=== PATIENT | female | born 1935 | race Caucasian/White ===

== ENCOUNTER 2016-04-09 22:05 | Inpatient (IN) | payer BC, MEDICARE ==
[2016-04-09] MEDS ORDERED: SODIUM CHLORIDE 0.9% 1,000 ML IV STA ×2 (23:28)
--- NOTE | 2016-04-09 23:34 | ED ---
General Adult HPI - General Chief complaint: Recheck/Abnormal Lab/Rx Stated complaint: Dehydration Time Seen by Provider: 04/09/16 22:33 Source: patient, family, EMS, RN notes reviewed, old records reviewed Mode of arrival: EMS Limitations: no limitations - History of Present Illness Initial comments: Chief complaint and history of present illness this is a 72-year-old female with dementia. Here with the . He brought her in because she's been not eating very much for the last 3 days barely drinking barely eating. He also reports that she stood for 30 straight hours of the hallway only going to the toilet and then back. Yesterday she fell asleep at 4 PM awakened today at 4 PM. She was thirsty. Reportedly diagnosed with dementia some 6 months ago. The patient does know that she is in the hospital and she does know her ' s name. She has no answer as to why she stood for 30 hours. States she is thirsty and hungry at this time. Patient's lips are dry and cracked tongue is dry - Related Data Home Medications Medication Instructions Recorded Confirmed Calcium Carbonate/Vitamin D3 1 tab PO DAILY 06/17/15 06/17/15 [Calcium 600-Vit D3 400 Tablet] Desmopressin [Ddavp] 0.2 mg PO HS 06/17/15 06/17/15 Escitalopram [Lexapro] 15 mg PO DAILY 06/17/15 04/09/16 Famotidine [Pepcid] 40 mg PO BID 06/17/15 04/09/16 Fluticasone Nasal Barry [Flonase 2 spray EA NOSTRIL DAILY 06/17/15 04/09/16 Nasal Barry] LORazepam [Ativan] 0.5 mg PO Q8H PRN 06/17/15 04/09/16 Mirabegron [Myrbetriq] 50 mg PO DAILY 06/17/15 06/17/15 Multivitamins, Thera [Multivitamin] 1 tab PO DAILY 06/17/15 06/17/15 Polyethylene Glycol 3350 [Miralax] 17 gm PO DAILY PRN 06/17/15 06/17/15 Previous Rx's Medication Instructions Recorded Donepezil [Aricept] 5 mg PO HS #7 tab 01/12/15 Memantine [Namenda] 5 mg PO DAILY #7 tab 01/12/15 busPIRone HCl [Buspar] 10 mg PO TID #21 tab 01/12/15 Aspirin 81 mg PO DAILY #30 chew 06/21/15 Levofloxacin [Levaquin] 500 mg PO Q24H #5 tab 06/21/15 Spironolactone [Aldactone] 25 mg PO DAILY #30 tab 06/21/15 amLODIPine [Norvasc] 5 mg PO DAILY #30 tab 06/21/15 guaiFENesin SYRUP 100MG/5ML 200 mg PO Q6H PRN #12 cup 06/21/15 [Robitussin] Allergies Allergy/AdvReac Type Severity Reaction Status Date / Time Benzodiazepines AdvReac SEVERE LEG Verified 06/17/15 16:25 CRAMPS diazepam AdvReac Hallucinati Verified 06/17/15 16:25 ons lithium [[place]] AdvReac Nausea & Verified 06/17/15 16:25 Vomiting simvastatin AdvReac SEVERE LEG Verified 06/17/15 16:25 CRAMPS sulfamethoxazole AdvReac Vomiting Verified 06/17/15 16:25 [From Bactrim] trimethoprim [From Bactrim] AdvReac Vomiting Verified 06/17/15 16:25 Review of Systems ROS Statement: Those systems with pertinent positive or pertinent negative responses have been documented in the HPI. Review of systems. The patient's denying head ache or chest pain denies nausea vomiting says he did not notice any. He states she has frequent urinary tract infections. The patient is not entirely cooperative or is unable to cooperate. Past medical problems as noted per previous charts includes CHF, I disorder, GERD, hyperlipidemia and hypertension. Osteoarthritis previous pneumonia hypothyroidism. The patient's surgeries include tonsils and adenoids, breast surgery, hysterectomy, joint replacement. Family history unable to obtain at this time. Patient reportedly has ALLERGIES to benzodiazepines, diazepam, lithium, simvastatin, sulfamethoxazole. ROS Other: All systems not noted in ROS Statement are negative. Past Medical History Past Medical History: Heart Failure, Eye Disorder, GERD/Reflux, Hyperlipidemia, Hypertension, Osteoarthritis (OA), Pneumonia, Thyroid Disorder Additional Past Medical History / Comment(s): 06-17-15 ADMITTED WITH COMM ACQUIRED BACTERIAL PNE/HYPOXIA, FAILED O/P TX. varicose veins, macular degeneration, glaucoma, hx GENITAL STD-PER PAST MED HX. BRONCHITIS, DJD, MULTIPLE UTI'S STRESS INCOT OF URINE, CONSTIPATION,HIATAL HERNIA PT STATED " THINKS SHE WAS TOLD SHE MAY HAVE A SMALL AORTIC ANUERYSM" NOT SURE. History of Any Multi-Drug Resistant Organisms: None Reported Past Surgical History: Adenoidectomy, Breast Surgery, Hysterectomy, Joint Replacement, Orthopedic Surgery, Tonsillectomy Additional Past Surgical History / Comment(s): contigen injections into bladder , Lt TKA, Bilat cataracts removed, rt breast biopsy-NEG, rt shoulder arthroscopy , colonoscopy/EGD. Past Anesthesia/Blood Transfusion Reactions: No Reported Reaction Past Psychological History: Anxiety, Depression Smoking Status: Former smoker Past Alcohol Use History: None Reported Additional Past Alcohol Use History / Comment(s): QUIT SMOKING 1994, SMOKED >20 YEARS UP TO 1 PPD Past Drug Use History: None Reported - Past Family History Father Family Medical History: Cancer Brother(s) Family Medical History: Cancer General Exam - General Exam Comments Initial Comments: General: The patient is awake continuously smacks her lips. Looks around nervously. Does not seem to be paying attention with and without masses specific questioning she does answer. Vital signs temp 97.9 pulse 63 respiratory rate 18 pulse ox 95% room air blood pressure 225/88. Eye: Pupils are equal, round and reactive to light, extra-ocular movements are intact ; there is normal conjunctiva bilaterally. No signs of icterus. Ears, nose, mouth and throat: Dry cracked lower lip and dry tongue. Patient wears dentures. Neck: The neck is supple, there is no tenderness Cardiovascular: There is a regular rate and rhythm. No murmur, rub or gallop is appreciated. Respiratory: Lungs are clear to auscultation, respirations are non-labored, breath sounds are equal. No wheezes, stridor, rales, or rhonchi. Gastrointestinal: No guarding with palpation. No organomegaly. Hypoactive bowel sounds. Back: No complaint of back pain. Musculoskeletal: Normal ROM, no tenderness, minimal edema There is no calf tenderness or swelling. Sensation intact. Pulses equal bilaterally 2+. Neurological: Neurologically moving all extremities. Following commands. But seems distant. Appears anxious with a confused look. Skin: Skin is warm and dry and no rashes or lesions are noted. Psychiatric: States she's not depressed. Limitations: no limitations Course Vital Signs 04/09/16 22:11 Temperature 97.9 F Pulse Rate 63 Respiratory 18 Rate Blood Pressure 225/88 O2 Sat by Pulse 95 Oximetry EKG Findings - EKG Comments: EKG Findings:: EKG was done and reviewed at 00 14 a.m. showing sinus rhythm with a first-degree AV block rate 61 there is no ectopy no ischemic changes. Was 254 QRS 98 QT [address] Mcclendon Medical Decision Making - Medical Decision Making Medical decision making patient's white count 8 point 0.4 hemoglobin 14.7 medical 43 with an INR 1.3. Potassium 3.8 to BUN 20 creatinine 0.7 GFR greater than 60. MB fraction 2.8 troponin less than 0.012. Urine shows evidence of urinary tract infection with 1 rbc and 88 WBCs. Patient will be started on Levaquin. Admitted the hospital mental changes. - Lab Data Result diagrams: 04/10/16 00:00 04/10/16 00:00 Lab Results 04/10/16 04/10/16 04/10/16 Range/Units 00:00 00:00 00:00 WBC 8.4 (3.8-10.6) k/uL RBC 4.97 (3.80-5.40) m/uL Hgb 14.7 (11.4-16.0) gm/dL Hct 43.8 (34.0-46.0) % MCV 88.0 (80.0-100.0) fL MCH 29.5 (25.0-35.0) pg MCHC 33.5 (31.0-37.0) g/dL RDW 13.2 (11.5-15.5) % Plt Count 257 (150-450) k/uL Neutrophils % 63 % Lymphocytes % 21 % Monocytes % 12 % Eosinophils % 2 % Basophils % 1 % Neutrophils # 5.3 (1.3-7.7) k/uL Lymphocytes # 1.7 (1.0-4.8) k/uL Monocytes # 1.0 (0-1.0) k/uL Eosinophils # 0.1 (0-0.7) k/uL Basophils # 0.1 (0-0.2) k/uL PT (9.0-12.0) sec INR (<1.1) APTT (22.0-30.0) sec Sodium 143 (137-145) mmol/L Potassium 3.8 (3.5-5.1) mmol/L Chloride 109 H (98-107) mmol/L Carbon Dioxide 23 (22-30) mmol/L Anion Gap 11 mmol/L BUN 20 H (7-17) mg/dL Creatinine 0.70 (0.52-1.04) mg/dL Est GFR (MDRD) Af Amer >60 (>60 ml/min/1.73 sqM) Est GFR (MDRD) Non-Af >60 (>60 ml/min/1.73 sqM) Glucose 94 (74-99) mg/dL Plasma Lactic Acid Star (0.7-2.0) mmol/L Calcium 9.7 (8.4-10.2) mg/dL Phosphorus 2.1 L (2.5-4.5) mg/dL Magnesium 2.1 (1.6-2.3) mg/dL Total Bilirubin 1.6 H (0.2-1.3) mg/dL AST 42 H (14-36) U/L ALT 35 (9-52) U/L Alkaline Phosphatase 82 (38-126) U/L Total Creatine Kinase 253 H (30-135) U/L CK-MB (CK-2) 2.8 H* (0.0-2.4) ng/mL CK-MB (CK-2) Rel Index 1.1 Troponin I <0.012 (0.000-0.034) ng/mL Total Protein 6.5 (6.3-8.2) g/dL Albumin 4.0 (3.5-5.0) g/dL Urine Color Urine Appearance (Clear) Urine pH (5.0-8.0) Ur Specific Calvert (1.001-1.035) Urine Protein (Negative) Urine Glucose (UA) (Negative) Urine Ketones (Negative) Urine Blood (Negative) Urine Nitrate (Negative) Urine Bilirubin (Negative) Urine Urobilinogen (<2.0) mg/dL Ur Leukocyte Esterase (Negative) Urine RBC (0-5) /hpf Urine WBC (0-5) /hpf Ur Squamous Epith Cells (0-4) /hpf Urine Bacteria (None) /hpf Hyaline Casts (0-2) /lpf Urine Mucus (None) /hpf 04/10/16 04/10/16 04/10/16 Range/Units 00:00 00:00 00:10 WBC (3.8-10.6) k/uL RBC (3.80-5.40) m/uL Hgb (11.4-16.0) gm/dL Hct (34.0-46.0) % MCV (80.0-100.0) fL MCH (25.0-35.0) pg MCHC (31.0-37.0) g/dL RDW (11.5-15.5) % Plt Count (150-450) k/uL Neutrophils % % Lymphocytes % % Monocytes % % Eosinophils % % Basophils % % Neutrophils # (1.3-7.7) k/uL Lymphocytes # (1.0-4.8) k/uL Monocytes # (0-1.0) k/uL Eosinophils # (0-0.7) k/uL Basophils # (0-0.2) k/uL PT 12.9 H (9.0-12.0) sec INR 1.3 (<1.1) APTT 22.1 (22.0-30.0) sec Sodium (137-145) mmol/L Potassium (3.5-5.1) mmol/L Chloride (98-107) mmol/L Carbon Dioxide (22-30) mmol/L Anion Gap mmol/L BUN (7-17) mg/dL Creatinine (0.52-1.04) mg/dL Est GFR (MDRD) Af Amer (>60 ml/min/1.73 sqM) Est GFR (MDRD) Non-Af (>60 ml/min/1.73 sqM) Glucose (74-99) mg/dL Plasma Lactic Acid Star 1.2 (0.7-2.0) mmol/L Calcium (8.4-10.2) mg/dL Phosphorus (2.5-4.5) mg/dL Magnesium (1.6-2.3) mg/dL Total Bilirubin (0.2-1.3) mg/dL AST (14-36) U/L ALT (9-52) U/L Alkaline Phosphatase (38-126) U/L Total Creatine Kinase (30-135) U/L CK-MB (CK-2) (0.0-2.4) ng/mL CK-MB (CK-2) Rel Index Troponin I (0.000-0.034) ng/mL Total Protein (6.3-8.2) g/dL Albumin (3.5-5.0) g/dL Urine Color Yellow Urine Appearance Cloudy H (Clear) Urine pH 6.5 (5.0-8.0) Ur Specific Calvert 1.016 (1.001-1.035) Urine Protein Trace H (Negative) Urine Glucose (UA) Negative (Negative) Urine Ketones 2+ H (Negative) Urine Blood Negative (Negative) Urine Nitrate Negative (Negative) Urine Bilirubin Negative (Negative) Urine Urobilinogen <2.0 (<2.0) mg/dL Ur Leukocyte Esterase Large H (Negative) Urine RBC 2 (0-5) /hpf Urine WBC 88 H (0-5) /hpf Ur Squamous Epith Cells <1 (0-4) /hpf Urine Bacteria Many H (None) /hpf Hyaline Casts 10 H (0-2) /lpf Urine Mucus Moderate H (None) /hpf Disposition Clinical Impression: Urinary tract infection, General weakness Disposition: ADMITTED IP TO THIS HOSP
[2016-04-10 00:27] LABS: Basophils # (A) 0.1 k/uL (0-0.2); Basophils % (A) 1 %; CH 30.3; CHCM 34.5; Eosinophils # (A) 0.1 k/uL (0-0.7); Eosinophils % (A) 2 %; HCT 43.8 % (34.0-46.0); HGB 14.7 gm/dL (11.4-16.0); Luc # (Auto) 0.22; Luc % (Auto) 3; Lymphocytes # (A) 1.7 k/uL (1.0-4.8); Lymphocytes % (A) 21 %; MCH 29.5 pg (25.0-35.0); MCHC 33.5 g/dL (31.0-37.0); Mean Platelet Volume 6.2; Monocytes % (A) 12 %; Neutrophils # (A) 5.3 k/uL (1.3-7.7); Neutrophils % (A) 63 %; RBC 4.97 m/uL (3.80-5.40); RDW 13.2 % (11.5-15.5); WBC 8.4 k/uL (3.8-10.6); WBC (Perox) 8.38
[2016-04-10 00:28] LABS: ALT 35 U/L (9-52); AST 42 U/L (14-36); Alkaline Phosphatase 82 U/L (38-126); Anion Gap 11 mmol/L; Blood Urea Nitrogen 20 mg/dL (7-17); Calcium 9.7 mg/dL (8.4-10.2); Carbon Dioxide 23 mmol/L (22-30); Chloride 109 mmol/L (98-107); Glucose 94 mg/dL (74-99); Magnesium 2.1 mg/dL (1.6-2.3); Non-African American GFR(MDRD) >60 (>60 ml/min/1.73 sqM); Phosphorous 2.1 mg/dL (2.5-4.5); Potassium 3.8 mmol/L (3.5-5.1); Sodium 143 mmol/L (137-145); Total Bilirubin 1.6 mg/dL (0.2-1.3); Total Protein 6.5 g/dL (6.3-8.2)
[2016-04-10 00:31] LABS: Creatine Kinase 253 U/L (30-135)
[2016-04-10 00:35] LABS: Appearance,Urine Cloudy (Clear); Bacteria,Urine Many /hpf; Bilirubin,Urine Negative (Negative); Glucose,Urine (UA) Negative (Negative); Ketones,Urine 2+ (Negative); Leukocyte Esterase,Urine Large (Negative); Mucus,Urine Moderate /hpf; Nitrite,Urine Negative (Negative); PH, Urine 6.5 (5.0-8.0); Particle Count 110322; Protein,Urine Trace (Negative); RBC,Urine 2 /hpf (0-5); Specific Gravity,Urine 1.016 (1.001-1.035); Squamous Epithelial Cell,Urine <1 /hpf (0-4); UA Billing (MACRO vs. MICRO) MICRO; Urobilinogen,Urine <2.0 mg/dL (<2.0); WBC,Urine 88 /hpf (0-5)
[2016-04-10 00:38] LABS: INR 1.3 (<1.1); Partial Thromboplastin Time 22.1 sec (22.0-30.0); Prothrombin Time 12.9 sec (9.0-12.0)
[2016-04-10 00:43] LABS: Troponin I <0.012 ng/mL (0.000-0.034)
[2016-04-10 00:44] LABS: Creatine Kinase MB 2.8 ng/mL (0.0-2.4)
[2016-04-10] MEDS ORDERED: LEVOFLOXACIN 500MG-D5W PMX 500 MG in DEXTROSE/WATER 1 100ML.BAG IVPB STA (01:28)
[2016-04-10] MEDS ORDERED: ACETAMINOPHEN TAB 325 MG TAB PO PRN (01:30)
[2016-04-10] MEDS ORDERED: NALOXONE 0.4 MG/ML 1 ML VIAL IV PRN (01:30)
--- NOTE | 2016-04-10 01:38 | XR ---
EXAMINATION TYPE: XR chest 2V DATE OF EXAM: 04/10/2016 12:30 AM COMPARISON: 06/18/2015 HISTORY: Weakness TECHNIQUE: Frontal and lateral views of the chest are obtained. FINDINGS: Chronic lung changes are suggested bilaterally. There is no focal air space opacity, pleur al effusion, or pneumothorax seen. The cardiac silhouette size is within normal limits. Mild wedge c ompression deformities are noted in the mid to upper thoracic vertebrae and are most likely old. Mult ilevel degenerative changes are present in the thoracic spine. IMPRESSION: No acute cardiopulmonary process. No significant interval change.
[2016-04-10] MEDS ORDERED: LORazepam 0.5 MG TAB PO PRN (01:39)
[2016-04-10 03:16] VITALS: BMI 24.0
[2016-04-10] MEDS: SODIUM CHLORIDE 0.9% 1,000 ML IV SCH ×3 (04:56→20:34)
[2016-04-10] MEDS: ESCITALOPRAM 10 MG TAB PO SCH (08:27)
[2016-04-10] MEDS: OXYBUTYNIN CHLORIDE 5 MG TAB PO SCH ×2 (08:27→20:34)
[2016-04-10] MEDS: SPIRONOLACTONE 25 MG TAB PO SCH (08:28)
[2016-04-10] MEDS: amLODIPine 5 MG TAB PO SCH (08:28)
[2016-04-10] MEDS: busPIRone HCl 10 MG TAB PO SCH ×3 (08:28→20:34)
[2016-04-10] MEDS: FLUTICASONE 50MCG/SPRAY NASAL 16GM EA NOSTRIL SCH (08:29)
[2016-04-10] MEDS ORDERED: PANTOPRAZOLE 40 MG/10 ML VIAL IV SCH (09:00)
[2016-04-10] MEDS: POLYETHYLENE GLYCOL 3350 17 GM POWD.PACK PO SCH (09:27)
[2016-04-10] MEDS: LISINOPRIL 20 MG TAB PO SCH (11:33)
[2016-04-10] MEDS: CALCIUM CARB-VIT D 500MG-200UN 1 EACH TAB PO SCH (11:33)
[2016-04-10] MEDS: MULTIVITAMINS, THERA 1 EACH TAB PO SCH (11:33)
--- NOTE | 2016-04-10 11:33 | P.HPIM ---
History of Present Illness H&P Date: 04/10/16 Chief Complaint: Not feeling well This is a 80-year-old female, patient of Dr. Sellers. She has a known past medical history of dementia, hypertension, hyperlipidemia and hypothyroidism. Patient was brought into the emergency room by her . He was concerned because she has not been eating very much over the last 3 days it barely drinking any water. He then reported per ER that she stood 30 hours straight in the hallway only going to the toilet and then back. Yesterday she fell asleep at 4 PM and awaken today at 4 PM. Patient is currently alert and orientated to 3. But does not know why she is in the hospital. She is a poor historian. She denies any pain. Denies any nausea or vomiting. Denies any abdominal pain. Denies any chest pain or shortness of breath. Denies any burning with urination or and frequency or urgency or hesitancy. Patient was found to have a UTI and was started on IV Levaquin in the emergency room. Urine culture is pending. She also had evidence of a hypertensive emergency on admission with a blood pressure of 225/88. He was restarted on blood pressure medications from home and blood pressure is currently 135/72. She also had some evidence of dehydration was started on IV fluids. Patient is currently resting comfortably in bed. Bedside sitter is present. Also note the patient denies any fevers chills or sweats. Denies any diarrhea. Review of Systems Please refer to HPI otherwise all other review systems are negative Past Medical History Past Medical History: Heart Failure, Eye Disorder, GERD/Reflux, Hyperlipidemia, Hypertension, Osteoarthritis (OA), Pneumonia, Thyroid Disorder Additional Past Medical History / Comment(s): 06-17-15 ADMITTED WITH COMM ACQUIRED BACTERIAL PNE/HYPOXIA, FAILED O/P TX. varicose veins, macular degeneration, glaucoma, hx GENITAL STD-PER PAST MED HX. BRONCHITIS, DJD, MULTIPLE UTI'S STRESS INCOT OF URINE, CONSTIPATION,HIATAL HERNIA PT STATED " THINKS SHE WAS TOLD SHE MAY HAVE A SMALL AORTIC ANUERYSM" NOT SURE. History of Any Multi-Drug Resistant Organisms: None Reported Past Surgical History: Adenoidectomy, Breast Surgery, Hysterectomy, Joint Replacement, Orthopedic Surgery, Tonsillectomy Additional Past Surgical History / Comment(s): contigen injections into bladder , Lt TKA, Bilat cataracts removed, rt breast biopsy-NEG, rt shoulder arthroscopy , colonoscopy/EGD. Past Anesthesia/Blood Transfusion Reactions: No Reported Reaction Past Psychological History: Anxiety, Depression Smoking Status: Former smoker Past Alcohol Use History: None Reported Additional Past Alcohol Use History / Comment(s): QUIT SMOKING 1994, SMOKED >20 YEARS UP TO 1 PPD Past Drug Use History: None Reported - Past Family History Father Family Medical History: Cancer Brother(s) Family Medical History: Cancer Medications and Allergies Home Medications Medication Instructions Recorded Confirmed Type Escitalopram [Lexapro] 10 mg PO DAILY 06/17/15 04/10/16 History ARIPiprazole [Abilify] 1 mg PO HS 04/10/16 04/10/16 History Acyclovir [Zovirax] 800 mg PO DAILY 04/10/16 04/10/16 History Calcium Carbonate/Vitamin D3 1 tab PO DAILY 04/10/16 04/10/16 History [Calcium 600-Vit D3 200 Tablet] Levothyroxine Sodium [Synthroid] 125 mcg PO DAILY 04/10/16 04/10/16 History Memantine HCl [Namenda] 5 mg PO HS 04/10/16 04/10/16 History Multivit-Min/FA/Lycopene/Lut 1 tab PO DAILY 04/10/16 04/10/16 History [Centrum Silver Tablet] Niacin 500 mg PO DAILY 04/10/16 04/10/16 History Polyethylene Glycol 3350 [Miralax] 17 gm PO DAILY 04/10/16 04/10/16 History Quinapril HCl [Accupril] 20 mg PO DAILY 04/10/16 04/10/16 History Spironolactone [Aldactone] 50 mg PO DAILY 04/10/16 04/10/16 History Timolol 0.5% Ophth Soln [Timoptic 1 drop BOTH EYES DAILY 04/10/16 04/10/16 History 0.5% Ophth Soln] lamoTRIgine [LaMICtal] 25 mg PO BID 04/10/16 04/10/16 History Allergies Allergy/AdvReac Type Severity Reaction Status Date / Time Benzodiazepines AdvReac SEVERE LEG Verified 06/17/15 16:25 CRAMPS diazepam AdvReac Hallucinati Verified 06/17/15 16:25 ons lithium [[place]] AdvReac Nausea & Verified 06/17/15 16:25 Vomiting simvastatin AdvReac SEVERE LEG Verified 06/17/15 16:25 CRAMPS sulfamethoxazole AdvReac Vomiting Verified 06/17/15 16:25 [From Bactrim] trimethoprim [From Bactrim] AdvReac Vomiting Verified 06/17/15 16:25 Physical Exam Vitals: Vital Signs Temp Pulse Pulse Resp BP BP Pulse Ox 04/10/16 07:00 98.3 F 60 16 178/79 97 04/10/16 03:00 98.0 F 60 16 149/75 98 04/10/16 01:37 97.2 F L 64 18 135/72 Intake and Output 04/09/16 04/10/16 04/10/16 22:59 06:59 14:59 Intake Total 300 Balance 300 Intake: IV 300 Sodium Chloride 0.9% 1, 300 000 ml @ 100 mls/hr IV . Q10H PAYAM Rx#:[id number] Other: Voiding Method Toilet Incontinent # Voids 1 # Bowel Movements 1 Weight 63.5 kg Head normocephalic Neck supple Lungs clear to auscultation bilaterally no wheezing or crackles Heart regular rate and rhythm S1-S2, no rub or gallop Abdomen is soft nontender nondistended positive bowel sounds no hepatosplenomegaly Extremities no edema Neuro alert and orientated to 3 Results CBC & Chem 7: 04/10/16 00:00 04/10/16 00:00 Thrombosis Risk Factor Assmnt - Choose All That Apply Any of the Below Risk Factors Present?: No Other Risk Factors: Yes Each Risk Factor Represents 3 Points: Age 75 years or older Thrombosis Risk Factor Assessment Total Risk Factor Score: 3 Thrombosis Risk Factor Assessment Level: Moderate Risk Assessment and Plan Plan: 1. UTI: Patient started on Levaquin. Awaiting urine culture. Continue with IV fluids 2. Hypertensive emergency on admission. Blood pressures have normalized. Resume home BP meds 3. Essential hypertension 4. Mild dehydration present on admission. Continue with IV fluids. 5. Generalized anxiety disorder and depression. 6. Dementia continue Aricept 7. Altered mental status changes: Likely a metabolic encephalopathy due to UTI GI prophylaxis Protonix and DVT prophylaxis Lovenox Time with Patient: Greater than 30 (Greater than 50% of the total time spent in counseling and coordination of care.I performed an examination of the patient and discussed their management with the physician Rn Or Lpn. I have reviewed the Physician Rn Or Lpn's notes and agree with the documented findings and plan of care)
[2016-04-10] MEDS: NIACIN TR 500 MG CAPSULE.ER PO SCH (11:34)
[2016-04-10] MEDS: LEVOTHYROXINE 125 MCG TAB PO SCH (11:45)
[2016-04-10] MEDS: ARIPiprazole 2 MG TAB PO SCH (20:32)
[2016-04-10] MEDS: lamoTRIgine 25 MG TAB PO SCH (20:33)
[2016-04-10] MEDS: DONEPEZIL 5 MG TAB PO SCH (20:33)
[2016-04-10] MEDS: MEMANTINE 5 MG TAB PO SCH (20:34)
[2016-04-11] MEDS: LEVOFLOXACIN 500 MG TAB PO SCH ×2 (00:48→20:13)
[2016-04-11] MEDS: LEVOTHYROXINE 125 MCG TAB PO SCH (06:35)
[2016-04-11] MEDS ORDERED: LEVOFLOXACIN 500MG-D5W PMX 500 MG in DEXTROSE/WATER 1 100ML.BAG IVPB SCH (07:00)
[2016-04-11] MEDS: ACYCLOVIR 800 MG TAB PO SCH (08:13)
[2016-04-11] MEDS: lamoTRIgine 25 MG TAB PO SCH ×2 (08:13→20:13)
[2016-04-11] MEDS: POLYETHYLENE GLYCOL 3350 17 GM POWD.PACK PO SCH (08:13)
[2016-04-11] MEDS: PANTOPRAZOLE 40 MG TABLET PO SCH (08:13)
[2016-04-11] MEDS: SPIRONOLACTONE 25 MG TAB PO SCH (08:14)
[2016-04-11] MEDS: ASPIRIN 81 MG CHEW PO SCH (08:14)
[2016-04-11] MEDS: ENOXAPARIN 40 MG/0.4 ML SYRINGE SQ SCH (08:14)
[2016-04-11] MEDS: LISINOPRIL 20 MG TAB PO SCH (08:14)
[2016-04-11] MEDS: OXYBUTYNIN CHLORIDE 5 MG TAB PO SCH ×2 (08:14→20:12)
[2016-04-11] MEDS: busPIRone HCl 10 MG TAB PO SCH ×3 (08:14→20:13)
[2016-04-11] MEDS: ESCITALOPRAM 10 MG TAB PO SCH (08:14)
[2016-04-11] MEDS: amLODIPine 5 MG TAB PO SCH (08:14)
[2016-04-11] MEDS: FLUTICASONE 50MCG/SPRAY NASAL 16GM EA NOSTRIL SCH (08:15)
[2016-04-11] MEDS: TIMOLOL 0.5% OPHTH DROPS 5 ML BTL BOTH EYES SCH (08:49)
[2016-04-11] MEDS: SODIUM CHLORIDE 0.9% 1,000 ML IV SCH ×2 (10:06→19:30)
[2016-04-11] MEDS: MULTIVITAMINS, THERA 1 EACH TAB PO SCH (11:56)
[2016-04-11] MEDS: CALCIUM CARB-VIT D 500MG-200UN 1 EACH TAB PO SCH (11:56)
[2016-04-11] MEDS: NIACIN TR 500 MG CAPSULE.ER PO SCH (11:56)
[2016-04-11 14:30] LABS: Basophils # (A) 0.1 k/uL (0-0.2); Basophils % (A) 1 %; CH 29.7; CHCM 32.6; Eosinophils # (A) 0.3 k/uL (0-0.7); Eosinophils % (A) 6 %; HCT 48.2 % (34.0-46.0); HDW 2.37; HGB 15.5 gm/dL (11.4-16.0); Luc # (Auto) 0.08; Luc % (Auto) 1; Lymphocytes % (A) 19 %; MCH 29.3 pg (25.0-35.0); MCV 91.4 fL (80.0-100.0); Mean Platelet Volume 6.7; Monocytes # (A) 0.2 k/uL (0-1.0); Monocytes % (A) 3 %; Neutrophils # (A) 3.8 k/uL (1.3-7.7); Neutrophils % (A) 70 %; RBC 5.28 m/uL (3.80-5.40); RDW 13.1 % (11.5-15.5); WBC 5.5 k/uL (3.8-10.6); WBC (Perox) 5.48
[2016-04-11 14:44] LABS: ALT 31 U/L (9-52); AST 36 U/L (14-36); Alkaline Phosphatase 70 U/L (38-126); Anion Gap 11 mmol/L; Blood Urea Nitrogen 13 mg/dL (7-17); Calcium 9.9 mg/dL (8.4-10.2); Carbon Dioxide 23 mmol/L (22-30); Chloride 108 mmol/L (98-107); Glucose 76 mg/dL (74-99); Non-African American GFR(MDRD) >60 (>60 ml/min/1.73 sqM); Potassium 4.7 mmol/L (3.5-5.1); Sodium 142 mmol/L (137-145); Total Bilirubin 0.8 mg/dL (0.2-1.3); Total Protein 6.9 g/dL (6.3-8.2)
--- NOTE | 2016-04-11 17:37 | P.PN ---
Subjective Principal diagnosis: Urinary tract infection Patient is a 80-year-old female admitted to [facility] was evidence of urinary tract infection, mental status changes due to metabolic encephalopathy, she has been maintained on IV Levaquin urine culture is positive for gram-negative bacilli awaiting full culture results with sensitivity. Clinically patient is doing better she is alert less confused she has baseline dementia and patient is close to her baseline. Objective - Vital Signs Vital signs: Vital Signs Temp 98.2 F 04/11/16 15:00 Pulse 52 L 04/11/16 15:00 Resp 16 04/11/16 15:00 BP 135/65 04/11/16 15:00 Pulse Ox 96 04/11/16 15:00 Intake & Output 04/10/16 04/11/16 04/11/16 18:59 06:59 18:59 Intake Total 800 Balance 800 Intake: IV 800 Sodium Chloride 0.9% 1, 800 000 ml @ 100 mls/hr IV . Q10H PAYAM Rx#:[id number] Other: Voiding Method Toilet Toilet Toilet # Voids 2 2 3 # Bowel Movements 1 1 - Exam HEENT head normocephalic and atraumatic Neck is supple no JVD no goiter no lymphadenopathy Chest exam reveals a few scattered crackles no wheezing Cardiac exam reveals regular heart sounds no gallops no murmurs Abdomen is soft nontender no organomegaly with normal bowel sounds Extremity exam reveals no edema no cyanosis or clubbing - Labs CBC & Chem 7: 04/11/16 13:16 04/11/16 13:16 Labs: Abnormal Lab Results - Last 24 Hours (Table) 04/11/16 04/11/16 Range/Units 13:16 13:16 Hct 48.2 H (34.0-46.0) % Chloride 108 H (98-107) mmol/L Assessment and Plan Plan: 1. UTI: Patient started on Levaquin. Awaiting urine culture. Continue with IV fluids 2. Hypertensive emergency on admission. Blood pressures have normalized. Resume home BP meds 3. Metabolic encephalopathy with mental status changes, now almost back to her baseline 4. Mild dehydration present on admission. Continue with IV fluids. 5. Generalized anxiety disorder and depression. 6. Dementia continue Aricept and Namenda mental status is close to normal baseline for her 7. Altered mental status changes: Likely a metabolic encephalopathy due to UTI 8. GI prophylaxis Protonix and DVT prophylaxis Lovenox
[2016-04-11] MEDS: MEMANTINE 5 MG TAB PO SCH (20:12)
[2016-04-11] MEDS: ARIPiprazole 2 MG TAB PO SCH (20:13)
[2016-04-11] MEDS: DONEPEZIL 5 MG TAB PO SCH (20:13)
[2016-04-12] MEDS: LEVOTHYROXINE 125 MCG TAB PO SCH (05:30)
[2016-04-12 07:29] LABS: Basophils # (A) 0.1 k/uL (0-0.2); Basophils % (A) 2 %; CHCM 33.5; Eosinophils # (A) 0.3 k/uL (0-0.7); Eosinophils % (A) 5 %; HCT 42.4 % (34.0-46.0); HDW 2.41; Luc # (Auto) 0.25; Luc % (Auto) 4; Lymphocytes # (A) 1.7 k/uL (1.0-4.8); Lymphocytes % (A) 28 %; MCH 29.7 pg (25.0-35.0); Mean Platelet Volume 7.5; Monocytes # (A) 0.8 k/uL (0-1.0); Monocytes % (A) 13 %; Neutrophils % (A) 49 %; RBC 4.72 m/uL (3.80-5.40); RDW 13.3 % (11.5-15.5); WBC 6.1 k/uL (3.8-10.6); WBC (Perox) 6.53
[2016-04-12 07:37] VITALS: RESP 18; TEMP 98.4
[2016-04-12 07:45] LABS: ALT 34 U/L (9-52); AST 25 U/L (14-36); Alkaline Phosphatase 66 U/L (38-126); Anion Gap 11 mmol/L; Blood Urea Nitrogen 12 mg/dL (7-17); Calcium 9.5 mg/dL (8.4-10.2); Carbon Dioxide 20 mmol/L (22-30); Chloride 112 mmol/L (98-107); Glucose 86 mg/dL (74-99); Non-African American GFR(MDRD) >60 (>60 ml/min/1.73 sqM); Sodium 143 mmol/L (137-145); Total Bilirubin 0.6 mg/dL (0.2-1.3); Total Protein 5.8 g/dL (6.3-8.2)
[2016-04-12] MEDS: ACYCLOVIR 800 MG TAB PO SCH (08:59)
[2016-04-12] MEDS: PANTOPRAZOLE 40 MG TABLET PO SCH (08:59)
[2016-04-12] MEDS: ASPIRIN 81 MG CHEW PO SCH (08:59)
[2016-04-12] MEDS: amLODIPine 5 MG TAB PO SCH (08:59)
[2016-04-12] MEDS: busPIRone HCl 10 MG TAB PO SCH (08:59)
[2016-04-12] MEDS: ENOXAPARIN 40 MG/0.4 ML SYRINGE SQ SCH (09:00)
[2016-04-12] MEDS: ESCITALOPRAM 10 MG TAB PO SCH (09:00)
[2016-04-12] MEDS: POLYETHYLENE GLYCOL 3350 17 GM POWD.PACK PO SCH (09:01)
[2016-04-12] MEDS: OXYBUTYNIN CHLORIDE 5 MG TAB PO SCH (09:01)
[2016-04-12] MEDS: LISINOPRIL 20 MG TAB PO SCH (09:01)
[2016-04-12] MEDS: lamoTRIgine 25 MG TAB PO SCH (09:01)
[2016-04-12] MEDS: FLUTICASONE 50MCG/SPRAY NASAL 16GM EA NOSTRIL SCH (09:01)
[2016-04-12] MEDS: TIMOLOL 0.5% OPHTH DROPS 5 ML BTL BOTH EYES SCH ×2 (09:02→09:05)
[2016-04-12] MEDS: SPIRONOLACTONE 25 MG TAB PO SCH (09:02)
[2016-04-12] MEDS: CALCIUM CARB-VIT D 500MG-200UN 1 EACH TAB PO SCH (12:17)
[2016-04-12] MEDS: MULTIVITAMINS, THERA 1 EACH TAB PO SCH (12:17)
[2016-04-12] MEDS: NIACIN TR 500 MG CAPSULE.ER PO SCH (12:18)
[2016-04-12] MEDS: SODIUM CHLORIDE 0.9% 1,000 ML IV SCH (12:23)
--- NOTE | 2016-04-12 13:27 | P.DS ---
Providers Date of admission: 04/10/16 01:30 Expected date of discharge: 04/12/16 Attending physician: Keny Cruz Primary care physician: Sloane Sellers Hospital Course: Diagnosis on discharge #1 urinary tract infection with Klebsiella pneumonia #2 hypertensive emergency on admission #3 metabolic encephalopathy with mental status changes on admission #4 underlying history of Alzheimer's disease with dementia #5 mild dehydration on admission resolved Hospital course patient is a 80-year-old female patient of Dr. Sellers or presented to emergency room due to mental status changes and worsening confusion she was evaluated in the emergency room she had evidence of urinary tract infection she was started on IV Levaquin and was admitted to telemetry floor Patient had evidence of metabolic encephalopathy was worsening confusion which improved gradually with the use of IV fluid and use of IV antibiotic patient was back to her normal baseline mental status. Urine culture was done and was positive for Klebsiella pneumonia patient will be continued on Levaquin 500 mg for 5 more days Due to QT prolongation patient should hold taking Aricept for 5 days while she is taking Levaquin Follow-up with her primary care physician Dr. Sellers in one week Plan - Discharge Summary Discharge Medication List Donepezil [Aricept] 5 mg PO HS #7 tab 01/12/15 [Rx] busPIRone HCl [Buspar] 10 mg PO TID #21 tab 01/12/15 [Rx] Escitalopram [Lexapro] 10 mg PO DAILY 06/17/15 [History] Aspirin 81 mg PO DAILY #30 chew 06/21/15 [Rx] ARIPiprazole [Abilify] 1 mg PO HS 04/10/16 [History] Acyclovir [Zovirax] 800 mg PO DAILY 04/10/16 [History] Calcium Carbonate/Vitamin D3 [Calcium 600-Vit D3 200 Tablet] 1 tab PO DAILY 12/17 [History] Levothyroxine Sodium [Synthroid] 125 mcg PO DAILY 04/10/16 [History] Memantine HCl [Namenda] 5 mg PO HS 04/10/16 [History] Multivit-Min/FA/Lycopene/Lut [Centrum Silver Tablet] 1 tab PO DAILY 04/10/16 [ History] Niacin 500 mg PO DAILY 04/10/16 [History] Polyethylene Glycol 3350 [Miralax] 17 gm PO DAILY 04/10/16 [History] Quinapril HCl [Accupril] 20 mg PO DAILY 04/10/16 [History] Spironolactone [Aldactone] 50 mg PO DAILY 04/10/16 [History] Timolol 0.5% Ophth Soln [Timoptic 0.5% Ophth Soln] 1 drop BOTH EYES DAILY [History] lamoTRIgine [LaMICtal] 25 mg PO BID 04/10/16 [History] Levofloxacin [Levaquin] 500 mg PO HS tab 04/12/16 [Rx] Follow up Appointment(s)/Referral(s): Sloane Sellers MD [Primary Care Provider] - 1-2 days
[2016-04-12 14:35] VITALS: BP 103/51; PULSE 55
== END 2016-04-12 18:17 | disposition home or self-care (01) | DRG 689 ==
LOC: EC 22:05 → 5MS5E 04-10 01:30
PROVIDERS: ADMIT Internal Medicine; ATTEND Internal Medicine
DX: N39.0 Urinary tract infection, site not specified (principal); G93.41 Metabolic encephalopathy; G30.9 Alzheimer's disease, unspecified; E86.0 Dehydration; I11.0 Hypertensive heart disease with heart failure; I50.9 Heart failure, unspecified; F02.80 Dementia in other diseases classified elsewhere, unspecified severity, without behavioral disturbance, psychotic disturbance, mood disturbance, and anxiety; I16.1 Hypertensive emergency; B96.1 Klebsiella pneumoniae [K. pneumoniae] as the cause of diseases classified elsewhere; I45.81 Long QT syndrome; I44.0 Atrioventricular block, first degree; E78.5 Hyperlipidemia, unspecified; F41.1 Generalized anxiety disorder; K21.9 Gastro-esophageal reflux disease without esophagitis; K44.9 Diaphragmatic hernia without obstruction or gangrene; K59.00 Constipation, unspecified; I83.90 Asymptomatic varicose veins of unspecified lower extremity; N39.3 Stress incontinence (female) (male); R53.1 Weakness; H35.30 Unspecified macular degeneration; M19.90 Unspecified osteoarthritis, unspecified site; F32.9 Major depressive disorder, single episode, unspecified; E03.9 Hypothyroidism, unspecified; H40.9 Unspecified glaucoma; Z96.652 Presence of left artificial knee joint; Z86.79 Personal history of other diseases of the circulatory system; Z88.2 Allergy status to sulfonamides; Z88.8 Allergy status to other drugs, medicaments and biological substances; Z87.440 Personal history of urinary (tract) infections; Z87.891 Personal history of nicotine dependence; Z87.01 Personal history of pneumonia (recurrent); Z86.19 Personal history of other infectious and parasitic diseases; Z87.09 Personal history of other diseases of the respiratory system; Z87.898 Personal history of other specified conditions; Z80.9 Family history of malignant neoplasm, unspecified; Z90.710 Acquired absence of both cervix and uterus; Z98.42 Cataract extraction status, left eye; Z98.41 Cataract extraction status, right eye; Z79.899 Other long term (current) drug therapy; Z79.51 Long term (current) use of inhaled steroids
CPT/HCPCS: 36415; 71020; 80053; 81001; 82550; 82553; 83605; 83735; 84100; 84484; 85025; 85610; 85730; 87077; 87086; 87186; 93005; 96361; 96365; 99285

== ENCOUNTER → 2016-09-25 | Outpatient (CLI) | payer MEDICARE ==
[2016-09-25 12:40] LABS: Blood Urea Nitrogen 18 mg/dL (7-17); Non-African American GFR(MDRD) >60 (>60 ml/min/1.73 sqM)
== END | disposition home or self-care (01) ==
LOC: LABWHC1 11:49
PROVIDERS: ATTEND Otolaryngology
DX: H93.3X1 Disorders of right acoustic nerve (principal); H93.11 Tinnitus, right ear; H91.91 Unspecified hearing loss, right ear
CPT/HCPCS: 36415; 82565; 84520

== ENCOUNTER → 2016-10-11 | Outpatient (CLI) | payer MEDICARE ==
--- NOTE | 2016-10-11 15:29 | MR ---
EXAMINATION TYPE: MR brain and iac wo/w con DATE OF EXAM: 10/11/2016 COMPARISON: CT brain 12/28/2014 HISTORY: Rt ear hearing loss, tinnitus, acoustic nerve disorder TECHNIQUE: Multiplanar, multisequence images of the brain and brainstem is performed without and with IV contras t, utilizing 15 mL intravenous MultiHance . FINDINGS: Diffusion weighted images demonstrate no evidence of a recent infarct or other diffusion ab normality. There is no extra-axial fluid collection. Periventricular white matter shows confluent an d scattered foci of hyperintensity on inversion recovery and T2-weighted sequences. Approximately 30- 40 lesions are present. The ventricular system and cisternal spaces are normal in size and appearance . The brain volume is age appropriate, there is cortical atrophy. Midline structures demonstrate normal morphology, partially empty sella is noted. The craniocervical junction appears within normal limits. Post contrast images demonstrate no abnormal enhancement. Th e dural venous sinuses appear patent. The visualized sinuses are clear and the globes are intact. Internal auditory canals are unremarkable. Semicircular canals, cochlea show symmetric appearance. IMPRESSION: Age-related atrophy and chronic small vessel ischemic changes. No abnormality evident jarred ng the internal auditory canals or the cerebellopontine angles level.
== END | disposition home or self-care (01) ==
LOC: RADMRIMAIN 13:25
PROVIDERS: ATTEND Otolaryngology
DX: G31.9 Degenerative disease of nervous system, unspecified (principal); I67.82 Cerebral ischemia; H91.91 Unspecified hearing loss, right ear
CPT/HCPCS: 70553; A9577

== ENCOUNTER → 2017-06-04 | Outpatient (CLI) | payer MEDICARE, BC ==
--- NOTE | 2017-06-04 13:38 | US ---
EXAMINATION TYPE: US carotid duplex BILAT DATE OF EXAM: 06/04/2017 COMPARISON: NONE CLINICAL HISTORY: I67.9 Cerebrovascular disease. EXAM MEASUREMENTS: RIGHT: Peak Systolic Velocity (PSV) cm/sec ----- Right CCA: 70.2 ----- Right ICA: 61.7 ----- Right ECA: 61.5 ICA/CCA ratio: 0.9 RIGHT: End Diastole cm/sec ----- Right CCA: 15.9 ----- Right ICA: 15.4 ----- Right ECA: 6.9 LEFT: Peak Systolic Velocity (PSV) cm/sec ----- Left CCA: 65.9 ----- Left ICA: 79.6 ----- Left ECA: 90.1 ICA/CCA ratio: 1.2 LEFT: End Diastole cm/sec ----- Left CCA: 14.3 ----- Left ICA: 25.9 ----- Left ECA: 7.6 VERTEBRALS (direction of flow): Right Vertebral: Antegrade Left Vertebral: Antegrade Rhythm: Arrhythmia Grayscale images show mild eccentric plaque bilateral carotid bulbs. IMPRESSION: No hemodynamically significant stenosis identified in either internal carotid artery. Ca rdiac arrhythmia noted during real-time scanning per technologist. If this is not known finding furth er investigation with 24-hour Holter monitoring would be advised.
--- NOTE | 2017-06-04 19:05 | ECHOF ---
Referral Reason:I67.9 Cerebrovascular Disease MEASUREMENTS -------- HEIGHT: 157.5 cm WEIGHT: 68.5 kg BP: 134/78 RVIDd: 2.6 cm (< 3.3) IVSd: 1.2 cm (0.6 - 1.1) LVIDd: 4.7 cm (3.9 - 5.3) LVPWd: 1.1 cm (0.6 - 1.1) IVSs: 1.5 cm LVIDs: 3.4 cm LVPWs: 1.5 cm LA Diam: 3.1 cm (2.7 - 3.8) LAESV Index (A-L): 23.64 ml/m Ao Diam: 3.4 cm (2.0 - 3.7) AV Cusp: 2.0 cm (1.5 - 2.6) MV EXCURSION: 13.818 mm (> 18.000) MV EF SLOPE: 33 mm/s (70 - 150) EPSS: 1.5 cm MV E Higinio: 0.92 m/s MV DecT: 292 ms MV A Higinio: 0.85 m/s MV E/A Ratio: 1.09 RAP: 5.00 mmHg RVSP: 39.99 mmHg FINDINGS -------- Sinus rhythm. This was a technically adequate study. The left ventricular size is normal. There is borderline concentric left ventricular hypertrophy. Overall left ventricular systolic function is low-normal with, an EF between 50 - 55 %. The right ventricle is normal in size. Normal LA size by volume 22+/-6 ml/m2. The right atrium is normal in size. There is mild aortic valve sclerosis. Mild mitral annular calcification present. Mild mitral regurgitation is present. Mild tricuspid regurgitation present. There is mild pulmonary hypertension. The right ventricular systolic pressure, as measured by Doppler, is 39.99mmHg. Trace/mild (physiologic) pulmonic regurgitation. The aortic root size is normal. Normal inferior vena cava with normal inspiratory collapse consistent with estimated right atrial pre ssure of 5 mmHg. There is no pericardial effusion. CONCLUSIONS -------- 1. Sinus rhythm. 2. This was a technically adequate study. 3. The left ventricular size is normal. 4. There is borderline concentric left ventricular hypertrophy. 5. Overall left ventricular systolic function is low-normal with, an EF between 50 - 55 %. 6. The right ventricle is normal in size. 7. Normal LA size by volume 22+/-6 ml/m2. 8. The right atrium is normal in size. 9. There is mild aortic valve sclerosis. 10. Mild mitral annular calcification present. 11. Mild mitral regurgitation is present. 12. Mild tricuspid regurgitation present. 13. There is mild pulmonary hypertension. 14. The right ventricular systolic pressure, as measured by Doppler, is 39.99mmHg. 15. Trace/mild (physiologic) pulmonic regurgitation. 16. The aortic root size is normal. 17. Normal inferior vena cava with normal inspiratory collapse consistent with estimated right atrial pressure of 5 mmHg. 18. There is no pericardial effusion. INSPECTOR SCREEN PRINTING: Delores Kim RDCS
== END | disposition home or self-care (01) ==
LOC: RADUSWWP 11:38
PROVIDERS: ATTEND Family Medicine
DX: I49.9 Cardiac arrhythmia, unspecified (principal); I08.3 Combined rheumatic disorders of mitral, aortic and tricuspid valves; I27.20 Pulmonary hypertension, unspecified
CPT/HCPCS: 93306; 93880

== ENCOUNTER 2017-09-27 18:25 | Inpatient (IN) | payer MEDICARE, BC ==
--- NOTE | 2017-09-27 18:56 | ED ---
Fall HPI - General Chief Complaint: Fall Stated Complaint: Fall Time Seen by Provider: 09/27/17 18:25 Source: patient, EMS Mode of arrival: EMS - History of Present Illness Initial Comments: This is a 80-year-old female who states she fell while trying to go to dinner just prior to admission she complains or right hip pain she denies any head neck or back pain or other injuries. Brought in for evaluation. She denies any palpitations a loss of consciousness she is unsure whether she tripped or how she ended up on the floor. No recent fevers chills nausea vomiting sweats or other symptoms no other modifying factors MD Complaint: fall - Related Data Home Medications Medication Instructions Recorded Confirmed Escitalopram [Lexapro] 10 mg PO DAILY 06/17/15 04/10/16 ARIPiprazole [Abilify] 1 mg PO HS 04/10/16 04/10/16 Acyclovir [Zovirax] 800 mg PO DAILY 04/10/16 04/10/16 Calcium Carbonate/Vitamin D3 1 tab PO DAILY 04/10/16 04/10/16 [Calcium 600-Vit D3 200 Tablet] Levothyroxine Sodium [Synthroid] 125 mcg PO DAILY 04/10/16 04/10/16 Memantine HCl [Namenda] 5 mg PO HS 04/10/16 04/10/16 Multivit-Min/FA/Lycopen/Lutein 1 tab PO DAILY 04/10/16 04/10/16 [Centrum Silver Tablet] Niacin 500 mg PO DAILY 04/10/16 04/10/16 Polyethylene Glycol 3350 [Miralax] 17 gm PO DAILY 04/10/16 04/10/16 Quinapril HCl [Accupril] 20 mg PO DAILY 04/10/16 04/10/16 Spironolactone [Aldactone] 50 mg PO DAILY 04/10/16 04/10/16 Timolol 0.5% Ophth Soln [Timoptic 1 drop BOTH EYES DAILY 04/10/16 04/10/16 0.5% Ophth Soln] lamoTRIgine [LaMICtal] 25 mg PO BID 04/10/16 04/10/16 Previous Rx's Medication Instructions Recorded Donepezil [Aricept] 5 mg PO HS #7 tab 01/12/15 busPIRone HCl [Buspar] 10 mg PO TID #21 tab 01/12/15 Aspirin 81 mg PO DAILY #30 chew 06/21/15 Levofloxacin [Levaquin] 500 mg PO HS tab 04/12/16 Allergies Allergy/AdvReac Type Severity Reaction Status Date / Time Benzodiazepines AdvReac SEVERE LEG Verified 09/27/17 18:36 CRAMPS diazepam AdvReac Hallucinati Verified 09/27/17 18:36 ons lithium [[place]] AdvReac Nausea & Verified 09/27/17 18:36 Vomiting simvastatin AdvReac SEVERE LEG Verified 09/27/17 18:36 CRAMPS sulfamethoxazole AdvReac Vomiting Verified 09/27/17 18:36 [From Bactrim] trimethoprim [From Bactrim] AdvReac Vomiting Verified 09/27/17 18:36 Review of Systems ROS Statement: Those systems with pertinent positive or pertinent negative responses have been documented in the HPI. ROS Other: All systems not noted in ROS Statement are negative. Past Medical History Past Medical History: Heart Failure, Eye Disorder, GERD/Reflux, Hyperlipidemia, Hypertension, Osteoarthritis (OA), Pneumonia, Thyroid Disorder Additional Past Medical History / Comment(s): 06-17-15 ADMITTED WITH COMM ACQUIRED BACTERIAL PNE/HYPOXIA, FAILED O/P TX. varicose veins, macular degeneration, glaucoma, hx GENITAL STD-PER PAST MED HX. BRONCHITIS, DJD, MULTIPLE UTI'S STRESS INCOT OF URINE, CONSTIPATION,HIATAL HERNIA PT STATED " THINKS SHE WAS TOLD SHE MAY HAVE A SMALL AORTIC ANUERYSM" NOT SURE. History of Any Multi-Drug Resistant Organisms: None Reported Past Surgical History: Adenoidectomy, Breast Surgery, Hysterectomy, Joint Replacement, Orthopedic Surgery, Tonsillectomy Additional Past Surgical History / Comment(s): contigen injections into bladder , Lt TKA, Bilat cataracts removed, rt breast biopsy-NEG, rt shoulder arthroscopy , colonoscopy/EGD. Past Anesthesia/Blood Transfusion Reactions: No Reported Reaction Past Psychological History: Anxiety, Depression Smoking Status: Former smoker Past Alcohol Use History: None Reported Past Drug Use History: None Reported - Past Family History Father Family Medical History: Cancer Brother(s) Family Medical History: Cancer General Exam - General Exam Comments Initial Comments: This is a well-developed well-nourished awake alert oriented 3 female she has [place] Coma Scale of 15 Limitations: no limitations General appearance: alert, in no apparent distress Head exam: Present: atraumatic, normocephalic, normal inspection Eye exam: Present: normal appearance, PERRL, EOMI. Absent: scleral icterus, conjunctival injection, periorbital swelling ENT exam: Present: normal exam, mucous membranes moist Neck exam: Present: normal inspection. Absent: tenderness, meningismus, lymphadenopathy Respiratory exam: Present: normal lung sounds bilaterally. Absent: respiratory distress, wheezes, rales, rhonchi, stridor Cardiovascular Exam: Present: regular rate, normal rhythm, normal heart sounds. Absent: systolic murmur, diastolic murmur, rubs, gallop, clicks GI/Abdominal exam: Present: soft, normal bowel sounds. Absent: distended, tenderness, guarding, rebound, rigid Extremities exam: Present: normal capillary refill, other (Tenderness palpation of the right hip with shortening and rotation of the right lower extremity compared to the left. No definite tenderness all was palpation.). Absent: full ROM, tenderness, pedal edema, joint swelling, calf tenderness Back exam: Present: normal inspection Neurological exam: Present: alert, oriented X3, CN II-XII intact Psychiatric exam: Present: normal affect, normal mood Skin exam: Present: warm, dry, intact, normal color. Absent: rash Course Vital Signs 09/27/17 09/27/17 18:33 20:50 Temperature 98.8 F Pulse Rate 67 72 Respiratory 20 18 Rate Blood Pressure 149/78 160/72 O2 Sat by Pulse 96 93 L Oximetry Medical Decision Making - Medical Decision Making I did discuss the findings with the patient she does not recall falling CT the brain was performed which showed no acute findings. I did discuss the case with Dr. Bradley as well as with Dr. Silva. Patient be admitted to orthopedics with medical consultation. - Lab Data Result diagrams: 09/27/17 19:00 09/27/17 19:00 Lab Results 09/27/17 09/27/17 09/27/17 Range/Units 19:00 19:00 19:00 WBC 6.3 (3.8-10.6) k/uL RBC 5.12 (3.80-5.40) m/uL Hgb 14.8 (11.4-16.0) gm/dL Hct 44.3 (34.0-46.0) % MCV 86.5 (80.0-100.0) fL MCH 28.8 (25.0-35.0) pg MCHC 33.3 (31.0-37.0) g/dL RDW 13.5 (11.5-15.5) % Plt Count 362 (150-450) k/uL Neutrophils % 63 % Lymphocytes % 25 % Monocytes % 8 % Eosinophils % 2 % Basophils % 0 % Neutrophils # 4.0 (1.3-7.7) k/uL Lymphocytes # 1.6 (1.0-4.8) k/uL Monocytes # 0.5 (0-1.0) k/uL Eosinophils # 0.1 (0-0.7) k/uL Basophils # 0.0 (0-0.2) k/uL PT 11.8 (9.0-12.0) sec INR 1.2 H (<1.2) APTT 23.1 (22.0-30.0) sec Sodium (137-145) mmol/L Potassium (3.5-5.1) mmol/L Chloride (98-107) mmol/L Carbon Dioxide (22-30) mmol/L Anion Gap mmol/L BUN (7-17) mg/dL Creatinine (0.52-1.04) mg/dL Est GFR (CKD-EPI)AfAm (>60 ml/min/1.73 sqM) Est GFR (CKD-EPI)NonAf (>60 ml/min/1.73 sqM) Glucose (74-99) mg/dL Calcium (8.4-10.2) mg/dL Magnesium (1.6-2.3) mg/dL Total Bilirubin (0.2-1.3) mg/dL AST (14-36) U/L ALT (9-52) U/L Alkaline Phosphatase (38-126) U/L Total Creatine Kinase 126 (30-135) U/L CK-MB (CK-2) 1.3 (0.0-2.4) ng/mL CK-MB (CK-2) Rel Index 1.0 Total Protein (6.3-8.2) g/dL Albumin (3.5-5.0) g/dL Urine Color Urine Appearance (Clear) Urine pH (5.0-8.0) Ur Specific [place] (1.001-1.035) Urine Protein (Negative) Urine Glucose (UA) (Negative) Urine Ketones (Negative) Urine Blood (Negative) Urine Nitrite (Negative) Urine Bilirubin (Negative) Urine Urobilinogen (<2.0) mg/dL Ur Leukocyte Esterase (Negative) Urine RBC (0-5) /hpf Urine WBC (0-5) /hpf Ur Squamous Epith Cells (0-4) /hpf Amorphous Sediment (None) /hpf Urine Bacteria (None) /hpf Urine Mucus (None) /hpf 09/27/17 09/27/17 Range/Units 19:00 20:45 WBC (3.8-10.6) k/uL RBC (3.80-5.40) m/uL Hgb (11.4-16.0) gm/dL Hct (34.0-46.0) % MCV (80.0-100.0) fL MCH (25.0-35.0) pg MCHC (31.0-37.0) g/dL RDW (11.5-15.5) % Plt Count (150-450) k/uL Neutrophils % % Lymphocytes % % Monocytes % % Eosinophils % % Basophils % % Neutrophils # (1.3-7.7) k/uL Lymphocytes # (1.0-4.8) k/uL Monocytes # (0-1.0) k/uL Eosinophils # (0-0.7) k/uL Basophils # (0-0.2) k/uL PT (9.0-12.0) sec INR (<1.2) APTT (22.0-30.0) sec Sodium 139 (137-145) mmol/L Potassium 4.3 (3.5-5.1) mmol/L Chloride 102 (98-107) mmol/L Carbon Dioxide 24 (22-30) mmol/L Anion Gap 13 mmol/L BUN 17 (7-17) mg/dL Creatinine 0.80 (0.52-1.04) mg/dL Est GFR (CKD-EPI)AfAm 81 (>60 ml/min/1.73 sqM) Est GFR (CKD-EPI)NonAf 71 (>60 ml/min/1.73 sqM) Glucose 92 (74-99) mg/dL Calcium 10.1 (8.4-10.2) mg/dL Magnesium 2.3 (1.6-2.3) mg/dL Total Bilirubin 0.6 (0.2-1.3) mg/dL AST 31 (14-36) U/L ALT 32 (9-52) U/L Alkaline Phosphatase 101 (38-126) U/L Total Creatine Kinase (30-135) U/L CK-MB (CK-2) (0.0-2.4) ng/mL CK-MB (CK-2) Rel Index Total Protein 7.2 (6.3-8.2) g/dL Albumin 4.6 (3.5-5.0) g/dL Urine Color Yellow Urine Appearance Cloudy H (Clear) Urine pH 7.0 (5.0-8.0) Ur Specific [place] 1.017 (1.001-1.035) Urine Protein Trace H (Negative) Urine Glucose (UA) Negative (Negative) Urine Ketones Negative (Negative) Urine Blood Negative (Negative) Urine Nitrite Negative (Negative) Urine Bilirubin Negative (Negative) Urine Urobilinogen 2.0 (<2.0) mg/dL Ur Leukocyte Esterase Trace H (Negative) Urine RBC 2 (0-5) /hpf Urine WBC 8 H (0-5) /hpf Ur Squamous Epith Cells <1 (0-4) /hpf Amorphous Sediment Rare H (None) /hpf Urine Bacteria Rare H (None) /hpf Urine Mucus Rare H (None) /hpf - EKG Data -: EKG Interpreted by Id EKG shows normal: sinus rhythm (Sinus rhythm first-degree AV block rate was 67. 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 Chest x-rays are unremarkable.), image reviewed Disposition Clinical Impression: Fall, Closed right hip fracture Disposition: ADMITTED IP TO THIS [facility] Condition: Stable Referrals: Sloane Sellers MD [Primary Care Provider] - 1-2 days
--- NOTE | 2017-09-27 19:57 | XR ---
EXAMINATION TYPE: XR Hip RT and AP Pelvis DATE OF EXAM: 09/27/2017 COMPARISON: NONE HISTORY: Right hip pain TECHNIQUE: A single AP view of the pelvis is obtained. Two views of the right hip are obtained. FINDINGS: The pelvic ring is intact. There is an acute intertrochanteric fracture right femur with s ome coxa vera deformity. There is no dislocation. IMPRESSION: Acute intertrochanteric fracture right femur.
--- NOTE | 2017-09-27 19:58 | XR ---
EXAMINATION TYPE: XR chest 1V portable DATE OF EXAM: 09/27/2017 COMPARISON: 04/10/2016 HISTORY: Fall. Chest pain TECHNIQUE: Single frontal view of the chest is obtained. FINDINGS: There is no heart failure nor confluent pneumonic infiltrate. Costophrenic angles are kelsie r. Thoracic aorta is atheromatous. There are chest leads. There is no sign of pleural effusion. IMPRESSION: No active cardiopulmonary disease. No change.
[2017-09-27 20:18] LABS: Basophils % (A) 0 %; Eosinophils # (A) 0.1 k/uL (0-0.7); Eosinophils % (A) 2 %; HCT 44.3 % (34.0-46.0); HGB 14.8 gm/dL (11.4-16.0); Lymphocytes # (A) 1.6 k/uL (1.0-4.8); Lymphocytes % (A) 25 %; MCH 28.8 pg (25.0-35.0); MCHC 33.3 g/dL (31.0-37.0); MCV 86.5 fL (80.0-100.0); Mean Platelet Volume 6.4; Monocytes # (A) 0.5 k/uL (0-1.0); Monocytes % (A) 8 %; Neutrophils % (A) 63 %; Platelet Count 362 k/uL (150-450); RBC 5.12 m/uL (3.80-5.40); RDW 13.5 % (11.5-15.5); WBC 6.3 k/uL (3.8-10.6)
--- NOTE | 2017-09-27 20:24 | CT ---
EXAMINATION TYPE: CT brain wo con DATE OF EXAM: 09/27/2017 COMPARISON: 12/28/2014 HISTORY: Fall today. CT DLP: 941.3 mGycm Automated exposure control for dose reduction was used. FINDINGS: There is some cerebral cortical atrophy. There is no mass effect nor midline shift. There is no sign of intracranial hemorrhage. The calvarium is intact. IMPRESSION: CEREBRAL ATROPHY. NO ACUTE INTRACRANIAL ABNORMALITY. NO CHANGE.
[2017-09-27 20:26] LABS: INR 1.2 (<1.2); Partial Thromboplastin Time 23.1 sec (22.0-30.0); Prothrombin Time 11.8 sec (9.0-12.0)
[2017-09-27 20:34] LABS: Albumin 4.6 g/dL (3.5-5.0); Calcium 10.1 mg/dL (8.4-10.2); Magnesium 2.3 mg/dL (1.6-2.3); Potassium 4.3 mmol/L (3.5-5.1); Total Bilirubin 0.6 mg/dL (0.2-1.3); Total Protein 7.2 g/dL (6.3-8.2)
[2017-09-27 20:42] LABS: Creatine Kinase MB 1.3 ng/mL (0.0-2.4)
[2017-09-27 21:04] LABS: Amorphous Sediment,Urine Rare /hpf; Appearance,Urine Cloudy (Clear); Bacteria,Urine Rare /hpf; Bilirubin,Urine Negative (Negative); Blood,Urine Negative (Negative); Color,Urine Yellow; Glucose,Urine (UA) Negative (Negative); Ketones,Urine Negative (Negative); Leukocyte Esterase,Urine Trace (Negative); Mucus,Urine Rare /hpf; Nitrite,Urine Negative (Negative); Protein,Urine Trace (Negative); RBC,Urine 2 /hpf (0-5); Specific Gravity,Urine 1.017 (1.001-1.035); Squamous Epithelial Cell,Urine <1 /hpf (0-4); WBC,Urine 8 /hpf (0-5)
[2017-09-27] MEDS ORDERED: NALOXONE 0.4 MG/ML 1 ML VIAL IV PRN (21:09)
[2017-09-27] MEDS ORDERED: HYDROmorphone 1 MG/ML 1 ML SYRINGE IVP PRN (21:09)
[2017-09-27] MEDS: HYDROmorphone 0.5 MG/0.5 ML SYRINGE IVP PRN (22:36)
[2017-09-27] MEDS: SODIUM CHLORIDE 0.9% 1,000 ML IV SCH (22:39)
[2017-09-28] MEDS: HYDROmorphone 0.5 MG/0.5 ML SYRINGE IVP PRN ×3 (01:49→08:40)
[2017-09-28] MEDS: SODIUM CHLORIDE 0.9% 1,000 ML IV SCH ×4 (08:38→20:41)
--- NOTE | 2017-09-28 08:53 | P.HPOR ---
History of Present Illness H&P Date: 09/28/17 Chief Complaint: Right hip intertrochanteric fracture The patient is a 81-year-old female with a history of dementia, heart failure, GERD, hyperlipidemia, hypertension and thyroid disorder who presented to the emergency department last night via EMS after sustaining a fall at home. She states she lives alone in [facility]. She was unsure on how she fell. She does not remember feeling dizzy or tripping on anything. She denies hitting her head. The patient denies injuries other than right hip pain. She is found to have a right hip fracture on x-rays in the ER. She also had a CT of the head which was negative for intracranial bleed. She is admitted to orthopedics for further evaluation and surgical intervention. She does take Eliquis for anticoagulation which she states she took last yesterday morning. Nursing staff is confirming her med list and last dose of Eliquis with the [facility] staff. She states that she did have a left total knee arthroplasty by Dr. Grant in the past. Today, she complaints of right hip as expected. The patient denies fever, chills, abdominal pain, chest pain, and shortness of breath. Review of Systems Constitutional: Denies chills, Denies fatigue, Denies fever Cardiovascular: Denies chest pain, Denies shortness of breath Respiratory: Denies cough Gastrointestinal: Denies diarrhea, Denies nausea, Denies vomiting Musculoskeletal: right: hip pain, hip stiffness Past Medical History Past Medical History: Heart Failure, Eye Disorder, GERD/Reflux, Hyperlipidemia, Hypertension, Osteoarthritis (OA), Pneumonia, Thyroid Disorder Additional Past Medical History / Comment(s): fall.06-17-15 COMM ACQUIRED BACTERIAL PNE/HYPOXIA, FAILED O/P TX. varicose veins, macular degeneration, glaucoma, hx GENITAL STD-PER PAST MED HX. BRONCHITIS, DJD, MULTIPLE UTI'S STRESS INCOT OF URINE, CONSTIPATION,HIATAL HERNIA PT STATED " THINKS SHE WAS TOLD SHE MAY HAVE A SMALL AORTIC ANUERYSM" NOT SURE. History of Any Multi-Drug Resistant Organisms: None Reported Past Surgical History: Adenoidectomy, Breast Surgery, Hysterectomy, Joint Replacement, Orthopedic Surgery, Tonsillectomy Additional Past Surgical History / Comment(s): contigen injections into bladder , Lt TKA, Bilat cataracts removed, rt breast biopsy-NEG, rt shoulder arthroscopy , colonoscopy/EGD. Past Anesthesia/Blood Transfusion Reactions: No Reported Reaction Smoking Status: Former smoker - Past Family History Father Family Medical History: Cancer Brother(s) Family Medical History: Cancer Medications and Allergies Home Medications Medication Instructions Recorded Confirmed Type Donepezil [Aricept] 5 mg PO HS #7 tab 01/12/15 09/27/17 Rx busPIRone HCl [Buspar] 10 mg PO TID #21 tab 01/12/15 09/27/17 Rx Escitalopram [Lexapro] 10 mg PO DAILY 06/17/15 04/10/16 History Aspirin 81 mg PO DAILY #30 chew 06/21/15 04/10/16 Rx ARIPiprazole [Abilify] 1 mg PO HS 04/10/16 04/10/16 History Acyclovir [Zovirax] 800 mg PO DAILY 04/10/16 04/10/16 History Calcium Carbonate/Vitamin D3 1 tab PO DAILY 04/10/16 04/10/16 History [Calcium 600-Vit D3 200 Tablet] Memantine HCl [Namenda] 5 mg PO HS 04/10/16 09/27/17 History Multivit-Min/FA/Lycopen/Lutein 1 tab PO DAILY 04/10/16 04/10/16 History [Centrum Silver Tablet] Niacin 500 mg PO DAILY 04/10/16 04/10/16 History Polyethylene Glycol 3350 [Miralax] 17 gm PO DAILY 04/10/16 04/10/16 History Quinapril HCl [Accupril] 20 mg PO DAILY 04/10/16 04/10/16 History Spironolactone [Aldactone] 50 mg PO DAILY 04/10/16 09/27/17 History Timolol 0.5% Ophth Soln [Timoptic 1 drop BOTH EYES DAILY 04/10/16 04/10/16 History 0.5% Ophth Soln] lamoTRIgine [LaMICtal] 25 mg PO BID 04/10/16 04/10/16 History Apixaban [Eliquis] 5 mg PO DAILY 09/27/17 09/27/17 History Famotidine [Pepcid] 40 mg PO DAILY 09/27/17 09/27/17 History Fluticasone Nasal [place] [Flonase 2 spr EA NOSTRIL BID 09/27/17 09/27/17 History Nasal [place]] LORazepam [Ativan] 0.5 mg PO TID 09/27/17 09/27/17 History Latanoprost [Xalatan 0.005%] 1 drop OPHTHALMIC DIRECTED 09/27/17 09/27/17 History Levothyroxine Sodium [Synthroid] 100 mcg PO DAILY 09/27/17 09/27/17 History QUEtiapine [SEROquel] 50 mg PO HS 09/27/17 09/27/17 History amLODIPine [Norvasc] 5 mg PO DAILY 09/27/17 09/27/17 History Allergies Allergy/AdvReac Type Severity Reaction Status Date / Time Benzodiazepines AdvReac SEVERE LEG Verified 09/27/17 18:36 CRAMPS diazepam AdvReac Hallucinati Verified 09/27/17 18:36 ons lithium [[place]] AdvReac Nausea & Verified 09/27/17 18:36 Vomiting simvastatin AdvReac SEVERE LEG Verified 09/27/17 18:36 CRAMPS sulfamethoxazole AdvReac Vomiting Verified 09/27/17 18:36 [From Bactrim] trimethoprim [From Bactrim] AdvReac Vomiting Verified 09/27/17 18:36 Physical Examination The patient is a 81 year old female that is no acute distress. She is alert and oriented x1. The patient's head is normocephalic and atraumatic. Exam of the cervical spine reveals no pain upon palpation or range of motion. Exam of the bilateral upper extremities reveal no obvious deformities or pain upon range of motion. Exam of the left lower extremity reveals no pain upon palpation. Exam of the right lower extremity reveals a externally rotated and shortened leg. No pain upon palpation to the lateral hip. There is pain upon logrolling and any range of motion of the leg. Bilateral calves are soft and nontender. Patient has good foot and ankle motion bilaterally. Neurological and circulatory status is intact. Results - Labs Labs: Abnormal Lab Results - Last 24 Hours (Table) 09/27/17 09/27/17 Range/Units 19:00 20:45 INR 1.2 H (<1.2) Urine Appearance Cloudy H (Clear) Urine Protein Trace H (Negative) Ur Leukocyte Esterase Trace H (Negative) Urine WBC 8 H (0-5) /hpf Amorphous Sediment Rare H (None) /hpf Urine Bacteria Rare H (None) /hpf Urine Mucus Rare H (None) /hpf H & H 09/27/17 Range/Units 19:00 Hgb 14.8 (11.4-16.0) gm/dL Hct 44.3 (34.0-46.0) % Coagulation 09/27/17 Range/Units 19:00 INR 1.2 H (<1.2) Result Diagrams: 09/27/17 19:00 09/27/17 19:00 - Diagnostic results Hip x-ray: image reviewed (Acute trochanteric fracture of the right femur with some coxa vera deformity) Assessment and Plan (1) Closed right hip fracture Current Visit: Yes Status: Acute Code(s): S72.001A - FRACTURE OF UNSP PART OF NECK OF RIGHT FEMUR, INIT SNOMED Code(s): 151220396 (2) Fall Current Visit: Yes Status: Acute Code(s): W19.XXXA - UNSPECIFIED FALL, INITIAL ENCOUNTER SNOMED Code(s): 7471207 Plan: The clinical and x-ray findings were discussed with the patient. No family is at the bedside at this time. The case was discussed at length with Dr. Bradley. We will await surgical clearance by internal medicine. She will remain nothing by mouth at this time. Maintain bedrest and pain control. We are planning for a right hip TFN later this afternoon if cleared medically. If the patient is not cleared for surgery, the patient will be re-scheduled for surgery tomorrow morning. Surgical risks were discussed at length with the patient. Possible risks and complications including but not limited to risk of bleeding, infection, dislocation, DVT, stroke, heart attack, and were discussed. These will be discussed again with family later in the pre-op area. She will likely need skilled rehab upon discharge from the hospital.
[2017-09-28] MEDS ORDERED: cefTRIAXone IN SWFI 1,000 MG/10 ML SYRINGE IVP SCH (10:15)
[2017-09-28] MEDS: TIMOLOL 0.5% OPHTH DROPS 5 ML BTL BOTH EYES SCH (10:58)
--- NOTE | 2017-09-28 11:25 | XR ---
EXAMINATION TYPE: XR Femur RT 1 View DATE OF EXAM: 09/28/2017 CLINICAL HISTORY: Known right hip fracture. TECHNIQUE: Single AP view of the femur is obtained on 2 images as requested by ordering Dr. COMPARISON: Pelvic and right hip x-ray from yesterday FINDINGS: Osseous structures are demineralized. Acute intertrochanteric fracture right proximal femur is redemonstrated. No additional distal fracture is seen on images saved. Evaluation at knee level s uboptimal due to obliquity. Overlying soft tissue is unremarkable. IMPRESSION: There is no additional acute distal fracture of the right femur.
--- NOTE | 2017-09-28 11:42 | P.CONS ---
History of Present Illness - Reason for Consult Consult date: 09/28/17 Medical management Requesting physician: Jordan Bradley - Chief Complaint Fall with right hip pain - History of Present Illness This is a 81-year-old female, patient of Dr. Sellers. She has a known past medical history of hypertension, hypothyroidism, hyperlipidemia, congestive heart failure, GERD and dementia. Also has a history of glaucoma and macular degeneration. Patient reports being in her home kitchen and had a trip and fall landing on her right hip. She had significant right hip pain. She lives alone and [facility]. And EMS was notified of breath her into the emergency room. Patient denies any loss of consciousness or hitting her head. She does not remember the full details of her fall. A computed tomography scan of the brain was ordered and negative area and patient was admitted to the orthopedic service and due to the fact that she was found to have a right hip fracture. She was initially scheduled for surgery later today. However, patient is currently requiring 4 L of oxygen sat around 89-90%. She does not usually require home oxygen. She denies any cough chest pain or shortness of breath. Cardiology will be consulted. EKG had shown normal sinus rhythm with a first-degree AV block. At this point patient is not medically stable for discharge. We'll await further cardiology evaluation. Patient denies any cough fever chills or sweats. Denies any bowel movement changes or urinary symptoms. She does report that she can walk a flight of stairs usually without shortness of breath. Denies any smoking history denies any COPD or myocardial infarction. Apparently patient takes Eliquis at home. Per patient and daughter there's been no reported atrial fibrillation or blood clots to require patient to be placed on Eliquis. Patient reports she takes the anticoagulation to prevent blood clots. Review of Systems Please refer to HPI otherwise unremarkable All systems: negative Past Medical History Past Medical History: Heart Failure, Eye Disorder, GERD/Reflux, Hyperlipidemia, Hypertension, Osteoarthritis (OA), Pneumonia, Thyroid Disorder Additional Past Medical History / Comment(s): fall.06-17-15 COMM ACQUIRED BACTERIAL PNE/HYPOXIA, FAILED O/P TX. varicose veins, macular degeneration, glaucoma, hx GENITAL STD-PER PAST MED HX. BRONCHITIS, DJD, MULTIPLE UTI'S STRESS INCOT OF URINE, CONSTIPATION,HIATAL HERNIA PT STATED " THINKS SHE WAS TOLD SHE MAY HAVE A SMALL AORTIC ANUERYSM" NOT SURE. History of Any Multi-Drug Resistant Organisms: None Reported Past Surgical History: Adenoidectomy, Breast Surgery, Hysterectomy, Joint Replacement, Orthopedic Surgery, Tonsillectomy Additional Past Surgical History / Comment(s): contigen injections into bladder , Lt TKA, Bilat cataracts removed, rt breast biopsy-NEG, rt shoulder arthroscopy , colonoscopy/EGD. Past Anesthesia/Blood Transfusion Reactions: No Reported Reaction Smoking Status: Former smoker - Past Family History Father Family Medical History: Cancer Brother(s) Family Medical History: Cancer Medications and Allergies Home Medications Medication Instructions Recorded Confirmed Type Donepezil [Aricept] 5 mg PO HS #7 tab 01/12/15 09/27/17 Rx busPIRone HCl [Buspar] 10 mg PO TID #21 tab 01/12/15 09/27/17 Rx Escitalopram [Lexapro] 10 mg PO DAILY 06/17/15 04/10/16 History Aspirin 81 mg PO DAILY #30 chew 06/21/15 04/10/16 Rx ARIPiprazole [Abilify] 1 mg PO HS 04/10/16 04/10/16 History Acyclovir [Zovirax] 800 mg PO DAILY 04/10/16 04/10/16 History Calcium Carbonate/Vitamin D3 1 tab PO DAILY 04/10/16 04/10/16 History [Calcium 600-Vit D3 200 Tablet] Memantine HCl [Namenda] 5 mg PO HS 04/10/16 09/27/17 History Multivit-Min/FA/Lycopen/Lutein 1 tab PO DAILY 04/10/16 04/10/16 History [Centrum Silver Tablet] Niacin 500 mg PO DAILY 04/10/16 04/10/16 History Polyethylene Glycol 3350 [Miralax] 17 gm PO DAILY 04/10/16 04/10/16 History Quinapril HCl [Accupril] 20 mg PO DAILY 04/10/16 04/10/16 History Spironolactone [Aldactone] 50 mg PO DAILY 04/10/16 09/27/17 History Timolol 0.5% Ophth Soln [Timoptic 1 drop BOTH EYES DAILY 04/10/16 04/10/16 History 0.5% Ophth Soln] lamoTRIgine [LaMICtal] 25 mg PO BID 04/10/16 04/10/16 History Apixaban [Eliquis] 5 mg PO DAILY 09/27/17 09/27/17 History Famotidine [Pepcid] 40 mg PO DAILY 09/27/17 09/27/17 History Fluticasone Nasal [place] [Flonase 2 spr EA NOSTRIL BID 09/27/17 09/27/17 History Nasal [place]] LORazepam [Ativan] 0.5 mg PO TID 09/27/17 09/27/17 History Latanoprost [Xalatan 0.005%] 1 drop OPHTHALMIC DIRECTED 09/27/17 09/27/17 History Levothyroxine Sodium [Synthroid] 100 mcg PO DAILY 09/27/17 09/27/17 History QUEtiapine [SEROquel] 50 mg PO HS 09/27/17 09/27/17 History amLODIPine [Norvasc] 5 mg PO DAILY 09/27/17 09/27/17 History Allergies Allergy/AdvReac Type Severity Reaction Status Date / Time Benzodiazepines AdvReac SEVERE LEG Verified 09/27/17 18:36 CRAMPS diazepam AdvReac Hallucinati Verified 09/27/17 18:36 ons lithium [[place]] AdvReac Nausea & Verified 09/27/17 18:36 Vomiting simvastatin AdvReac SEVERE LEG Verified 09/27/17 18:36 CRAMPS sulfamethoxazole AdvReac Vomiting Verified 09/27/17 18:36 [From Bactrim] trimethoprim [From Bactrim] AdvReac Vomiting Verified 09/27/17 18:36 Physical Exam Vitals: Vital Signs Temp Pulse Pulse Resp BP BP Pulse Ox 09/28/17 05:41 98.4 F 69 18 129/65 90 L 09/27/17 22:01 97.6 F 94 20 169/72 91 L 09/27/17 21:35 97.6 F 70 15 142/72 96 09/27/17 20:50 72 18 160/72 93 L 09/27/17 18:33 98.8 F 67 20 149/78 96 Intake and Output 09/27/17 09/28/17 09/28/17 22:59 06:59 14:59 Intake Total 100 Output Total 125 Balance 100 -125 Intake: Intake, IV Titration 100 Amount Sodium Chloride 0.9% 1, 100 000 ml @ 100 mls/hr IV . Q10H [facility] Rx#:[id number] Output: Urine 125 Other: Voiding Method Indwelling Catheter Weight 69.853 kg Head normocephalic Neck supple Lungs clear to auscultation bilaterally no wheezing or crackles Heart regular rate and rhythm S1-S2, no rub or gallop Abdomen is soft nontender nondistended positive bowel sounds no hepatosplenomegaly Extremities no edema Neuro alert and orientated to 3 Results CBC & Chem 7: 09/27/17 19:00 09/27/17 19:00 Labs: Abnormal Lab Results - Last 24 Hours (Table) 09/27/17 09/27/17 Range/Units 19:00 20:45 INR 1.2 H (<1.2) Urine Appearance Cloudy H (Clear) Urine Protein Trace H (Negative) Ur Leukocyte Esterase Trace H (Negative) Urine WBC 8 H (0-5) /hpf Amorphous Sediment Rare H (None) /hpf Urine Bacteria Rare H (None) /hpf Urine Mucus Rare H (None) /hpf Assessment and Plan Assessment: 1. Fall with right hip fracture: Patient admitted to orthopedic service. Patient will require surgical intervention. At this time patient is not medically stable to proceed with surgery. She is hypoxic and requiring 4 L of oxygen exact etiology unclear. Chest x-rays negative. Patient denies any shortness of breath or chest pain. Does not usually require home oxygen. Cardiology will be consulted for further evaluation and cardiac clearance. EKG sinus rhythm with a first-degree AV block and a lateral infarct age undetermined. 2. UTI: Start Rocephin. Send urine for culture 3. Hypothyroidism continue Synthroid 4. Essential hypertension 5. Dementia continue Aricept and Namenda GI prophylaxis Pepcid and DVT prophylaxis SCDs this patient will proceeding with surgery Thank you for this consultation. We'll continue to follow along closely during patient's hospitalization. We'll need to work up patient further in regards to her hypoxia. Cardiology has been consulted. Also patient is on Eliquis we will need to investigate further why she is taking this anticoagulation. Time with Patient: Greater than 30 (Greater than 60% of the total time spent in counseling and coordination of care.I performed an examination of the patient and discussed their management with the physician Histotechnologist. I have reviewed the Physician Histotechnologist's notes and agree with the documented findings and plan of care)
--- NOTE | 2017-09-28 12:57 | P.CRDCN ---
History of Present Illness History of present illness: This is a pleasant 81 year old female past medical history significant for hypertension, paroxysmal atrial fibrillation on long-term anticoagulation with Eliquis, diastolic dysfunction, dyslipidemia and hypothyroidism. She follows with Dr. MANUEL Ackerman in the office. If necessary in consultation prior to surgical intervention of a right hip fracture. She apparently was at home last evening and suffered a fall. Details are unavailable from what she can recall she tripped and fell she denies symptoms of chest pain, shortness of breath, dizziness, palpitations, nausea, vomiting or diaphoresis. She was brought to the emergency department last night x-ray imaging reveals a fracture of the right intertrochanteric femoral neck. She has been seen in consultation by orthopedics and is planned for surgery with nailing this afternoon. Throughout the day today she has been resting in bed and no acute distress. Per nursing staff she has not been complaining of shortness of breath but pulse oxygenation level reveals saturation in the mid 80s. She has been placed on oxygen via nasal cannula 4 L and her oxygen saturation remains in the upper 80s. She has been receiving IV Dilaudid for pain. EKG reveals sinus mechanism with first-degree AV block with evidence of nonspecific less than [address] depression in the lateral leads and T- wave inversion. Chest x-ray is negative for an acute cardiopulmonary process. Laboratory data reviewed, hemoglobin 14.8, platelets 362, sodium 139, potassium 4.3, magnesium 2.3, creatinine 0.8. Current cardiac medications include Eliquis 5 mg daily, aspirin 81 mg daily, Aldactone 50 mg daily and amlodipine 5 mg daily. Most recent echocardiogram performed May 2017 reveals preserved left ventricular systolic function with ejection fraction 50-55%, mild MR, mild TR and mild pulmonary hypertension with RVSP of 39.89 mmHg. Review of Systems At the time of my exam: CONSTITUTIONAL: Denies fever. Denies chills. EYES: Denies blurred vision. Denies vision changes. Denies eye pain. EARS, NOSE, MOUTH & THROAT: Denies headache. Denies sore throat. Denies ear pain. CARDIOVASCULAR: Denies chest pain. Denies shortness of breath. Denies orthopnea. Denies PND. Denies palpitations. RESPIRATORY: Denies cough. GASTROINTESTINAL: Denies abdominal pain. Denies diarrhea. Denies constipation. Denies nausea. Denies vomiting. MUSCULOSKELETAL: Complains of pain to the right hip. INTEGUMENTARY: Denies pruitis. Denies rash. NEUROLOGIC: Denies numbness. Denies tingling. Denies weakness. PSYCHIATRIC: Denies anxiety. Denies depression. ENDOCRINE: Denies fatigue. Denies weight change. Denies polydipsia. Denies polyurina. GENITOURINARY: Denies burning, hematuria or urgency with micturation. HEMATOLOGIC: Denies history of anemia. Denies bleeding. Past Medical History Past Medical History: Heart Failure, Eye Disorder, GERD/Reflux, Hyperlipidemia, Hypertension, Osteoarthritis (OA), Pneumonia, Thyroid Disorder Additional Past Medical History / Comment(s): fall.06-17-15 COMM ACQUIRED BACTERIAL PNE/HYPOXIA, FAILED O/P TX. varicose veins, macular degeneration, glaucoma, hx GENITAL STD-PER PAST MED HX. BRONCHITIS, DJD, MULTIPLE UTI'S STRESS INCOT OF URINE, CONSTIPATION,HIATAL HERNIA PT STATED " THINKS SHE WAS TOLD SHE MAY HAVE A SMALL AORTIC ANUERYSM" NOT SURE. History of Any Multi-Drug Resistant Organisms: None Reported Past Surgical History: Adenoidectomy, Breast Surgery, Hysterectomy, Joint Replacement, Orthopedic Surgery, Tonsillectomy Additional Past Surgical History / Comment(s): contigen injections into bladder , Lt TKA, Bilat cataracts removed, rt breast biopsy-NEG, rt shoulder arthroscopy , colonoscopy/EGD. Past Anesthesia/Blood Transfusion Reactions: No Reported Reaction Smoking Status: Former smoker - Past Family History Father Family Medical History: Cancer Brother(s) Family Medical History: Cancer Medications and Allergies Home Medications Medication Instructions Recorded Confirmed Type Donepezil [Aricept] 5 mg PO HS #7 tab 01/12/15 09/27/17 Rx busPIRone HCl [Buspar] 10 mg PO TID #21 tab 01/12/15 09/27/17 Rx Aspirin 81 mg PO DAILY #30 chew 06/21/15 09/28/17 Rx Memantine HCl [Namenda] 5 mg PO HS 04/10/16 09/27/17 History Polyethylene Glycol 3350 [Miralax] 17 gm PO DAILY 04/10/16 09/28/17 History Spironolactone [Aldactone] 50 mg PO DAILY 04/10/16 09/27/17 History Apixaban [Eliquis] 5 mg PO DAILY 09/27/17 09/27/17 History Famotidine [Pepcid] 40 mg PO DAILY 09/27/17 09/27/17 History Fluticasone Nasal [place] [Flonase 2 spr EA NOSTRIL BID 09/27/17 09/27/17 History Nasal [place]] LORazepam [Ativan] 0.5 mg PO TID 09/27/17 09/27/17 History Latanoprost [Xalatan 0.005%] 1 drop OPHTHALMIC DIRECTED 09/27/17 09/27/17 History Levothyroxine Sodium [Synthroid] 100 mcg PO DAILY 09/27/17 09/27/17 History QUEtiapine [SEROquel] 50 mg PO HS 09/27/17 09/27/17 History amLODIPine [Norvasc] 5 mg PO DAILY 09/27/17 09/27/17 History Cetirizine HCl [Zyrtec] 10 mg PO DAILY PRN 09/28/17 09/28/17 History Cholecalciferol [Vitamin D3] 1,000 unit PO DAILY 09/28/17 09/28/17 History Cranberry Fruit Concentrate [Azo 250 mg PO DAILY 09/28/17 09/28/17 History Cranberry] DULoxetine HCL [Cymbalta] 20 mg PO DAILY 09/28/17 09/28/17 History Folic Acid 0.8 mg PO DAILY 09/28/17 09/28/17 History Mirabegron [Myrbetriq] 25 mg PO BID 09/28/17 09/28/17 History Allergies Allergy/AdvReac Type Severity Reaction Status Date / Time Benzodiazepines AdvReac SEVERE LEG Verified 09/27/17 18:36 CRAMPS diazepam AdvReac Hallucinati Verified 09/27/17 18:36 ons lithium [[place]] AdvReac Nausea & Verified 09/27/17 18:36 Vomiting simvastatin AdvReac SEVERE LEG Verified 09/27/17 18:36 CRAMPS sulfamethoxazole AdvReac Vomiting Verified 09/27/17 18:36 [From Bactrim] trimethoprim [From Bactrim] AdvReac Vomiting Verified 09/27/17 18:36 Physical Exam Vitals: Vital Signs Temp Pulse Pulse Resp BP BP Pulse Ox 09/28/17 05:41 98.4 F 69 18 129/65 90 L 09/27/17 22:01 97.6 F 94 20 169/72 91 L 09/27/17 21:35 97.6 F 70 15 142/72 96 09/27/17 20:50 72 18 160/72 93 L 09/27/17 18:33 98.8 F 67 20 149/78 96 Intake and Output 09/27/17 09/28/17 09/28/17 22:59 06:59 14:59 Intake Total 100 Output Total 125 Balance 100 -125 Intake: Intake, IV Titration 100 Amount Sodium Chloride 0.9% 1, 100 000 ml @ 100 mls/hr IV . Q10H [facility] Rx#:[id number] Output: Urine 125 Other: Voiding Method Indwelling Catheter Weight 69.853 kg Blood pressure 129/65 heart rate 69 GENERAL: This is a 81-year-old female in no apparent distress at the time of my examination. HEENT: Head is atraumatic, normocephalic. Pupils are equal, round. Sclerae anicteric. Conjunctivae are clear. Mucous membranes of the mouth are moist. Neck is supple. There is no jugular venous distention. No carotid bruit is heard. LUNGS: Clear to auscultation no wheezes, rales or rhonchi. No chest wall tenderness is noted on palpation or with deep breathing. HEART: Regular rate and rhythm with systolic ejection murmur, no rubs or gallops. S1 and S2 heard. ABDOMEN: Soft, nontender. Bowel sounds are heard. No organomegaly noted. EXTREMITIES: No evidence of peripheral edema and no calf tenderness noted. VASCULAR: Radial and dorsalis pedis pulses palpated, no evidence of clubbing. NEUROLOGIC: Patient is awake, alert and oriented x3. Results 09/27/17 19:00 09/27/17 19:00 Cardiac Enzymes 09/27/17 09/27/17 Range/Units 19:00 19:00 AST 31 (14-36) U/L CK-MB (CK-2) 1.3 (0.0-2.4) ng/mL Coagulation 09/27/17 Range/Units 19:00 PT 11.8 (9.0-12.0) sec APTT 23.1 (22.0-30.0) sec CBC 09/27/17 Range/Units 19:00 WBC 6.3 (3.8-10.6) k/uL RBC 5.12 (3.80-5.40) m/uL Hgb 14.8 (11.4-16.0) gm/dL Hct 44.3 (34.0-46.0) % Plt Count 362 (150-450) k/uL Comprehensive Metabolic Panel 09/27/17 Range/Units 19:00 Sodium 139 (137-145) mmol/L Potassium 4.3 (3.5-5.1) mmol/L Chloride 102 (98-107) mmol/L Carbon Dioxide 24 (22-30) mmol/L BUN 17 (7-17) mg/dL Creatinine 0.80 (0.52-1.04) mg/dL Glucose 92 (74-99) mg/dL Calcium 10.1 (8.4-10.2) mg/dL AST 31 (14-36) U/L ALT 32 (9-52) U/L Alkaline Phosphatase 101 (38-126) U/L Total Protein 7.2 (6.3-8.2) g/dL Albumin 4.6 (3.5-5.0) g/dL Current Medications Generic Name Dose Route Start Last Admin Trade Name Freq PRN Reason Stop Dose Admin Ceftriaxone Sodium 1,000 mg 09/28/17 10:15 09/28/17 11:00 Rocephin IVP 1,000 mg Q24HR PAYAM Administration Hydromorphone HCl 0.5 mg 09/27/17 22:28 09/28/17 08:40 Dilaudid IVP 0.5 mg Q3HR PRN Administration Severe Pain Sodium Chloride 1,000 mls @ 100 mls/hr 09/27/17 21:15 09/28/17 08:38 Saline 0.9% IV Not Given .Q10H PAYAM Naloxone HCl 0.2 mg 09/27/17 21:09 Narcan IV Q2M PRN Opioid Reversal Timolol Maleate 1 drops 09/28/17 09:00 09/28/17 10:58 Timoptic BOTH EYES 1 drops DAILY PAYAM Administration Intake and Output 09/27/17 09/28/17 09/28/17 22:59 06:59 14:59 Intake Total 100 Output Total 125 Balance 100 -125 Intake: Intake, IV Titration 100 Amount Sodium Chloride 0.9% 1, 100 000 ml @ 100 mls/hr IV . Q10H [facility] Rx#:[id number] Output: Urine 125 Other: Voiding Method Indwelling Catheter Weight 69.853 kg 09/27/17 19:00 09/27/17 19:00 Assessment and Plan Assessment: ASSESSMENT Right hip fracture s/p fall Paroxysmal atrial fibrillation on long-term anticoagulation with Eliquis History of diastolic dysfunction, currently euvolemic Hypoxia Hypertension Dyslipidemia Urinary tract infection currently on Rocephin Mild troponin elevation History of dementia PLAN Obtain 2-D echocardiogram and Doppler study to assess cardiac structure and function. Dr. Ackerman reviewed the images at the bedside while the past was taking place and states her heart function to be normal with no evidence of systolic dysfunction noted. Full report to follow. Check proBNP level. Per nursing staff her last dose of Eliquis was yesterday morning. It has been greater than 24 hours which is suitable with normal renal function. We recommend cautious fluid administration throughout the procedure as well as optimal blood pressure control. This has been communicated to anesthesia. With mild troponin elevation and mild EKG changes she is a high risk for surgery, this has been communicated to the primary care team and daughter at the bedside. Questions have been answered appropriately. Eliquis should be resumed 5 mg twice a day postoperatively as soon as is appropriate per orthopedic surgery. Avoid IV narcotic administration which seems to be causing increased lethargy with subsequent poor oxygenation and hypoxemia. Further recommendations to follow based upon clinical course. Thank you kindly for this consultation. Nurse Practitioner note has been reviewed, I agree with a documented findings and plan of care. Patient was seen and examined.
--- NOTE | 2017-09-28 16:49 | ECHOF ---
Referral Reason:SOB MEASUREMENTS -------- HEIGHT: 157.5 cm WEIGHT: 69.9 kg BP: 129/65 RVIDd: 2.8 cm (< 3.3) IVSd: 0.9 cm (0.6 - 1.1) LVIDd: 4.5 cm (3.9 - 5.3) LVPWd: 1.0 cm (0.6 - 1.1) IVSs: 1.5 cm LVIDs: 3.1 cm LVPWs: 1.7 cm LA Diam: 3.1 cm (2.7 - 3.8) LAESV Index (A-L): 22.96 ml/m Ao Diam: 3.5 cm (2.0 - 3.7) AV Cusp: 2.3 cm (1.5 - 2.6) MV EXCURSION: 13.059 mm (> 18.000) MV EF SLOPE: 48 mm/s (70 - 150) EPSS: 1.2 cm MV E Higinio: 1.08 m/s MV DecT: 209 ms MV A Higinio: 0.87 m/s MV E/A Ratio: 1.23 RAP: 5.00 mmHg RVSP: 49.50 mmHg FINDINGS -------- Sinus rhythm. This was a technically adequate study. The left ventricular size is normal. Left ventricular wall thickness is normal. Overall left vent ricular systolic function is normal with, an EF between 55 - 60 %. The right ventricle is normal in size. Normal LA size by volume 22+/-6 ml/m2. The right atrium is normal in size. There is mild aortic valve sclerosis. The mitral valve leaflets are mildly thickened. Mild mitral annular calcification present. Mild m itral regurgitation is present. Mild tricuspid regurgitation present. There is moderate pulmonary hypertension. The right ventric ular systolic pressure, as measured by Doppler, is 49.50mmHg. There is no pulmonic regurgitation present. The aortic root size is normal. Normal inferior vena cava with normal inspiratory collapse consistent with estimated right atrial pre ssure of 5 mmHg. There is no pericardial effusion. CONCLUSIONS -------- 1. Sinus rhythm. 2. This was a technically adequate study. 3. The left ventricular size is normal. 4. Left ventricular wall thickness is normal. 5. Overall left ventricular systolic function is normal with, an EF between 55 - 60 %. 6. The right ventricle is normal in size. 7. Normal LA size by volume 22+/-6 ml/m2. 8. The right atrium is normal in size. 9. There is mild aortic valve sclerosis. 10. The mitral valve leaflets are mildly thickened. 11. Mild mitral annular calcification present. 12. Mild mitral regurgitation is present. 13. Mild tricuspid regurgitation present. 14. There is moderate pulmonary hypertension. 15. The right ventricular systolic pressure, as measured by Doppler, is 49.50mmHg. 16. There is no pulmonic regurgitation present. 17. The aortic root size is normal. 18. Normal inferior vena cava with normal inspiratory collapse consistent with estimated right atrial pressure of 5 mmHg. 19. There is no pericardial effusion. PULVI MIXER OPERATOR: Delores Kim RDCS
[2017-09-28] MEDS: METOPROLOL TARTRATE 12.5 MG TAB PO SCH ×2 (18:22→21:01)
[2017-09-28 19:35] LABS: Glucose,Whole Blood 125 mg/dL (75-99)
--- NOTE | 2017-09-28 19:36 | CT ---
EXAMINATION TYPE: CT angio chest DATE OF EXAM: 09/28/2017 7:27 PM COMPARISON: 06/07/2015 HISTORY: SOB, r/o PE CT DLP: 295.5 mGycm Automated exposure control for dose reduction was used. CONTRAST: CTA scan of the thorax is performed with IV Contrast, patient injected with 80 mL of Isovue 370, pulm onary embolism protocol. There are 3-D post processed images.. FINDINGS: There are bilateral pleural effusions. There are bilateral consolidation and atelectasis at the lung bases. I see no filling defects in the pulmonary arteries. Thoracic aorta shows mild atheromatous pam nge. There is no evidence of aneurysm or dissection. There is no mediastinal adenopathy. There is no pericardial effusion. IMPRESSION: NO EVIDENCE OF PULMONARY EMBOLISM. THERE ARE NEW BILATERAL LOWER LOBE PNEUMONIA AND ATELECTASIS AND P LEURAL EFFUSIONS COMPARED TO OLD EXAM.
[2017-09-28] MEDS ORDERED: FUROSEMIDE 10 MG/ML 4 ML VIAL IV STA (20:28)
[2017-09-28 20:38] LABS: HCT 45.7 % (34.0-46.0); MCH 28.5 pg (25.0-35.0); MCHC 32.8 g/dL (31.0-37.0); MCV 86.9 fL (80.0-100.0); Mean Platelet Volume 6.2; Platelet Count 265 k/uL (150-450); RBC 5.26 m/uL (3.80-5.40); RDW 13.6 % (11.5-15.5); WBC 13.8 k/uL (3.8-10.6)
[2017-09-28] MEDS: HEPARIN SODIUM,PORCINE 5,000 UNIT/ML 1 ML VIAL SQ SCH (20:46)
[2017-09-28 20:48] LABS: ALT 29 U/L (9-52); AST 21 U/L (14-36); Albumin 3.2 g/dL (3.5-5.0); Alkaline Phosphatase 76 U/L (38-126); Anion Gap 9 mmol/L; Blood Urea Nitrogen 17 mg/dL (7-17); Calcium 8.9 mg/dL (8.4-10.2); Carbon Dioxide 23 mmol/L (22-30); Chloride 107 mmol/L (98-107); Glucose 129 mg/dL (74-99); Magnesium 2.1 mg/dL (1.6-2.3); Phosphorus 2.9 mg/dL (2.5-4.5); Potassium 4.1 mmol/L (3.5-5.1); Sodium 139 mmol/L (137-145); Total Bilirubin 0.6 mg/dL (0.2-1.3); Total Protein 5.6 g/dL (6.3-8.2)
[2017-09-28] MEDS: PANTOPRAZOLE 40 MG/10 ML VIAL IV SCH (21:01)
[2017-09-28] MEDS: ACETAMINOPHEN IV (For NPO) 1,000 MG in EMPTY BAG 1 BAG IVPB PRN (21:05)
[2017-09-29] MEDS: PIPERACILLIN-TAZOBACTAM 3.375 GM in DEXTROSE/WATER 1 50ML.BAG IVPB SCH ×3 (00:31→16:09)
[2017-09-29 04:02] LABS: Basophils % (A) 0 %; Eosinophils # (A) 0.5 k/uL (0-0.7); Eosinophils % (A) 4 %; HCT 44.7 % (34.0-46.0); HGB 14.8 gm/dL (11.4-16.0); Lymphocytes # (A) 1.1 k/uL (1.0-4.8); Lymphocytes % (A) 10 %; MCH 28.8 pg (25.0-35.0); MCHC 33.1 g/dL (31.0-37.0); MCV 86.9 fL (80.0-100.0); Mean Platelet Volume 6.3; Monocytes # (A) 0.9 k/uL (0-1.0); Monocytes % (A) 7 %; Neutrophils # (A) 9.1 k/uL (1.3-7.7); Neutrophils % (A) 78 %; Platelet Count 241 k/uL (150-450); RBC 5.15 m/uL (3.80-5.40); RDW 13.6 % (11.5-15.5); WBC 11.8 k/uL (3.8-10.6)
[2017-09-29 04:19] LABS: INR 1.4 (<1.2); Partial Thromboplastin Time 23.8 sec (22.0-30.0)
[2017-09-29 04:30] LABS: ALT 25 U/L (9-52); AST 20 U/L (14-36); Albumin 3.2 g/dL (3.5-5.0); Alkaline Phosphatase 73 U/L (38-126); Anion Gap 8 mmol/L; Blood Urea Nitrogen 18 mg/dL (7-17); Calcium 9.1 mg/dL (8.4-10.2); Carbon Dioxide 25 mmol/L (22-30); Chloride 106 mmol/L (98-107); Glucose 124 mg/dL (74-99); Magnesium 2.2 mg/dL (1.6-2.3); Phosphorus 3.1 mg/dL (2.5-4.5); Potassium 3.9 mmol/L (3.5-5.1); Sodium 139 mmol/L (137-145); Total Bilirubin 0.8 mg/dL (0.2-1.3); Total Protein 5.8 g/dL (6.3-8.2)
[2017-09-29] MEDS: POTASSIUM CHLORIDE 10 MEQ in WATER FOR INJECTION 1 100ML.BAG IVPB SCH ×2 (07:42→13:13)
--- NOTE | 2017-09-29 07:53 | XR ---
EXAMINATION TYPE: XR chest 1V DATE OF EXAM: 09/29/2017 COMPARISON: Prior chest x-ray 09/27/2017 HISTORY: Shortness of breath TECHNIQUE: Single frontal view of the chest is obtained. FINDINGS: Interval development of increased density at the lung bases, interstitium is increased. He art is enlarged. No evident pneumothorax. There are overlying cardiac leads. Patient is rotated. IMPRESSION: Correlate for possible congestive heart failure, there may be basilar atelectasis versus edema or pneumonia. Follow-up recommended.
[2017-09-29] MEDS ORDERED: FUROSEMIDE 10 MG/ML 4 ML VIAL IV STA (08:08)
--- NOTE | 2017-09-29 08:38 | P.PN ---
Subjective Progress Note Date: 09/29/17 This is a 81-year-old female admitted for right hip fracture. Right hip TFN was cancelled for today as patient is not medically cleared. Patient denies any new symptoms or complaints today. Objective - Vital Signs Vital signs: Vital Signs Temp 98.5 F 09/29/17 04:00 Pulse 52 L 09/29/17 07:30 Resp 26 H 09/29/17 07:30 BP 150/83 09/29/17 07:00 Pulse Ox 93 L 09/29/17 07:30 Intake & Output 09/28/17 09/29/17 09/29/17 18:59 06:59 18:59 Intake Total 0 400.0 Output Total 380 1272 30 Balance -380 -872.0 -30 Weight 71.3 kg Intake: IV 400.0 0.9 NaCl- Flush for PIVL 30 ACETAMINOPHEN IV (For NPO 100 ) 1,000 mg In Empty Bag 1 bag @ 400 mls/hr IVPB Q6HR PRN Rx#:[id number] Piperacillin-Tazobactam 3 50.0 .375 gm In Dextrose/Water 1 50ml.bag @ 12.5 mls/hr IVPB Q8HR [facility] Rx#: [id number] Sodium Chloride 0.9% 1, 220 000 ml @ 20 mls/hr IV . Q24H [facility] Rx#:[id number] Oral 0 Output: Urine 380 1272 30 Other: Voiding Method Indwelling Catheter Indwelling Catheter # Bowel Movements 1 - Exam On exam patient is lying in bed in no acute distress. Right lower extremity is externally rotated and shortened. Dorsalis pedis pulses 2+ bilaterally. Calves are soft and nontender to palpation bilaterally. Neurovascular status and circulatory status are intact. - Labs CBC & Chem 7: 09/29/17 03:48 09/29/17 03:48 Labs: Abnormal Lab Results - Last 24 Hours (Table) 09/28/17 09/28/17 09/28/17 Range/Units 12:04 19:32 19:46 WBC (3.8-10.6) k/uL Neutrophils # (1.3-7.7) k/uL PT (9.0-12.0) sec INR (<1.2) BUN (7-17) mg/dL Glucose (74-99) mg/dL POC Glucose (mg/dL) 125 H (75-99) mg/dL Troponin I 0.109 H* 0.175 H* (0.000-0.034) ng/mL Total Protein (6.3-8.2) g/dL Albumin (3.5-5.0) g/dL 09/28/17 09/28/17 09/29/17 Range/Units 19:46 19:46 03:48 WBC 13.8 H (3.8-10.6) k/uL Neutrophils # (1.3-7.7) k/uL PT (9.0-12.0) sec INR (<1.2) BUN 18 H (7-17) mg/dL Glucose 129 H 124 H (74-99) mg/dL POC Glucose (mg/dL) (75-99) mg/dL Troponin I (0.000-0.034) ng/mL Total Protein 5.6 L 5.8 L (6.3-8.2) g/dL Albumin 3.2 L 3.2 L (3.5-5.0) g/dL 09/29/17 09/29/17 09/29/17 Range/Units 03:48 03:48 03:48 WBC 11.8 H (3.8-10.6) k/uL Neutrophils # 9.1 H (1.3-7.7) k/uL PT 13.0 H (9.0-12.0) sec INR 1.4 H (<1.2) BUN (7-17) mg/dL Glucose (74-99) mg/dL POC Glucose (mg/dL) (75-99) mg/dL Troponin I 0.135 H* (0.000-0.034) ng/mL Total Protein (6.3-8.2) g/dL Albumin (3.5-5.0) g/dL Microbiology - Last 24 Hours (Table) 09/28/17 11:47 Urine Culture - Preliminary Urine,Catheterized Assessment and Plan (1) Closed right hip fracture Current Visit: Yes Status: Acute Code(s): S72.001A - FRACTURE OF UNSP PART OF NECK OF RIGHT FEMUR, INIT SNOMED Code(s): 032977101 (2) Fall Current Visit: Yes Status: Acute Code(s): W19.XXXA - UNSPECIFIED FALL, INITIAL ENCOUNTER SNOMED Code(s): 0993327 Plan: 1. Continue pain control and DVT prophylaxis. 2. Appreciate input from internal medicine and cardiology. 3. Right hip TFN is on hold until the patient is medically cleared.
[2017-09-29] MEDS: METOPROLOL TARTRATE 12.5 MG TAB PO SCH (09:13)
[2017-09-29] MEDS: PANTOPRAZOLE 40 MG/10 ML VIAL IV SCH (09:13)
[2017-09-29] MEDS: HEPARIN SODIUM,PORCINE 5,000 UNIT/ML 1 ML VIAL SQ SCH ×2 (09:13→21:46)
[2017-09-29] MEDS: TIMOLOL 0.5% OPHTH DROPS 5 ML BTL BOTH EYES SCH (09:14)
--- NOTE | 2017-09-29 11:11 | P.CNPUL ---
History of Present Illness Consult date: 09/29/17 Reason for consult: hypoxemia Chief complaint: Fall and hip fracture History of present illness: This is a 81-year-old female with history of multiple medical problems including chronic atrial fibrillation, diastolic congestive heart failure, hypertension, hiatal hernia, patient was admitted on 09/27/2017, mostly with fall and right hip fracture. Patient was brought into the ER with mostly right hip pain, and she normally lives at the [facility]. No loss of consciousness, no chest pain, no palpitations, patient was seen by orthopedics on consultation, and she was scheduled to undergo surgery yesterday. However her O2 saturation was marginal, and the patient was not improving with high flow oxygen. She was even placed on a non-rebreather mask, 100% FiO2, and her O2 saturation was in the high 80s and low 90s, 90% at best. Then I was notified about this patient, and I was asked to see her on consultation yesterday. Chest x-ray was reported as normal, hence I felt the patient should have workup to rule out thromboembolic disease/pulmonary embolism. CT angiogram of the chest was ordered by me over the phone, it did rule out pulmonary embolism, however there was evidence of bilateral pleural effusions, bilateral consolidation and atelectasis in both lungs, nonspecific interstitial pneumonitis in both lungs, this was not clearly seen on the chest x-ray itself upon admission. Hence I recommended transferring the patient immediately to the ICU, starting the patient on BiPAP with IPAP of 12 and EPAP of 4, and I recommended FiO2 to be titrated accordingly. Keep the saturation above 90%. Patient is now on BiPAP, she is on 50% FiO2, and her O2 saturation is in the 95 % range. Patient was also given Lasix, and she will be given Lasix again this morning, I have also recommended antibiotics empirically just in case if the patient did have potential aspiration. Patient has been receiving narcotics while on the medical floor, and her mental status has been marginal at best. But considering the patient improved with diuretics, I felt that this is mostly a picture of diastolic congestive heart failure unless proven otherwise. Hence we'll continue diuretics, I cut down the IV fluid to KVO, and I will continue antibiotics empirically for now although my index of suspicion for pneumonia is rather low. Patient is feeling better, she is not the greatest historian, she is complaining of pain in the right hip, denies any chest pain, no fever, no chills, no hemoptysis, no nausea, no vomiting, no abdominal pain. Review of Systems 14 point review of systems were obtained, please refer to pertinent positives in HPI, otherwise remaining systems are negative. Past Medical History Past Medical History: Heart Failure, Eye Disorder, GERD/Reflux, Hyperlipidemia, Hypertension, Osteoarthritis (OA), Pneumonia, Thyroid Disorder Additional Past Medical History / Comment(s): fall.06-17-15 COMM ACQUIRED BACTERIAL PNE/HYPOXIA, FAILED O/P TX. varicose veins, macular degeneration, glaucoma, hx GENITAL STD-PER PAST MED HX. BRONCHITIS, DJD, MULTIPLE UTI'S STRESS INCOT OF URINE, CONSTIPATION,HIATAL HERNIA PT STATED " THINKS SHE WAS TOLD SHE MAY HAVE A SMALL AORTIC ANUERYSM" NOT SURE. History of Any Multi-Drug Resistant Organisms: None Reported Past Surgical History: Adenoidectomy, Breast Surgery, Hysterectomy, Joint Replacement, Orthopedic Surgery, Tonsillectomy Additional Past Surgical History / Comment(s): contigen injections into bladder , Lt TKA, Bilat cataracts removed, rt breast biopsy-NEG, rt shoulder arthroscopy , colonoscopy/EGD. Past Anesthesia/Blood Transfusion Reactions: No Reported Reaction Smoking Status: Former smoker - Past Family History Father Family Medical History: Cancer Brother(s) Family Medical History: Cancer Medications and Allergies Home Medications Medication Instructions Recorded Confirmed Type Donepezil [Aricept] 5 mg PO HS #7 tab 01/12/15 09/27/17 Rx busPIRone HCl [Buspar] 10 mg PO TID #21 tab 01/12/15 09/27/17 Rx Aspirin 81 mg PO DAILY #30 chew 06/21/15 09/28/17 Rx Memantine HCl [Namenda] 5 mg PO HS 04/10/16 09/27/17 History Polyethylene Glycol 3350 [Miralax] 17 gm PO DAILY 04/10/16 09/28/17 History Spironolactone [Aldactone] 50 mg PO DAILY 04/10/16 09/27/17 History Apixaban [Eliquis] 5 mg PO DAILY 09/27/17 09/27/17 History Famotidine [Pepcid] 40 mg PO DAILY 09/27/17 09/27/17 History Fluticasone Nasal [place] [Flonase 2 spr EA NOSTRIL BID 09/27/17 09/27/17 History Nasal [place]] LORazepam [Ativan] 0.5 mg PO TID 09/27/17 09/27/17 History Latanoprost [Xalatan 0.005%] 1 drop OPHTHALMIC DIRECTED 09/27/17 09/27/17 History Levothyroxine Sodium [Synthroid] 100 mcg PO DAILY 09/27/17 09/27/17 History QUEtiapine [SEROquel] 50 mg PO HS 09/27/17 09/27/17 History amLODIPine [Norvasc] 5 mg PO DAILY 09/27/17 09/27/17 History Cetirizine HCl [Zyrtec] 10 mg PO DAILY PRN 09/28/17 09/28/17 History Cholecalciferol [Vitamin D3] 1,000 unit PO DAILY 09/28/17 09/28/17 History Cranberry Fruit Concentrate [Azo 250 mg PO DAILY 09/28/17 09/28/17 History Cranberry] DULoxetine HCL [Cymbalta] 20 mg PO DAILY 09/28/17 09/28/17 History Folic Acid 0.8 mg PO DAILY 09/28/17 09/28/17 History Mirabegron [Myrbetriq] 25 mg PO BID 09/28/17 09/28/17 History Allergies Allergy/AdvReac Type Severity Reaction Status Date / Time Benzodiazepines AdvReac SEVERE LEG Verified 09/27/17 18:36 CRAMPS diazepam AdvReac Hallucinati Verified 09/27/17 18:36 ons lithium [[place]] AdvReac Nausea & Verified 09/27/17 18:36 Vomiting simvastatin AdvReac SEVERE LEG Verified 09/27/17 18:36 CRAMPS sulfamethoxazole AdvReac Vomiting Verified 09/27/17 18:36 [From Bactrim] trimethoprim [From Bactrim] AdvReac Vomiting Verified 09/27/17 18:36 Physical Exam Vitals: Vital Signs Temp Pulse Pulse Resp BP BP Pulse Ox 09/29/17 10:30 58 L 28 H 151/77 88 L 09/29/17 10:00 57 L 26 H 151/77 97 09/29/17 09:30 61 24 155/87 09/29/17 09:00 58 L 18 155/87 09/29/17 08:30 55 L 21 145/104 09/29/17 08:00 99.1 F 53 L 24 145/104 98 09/29/17 07:30 52 L 26 H 93 L 09/29/17 07:00 54 L 22 150/83 93 L 09/29/17 06:30 56 L 28 H 147/71 96 09/29/17 06:00 52 L 20 147/71 96 09/29/17 05:30 54 L 23 155/63 96 09/29/17 05:00 51 L 22 155/63 95 09/29/17 04:30 54 L 17 144/74 96 09/29/17 04:00 98.5 F 53 L 18 144/74 96 09/29/17 03:30 56 L 17 156/78 97 09/29/17 03:00 52 L 17 156/78 96 09/29/17 02:30 52 L 17 139/69 95 09/29/17 02:00 54 L 20 139/69 96 09/29/17 01:30 54 L 21 126/67 95 09/29/17 01:00 53 L 18 126/67 96 09/29/17 00:30 54 L 20 119/66 94 L 09/29/17 00:00 54 L 29 H 119/66 95 09/28/17 23:30 58 L 34 H 94 L 09/28/17 23:00 55 L 30 H 128/72 94 L 09/28/17 22:30 55 L 20 94 L 09/28/17 22:00 57 L 21 137/66 94 L 09/28/17 21:30 55 L 23 93 L 09/28/17 21:15 58 L 25 H 150/93 94 L 09/28/17 21:00 61 23 150/93 94 L 09/28/17 20:45 62 30 H 94 L 09/28/17 20:30 63 30 H 156/77 94 L 09/28/17 20:15 69 29 H 156/77 97 09/28/17 20:00 70 68 29 H 156/77 94 L 09/28/17 19:45 98.5 F 72 27 H 157/80 94 L 09/28/17 17:38 93 L 09/28/17 15:00 98.6 F 68 16 145/76 87 L Intake and Output 09/28/17 09/29/17 09/29/17 22:59 06:59 14:59 Intake Total 180 220.0 45.0 Output Total 1190 462 338 Balance -1010 -242.0 -293.0 Intake: IV 180 220.0 45.0 0.9 NaCl- Flush for PIVL 20 10 ACETAMINOPHEN IV (For NPO 100 ) 1,000 mg In Empty Bag 1 bag @ 400 mls/hr IVPB Q6HR PRN Rx#:[id number] Piperacillin-Tazobactam 3 50.0 25.0 .375 gm In Dextrose/Water 1 50ml.bag @ 12.5 mls/hr IVPB Q8HR [facility] Rx#: [id number] Sodium Chloride 0.9% 1, 60 160 20 000 ml @ 20 mls/hr IV . Q24H [facility] Rx#:[id number] Output: Urine 1190 462 338 Other: Voiding Method Indwelling Catheter Indwelling Catheter # Bowel Movements 1 Weight 71.3 kg Physical Exam: Revealed a 81-year-old female on BiPAP, in mild distress, noted to be slightly tachypneic. Head: Atraumatic, normocephalic. HEENT:[Neck is supple.] [No neck masses.] [No thyromegaly.] [No JVD.] PERRLA, EOMI, no icterus. Chest: [Diminished breath sounds and crackles at the bases, no rhonchi, no wheezes.] Cardiac Exam: [Irregular irregular rhythm. Normal S1 and S2, no S3 gallop, 2/ 6 systolic murmur thought the precordium.] Abdomen: [Soft, nontender, no megaly, no rebound, no guarding, normal bowel sounds.] Extremities: [No clubbing, no edema, no cyanosis.] External rotation of the right lower extremity related to hip fracture, Neurological Exam: [No focal neurologic deficit. Lymphatic: No lymphadenopathy. Psychiatric: Normal mood affect and marginal mental status,] Results - Laboratory Findings CBC and BMP: 09/29/17 03:48 09/29/17 03:48 PT/INR, D-dimer PT 13.0 sec (9.0-12.0) H 09/29/17 03:48 INR 1.4 (<1.2) H 09/29/17 03:48 Abnormal lab findings: Abnormal Labs 09/27/17 09/27/17 09/28/17 19:00 20:45 12:04 WBC Neutrophils # PT INR 1.2 H BUN Glucose POC Glucose (mg/dL) Troponin I 0.109 H* Total Protein Albumin Urine Appearance Cloudy H Urine Protein Trace H Ur Leukocyte Esterase Trace H Urine WBC 8 H Amorphous Sediment Rare H Urine Bacteria Rare H Urine Mucus Rare H 09/28/17 09/28/17 09/28/17 19:32 19:46 19:46 WBC 13.8 H Neutrophils # PT INR BUN Glucose POC Glucose (mg/dL) 125 H Troponin I 0.175 H* Total Protein Albumin Urine Appearance Urine Protein Ur Leukocyte Esterase Urine WBC Amorphous Sediment Urine Bacteria Urine Mucus 09/28/17 09/29/17 09/29/17 19:46 03:48 03:48 WBC 11.8 H Neutrophils # 9.1 H PT INR BUN 18 H Glucose 129 H 124 H POC Glucose (mg/dL) Troponin I Total Protein 5.6 L 5.8 L Albumin 3.2 L 3.2 L Urine Appearance Urine Protein Ur Leukocyte Esterase Urine WBC Amorphous Sediment Urine Bacteria Urine Mucus 09/29/17 09/29/17 03:48 03:48 WBC Neutrophils # PT 13.0 H INR 1.4 H BUN Glucose POC Glucose (mg/dL) Troponin I 0.135 H* Total Protein Albumin Urine Appearance Urine Protein Ur Leukocyte Esterase Urine WBC Amorphous Sediment Urine Bacteria Urine Mucus - Diagnostic Findings CT scan - chest: image reviewed (CT of the chest ruled out pulmonary embolism, however it is suggestive of bilateral pleural effusions, atelectasis, congestive heart failure, and possible pneumonia.) Assessment and Plan Assessment: Impression: 1 acute right hip fracture secondary to fall. 2 acute diastolic congestive heart failure, 3 chronic atrial fibrillation 4 abnormal troponin levels being addressed by cardiology on the case. 5 possible aspiration pneumonia however my index of suspicion for pneumonia is rather low. 6 acute hypoxic respiratory failure secondary to diastolic congestive heart failure. Low index of suspicion for pneumonia/aspiration pneumonia. Recommendation: Continue present treatment plan including BiPAP, bronchodilators , diuretics, empiric antibiotics, patient is not cleared for surgery at this point, we'll continue to follow closely in the intensive care unit. Time with Patient: Greater than 30
[2017-09-29] MEDS ORDERED: POTASSIUM CHLORIDE 10 MEQ in WATER FOR INJECTION 1 100ML.BAG IVPB ONE (12:30)
--- NOTE | 2017-09-29 13:20 | P.PN ---
Subjective Progress Note Date: 09/29/17 This is a pleasant 81-year-old female patient with a past medical history significant for paroxysmal atrial fibrillation oral anticoagulation fell at home and fractured her right hip. The patient was seen and evaluated by orthopedic service and the plan to proceed with hip surgery. The patient was ruled in for acute non-ST elevation myocardial infarction. The cardiac enzymes came in to be slightly abnormal. She was advised to pursue the hip surgery yesterday with high risk but unfortunately she developed shortness of breath and it seems that she developed an episode of congestive heart failure and because of that the patient was transferred to the intensive care unit because she was de-satting. After the Lasix IV she felt better indeterminable shortness of breath and her saturation has improved. I'll follow-up with her today, she denies having any chest pain or discomfort. She stated that the shortness of breath is better. She has been bradycardic. I am going to decrease the dose of metoprolol to 12.5 mg by mouth daily and also increase the dose of Lasix to 40 mg IV twice a day. I recommended the patient not to pursue with the surgery at this point and watch her for additional 24 hours. Objective - Vital Signs Vital signs: Vital Signs Temp 98.4 F 09/29/17 12:00 Pulse 58 L 09/29/17 13:00 Resp 23 09/29/17 13:00 BP 149/70 09/29/17 13:00 Pulse Ox 98 09/29/17 13:00 Intake & Output 09/28/17 09/29/17 09/29/17 18:59 06:59 18:59 Intake Total 0 400.0 70.0 Output Total 380 1272 853 Balance -380 -872.0 -783.0 Weight 71.3 kg Intake: IV 400.0 70.0 0.9 NaCl- Flush for PIVL 30 ACETAMINOPHEN IV (For NPO 100 ) 1,000 mg In Empty Bag 1 bag @ 400 mls/hr IVPB Q6HR PRN Rx#:[id number] Piperacillin-Tazobactam 3 50.0 50.0 .375 gm In Dextrose/Water 1 50ml.bag @ 12.5 mls/hr IVPB Q8HR [facility] Rx#: [id number] Sodium Chloride 0.9% 1, 220 20 000 ml @ 20 mls/hr IV . Q24H [facility] Rx#:[id number] Oral 0 Output: Urine 380 0862 853 Other: Voiding Method Indwelling Catheter Indwelling Catheter # Bowel Movements 1 - Constitutional General appearance: Present: no acute distress - Respiratory Respiratory: bilateral: CTA - Cardiovascular Rhythm: regular Heart sounds: normal: S1, S2 - Labs CBC & Chem 7: 09/29/17 03:48 09/29/17 03:48 Labs: Abnormal Lab Results - Last 24 Hours (Table) 09/28/17 09/28/17 09/28/17 Range/Units 19:32 19:46 19:46 WBC 13.8 H (3.8-10.6) k/uL Neutrophils # (1.3-7.7) k/uL PT (9.0-12.0) sec INR (<1.2) BUN (7-17) mg/dL Glucose (74-99) mg/dL POC Glucose (mg/dL) 125 H (75-99) mg/dL Troponin I 0.175 H* (0.000-0.034) ng/mL Total Protein (6.3-8.2) g/dL Albumin (3.5-5.0) g/dL 09/28/17 09/29/17 09/29/17 Range/Units 19:46 03:48 03:48 WBC 11.8 H (3.8-10.6) k/uL Neutrophils # 9.1 H (1.3-7.7) k/uL PT (9.0-12.0) sec INR (<1.2) BUN 18 H (7-17) mg/dL Glucose 129 H 124 H (74-99) mg/dL POC Glucose (mg/dL) (75-99) mg/dL Troponin I (0.000-0.034) ng/mL Total Protein 5.6 L 5.8 L (6.3-8.2) g/dL Albumin 3.2 L 3.2 L (3.5-5.0) g/dL 09/29/17 09/29/17 Range/Units 03:48 03:48 WBC (3.8-10.6) k/uL Neutrophils # (1.3-7.7) k/uL PT 13.0 H (9.0-12.0) sec INR 1.4 H (<1.2) BUN (7-17) mg/dL Glucose (74-99) mg/dL POC Glucose (mg/dL) (75-99) mg/dL Troponin I 0.135 H* (0.000-0.034) ng/mL Total Protein (6.3-8.2) g/dL Albumin (3.5-5.0) g/dL Microbiology - Last 24 Hours (Table) 09/28/17 11:47 Urine Culture - Preliminary Urine,Catheterized Assessment and Plan Assessment: assessment #1 status post fall and right hip fracture #2 paroxysmal atrial fibrillation and the patient has been maintaining normal sinus mechanism #3 mildly abnormal cardiac enzymes #4 congestive heart failure related to diastolic dysfunction Plan #1 increase the dose of Lasix to 40 mg IV twice a day #2 decrease the dose of metoprolol #3 follow-up with the patient. Thank you for allowing us participate in her care and we will continue following up with the patient.
[2017-09-29] MEDS: ACETAMINOPHEN IV (For NPO) 1,000 MG in EMPTY BAG 1 BAG IVPB PRN (14:04)
--- NOTE | 2017-09-29 17:40 | P.PN ---
Subjective Progress Note Date: 09/29/17 This is a 81-year-old female, patient of Dr. Sellers. She has a known past medical history of hypertension, hypothyroidism, hyperlipidemia, congestive heart failure, GERD and dementia. Also has a history of glaucoma and macular degeneration. Patient reports being in her home kitchen and had a trip and fall landing on her right hip. She had significant right hip pain. [facility] And EMS was notified of breath her into the emergency room. Patient denies any loss of consciousness or hitting her head. She does not remember the full details of her fall. A computed tomography scan of the brain was ordered and negative area and patient was admitted to the orthopedic service and due to the fact that she was found to have a right hip fracture. She was initially scheduled for surgery later today. However, patient is currently requiring 4 L of oxygen sat around 89-90%. She does not usually require home oxygen. She denies any cough chest pain or shortness of breath. Cardiology will be consulted. EKG had shown normal sinus rhythm with a first-degree AV block. At this point patient is not medically stable for discharge. We'll await further cardiology evaluation. Patient denies any cough fever chills or sweats. Denies any bowel movement changes or urinary symptoms. She does report that she can walk a flight of stairs usually without shortness of breath. Denies any smoking history denies any COPD or myocardial infarction. Apparently patient takes Eliquis at home. Per patient and daughter there's been no reported atrial fibrillation or blood clots to require patient to be placed on Eliquis. Patient reports she takes the anticoagulation to prevent blood clots. Objective - Vital Signs Vital signs: Vital Signs Temp 98.6 F 09/29/17 16:00 Pulse 62 09/29/17 16:00 Resp 22 09/29/17 16:00 BP 144/70 09/29/17 16:00 Pulse Ox 94 L 09/29/17 16:00 Intake & Output 09/28/17 09/29/17 09/29/17 18:59 06:59 18:59 Intake Total 0 400.0 390.0 Output Total 380 1272 964 Balance -380 -872.0 -574.0 Weight 71.3 kg Intake: IV 400.0 390.0 0.9 NaCl- Flush for PIVL 30 ACETAMINOPHEN IV (For NPO 100 100 ) 1,000 mg In Empty Bag 1 bag @ 400 mls/hr IVPB Q6HR PRN Rx#:[id number] Piperacillin-Tazobactam 3 50.0 50.0 .375 gm In Dextrose/Water 1 50ml.bag @ 12.5 mls/hr IVPB Q8HR [facility] Rx#: [id number] Potassium Chloride 10 meq 200 In Water For Injection 1 100ml.bag @ 100 mls/hr IVPB ONCE ONE Rx#: [id number] Sodium Chloride 0.9% 1, 220 40 000 ml @ 20 mls/hr IV . Q24H [facility] Rx#:[id number] Oral 0 Output: Urine 380 1272 964 Other: Voiding Method Indwelling Catheter Indwelling Catheter Indwelling Catheter # Bowel Movements 1 - Exam Head normocephalic Neck supple Lungs clear to auscultation bilaterally no wheezing or crackles Heart regular rate and rhythm S1-S2, no rub or gallop Abdomen is soft nontender nondistended positive bowel sounds no hepatosplenomegaly Extremities no edema Neuro alert and orientated to 3 - Labs CBC & Chem 7: 09/29/17 03:48 09/29/17 16:12 Labs: Abnormal Lab Results - Last 24 Hours (Table) 09/28/17 09/28/17 09/28/17 Range/Units 19:32 19:46 19:46 WBC 13.8 H (3.8-10.6) k/uL Neutrophils # (1.3-7.7) k/uL PT (9.0-12.0) sec INR (<1.2) BUN (7-17) mg/dL Glucose (74-99) mg/dL POC Glucose (mg/dL) 125 H (75-99) mg/dL Troponin I 0.175 H* (0.000-0.034) ng/mL Total Protein (6.3-8.2) g/dL Albumin (3.5-5.0) g/dL 09/28/17 09/29/17 09/29/17 Range/Units 19:46 03:48 03:48 WBC 11.8 H (3.8-10.6) k/uL Neutrophils # 9.1 H (1.3-7.7) k/uL PT (9.0-12.0) sec INR (<1.2) BUN 18 H (7-17) mg/dL Glucose 129 H 124 H (74-99) mg/dL POC Glucose (mg/dL) (75-99) mg/dL Troponin I (0.000-0.034) ng/mL Total Protein 5.6 L 5.8 L (6.3-8.2) g/dL Albumin 3.2 L 3.2 L (3.5-5.0) g/dL 09/29/17 09/29/17 Range/Units 03:48 03:48 WBC (3.8-10.6) k/uL Neutrophils # (1.3-7.7) k/uL PT 13.0 H (9.0-12.0) sec INR 1.4 H (<1.2) BUN (7-17) mg/dL Glucose (74-99) mg/dL POC Glucose (mg/dL) (75-99) mg/dL Troponin I 0.135 H* (0.000-0.034) ng/mL Total Protein (6.3-8.2) g/dL Albumin (3.5-5.0) g/dL Microbiology - Last 24 Hours (Table) 09/28/17 11:47 Urine Culture - Final Urine,Catheterized Assessment and Plan Plan: 1. Fall with right hip fracture: Patient admitted to orthopedic service. Patient will require surgical intervention. At this time patient is not medically stable to proceed with surgery. 2. Acute hypoxic respiratory failure, she is requiring 4 L of oxygen exact etiology unclear likely related to congestive heart failure. Chest x-rays negative. Patient denies any shortness of breath or chest pain. Does not usually require home oxygen. Cardiology will be consulted for further evaluation and cardiac clearance. EKG sinus rhythm with a first-degree AV block and a lateral infarct age undetermined. 2. UTI: Patient is off Rocephin currently she is on Zosyn 3. Hypothyroidism continue Synthroid 4. Essential hypertension 5. Dementia continue Aricept and Namenda GI prophylaxis Pepcid and DVT prophylaxis SCDs this patient will proceeding with surgery At this time patient is admitted to intensive care unit pulmonary consultation and cardiology consultation following Continue current care.
[2017-09-29] MEDS: SODIUM CHLORIDE 0.9% 1,000 ML IV SCH (20:22)
[2017-09-29] MEDS: FUROSEMIDE 10 MG/ML 4 ML VIAL IV SCH (21:46)
[2017-09-30] MEDS ORDERED: Potassium Replacement Protocol 1 EACH MISC MISCELLANE PRN (00:28)
[2017-09-30] MEDS: ACETAMINOPHEN IV (For NPO) 1,000 MG in EMPTY BAG 1 BAG IVPB PRN ×3 (00:45→22:00)
[2017-09-30] MEDS: PIPERACILLIN-TAZOBACTAM 3.375 GM in DEXTROSE/WATER 1 50ML.BAG IVPB SCH ×4 (00:54→23:51)
[2017-09-30] MEDS: POTASSIUM CHLORIDE 10 MEQ in WATER FOR INJECTION 1 100ML.BAG IVPB SCH ×4 (01:29→05:24)
[2017-09-30 05:00] LABS: Basophils % (A) 0 %; Eosinophils # (A) 0.6 k/uL (0-0.7); Eosinophils % (A) 6 %; HCT 45.1 % (34.0-46.0); HGB 14.9 gm/dL (11.4-16.0); Lymphocytes # (A) 1.3 k/uL (1.0-4.8); Lymphocytes % (A) 14 %; MCH 28.9 pg (25.0-35.0); MCV 87.8 fL (80.0-100.0); Mean Platelet Volume 6.6; Monocytes # (A) 1.1 k/uL (0-1.0); Monocytes % (A) 12 %; Neutrophils # (A) 6.3 k/uL (1.3-7.7); Neutrophils % (A) 66 %; Platelet Count 240 k/uL (150-450); RBC 5.14 m/uL (3.80-5.40); RDW 13.6 % (11.5-15.5); WBC 9.6 k/uL (3.8-10.6)
[2017-09-30 05:06] LABS: INR 1.2 (<1.2); Partial Thromboplastin Time 24.4 sec (22.0-30.0); Prothrombin Time 11.7 sec (9.0-12.0)
[2017-09-30 05:14] LABS: Albumin 3.6 g/dL (3.5-5.0); Calcium 9.2 mg/dL (8.4-10.2); Phosphorus 3.1 mg/dL (2.5-4.5); Total Bilirubin 1.1 mg/dL (0.2-1.3); Total Protein 6.1 g/dL (6.3-8.2)
[2017-09-30] MEDS ORDERED: hydrALAZINE HCL 20 MG/ML 1 ML VIAL IVP PRN (06:34)
--- NOTE | 2017-09-30 08:21 | XR ---
EXAMINATION TYPE: XR chest 1V DATE OF EXAM: 09/30/2017 COMPARISON: Prior chest x-ray 09/29/2017 HISTORY: Shortness of breath TECHNIQUE: Single frontal view of the chest is obtained. FINDINGS: Findings are similar to prior exam. There may be some improvement in the interstitium. Hea rt remains enlarged. Airspace disease again noted towards the lung bases. No pneumothorax or pleural effusion. IMPRESSION: The may be some interval improvement in aeration
--- NOTE | 2017-09-30 08:27 | P.PN ---
Subjective Progress Note Date: 09/30/17 This is a 81-year-old female admitted for right hip fracture. Patient states that her pain is controlled to the right hip. Patient denies any new symptoms or complaints today. Objective - Vital Signs Vital signs: Vital Signs Temp 98 F 09/30/17 00:00 Pulse 62 09/30/17 07:30 Resp 22 09/30/17 07:30 BP 159/70 09/30/17 07:30 Pulse Ox 94 L 09/30/17 07:30 Intake & Output 09/29/17 09/30/17 09/30/17 18:59 06:59 18:59 Intake Total 415.0 12.5 Output Total 1021 1280 Balance -606.0 -1267.5 Intake: IV 415.0 12.5 ACETAMINOPHEN IV (For NPO 100 ) 1,000 mg In Empty Bag 1 bag @ 400 mls/hr IVPB Q6HR PRN Rx#:[id number] Piperacillin-Tazobactam 3 75.0 12.5 .375 gm In Dextrose/Water 1 50ml.bag @ 12.5 mls/hr IVPB Q8HR [facility] Rx#: [id number] Potassium Chloride 10 meq 200 In Water For Injection 1 100ml.bag @ 100 mls/hr IVPB ONCE ONE Rx#: [id number] Sodium Chloride 0.9% 1, 40 000 ml @ 20 mls/hr IV . Q24H [facility] Rx#:[id number] Output: Urine 1021 1280 Other: Voiding Method Indwelling Catheter Indwelling Catheter - Exam On exam patient is lying in bed in no acute distress. Right lower extremity is externally rotated and shortened. Dorsalis pedis pulses 2+ bilaterally. Calves are soft and nontender to palpation bilaterally. Neurovascular status and circulatory status are intact. - Labs CBC & Chem 7: 09/30/17 03:46 09/30/17 03:46 Labs: Abnormal Lab Results - Last 24 Hours (Table) 09/29/17 09/30/17 09/30/17 Range/Units 22:55 03:46 03:46 Monocytes # 1.1 H (0-1.0) k/uL INR (<1.2) Potassium 3.4 L (3.5-5.1) mmol/L BUN 20 H (7-17) mg/dL Total Protein 6.1 L (6.3-8.2) g/dL 09/30/17 Range/Units 03:46 Monocytes # (0-1.0) k/uL INR 1.2 H (<1.2) Potassium (3.5-5.1) mmol/L BUN (7-17) mg/dL Total Protein (6.3-8.2) g/dL Microbiology - Last 24 Hours (Table) 09/28/17 11:47 Urine Culture - Final Urine,Catheterized Assessment and Plan (1) Closed right hip fracture Current Visit: Yes Status: Acute Code(s): S72.001A - FRACTURE OF UNSP PART OF NECK OF RIGHT FEMUR, INIT SNOMED Code(s): 258743713 (2) Fall Current Visit: Yes Status: Acute Code(s): W19.XXXA - UNSPECIFIED FALL, INITIAL ENCOUNTER SNOMED Code(s): 5509658 Plan: 1. Continue pain control and DVT prophylaxis. 2. Appreciate input from internal medicine and cardiology. 3. Right hip TFN on 10/01/2017 if the patient is medically cleared.
[2017-09-30] MEDS: PANTOPRAZOLE 40 MG/10 ML VIAL IV SCH (09:12)
[2017-09-30] MEDS: HEPARIN SODIUM,PORCINE 5,000 UNIT/ML 1 ML VIAL SQ SCH ×2 (09:13→21:05)
[2017-09-30] MEDS: FUROSEMIDE 10 MG/ML 4 ML VIAL IV SCH ×2 (09:13→21:05)
[2017-09-30] MEDS: TIMOLOL 0.5% OPHTH DROPS 5 ML BTL BOTH EYES SCH (09:13)
--- NOTE | 2017-09-30 14:40 | P.PN ---
Subjective Progress Note Date: 09/30/17 Principal diagnosis: Acute right hip fracture and hypoxic respiratory failure secondary to heart failure/diastolic This is a 81-year-old female with history of multiple medical problems including chronic atrial fibrillation, diastolic congestive heart failure, hypertension, hiatal hernia, patient was admitted on 09/27/2017, mostly with fall and right hip fracture. Patient was brought into the ER with mostly right hip pain, and she normally lives at the [facility]. No loss of consciousness, no chest pain, no palpitations, patient was seen by orthopedics on consultation, and she was scheduled to undergo surgery yesterday. However her O2 saturation was marginal, and the patient was not improving with high flow oxygen. She was even placed on a non-rebreather mask, 100% FiO2, and her O2 saturation was in the high 80s and low 90s, 90% at best. Then I was notified about this patient, and I was asked to see her on consultation yesterday. Chest x-ray was reported as normal, hence I felt the patient should have workup to rule out thromboembolic disease/pulmonary embolism. CT angiogram of the chest was ordered by me over the phone, it did rule out pulmonary embolism, however there was evidence of bilateral pleural effusions, bilateral consolidation and atelectasis in both lungs, nonspecific interstitial pneumonitis in both lungs, this was not clearly seen on the chest x-ray itself upon admission. Hence I recommended transferring the patient immediately to the ICU, starting the patient on BiPAP with IPAP of 12 and EPAP of 4, and I recommended FiO2 to be titrated accordingly. Keep the saturation above 90%. Patient is now on BiPAP, she is on 50% FiO2, and her O2 saturation is in the 95 % range. Patient was also given Lasix, and she will be given Lasix again this morning, I have also recommended antibiotics empirically just in case if the patient did have potential aspiration. Patient has been receiving narcotics while on the medical floor, and her mental status has been marginal at best. But considering the patient improved with diuretics, I felt that this is mostly a picture of diastolic congestive heart failure unless proven otherwise. Hence we'll continue diuretics, I cut down the IV fluid to KVO, and I will continue antibiotics empirically for now although my index of suspicion for pneumonia is rather low. Patient is feeling better, she is not the greatest historian, she is complaining of pain in the right hip, denies any chest pain, no fever, no chills, no hemoptysis, no nausea, no vomiting, no abdominal pain. Patient was reevaluated today on 09/30/2017, remains on nasal cannula, feeling much better, breathing a lot easier, chest x-ray showed improvement, patient responded well to diuretics and she is empirically on antibiotics. CBC is normal left lites are normal renal profile is normal. Objective - Vital Signs Vital signs: Vital Signs Temp 97.6 F 09/30/17 12:00 Pulse 54 L 09/30/17 13:00 Resp 24 09/30/17 13:00 BP 117/61 09/30/17 13:00 Pulse Ox 95 09/30/17 13:00 Intake & Output 09/29/17 09/30/17 09/30/17 18:59 06:59 18:59 Intake Total 415.0 12.5 1116.0 Output Total 1021 1280 645 Balance -606.0 -1267.5 471.0 Weight 67.8 kg Intake: IV 415.0 12.5 290.0 ACETAMINOPHEN IV (For NPO 100 100 ) 1,000 mg In Empty Bag 1 bag @ 400 mls/hr IVPB Q6HR PRN Rx#:[id number] Piperacillin-Tazobactam 3 75.0 12.5 70.0 .375 gm In Dextrose/Water 1 50ml.bag @ 12.5 mls/hr IVPB Q8HR [facility] Rx#: [id number] Potassium Chloride 10 meq 200 20 In Water For Injection 1 100ml.bag @ 100 mls/hr IVPB ONCE ONE Rx#: [id number] Potassium Chloride 10 meq 100 In Water For Injection 1 100ml.bag @ 100 mls/hr IVPB Q1HR [facility] Rx#: [id number] Sodium Chloride 0.9% 1, 40 000 ml @ 20 mls/hr IV . Q24H [facility] Rx#:[id number] Tube Feeding 826 Output: Urine 1021 1280 645 Other: Voiding Method Indwelling Catheter Indwelling Catheter - Exam Physical Exam: Revealed a 81-year-old female on nasal cannula, off BiPAP, in no distress. Head: Atraumatic, normocephalic. HEENT:[Neck is supple.] [No neck masses.] [No thyromegaly.] [No JVD.] PERRLA, EOMI, no icterus. Chest: [Diminished breath sounds and crackles at the bases, no rhonchi, no wheezes.] Cardiac Exam: [Irregular irregular rhythm. Normal S1 and S2, no S3 gallop, 2/ 6 systolic murmur thought the precordium.] Abdomen: [Soft, nontender, no megaly, no rebound, no guarding, normal bowel sounds.] Extremities: [No clubbing, no edema, no cyanosis.] External rotation of the right lower extremity related to hip fracture, Neurological Exam: [No focal neurologic deficit. Lymphatic: No lymphadenopathy. Psychiatric: Normal mood affect and marginal mental status,] - Labs CBC & Chem 7: 09/30/17 03:46 09/30/17 12:41 Labs: Abnormal Lab Results - Last 24 Hours (Table) 09/29/17 09/30/17 09/30/17 Range/Units 22:55 03:46 03:46 Monocytes # 1.1 H (0-1.0) k/uL INR (<1.2) Potassium 3.4 L (3.5-5.1) mmol/L BUN 20 H (7-17) mg/dL Total Protein 6.1 L (6.3-8.2) g/dL 09/30/17 Range/Units 03:46 Monocytes # (0-1.0) k/uL INR 1.2 H (<1.2) Potassium (3.5-5.1) mmol/L BUN (7-17) mg/dL Total Protein (6.3-8.2) g/dL Microbiology - Last 24 Hours (Table) 09/28/17 11:47 Urine Culture - Final Urine,Catheterized Assessment and Plan Assessment: Impression: 1 acute right hip fracture secondary to fall. 2 acute diastolic congestive heart failure, 3 chronic atrial fibrillation 4 abnormal troponin levels being addressed by cardiology on the case. 5 possible aspiration pneumonia however my index of suspicion for pneumonia is rather low. 6 acute hypoxic respiratory failure secondary to diastolic congestive heart failure. Low index of suspicion for pneumonia/aspiration pneumonia. Recommendation: Continue present treatment plan including O2 via nasal cannula, bronchodilators, diuretics, empiric antibiotics, from my perspective the patient will be cleared for surgery from the pulmonary perspective but she needs clearance from cardiology. Time with Patient: Less than 30
--- NOTE | 2017-09-30 15:48 | P.PN ---
Subjective Progress Note Date: 09/30/17 This is a 81-year-old female, patient of Dr. Sellers. She has a known past medical history of hypertension, hypothyroidism, hyperlipidemia, congestive heart failure, GERD and dementia. Also has a history of glaucoma and macular degeneration. Patient reports being in her home kitchen and had a trip and fall landing on her right hip. She had significant right hip pain. She lives alone and [facility] [address]. And EMS was notified of breath her into the emergency room. Patient denies any loss of consciousness or hitting her head. She does not remember the full details of her fall. A computed tomography scan of the brain was ordered and negative area and patient was admitted to the orthopedic service and due to the fact that she was found to have a right hip fracture. She was initially scheduled for surgery later today. However, patient is currently requiring 4 L of oxygen sat around 89-90%. She does not usually require home oxygen. She denies any cough chest pain or shortness of breath. Cardiology will be consulted. EKG had shown normal sinus rhythm with a first-degree AV block. At this point patient is not medically stable for discharge. We'll await further cardiology evaluation. Patient denies any cough fever chills or sweats. Denies any bowel movement changes or urinary symptoms. She does report that she can walk a flight of stairs usually without shortness of breath. Denies any smoking history denies any COPD or myocardial infarction. Apparently patient takes Eliquis at home. Per patient and daughter there's been no reported atrial fibrillation or blood clots to require patient to be placed on Eliquis. Patient reports she takes the anticoagulation to prevent blood clots. On 09/30/2017 patient is admitted to intensive care unit she is alert and oriented 3 in no apparent distress, currently she is on oxygen 8 L via nasal cannula, she is complaining of anxiety otherwise she denies any complaints there is no chest pain or shortness of breath at rest no palpitation no fever or chills no dizziness no headache no nausea or vomiting no abdominal pain and no urinary symptoms Objective - Vital Signs Vital signs: Vital Signs Temp 97.6 F 09/30/17 12:00 Pulse 54 L 09/30/17 13:00 Resp 24 09/30/17 13:00 BP 117/61 09/30/17 13:00 Pulse Ox 95 09/30/17 13:00 Intake & Output 09/29/17 09/30/17 09/30/17 18:59 06:59 18:59 Intake Total 415.0 12.5 1116.0 Output Total 1021 1280 645 Balance -606.0 -1267.5 471.0 Weight 67.8 kg Intake: IV 415.0 12.5 290.0 ACETAMINOPHEN IV (For NPO 100 100 ) 1,000 mg In Empty Bag 1 bag @ 400 mls/hr IVPB Q6HR PRN Rx#:[id number] Piperacillin-Tazobactam 3 75.0 12.5 70.0 .375 gm In Dextrose/Water 1 50ml.bag @ 12.5 mls/hr IVPB Q8HR [facility] Rx#: [id number] Potassium Chloride 10 meq 200 20 In Water For Injection 1 100ml.bag @ 100 mls/hr IVPB ONCE ONE Rx#: [id number] Potassium Chloride 10 meq 100 In Water For Injection 1 100ml.bag @ 100 mls/hr IVPB Q1HR [facility] Rx#: [id number] Sodium Chloride 0.9% 1, 40 000 ml @ 20 mls/hr IV . Q24H [facility] Rx#:[id number] Tube Feeding 826 Output: Urine 1021 1280 645 Other: Voiding Method Indwelling Catheter Indwelling Catheter - Exam Head normocephalic Neck supple Lungs clear to auscultation bilaterally no wheezing or crackles Heart regular rate and rhythm S1-S2, no rub or gallop Abdomen is soft nontender nondistended positive bowel sounds no hepatosplenomegaly Extremities no edema Neuro alert and orientated to 3 - Labs CBC & Chem 7: 09/30/17 03:46 09/30/17 12:41 Labs: Abnormal Lab Results - Last 24 Hours (Table) 09/29/17 09/30/17 09/30/17 Range/Units 22:55 03:46 03:46 Monocytes # 1.1 H (0-1.0) k/uL INR (<1.2) Potassium 3.4 L (3.5-5.1) mmol/L BUN 20 H (7-17) mg/dL Total Protein 6.1 L (6.3-8.2) g/dL 09/30/17 Range/Units 03:46 Monocytes # (0-1.0) k/uL INR 1.2 H (<1.2) Potassium (3.5-5.1) mmol/L BUN (7-17) mg/dL Total Protein (6.3-8.2) g/dL Microbiology - Last 24 Hours (Table) 09/28/17 11:47 Urine Culture - Final Urine,Catheterized Assessment and Plan Plan: 1. Fall with right hip fracture: Patient admitted to orthopedic service. Patient will require surgical intervention. At this time patient is not medically stable to proceed with surgery. 2. Acute hypoxic respiratory failure, she is requiring 4 L of oxygen exact etiology unclear likely related to congestive heart failure. Chest x-rays negative. Patient denies any shortness of breath or chest pain. Does not usually require home oxygen. Cardiology will be consulted for further evaluation and cardiac clearance. EKG sinus rhythm with a first-degree AV block and a lateral infarct age undetermined. 2. UTI: Patient is off Rocephin currently she is on Zosyn 3. Hypothyroidism continue Synthroid 4. Essential hypertension 5. Dementia continue Aricept and Namenda GI prophylaxis Pepcid and DVT prophylaxis SCDs this patient will proceeding with surgery At this time patient is admitted to intensive care unit pulmonary consultation and cardiology consultation following She is still requiring oxygen via nasal cannula at this time will try to wean down oxygen assess pulse oximetry We are awaiting cardiology clearance for surgery Continue current care.
[2017-09-30] MEDS ORDERED: POTASSIUM CHLORIDE ER 20 MEQ TAB.ER PO SCH (16:00)
[2017-09-30] MEDS: METOPROLOL TARTRATE 12.5 MG TAB PO SCH (16:25)
--- NOTE | 2017-09-30 17:01 | P.PN ---
Subjective Progress Note Date: 09/30/17 This is a pleasant 81-year-old female patient with a past medical history significant for paroxysmal atrial fibrillation oral anticoagulation fell at home and fractured her right hip. The patient was seen and evaluated by orthopedic service and the plan to proceed with hip surgery. The patient was ruled in for acute non-ST elevation myocardial infarction. The cardiac enzymes came in to be slightly abnormal. She was advised to pursue the hip surgery yesterday with high risk but unfortunately she developed shortness of breath and it seems that she developed an episode of congestive heart failure and because of that the patient was transferred to the intensive care unit because she was de-satting. After the Lasix IV she felt better indeterminable shortness of breath and her saturation has improved. I'll follow-up with her today, she denies having any chest pain or discomfort. She stated that the shortness of breath is better. She has been bradycardic. I am going to d/c metoprolol and continue the Lasix IV. I do feel that the patient can have the surgery tomorrow morning. Objective - Vital Signs Vital signs: Vital Signs Temp 97.8 F 09/30/17 16:00 Pulse 49 L 09/30/17 16:00 Resp 25 H 09/30/17 16:00 BP 140/71 09/30/17 16:00 Pulse Ox 97 09/30/17 16:00 Intake & Output 09/29/17 09/30/17 09/30/17 18:59 06:59 18:59 Intake Total 415.0 12.5 1176.0 Output Total 1021 1280 755 Balance -606.0 -1267.5 421.0 Weight 67.8 kg Intake: IV 415.0 12.5 350.0 ACETAMINOPHEN IV (For NPO 100 100 ) 1,000 mg In Empty Bag 1 bag @ 400 mls/hr IVPB Q6HR PRN Rx#:[id number] Piperacillin-Tazobactam 3 75.0 12.5 50.0 .375 gm In Dextrose/Water 1 50ml.bag @ 12.5 mls/hr IVPB Q8HR [facility] Rx#: [id number] Potassium Chloride 10 meq 200 20 In Water For Injection 1 100ml.bag @ 100 mls/hr IVPB ONCE ONE Rx#: [id number] Potassium Chloride 10 meq 180 In Water For Injection 1 100ml.bag @ 100 mls/hr IVPB Q1HR [facility] Rx#: [id number] Sodium Chloride 0.9% 1, 40 000 ml @ 20 mls/hr IV . Q24H [facility] Rx#:[id number] Tube Feeding 826 Output: Urine 1021 1280 755 Other: Voiding Method Indwelling Catheter Indwelling Catheter - Constitutional General appearance: Present: no acute distress - Respiratory Respiratory: bilateral: CTA - Cardiovascular Rhythm: regular Heart sounds: normal: S1, S2 - Labs CBC & Chem 7: 09/30/17 03:46 09/30/17 12:41 Labs: Abnormal Lab Results - Last 24 Hours (Table) 09/29/17 09/30/17 09/30/17 Range/Units 22:55 03:46 03:46 Monocytes # 1.1 H (0-1.0) k/uL INR (<1.2) Potassium 3.4 L (3.5-5.1) mmol/L BUN 20 H (7-17) mg/dL Total Protein 6.1 L (6.3-8.2) g/dL 09/30/17 Range/Units 03:46 Monocytes # (0-1.0) k/uL INR 1.2 H (<1.2) Potassium (3.5-5.1) mmol/L BUN (7-17) mg/dL Total Protein (6.3-8.2) g/dL Microbiology - Last 24 Hours (Table) 09/28/17 11:47 Urine Culture - Final Urine,Catheterized Assessment and Plan Assessment: assessment #1 status post fall and right hip fracture #2 paroxysmal atrial fibrillation and the patient has been maintaining normal sinus mechanism #3 mildly abnormal cardiac enzymes #4 congestive heart failure related to diastolic dysfunction Plan #1 continue Lasix IV for additional 24 hours #2 DC metoprolol into view of the bradycardia #3 the patient can proceed with the surgery. Thank you for allowing us participate in her care and we will continue following up with the patient.
[2017-09-30] MEDS ORDERED: LORazepam 2 MG/ML INJ IV PRN (20:34)
[2017-09-30] MEDS: QUEtiapine 50 MG TAB PO SCH (21:03)
[2017-09-30] MEDS: MEMANTINE 5 MG TAB PO SCH (21:03)
[2017-09-30] MEDS: DONEPEZIL 5 MG TAB PO SCH (21:03)
[2017-09-30] MEDS: busPIRone HCl 10 MG TAB PO SCH (21:03)
[2017-09-30] MEDS: LATANOPROST 0.005% OPHTH DROPS 2.5 ML BTL BOTH EYES SCH (23:53)
[2017-09-30] MEDS: SODIUM CHLORIDE 0.9% 1,000 ML IV SCH (23:53)
[2017-10-01 05:10] LABS: INR 1.2 (<1.2); Partial Thromboplastin Time 23.3 sec (22.0-30.0); Prothrombin Time 11.7 sec (9.0-12.0)
[2017-10-01 05:22] LABS: Albumin 3.4 g/dL (3.5-5.0); Calcium 9.4 mg/dL (8.4-10.2); Phosphorus 3.2 mg/dL (2.5-4.5); Potassium 3.6 mmol/L (3.5-5.1); Total Bilirubin 0.7 mg/dL (0.2-1.3); Total Protein 5.8 g/dL (6.3-8.2)
[2017-10-01 05:27] LABS: HCT 42.2 % (34.0-46.0); HGB 14.2 gm/dL (11.4-16.0); MCH 29.2 pg (25.0-35.0); MCHC 33.7 g/dL (31.0-37.0); MCV 86.7 fL (80.0-100.0); Mean Platelet Volume 6.6; Platelet Count 258 k/uL (150-450); RBC 4.87 m/uL (3.80-5.40); RDW 13.8 % (11.5-15.5); WBC 8.9 k/uL (3.8-10.6)
[2017-10-01 05:38] LABS: Magnesium 2.1 mg/dL (1.6-2.3)
[2017-10-01] MEDS ORDERED: Potassium Replacement Protocol 1 EACH MISC MISCELLANE PRN (05:50)
[2017-10-01 07:44] LABS: Basophils # (M) 0.18 k/uL (0-0.2); Eosinophils # (M) 0.89 k/uL (0-0.7); Lymphocytes # (M) 2.67 k/uL (1.0-4.8); Monocytes # (M) 1.51 k/uL (0-1.0); Neutrophils # (M) 3.65 k/uL (1.3-7.7); Neutrophils % (M) 41 %; Nucleated Red Blood Cells 0 /100 WBC (0-0); Total Cells Counted 100
[2017-10-01 07:45] LABS: Poikilocytosis (M) Present
[2017-10-01] MEDS: POTASSIUM CHLORIDE 10 MEQ in WATER FOR INJECTION 1 100ML.BAG IVPB SCH ×2 (08:12→09:34)
[2017-10-01] MEDS: PIPERACILLIN-TAZOBACTAM 3.375 GM in DEXTROSE/WATER 1 50ML.BAG IVPB SCH ×2 (08:12→18:07)
[2017-10-01] MEDS: busPIRone HCl 10 MG TAB PO SCH ×3 (08:12→22:45)
[2017-10-01] MEDS: FUROSEMIDE 10 MG/ML 4 ML VIAL IV SCH ×2 (08:13→21:04)
[2017-10-01] MEDS: TIMOLOL 0.5% OPHTH DROPS 5 ML BTL BOTH EYES SCH (08:13)
[2017-10-01] MEDS: HEPARIN SODIUM,PORCINE 5,000 UNIT/ML 1 ML VIAL SQ SCH ×2 (08:13→21:04)
[2017-10-01] MEDS: METOPROLOL TARTRATE 12.5 MG TAB PO SCH ×2 (08:13→09:34)
[2017-10-01] MEDS: PANTOPRAZOLE 40 MG/10 ML VIAL IV SCH (08:13)
--- NOTE | 2017-10-01 08:18 | XR ---
EXAMINATION TYPE: XR chest 1V DATE OF EXAM: 10/01/2017 COMPARISON: Prior chest 09/30/2017 HISTORY: Shortness of breath TECHNIQUE: Single frontal view of the chest is obtained. FINDINGS: Patient is rotated. Heart size is stable. There is airspace disease at the right lung base obscuring the right hemidiaphragm, there is blunting of the right costophrenic angle. Interstitium i s increased. No pneumothorax. IMPRESSION: Correlate for pneumonia, there may be parapneumonic effusion, findings could represent p ulmonary venous hypertension, interstitial edema. Follow-up recommended.
--- NOTE | 2017-10-01 10:26 | P.PN ---
Subjective Progress Note Date: 10/01/17 Principal diagnosis: Acute right hip fracture and hypoxic respiratory failure secondary to heart failure/diastolic This is a 81-year-old female with history of multiple medical problems including chronic atrial fibrillation, diastolic congestive heart failure, hypertension, hiatal hernia, patient was admitted on 09/27/2017, mostly with fall and right hip fracture. Patient was brought into the ER with mostly right hip pain, and she normally lives at the [facility]. No loss of consciousness, no chest pain, no palpitations, patient was seen by orthopedics on consultation, and she was scheduled to undergo surgery yesterday. However her O2 saturation was marginal, and the patient was not improving with high flow oxygen. She was even placed on a non-rebreather mask, 100% FiO2, and her O2 saturation was in the high 80s and low 90s, 90% at best. Then I was notified about this patient, and I was asked to see her on consultation yesterday. Chest x-ray was reported as normal, hence I felt the patient should have workup to rule out thromboembolic disease/pulmonary embolism. CT angiogram of the chest was ordered by me over the phone, it did rule out pulmonary embolism, however there was evidence of bilateral pleural effusions, bilateral consolidation and atelectasis in both lungs, nonspecific interstitial pneumonitis in both lungs, this was not clearly seen on the chest x-ray itself upon admission. Hence I recommended transferring the patient immediately to the ICU, starting the patient on BiPAP with IPAP of 12 and EPAP of 4, and I recommended FiO2 to be titrated accordingly. Keep the saturation above 90%. Patient is now on BiPAP, she is on 50% FiO2, and her O2 saturation is in the 95 % range. Patient was also given Lasix, and she will be given Lasix again this morning, I have also recommended antibiotics empirically just in case if the patient did have potential aspiration. Patient has been receiving narcotics while on the medical floor, and her mental status has been marginal at best. But considering the patient improved with diuretics, I felt that this is mostly a picture of diastolic congestive heart failure unless proven otherwise. Hence we'll continue diuretics, I cut down the IV fluid to KVO, and I will continue antibiotics empirically for now although my index of suspicion for pneumonia is rather low. Patient is feeling better, she is not the greatest historian, she is complaining of pain in the right hip, denies any chest pain, no fever, no chills, no hemoptysis, no nausea, no vomiting, no abdominal pain. Patient was reevaluated today on 09/30/2017, remains on nasal cannula, feeling much better, breathing a lot easier, chest x-ray showed improvement, patient responded well to diuretics and she is empirically on antibiotics. CBC is normal left lites are normal renal profile is normal. On 10/01/2017 patient seen in follow-up in intensive care unit. She is awake, alert, oriented 3, denies any distress. Pulse ox on 6 L per nasal cannula is 98%, patient is bradycardic with a rate of 44 BPM, metoprolol has been discontinued. But she remains asymptomatic, blood pressures 146/70, she is afebrile. Today's chest x-ray has been reviewed by Dr. Granados, and shows airspace disease at the right lung base and right perihilar area and blunting of the right costophrenic angle, most likely pneumonic pleural effusion. Patient is on empiric antibiotics in the form of Zosyn. She denies any dyspnea , denies any chest pain. No fever or chills. Today's blood work has been reviewed, the FVC is within normal limits at 8.9, hemoglobin is 14.2, electrolytes and renal profile are unremarkable. Patient also receiving IV diuretics in the form of Lasix 40 mg every 12 hours. Surgery on her right hip scheduled for today, at 2 PM in the afternoon. Otherwise no acute events overnight, patient is stable, and could be transferred to selective care. Objective - Vital Signs Vital signs: Vital Signs Temp 97.8 F 10/01/17 08:00 Pulse 44 L 10/01/17 10:00 Resp 18 10/01/17 10:00 BP 146/70 10/01/17 10:00 Pulse Ox 98 10/01/17 10:00 Intake & Output 09/30/17 10/01/17 10/01/17 18:59 06:59 18:59 Intake Total 1673.5 1158.5 80 Output Total 830 1350 610 Balance 843.5 -191.5 -530 Weight 67.8 kg 67.8 kg Intake: IV 387.5 232.5 80 ACETAMINOPHEN IV (For NPO 100 200 ) 1,000 mg In Empty Bag 1 bag @ 400 mls/hr IVPB Q6HR PRN Rx#:[id number] Piperacillin-Tazobactam 3 107.5 12.5 .375 gm In Dextrose/Water 1 50ml.bag @ 12.5 mls/hr IVPB Q8HR [facility] Rx#: [id number] Potassium Chloride 10 meq 20 In Water For Injection 1 100ml.bag @ 100 mls/hr IVPB ONCE ONE Rx#: [id number] Potassium Chloride 10 meq 100 In Water For Injection 1 100ml.bag @ 100 mls/hr IVPB Q1HR [facility] Rx#: [id number] Sodium Chloride 0.9% 1, 60 20 80 000 ml @ 20 mls/hr IV . Q24H [facility] Rx#:[id number] Oral 1286 460 Tube Feeding 466 Output: Urine 830 1350 610 Other: Voiding Method Indwelling Catheter Indwelling Catheter Indwelling Catheter # Bowel Movements 1 - Exam Physical Exam: Revealed a 81-year-old female on nasal cannula, off BiPAP, in no distress. Head: Atraumatic, normocephalic. HEENT:[Neck is supple.] [No neck masses.] [No thyromegaly.] [No JVD.] PERRLA, EOMI, no icterus. Chest: [Diminished breath sounds and crackles at the bases, no rhonchi, no wheezes.] Cardiac Exam: [Irregular irregular rhythm. Normal S1 and S2, no S3 gallop, 2/ 6 systolic murmur thought the precordium.] Abdomen: [Soft, nontender, no megaly, no rebound, no guarding, normal bowel sounds.] Extremities: [No clubbing, no edema, no cyanosis.] External rotation of the right lower extremity related to hip fracture, Neurological Exam: [No focal neurologic deficit. Lymphatic: No lymphadenopathy. Psychiatric: Normal mood affect and marginal mental status,] - Labs CBC & Chem 7: 10/01/17 04:33 10/01/17 04:33 Labs: Abnormal Lab Results - Last 24 Hours (Table) 10/01/17 10/01/17 10/01/17 Range/Units 04:33 04:33 04:33 Monocytes # (Manual) 1.51 H (0-1.0) k/uL Eosinophils # (Manual) 0.89 H (0-0.7) k/uL INR 1.2 H (<1.2) BUN 22 H (7-17) mg/dL Total Protein 5.8 L (6.3-8.2) g/dL Albumin 3.4 L (3.5-5.0) g/dL Assessment and Plan Plan: Assessment: 1 acute right hip fracture secondary to fall. 2 acute diastolic congestive heart failure, 3 chronic atrial fibrillation 4 abnormal troponin levels being addressed by cardiology on the case. 5 possible aspiration pneumonia 6 acute hypoxic respiratory failure secondary to diastolic congestive heart failure. Low index of suspicion for pneumonia/aspiration pneumonia. Recommendation: Continue current medical treatment, continue empiric antibiotics in the form of Zosyn, continue bronchodilators, diuretics. Patient remains bradycardic, however has been asymptomatic. Metoprolol has been on hold, cardiology is following. Patient is awaiting her surgery at 2 PM in the afternoon to repair the right hip fracture. Patient [facility] for pulmonary/critical care standpoint. I performed a history & physical examination of the patient and discussed their management with my nurse practitioner, Roberta Montalvo. I reviewed the nurse practitioner's note and agree with the documented findings and plan of care. Lung sounds are clear. The findings and the impression was discussed with the patient. I attest to the documentation by the nurse practitioner. Critical care time is over 30 minutes Time with Patient: Greater than 30
[2017-10-01] MEDS: amLODIPine 5 MG TAB PO SCH (11:13)
[2017-10-01] MEDS: ISOSORBIDE MONONITRATE ER 30 MG TAB.ER.24H PO SCH (11:13)
--- NOTE | 2017-10-01 11:16 | P.PN ---
Subjective Progress Note Date: 10/01/17 This is a 81-year-old female, patient of Dr. Sellers. She has a known past medical history of hypertension, hypothyroidism, hyperlipidemia, congestive heart failure, GERD and dementia. Also has a history of glaucoma and macular degeneration. Patient reports being in her home kitchen and had a trip and fall landing on her right hip. She had significant right hip pain. She lives alone and [facility]. And EMS was notified of breath her into the emergency room. Patient denies any loss of consciousness or hitting her head. She does not remember the full details of her fall. A computed tomography scan of the brain was ordered and negative area and patient was admitted to the orthopedic service and due to the fact that she was found to have a right hip fracture. She was initially scheduled for surgery later today. However, patient is currently requiring 4 L of oxygen sat around 89-90%. She does not usually require home oxygen. She denies any cough chest pain or shortness of breath. Cardiology will be consulted. EKG had shown normal sinus rhythm with a first-degree AV block. At this point patient is not medically stable for discharge. We'll await further cardiology evaluation. Patient denies any cough fever chills or sweats. Denies any bowel movement changes or urinary symptoms. She does report that she can walk a flight of stairs usually without shortness of breath. Denies any smoking history denies any COPD or myocardial infarction. Apparently patient takes Eliquis at home. Per patient and daughter there's been no reported atrial fibrillation or blood clots to require patient to be placed on Eliquis. Patient reports she takes the anticoagulation to prevent blood clots. On 09/30/2017 patient is admitted to intensive care unit she is alert and oriented 3 in no apparent distress, currently she is on oxygen 8 L via nasal cannula, she is complaining of anxiety otherwise she denies any complaints there is no chest pain or shortness of breath at rest no palpitation no fever or chills no dizziness no headache no nausea or vomiting no abdominal pain and no urinary symptoms On 10/01/2017 patient is currently resting comfortably in bed. Denies any shortness of breath or chest pain at this time. Patient on 6 L of oxygen via nasal cannula. Patient currently on Lasix 40 mg every 12 hours. Surgery on right hip scheduled for today at 2 PM the afternoon. Patient's heart rate in the 40s per nursing. Imdur and Norvasc have been added per cardiology. Per nursing Lopressor has been held. Objective - Vital Signs Vital signs: Vital Signs Temp 97.8 F 10/01/17 08:00 Pulse 44 L 10/01/17 10:00 Resp 18 10/01/17 10:00 BP 146/70 10/01/17 10:00 Pulse Ox 98 10/01/17 10:00 Intake & Output 09/30/17 10/01/17 10/01/17 18:59 06:59 18:59 Intake Total 1673.5 1158.5 80 Output Total 830 1350 610 Balance 843.5 -191.5 -530 Weight 67.8 kg 67.8 kg Intake: IV 387.5 232.5 80 ACETAMINOPHEN IV (For NPO 100 200 ) 1,000 mg In Empty Bag 1 bag @ 400 mls/hr IVPB Q6HR PRN Rx#:[id number] Piperacillin-Tazobactam 3 107.5 12.5 .375 gm In Dextrose/Water 1 50ml.bag @ 12.5 mls/hr IVPB Q8HR [facility] Rx#: [id number] Potassium Chloride 10 meq 20 In Water For Injection 1 100ml.bag @ 100 mls/hr IVPB ONCE ONE Rx#: [id number] Potassium Chloride 10 meq 100 In Water For Injection 1 100ml.bag @ 100 mls/hr IVPB Q1HR [facility] Rx#: [id number] Sodium Chloride 0.9% 1, 60 20 80 000 ml @ 20 mls/hr IV . Q24H [facility] Rx#:[id number] Oral 1286 460 Tube Feeding 466 Output: Urine 830 1350 610 Other: Voiding Method Indwelling Catheter Indwelling Catheter Indwelling Catheter # Bowel Movements 1 - Exam Head normocephalic Neck supple Lungs clear to auscultation bilaterally no wheezing or crackles Heart regular rate and rhythm S1-S2, no rub or gallop Abdomen is soft nontender nondistended positive bowel sounds no hepatosplenomegaly Extremities no edema Neuro alert and orientated to 3 - Labs CBC & Chem 7: 10/01/17 04:33 10/01/17 04:33 Labs: Abnormal Lab Results - Last 24 Hours (Table) 07/02/18 07/02/18 07/02/18 Range/Units 04:33 04:33 04:33 Monocytes # (Manual) 1.51 H (0-1.0) k/uL Eosinophils # (Manual) 0.89 H (0-0.7) k/uL INR 1.2 H (<1.2) BUN 22 H (7-17) mg/dL Total Protein 5.8 L (6.3-8.2) g/dL Albumin 3.4 L (3.5-5.0) g/dL Assessment and Plan Assessment: 1. Fall with right hip fracture: Patient admitted to orthopedic service. Per cardiology patient can proceed with surgery. Patient planned for right hip surgery this afternoon. 2. Acute hypoxic respiratory failure secondary to diastolic congestive heart failure. She is requiring 6 L of oxygen. Patient denies any shortness of breath or chest pain. Does not usually require home oxygen. Cardiology will be consulted for further evaluation and cardiac clearance. EKG sinus rhythm with a first-degree AV block and a lateral infarct age undetermined. Chest x- ray completed this a.m., Correlate for pneumonia, there may be parapneumonic effusion, findings could represent pulmonary venous hypertension, interstitial edema. Pulmonary service is following. Currently on Lasix 40 mg IV every 12 hours. IV antibiotics Zosyn. 3. UTI: Patient is off Rocephin currently she is on Zosyn 4. Hypothyroidism continue Synthroid 5. Essential hypertension. 6. Dementia continue Aricept and Namenda 7. Abnormal troponin level. Cardiology service following 8. Paroxysmal atrial fibrillation. Patient has been maintaining normal sinus mechanism. 2-D echo completed showing EF between 55-60%. Eliquis currently on hold as per cardiology should be resumed postoperatively when appropriate per orthopedic surgery 9. Bradycardia. Cardiology following. Imdur and Norvasc have been added per cardiology. Potassium 3.6 and has been replaced. Redraw ordered for 1300. GI prophylaxis Pepcid and DVT prophylaxis SCDs this patient will proceeding with surgery At this time patient is admitted to intensive care unit pulmonary consultation and cardiology consultation following She is still requiring oxygen via nasal cannula at this time will try to wean down oxygen assess pulse oximetry.
--- NOTE | 2017-10-01 15:20 | P.PN ---
Progress Note - Text Anesthesia. I had a telephone conversation with a Maggie Gates concerning her mother Maggie Peterson and the mother's CODE STATUS. The daughter who has signed a consent for her mother's surgery has agreed to allow the mother's no code status to be changed to full code during the immediate perioperative period.She understands that many of the interventions that would normally be made during anesthesia care are similar or the same as would be utilized during CPR and in all likelihood be evanescent nature.
--- NOTE | 2017-10-01 16:05 | PN ---
PROGRESS NOTE FOLLOW-UP NOTE: Maggie is a 81-year-old lady who was admitted to hospital with right hip fracture. Cardiology was initially asked to see her for preoperative cardiac evaluation. She was cleared for surgery and subsequently developed udw-VJ-tdeukmt-elevation TX and had mild congestive heart failure. She has already been cleared for surgery. This morning, patient is doing well clinically, does not have any symptoms, is bradycardic. I am going to hold the metoprolol. On exam, heart rate is in the 40s. Blood pressure is 146/72. Respiratory rate is 18. Chest exam reveals diminished air entry at the bases. Heart exam reveals first and second heart sounds. No gallop. Examination of the extremities did not reveal any edema. The patient was on Norvasc at home, which I am renewing at 5 mg daily. She is on IV Lasix, which will be continued. Continue the hydralazine. I will also add nitrates in the form of Imdur 30 mg daily. ASSESSMENT: 1. Right hip fracture. 2. Xhh-XJ-uzkzmtk-elevation myocardial infarction. 3. Acute onset congestive heart failure. PLAN: The patient is on optimal medical therapy. She will proceed with her hip surgery today. She is at increased risk for perioperative cardiac event. However, the surgery is beneficial and the benefits outweigh the risks at this time. MMODL / IJN: [id number] /
[2017-10-01] MEDS ORDERED: NALOXONE 0.4 MG/ML 1 ML VIAL IV PRN (16:38)
[2017-10-01] MEDS ORDERED: MAGNESIUM HYDROXIDE 2,400 MG/10 ML CUP PO PRN (16:44)
[2017-10-01] MEDS ORDERED: KETAMINE 10 MG/ML 20 ML VIAL ONE (16:46)
[2017-10-01] MEDS ORDERED: PROPOFOL 10 MG/ML 20 ML VIAL IV ONE (16:46)
[2017-10-01] MEDS ORDERED: ePHEDrine SULFATE/0.9% NACL/PF 50 MG/5 ML SYRINGE IV ONE (16:46)
[2017-10-01] MEDS ORDERED: LACTATED RINGERS 1,000 ML IV ONE (16:47)
[2017-10-01] MEDS ORDERED: SODIUM CHLORIDE 0.9% 50 ML with ceFAZolin 2,000 MG IV ONE ×2 (17:10)
--- NOTE | 2017-10-01 18:01 | P.OP ---
Date of Procedure: 10/01/17 Preoperative Diagnosis: Intratrochanteric fracture right hip Postoperative Diagnosis: Intratrochanteric fracture right hip Procedure(s) Performed: Close reduction and intramedullary hip screw fixation right hip Implants: [employer] intertan nail 125, 11.5 mm x 18 cm. [employer] Intertan integrated interlocking lag screw, 90 mm lag screw, 85 mm compression screw. [employer] L-P screw, 5.0 mm x 30 mm. Anesthesia: spinal Surgeon: Ede [employer] Qa Analyst #1: Umm Arita Estimated Blood Loss (ml): 30 Pathology: none sent Condition: stable Disposition: PACU Indications for Procedure: This is a 81-year-old female sustained a fall onto her right hip. She sustained an intratrochanteric fracture right hip and has been awaiting medical clearance. Patient originally saw my associate Dr. Bradley, but due to the lack medical clearance she was unable to perform the surgery. Due to the timing , I was available to perform the procedure and discussed the surgical risks and benefits with the family at length they are agreeable to the procedure and informed consent was obtained. Operative Findings: The operative findings are consistent with intertrochanteric fracture of the right hip. Description of Procedure: The patient was seen in the preoperative area, consent was reviewed, and the operative site was marked with a skin marker. The patient was brought to the operating room and placed on the operating room table. Anesthesia was administered by the anesthesia department. 2 g of Ancef were administered intravenously. The patient was placed supine on the fracture table with the fractured extremity in traction boot. His other extremity was placed in a well leg good and his bony prominences were padded. A universal timeout was then performed which confirmed the patient's name, surgical site, ALLERGIES, and consent. Fracture reduction was performed with traction and adduction maneuver which was confirmed with fluoroscopy. After reduction was performed, his extremity was then prepped and draped in the usual sterile fashion. Utilizing fluoroscopy to identify the tip of the greater trochanter, a 3 cm incision was made just proximal to the greater trochanter. Utilizing a curved awl, the starting hole was created at the tip of the greater trochanter and centralized in the AP plane. These locations were confirmed by fluoroscopy. Guidewire was then inserted down the medullary canal. Sequentially reaming of the femur was performed to 13 mm distally and 17 mm proximally. After reaming, appropriate size nail was inserted over the guidewire. The nail was inserted to the appropriate depth and the guidewire was removed. The lag screw targeting device was placed in the jig and a small skin incision was made and the targeting guide was placed down to bone. Utilizing the distally threaded guidewire, the guidewire was placed in the appropriate position in the femoral head, both anterior, posterior and mediolateral. Next, the drill for the second screw was then placed through the guide and drilled to the appropriate depth. The guidewire was measured and the appropriate depth was then reamed. The final size screw was placed to the appropriate depth. Traction was released and the fracture site was compressed with the aid of the second screw. The proximal drill guide was then removed and the distal drill guide was then inserted in the jig. Skin incision was made down to bone and the distal drill guide was then placed. Distal hole was then drilled and measured to the appropriate depth. Distal screw was then placed. The entire jig was then removed and final fluoroscopic x-rays were obtained. The wounds were then irrigated copiously with saline solution. Fascia was closed with 0-Vicryl. Subcutaneous tissues were closed with 2-0 Vicryl and the skin was closed with álvaro. Sterile dressings were applied. The patient was transported to the recovery room in stable condition. The faculty i on call medical assistant OSITO Morfin was required due the complexity of surgery the need for skilled surgical territory manager.
[2017-10-01] MEDS: SODIUM CHLORIDE 0.9% 1,000 ML IV SCH (18:07)
--- NOTE | 2017-10-01 19:04 | XR ---
EXAMINATION TYPE: XR Hip Limited RT DATE OF EXAM: 10/01/2017 COMPARISON: NONE HISTORY: Postop hip surgery TECHNIQUE: Single view. FINDINGS: There is right hip nailing fixing intertrochanteric fracture of the right femur. Components appear in good position. IMPRESSION: No complicating process seen.
[2017-10-01 19:58] LABS: Basophils # (A) 0.1 k/uL (0-0.2); Basophils % (A) 0 %; Eosinophils # (A) 0.4 k/uL (0-0.7); Eosinophils % (A) 4 %; HCT 42.7 % (34.0-46.0); HGB 14.2 gm/dL (11.4-16.0); Lymphocytes # (A) 2.1 k/uL (1.0-4.8); Lymphocytes % (A) 18 %; MCHC 33.2 g/dL (31.0-37.0); MCV 87.2 fL (80.0-100.0); Mean Platelet Volume 6.5; Monocytes # (A) 1.2 k/uL (0-1.0); Monocytes % (A) 11 %; Neutrophils # (A) 7.3 k/uL (1.3-7.7); Neutrophils % (A) 63 %; Platelet Count 246 k/uL (150-450); RDW 13.7 % (11.5-15.5); WBC 11.6 k/uL (3.8-10.6)
[2017-10-01] MEDS: LATANOPROST 0.005% OPHTH DROPS 2.5 ML BTL BOTH EYES SCH (21:04)
[2017-10-01] MEDS: MEMANTINE 5 MG TAB PO SCH (21:04)
[2017-10-01] MEDS: DONEPEZIL 5 MG TAB PO SCH (21:04)
[2017-10-01] MEDS: QUEtiapine 50 MG TAB PO SCH (21:04)
[2017-10-01] MEDS: SENNOSIDES-DOCUSATE SODIUM 1 EACH TAB PO SCH (22:45)
[2017-10-02] MEDS ORDERED: ceFAZolin IN SWFI 2 GM/20 ML SYRINGE IVP SCH
[2017-10-02] MEDS: PIPERACILLIN-TAZOBACTAM 3.375 GM in DEXTROSE/WATER 1 50ML.BAG IVPB SCH ×3 (00:54→17:45)
[2017-10-02] MEDS: ACETAMINOPHEN IV (For NPO) 1,000 MG in EMPTY BAG 1 BAG IVPB PRN (04:01)
[2017-10-02 04:11] LABS: Basophils % (A) 0 %; Eosinophils # (A) 0.3 k/uL (0-0.7); Eosinophils % (A) 3 %; HCT 40.6 % (34.0-46.0); HGB 13.3 gm/dL (11.4-16.0); Lymphocytes # (A) 1.3 k/uL (1.0-4.8); Lymphocytes % (A) 13 %; MCH 28.1 pg (25.0-35.0); MCHC 32.8 g/dL (31.0-37.0); MCV 85.6 fL (80.0-100.0); Mean Platelet Volume 6.5; Monocytes # (A) 1.2 k/uL (0-1.0); Monocytes % (A) 11 %; Neutrophils % (A) 69 %; Platelet Count 275 k/uL (150-450); RBC 4.75 m/uL (3.80-5.40); RDW 13.8 % (11.5-15.5); WBC 10.2 k/uL (3.8-10.6)
[2017-10-02 04:29] LABS: Albumin 3.4 g/dL (3.5-5.0); Calcium 9.1 mg/dL (8.4-10.2); Magnesium 1.8 mg/dL (1.6-2.3); Phosphorus 4.8 mg/dL (2.5-4.5); Potassium 3.2 mmol/L (3.5-5.1); Total Protein 5.8 g/dL (6.3-8.2)
--- NOTE | 2017-10-02 07:24 | P.PN ---
Subjective Progress Note Date: 10/02/17 Principal diagnosis: Status post right hip fracture Progress note dated 10/02/2017 81-year-old female again seen in the intensive care unit. She remains on high flow O2 is somewhat between 5-8 L. Saturations are mid to high 90s. Her IVs a saline IV at KVO. She is an overflow patient. The patient otherwise remains relatively stable. Blood pressures are good. She does have a chest x-ray showing some minimal airspace disease at the right lung base. She remains on antibiotics in the form of Zosyn. Hemodynamically she has been stable. The patient could likely be transferred out of the ICU to the general medical floor later today. The patient's x-rays labs and medications are all reviewed. Chest x-ray today is improved. White count is 10.2 hemoglobin and hematocrit and platelet count are all normal. Sodium is 137 potassium 3.2 chloride 100 CO2 25 BUN and creatinine were 26 and 0.8. Microbiology is all negative. The patient is postop day #1, status post closed reduction and intramedullary hip screw fixation right hip. Objective - Vital Signs Vital signs: Vital Signs Temp 98.9 F 10/02/17 05:30 Pulse 78 10/02/17 06:00 Resp 20 10/02/17 06:00 BP 110/63 10/02/17 06:00 Pulse Ox 98 10/02/17 06:00 Intake & Output 10/01/17 10/02/17 10/02/17 18:59 06:59 18:59 Intake Total 1080 530.0 Output Total 1085 850 Balance -5 -320.0 Weight 67.8 kg 69 kg Intake: IV 1080 290.0 Piperacillin-Tazobactam 3 50 50.0 .375 gm In Dextrose/Water 1 50ml.bag @ 12.5 mls/hr IVPB Q8HR PAYAM Rx#: [id number] Potassium Chloride 10 meq 200 In Water For Injection 1 100ml.bag @ 100 mls/hr IVPB Q1H PAYAM Rx#: [id number] Sodium Chloride 0.9% 1, 180 240 000 ml @ 20 mls/hr IV . Q24H PAYAM Rx#:[id number] Oral 240 Output: Urine 1055 850 Estimated Blood Loss 30 Other: Voiding Method Indwelling Catheter Indwelling Catheter - Exam No acute distress, oriented 3. Nasal O2 in place. The patient is a bit sleepy initially. HEENT examination is grossly unremarkable. Mucous membranes are moist. No oral lesions. Neck supple. Full range of motion. No adenopathy thyromegaly or neck vein distention. Cardiovascular examination reveals regular rhythm rate. S1-S2 normal. No S3 or S4. No discernible murmur noted. Lungs reveal clear breath sounds. Her sounds are equal bilaterally. No adventitious lung sounds including wheezes rhonchi or crackles. Abdomen soft bowel sounds are heard. No masses or tenderness. Extremities are intact. No cyanosis clubbing or edema. Skin is without rash or lesion. Neurologic examination is brief but nonfocal. - Labs CBC & Chem 7: 10/02/17 03:35 10/02/17 03:35 Labs: Abnormal Lab Results - Last 24 Hours (Table) 10/01/17 10/01/17 10/02/17 Range/Units 04:33 19:26 03:35 WBC 11.6 H (3.8-10.6) k/uL Monocytes # 1.2 H 1.2 H (0-1.0) k/uL Monocytes # (Manual) 1.51 H (0-1.0) k/uL Eosinophils # (Manual) 0.89 H (0-0.7) k/uL Potassium (3.5-5.1) mmol/L BUN (7-17) mg/dL Glucose (74-99) mg/dL Phosphorus (2.5-4.5) mg/dL Total Protein (6.3-8.2) g/dL Albumin (3.5-5.0) g/dL 10/02/17 Range/Units 03:35 WBC (3.8-10.6) k/uL Monocytes # (0-1.0) k/uL Monocytes # (Manual) (0-1.0) k/uL Eosinophils # (Manual) (0-0.7) k/uL Potassium 3.2 L (3.5-5.1) mmol/L BUN 26 H (7-17) mg/dL Glucose 112 H (74-99) mg/dL Phosphorus 4.8 H (2.5-4.5) mg/dL Total Protein 5.8 L (6.3-8.2) g/dL Albumin 3.4 L (3.5-5.0) g/dL Assessment and Plan Assessment: Assessment Postop day #1, status post repair of right hip fracture Diastolic heart failure, stable History of chronic atrial fibrillation Possible aspiration pneumonia, although chest x-ray today is much improved History of GERD History of hyperlipidemia History of hypertension History of hypothyroidism History of pneumonia History of macular degeneration Plan: Plan dated 10/02/2017 The patient remained stable. The patient can be transferred out to the general medical floor. Patient's chest x-rays improved. Oxygenation is improved. Labs look relatively normal. Potassium will need to be replaced. Medications x -rays labs are all reviewed. Prognosis is guarded. We'll continue to follow as needed. Time with Patient: Less than 30
--- NOTE | 2017-10-02 08:16 | XR ---
EXAMINATION TYPE: XR Hip Limited RT DATE OF EXAM: 10/01/2017 COMPARISON: NONE HISTORY: Postsurgical change TECHNIQUE: One view submitted. FINDINGS: There is postoperative change in near anatomic alignment. There is soft tissue edema and emphysema. IMPRESSION: 1. Postoperative change. Appears in near-anatomic alignment.
--- NOTE | 2017-10-02 08:17 | XR ---
EXAMINATION TYPE: XR chest 1V DATE OF EXAM: 10/02/2017 COMPARISON: 10/01/2017 HISTORY: Shortness of breath TECHNIQUE: Single frontal view of the chest is obtained. FINDINGS: Prominence of the right hilum noted. There is bilateral consolidation small effusion which is improved. Interstitium is improved. Underlying COPD noted. Diffuse osteopenia and arthropathy of the shoulders. Atherosclerotic change aorta. Hypertrophic and degenerative change of the spine. IMPRESSION: 1. Improving interstitial changes and basilar consolidation with pleural effusion. Most likely etiolo gy is improving CHF. Underlying pneumonia not excluded. 2. There is marked prominence the right hilum which may be related to patient rotation and short-term follow-up x-ray could BE obtained for confirmation.
--- NOTE | 2017-10-02 08:34 | FL ---
EXAMINATION TYPE: FL guidance operating room DATE OF EXAM: 10/01/2017 HISTORY: Flouroscopy time 58 seconds of fluoroscopy provided. IMPRESSION: 1. Fluoroscopy time.
[2017-10-02] MEDS ORDERED: APIXABAN 5 MG TAB PO SCH (09:00)
[2017-10-02] MEDS: busPIRone HCl 10 MG TAB PO SCH ×3 (09:29→21:03)
[2017-10-02] MEDS: POTASSIUM CHLORIDE ER 20 MEQ TAB.ER PO SCH ×2 (09:29→09:43)
[2017-10-02] MEDS: FUROSEMIDE 10 MG/ML 4 ML VIAL IV SCH (09:30)
[2017-10-02] MEDS: ISOSORBIDE MONONITRATE ER 30 MG TAB.ER.24H PO SCH (09:30)
[2017-10-02] MEDS: METOPROLOL TARTRATE 12.5 MG TAB PO SCH (09:31)
[2017-10-02] MEDS: TIMOLOL 0.5% OPHTH DROPS 5 ML BTL BOTH EYES SCH (09:31)
[2017-10-02] MEDS: PANTOPRAZOLE 40 MG/10 ML VIAL IV SCH (09:31)
[2017-10-02] MEDS: POTASSIUM CHLORIDE 10 MEQ in WATER FOR INJECTION 1 100ML.BAG IVPB SCH ×2 (11:07→17:54)
[2017-10-02] MEDS: amLODIPine 5 MG TAB PO SCH (12:20)
--- NOTE | 2017-10-02 12:53 | CONS ---
CONSULTATION Maggie is a 81-year-old lady that is admitted to hospital with right hip fracture, underwent surgery yesterday. This morning, she is doing well and is free of symptoms. She is on Imdur 30 mg daily, IV Lasix which I am going to switch to p.o. Norvasc 5 mg daily and metoprolol 12.5 b.i.d. EXAM: Heart rate is 60 beats per minute, blood pressure is 114/40, respiratory rate is 18. Chest reveals good air entry bilaterally. Heart reveals first and second heart sounds. No gallop. Abdomen is soft. Extremities did not reveal any edema. Peripheral pulses are felt. Labs show that the hemoglobin is 13.3. Potassium is 3.2, creatinine is 0.8. ASSESSMENT: 1. Hip fracture, status post surgery. 2. Mild non ST-segment elevation myocardial infarction. 3. Mild congestive heart failure. PLAN: I am going to change the Lasix to p.o. Please supplement the potassium per protocol. MMODL / IJN: [id number] /
--- NOTE | 2017-10-02 13:16 | P.PN ---
Subjective Progress Note Date: 10/02/17 This is a 81-year-old female, patient of Dr. Sellers. She has a known past medical history of hypertension, hypothyroidism, hyperlipidemia, congestive heart failure, GERD and dementia. Also has a history of glaucoma and macular degeneration. Patient reports being in her home kitchen and had a trip and fall landing on her right hip. She had significant right hip pain. She lives alone and blue [facility]. And EMS was notified of breath her into the emergency room. Patient denies any loss of consciousness or hitting her head. She does not remember the full details of her fall. A computed tomography scan of the brain was ordered and negative area and patient was admitted to the orthopedic service and due to the fact that she was found to have a right hip fracture. She was initially scheduled for surgery later today. However, patient is currently requiring 4 L of oxygen sat around 89-90%. She does not usually require home oxygen. She denies any cough chest pain or shortness of breath. Cardiology will be consulted. EKG had shown normal sinus rhythm with a first-degree AV block. At this point patient is not medically stable for discharge. We'll await further cardiology evaluation. Patient denies any cough fever chills or sweats. Denies any bowel movement changes or urinary symptoms. She does report that she can walk a flight of stairs usually without shortness of breath. Denies any smoking history denies any COPD or myocardial infarction. Apparently patient takes Eliquis at home. Per patient and daughter there's been no reported atrial fibrillation or blood clots to require patient to be placed on Eliquis. Patient reports she takes the anticoagulation to prevent blood clots. On 09/30/2017 patient is admitted to intensive care unit she is alert and oriented 3 in no apparent distress, currently she is on oxygen 8 L via nasal cannula, she is complaining of anxiety otherwise she denies any complaints there is no chest pain or shortness of breath at rest no palpitation no fever or chills no dizziness no headache no nausea or vomiting no abdominal pain and no urinary symptoms On 10/01/2017 patient is currently resting comfortably in bed. Denies any shortness of breath or chest pain at this time. Patient on 6 L of oxygen via nasal cannula. Patient currently on Lasix 40 mg every 12 hours. Surgery on right hip scheduled for today at 2 PM the afternoon. Patient's heart rate in the 40s per nursing. Imdur and Norvasc have been added per cardiology. Per nursing Lopressor has been held. 10/02/2017 patient will be transferred out of the ICU today. She is sitting up at bedside chair. Patient is postop day #1 status post closed reduction and intramedullary hip screw fixation of the right hip. Patient denies any chest pain or shortness of breath. Denies any nausea or vomiting. She reports passing gas. Ruiz catheter remains in place. She had a temp of 101 this morning. She still on 6 L at 97%. She's on antibiotics for possible aspiration pneumonia Objective - Vital Signs Vital signs: Vital Signs Temp 99.0 F 10/02/17 12:25 Pulse 55 L 10/02/17 12:25 Resp 20 10/02/17 12:25 BP 116/52 10/02/17 12:25 Pulse Ox 93 L 10/02/17 12:25 Intake & Output 10/01/17 10/02/17 10/02/17 18:59 06:59 18:59 Intake Total 1080 530.0 670 Output Total 1085 850 535 Balance -5 -320.0 135 Weight 67.8 kg 69 kg 69 kg Intake: IV 1080 290.0 70 Piperacillin-Tazobactam 3 50 50.0 50 .375 gm In Dextrose/Water 1 50ml.bag @ 12.5 mls/hr IVPB Q8HR PAYAM Rx#: [id number] Potassium Chloride 10 meq 200 In Water For Injection 1 100ml.bag @ 100 mls/hr IVPB Q1H PAYAM Rx#: [id number] Sodium Chloride 0.9% 1, 180 240 20 000 ml @ 20 mls/hr IV . Q24H PAYAM Rx#:[id number] Intake, IV Titration 100 Amount Potassium Chloride 10 meq 100 In Water For Injection 1 100ml.bag @ 100 mls/hr IVPB Q1H PAYAM Rx#: [id number] Oral 240 500 Output: Urine 1055 850 535 Estimated Blood Loss 30 Other: Voiding Method Indwelling Catheter Indwelling Catheter Indwelling Catheter # Bowel Movements 1 - Exam Head normocephalic Neck supple Lungs clear to auscultation bilaterally no wheezing or crackles Heart regular rate and rhythm S1-S2, no rub or gallop Abdomen is soft nontender nondistended positive bowel sounds no hepatosplenomegaly Extremities no edema Neuro alert and orientated to 3 - Labs CBC & Chem 7: 10/02/17 03:35 10/02/17 03:35 Labs: Abnormal Lab Results - Last 24 Hours (Table) 10/01/17 10/02/17 10/02/17 Range/Units 19:26 03:35 03:35 WBC 11.6 H (3.8-10.6) k/uL Monocytes # 1.2 H 1.2 H (0-1.0) k/uL Potassium 3.2 L (3.5-5.1) mmol/L BUN 26 H (7-17) mg/dL Glucose 112 H (74-99) mg/dL Phosphorus 4.8 H (2.5-4.5) mg/dL Total Protein 5.8 L (6.3-8.2) g/dL Albumin 3.4 L (3.5-5.0) g/dL Assessment and Plan Assessment: 1. Fall with right hip fracture: Postop day #1 status post closed reduction and intramedullary hip screw fixation of the right hip 2. Acute hypoxic respiratory failure secondary to diastolic congestive heart failure. She is requiring 6 L of oxygen. Patient denies any shortness of breath or chest pain. Does not usually require home oxygen. Cardiology will be consulted for further evaluation and cardiac clearance. EKG sinus rhythm with a first-degree AV block and a lateral infarct age undetermined. Chest x- ray completed this a.m., Correlate for pneumonia, there may be parapneumonic effusion, findings could represent pulmonary venous hypertension, interstitial edema. Pulmonary service is following. Currently on Lasix 40 mg IV every 12 hours. IV antibiotics Zosyn. 3. UTI: Urine culture showing no growth. Continue IV Zosyn 4. Hypothyroidism continue Synthroid 5. Essential hypertension. 6. Dementia continue Aricept and Namenda 7. Abnormal troponin level. Cardiology service following 8. Paroxysmal atrial fibrillation. Patient has been maintaining normal sinus mechanism. 2-D echo completed showing EF between 55-60%. 9. Bradycardia. Cardiology has decreased the metoprolol to once a day. Bradycardia now improved . Cardiology following. Imdur and Norvasc have been added per cardiology. 10. Acute diastolic congestive heart failure exacerbation. Cardiology is placed patient on oral Lasix 11. Mild non-ST elevated myocardial infarction followed by cardiology 12. Hypokalemia patient receiving potassium supplement 13. Possible aspiration pneumonia continue Zosyn. Pulmonary following. Chest x-ray showing improvement DVT prophylaxis Lindsey I performed an examination of the patient and discussed their management with the physician Manager Knowledge. I have reviewed the Physician Manager Knowledge's notes and agree with the documented findings and plan of care
--- NOTE | 2017-10-02 17:36 | P.PN ---
Subjective Progress Note Date: 10/02/17 This is a 81-year-old female admitted for right hip fracture. Patient is status post closed reduction and intramedullary hip screw fixation of the right hip. This is postoperative day #1. Patient is seen and evaluated at bedside. Patient states that her pain is well-controlled to the right hip. Patient denies any new symptoms or complaints today. Patient denies any fever/chills, numbness, weakness or tingling. Objective - Vital Signs Vital signs: Vital Signs Temp 97.6 F 10/02/17 13:31 Pulse 52 L 10/02/17 13:31 Resp 18 10/02/17 13:31 BP 114/71 10/02/17 13:31 Pulse Ox 95 10/02/17 13:31 Intake & Output 10/01/17 10/02/17 10/02/17 18:59 06:59 18:59 Intake Total 1080 530.0 670 Output Total 1085 850 535 Balance -5 -320.0 135 Weight 67.8 kg 69 kg 69 kg Intake: IV 1080 290.0 70 Piperacillin-Tazobactam 3 50 50.0 50 .375 gm In Dextrose/Water 1 50ml.bag @ 12.5 mls/hr IVPB Q8HR PAYAM Rx#: [id number] Potassium Chloride 10 meq 200 In Water For Injection 1 100ml.bag @ 100 mls/hr IVPB Q1H PAYAM Rx#: [id number] Sodium Chloride 0.9% 1, 180 240 20 000 ml @ 20 mls/hr IV . Q24H PAYAM Rx#:[id number] Intake, IV Titration 100 Amount Potassium Chloride 10 meq 100 In Water For Injection 1 100ml.bag @ 100 mls/hr IVPB Q1H PAYAM Rx#: [id number] Oral 240 500 Output: Urine 1055 850 535 Estimated Blood Loss 30 Other: Voiding Method Indwelling Catheter Indwelling Catheter Indwelling Catheter # Bowel Movements 1 - Exam On exam patient sitting comfortably in a chair in no acute distress. Patient is alert and well-appearing. Dressing is clean, dry and intact. Patient has full foot and ankle motion without pain or difficulty. Calf is soft and nontender to palpation. Sensation intact. Neurovascular status and circulatory status are intact. - Labs CBC & Chem 7: 10/02/17 03:35 10/02/17 03:35 Labs: Abnormal Lab Results - Last 24 Hours (Table) 10/01/17 10/02/17 10/02/17 Range/Units 19:26 03:35 03:35 WBC 11.6 H (3.8-10.6) k/uL Monocytes # 1.2 H 1.2 H (0-1.0) k/uL Potassium 3.2 L (3.5-5.1) mmol/L BUN 26 H (7-17) mg/dL Glucose 112 H (74-99) mg/dL Phosphorus 4.8 H (2.5-4.5) mg/dL Total Protein 5.8 L (6.3-8.2) g/dL Albumin 3.4 L (3.5-5.0) g/dL Assessment and Plan (1) Closed right hip fracture Current Visit: Yes Status: Acute Code(s): S72.001A - FRACTURE OF UNSP PART OF NECK OF RIGHT FEMUR, INIT SNOMED Code(s): 781822826 (2) Fall Current Visit: Yes Status: Acute Code(s): W19.XXXA - UNSPECIFIED FALL, INITIAL ENCOUNTER SNOMED Code(s): 4334732 Plan: 1. Continue routine postoperative care. 2. Anticoagulation with Eliquis per medicine. 3. 50% weightbearing to right lower extremity. 4. Daily dressing changes. 5. Will continue to follow the patient closely.
[2017-10-02] MEDS: SODIUM CHLORIDE 0.9% 1,000 ML IV SCH (17:55)
[2017-10-02] MEDS: SENNOSIDES-DOCUSATE SODIUM 1 EACH TAB PO SCH (21:02)
[2017-10-02] MEDS: MEMANTINE 5 MG TAB PO SCH (21:03)
[2017-10-02] MEDS: QUEtiapine 50 MG TAB PO SCH (21:03)
[2017-10-02] MEDS: LATANOPROST 0.005% OPHTH DROPS 2.5 ML BTL BOTH EYES SCH (21:03)
[2017-10-02] MEDS: APIXABAN 2.5 MG TABLET PO SCH (21:03)
[2017-10-02] MEDS: DONEPEZIL 5 MG TAB PO SCH (21:03)
[2017-10-03] MEDS: PIPERACILLIN-TAZOBACTAM 3.375 GM in DEXTROSE/WATER 1 50ML.BAG IVPB SCH ×4 (00:55→23:18)
--- NOTE | 2017-10-03 08:12 | XR ---
EXAMINATION TYPE: XR chest 1V DATE OF EXAM: 10/03/2017 COMPARISON: Prior portable x-ray dated 10/02/2017 at 6:39 AM HISTORY: Shortness of breath TECHNIQUE: Single frontal view of the chest is obtained. FINDINGS: Patient remains partially rotated. Increased density in the right lung base suggest atelect atic change or limited infiltrate. No pneumothorax. No evidence of andrzej pulmonary edema. IMPRESSION: Stable findings as compared with the prior chest x-ray with patchy densities at the right lung base suggestive of atelectatic change or limited infiltrate. No andrzej pulmonary edema or pneumo thorax.
[2017-10-03] MEDS: PANTOPRAZOLE 40 MG/10 ML VIAL IV SCH (08:27)
[2017-10-03] MEDS ORDERED: POTASSIUM CHLORIDE ER 20 MEQ TAB.ER PO STA (08:27)
[2017-10-03] MEDS: TIMOLOL 0.5% OPHTH DROPS 5 ML BTL BOTH EYES SCH (08:27)
[2017-10-03] MEDS: ISOSORBIDE MONONITRATE ER 30 MG TAB.ER.24H PO SCH (08:28)
[2017-10-03] MEDS: amLODIPine 5 MG TAB PO SCH (08:28)
[2017-10-03] MEDS: FUROSEMIDE 40 MG TAB PO SCH (08:28)
[2017-10-03] MEDS: APIXABAN 2.5 MG TABLET PO SCH ×2 (08:28→20:03)
[2017-10-03] MEDS: busPIRone HCl 10 MG TAB PO SCH ×3 (08:28→20:03)
[2017-10-03] MEDS: METOPROLOL TARTRATE 12.5 MG TAB PO SCH (08:29)
[2017-10-03 09:24] LABS: Potassium 3.3 mmol/L (3.5-5.1); Total Bilirubin 0.7 mg/dL (0.2-1.3); Total Protein 5.4 g/dL (6.3-8.2)
[2017-10-03 09:44] LABS: Basophils # (A) 0.1 k/uL (0-0.2); Basophils % (A) 1 %; Eosinophils # (A) 0.5 k/uL (0-0.7); Eosinophils % (A) 5 %; HCT 35.8 % (34.0-46.0); HGB 12.1 gm/dL (11.4-16.0); Lymphocytes % (A) 18 %; MCHC 33.8 g/dL (31.0-37.0); MCV 85.8 fL (80.0-100.0); Monocytes # (A) 1.1 k/uL (0-1.0); Monocytes % (A) 10 %; Neutrophils # (A) 6.7 k/uL (1.3-7.7); Neutrophils % (A) 63 %; Platelet Count 251 k/uL (150-450); RBC 4.18 m/uL (3.80-5.40); RDW 13.9 % (11.5-15.5); WBC 10.8 k/uL (3.8-10.6)
--- NOTE | 2017-10-03 10:42 | P.PN ---
Subjective Progress Note Date: 10/03/17 This is a 81-year-old female, patient of Dr. Sellers. She has a known past medical history of hypertension, hypothyroidism, hyperlipidemia, congestive heart failure, GERD and dementia. Also has a history of glaucoma and macular degeneration. Patient reports being in her home kitchen and had a trip and fall landing on her right hip. She had significant right hip pain. She lives alone and blue [facility]. And EMS was notified of breath her into the emergency room. Patient denies any loss of consciousness or hitting her head. She does not remember the full details of her fall. A computed tomography scan of the brain was ordered and negative area and patient was admitted to the orthopedic service and due to the fact that she was found to have a right hip fracture. She was initially scheduled for surgery later today. However, patient is currently requiring 4 L of oxygen sat around 89-90%. She does not usually require home oxygen. She denies any cough chest pain or shortness of breath. Cardiology will be consulted. EKG had shown normal sinus rhythm with a first-degree AV block. At this point patient is not medically stable for discharge. We'll await further cardiology evaluation. Patient denies any cough fever chills or sweats. Denies any bowel movement changes or urinary symptoms. She does report that she can walk a flight of stairs usually without shortness of breath. Denies any smoking history denies any COPD or myocardial infarction. Apparently patient takes Eliquis at home. Per patient and daughter there's been no reported atrial fibrillation or blood clots to require patient to be placed on Eliquis. Patient reports she takes the anticoagulation to prevent blood clots. On 09/30/2017 patient is admitted to intensive care unit she is alert and oriented 3 in no apparent distress, currently she is on oxygen 8 L via nasal cannula, she is complaining of anxiety otherwise she denies any complaints there is no chest pain or shortness of breath at rest no palpitation no fever or chills no dizziness no headache no nausea or vomiting no abdominal pain and no urinary symptoms On 10/01/2017 patient is currently resting comfortably in bed. Denies any shortness of breath or chest pain at this time. Patient on 6 L of oxygen via nasal cannula. Patient currently on Lasix 40 mg every 12 hours. Surgery on right hip scheduled for today at 2 PM the afternoon. Patient's heart rate in the 40s per nursing. Imdur and Norvasc have been added per cardiology. Per nursing Lopressor has been held. 10/02/2017 patient will be transferred out of the ICU today. She is sitting up at bedside chair. Patient is postop day #1 status post closed reduction and intramedullary hip screw fixation of the right hip. Patient denies any chest pain or shortness of breath. Denies any nausea or vomiting. She reports passing gas. Ruiz catheter remains in place. She had a temp of 101 this morning. She still on 6 L at 97%. She's on antibiotics for possible aspiration pneumonia 10/03/2017 patient currently resting comfortably in bed. She is postop day 2 post closed reduction and intramedullary hip screw fixation of the right hip. Patient currently still on 6 L nasal cannula. Patient had temperature of 101 yesterday and urine and blood cultures have been ordered still pending. Pulmonary service is still following. Patient denies chest pain or shortness of breath at this time. denies nausea and vomiting Objective - Vital Signs Vital signs: Vital Signs Temp 98.4 F 10/03/17 06:44 Pulse 62 10/03/17 06:44 Resp 14 10/03/17 06:44 BP 120/65 10/03/17 06:44 Pulse Ox 94 L 10/03/17 06:44 Intake & Output 10/02/17 10/03/17 10/03/17 18:59 06:59 18:59 Intake Total 670 520 Output Total 535 325 Balance 135 195 Weight 69 kg 64 kg Intake: IV 70 160 Piperacillin-Tazobactam 3 50 .375 gm In Dextrose/Water 1 50ml.bag @ 12.5 mls/hr IVPB Q8HR PAYAM Rx#: [id number] Sodium Chloride 0.9% 1, 20 160 000 ml @ 20 mls/hr IV . Q24H PAYAM Rx#:[id number] Intake, IV Titration 100 160 Amount Potassium Chloride 10 meq 100 In Water For Injection 1 100ml.bag @ 100 mls/hr IVPB Q1H PAYAM Rx#: [id number] Sodium Chloride 0.9% 1, 160 000 ml @ 20 mls/hr IV . Q24H PAYAM Rx#:[id number] Oral 500 Other 200 Output: Urine 535 325 Other: Voiding Method Indwelling Catheter Indwelling Catheter # Voids 1 # Bowel Movements 1 - Exam Head normocephalic Neck supple Lungs clear to auscultation bilaterally no wheezing or crackles Heart regular rate and rhythm S1-S2, no rub or gallop Abdomen is soft nontender nondistended positive bowel sounds no hepatosplenomegaly Extremities no edema Neuro alert and orientated to 3 - Labs CBC & Chem 7: 10/03/17 06:35 10/03/17 06:35 Labs: Abnormal Lab Results - Last 24 Hours (Table) 10/03/17 10/03/17 10/03/17 Range/Units 06:35 06:35 06:35 WBC 10.8 H (3.8-10.6) k/uL Monocytes # 1.1 H (0-1.0) k/uL Sodium 136 L (137-145) mmol/L Potassium 3.3 L 3.3 L (3.5-5.1) mmol/L Chloride 97 L (98-107) mmol/L BUN 22 H (7-17) mg/dL Total Protein 5.4 L (6.3-8.2) g/dL Albumin 3.0 L (3.5-5.0) g/dL Microbiology - Last 24 Hours (Table) 10/02/17 23:25 Urine Culture - Preliminary Urine,Catheterized Assessment and Plan Assessment: 1. Fall with right hip fracture: Postop day #2 status post closed reduction and intramedullary hip screw fixation of the right hip 2. Acute hypoxic respiratory failure secondary to diastolic congestive heart failure. She is requiring 6 L of oxygen. Patient denies any shortness of breath or chest pain. Does not usually require home oxygen. Cardiology will be consulted for further evaluation and cardiac clearance. EKG sinus rhythm with a first-degree AV block and a lateral infarct age undetermined. Chest x- ray completed this a.m., Correlate for pneumonia, there may be parapneumonic effusion, findings could represent pulmonary venous hypertension, interstitial edema. Pulmonary service is following. Currently on Lasix 40 mg IV every 12 hours. IV antibiotics Zosyn. Patient having temp of 101 yesterday urine and blood cultures have been ordered, results still pending 3. UTI: Urine culture showing no growth. Continue IV Zosyn 4. Hypothyroidism continue Synthroid 5. Essential hypertension. 6. Dementia continue Aricept and Namenda 7. Abnormal troponin level. Cardiology service following 8. Paroxysmal atrial fibrillation. Patient has been maintaining normal sinus mechanism. 2-D echo completed showing EF between 55-60%. Patient restarted on eliquis 2.5 mg twice a day. 9. Bradycardia. Cardiology has decreased the metoprolol to once a day. Bradycardia now improved . Cardiology following. Imdur and Norvasc have been added per cardiology. 10. Acute diastolic congestive heart failure exacerbation. Cardiology is placed patient on oral Lasix 11. Mild non-ST elevated myocardial infarction followed by cardiology 12. Hypokalemia patient receiving potassium supplement. Potassium 3.3, replacement has been ordered 13. Possible aspiration pneumonia continue Zosyn. Pulmonary following. Chest x-ray showing improvement DVT prophylaxis Eliquis and SCDs, GI prophylaxis Protonix I performed an examination of the patient and discussed their management with the Nurse Practitioner. I have reviewed the Nurse Practitioner's notes and agree with the documented findings and plan of care
--- NOTE | 2017-10-03 10:52 | P.PN ---
Subjective Progress Note Date: 10/03/17 This is a 81-year-old female admitted for right hip fracture. Patient is status post closed reduction and intramedullary hip screw fixation of the right hip. This is postoperative day #2. Patient is seen and evaluated at bedside with Dr. Ede Pedroza. Patient states that her pain is well-controlled to the right hip. Patient denies any new symptoms or complaints today. Patient denies any fever/chills, numbness, weakness or tingling. Objective - Vital Signs Vital signs: Vital Signs Temp 98.4 F 10/03/17 06:44 Pulse 62 10/03/17 06:44 Resp 14 10/03/17 06:44 BP 120/65 10/03/17 06:44 Pulse Ox 94 L 10/03/17 06:44 Intake & Output 10/02/17 10/03/17 10/03/17 18:59 06:59 18:59 Intake Total 670 520 Output Total 535 325 Balance 135 195 Weight 69 kg 64 kg Intake: IV 70 160 Piperacillin-Tazobactam 3 50 .375 gm In Dextrose/Water 1 50ml.bag @ 12.5 mls/hr IVPB Q8HR PAYAM Rx#: [id number] Sodium Chloride 0.9% 1, 20 160 000 ml @ 20 mls/hr IV . Q24H PAYAM Rx#:[id number] Intake, IV Titration 100 160 Amount Potassium Chloride 10 meq 100 In Water For Injection 1 100ml.bag @ 100 mls/hr IVPB Q1H PAYAM Rx#: [id number] Sodium Chloride 0.9% 1, 160 000 ml @ 20 mls/hr IV . Q24H PAYAM Rx#:[id number] Oral 500 Other 200 Output: Urine 535 325 Other: Voiding Method Indwelling Catheter Indwelling Catheter # Voids 1 # Bowel Movements 1 - Exam On exam patient is lying comfortably in bed in no acute distress. Patient is alert and well-appearing. Dressing is clean, dry and intact. Patient has full foot and ankle motion without pain or difficulty. Calf is soft and nontender to palpation. Sensation intact. Neurovascular status and circulatory status are intact. - Labs CBC & Chem 7: 10/03/17 06:35 10/03/17 06:35 Labs: Abnormal Lab Results - Last 24 Hours (Table) 10/03/17 10/03/17 10/03/17 Range/Units 06:35 06:35 06:35 WBC 10.8 H (3.8-10.6) k/uL Monocytes # 1.1 H (0-1.0) k/uL Sodium 136 L (137-145) mmol/L Potassium 3.3 L 3.3 L (3.5-5.1) mmol/L Chloride 97 L (98-107) mmol/L BUN 22 H (7-17) mg/dL Total Protein 5.4 L (6.3-8.2) g/dL Albumin 3.0 L (3.5-5.0) g/dL Microbiology - Last 24 Hours (Table) 10/02/17 23:25 Urine Culture - Preliminary Urine,Catheterized Assessment and Plan (1) Closed right hip fracture Current Visit: Yes Status: Acute Code(s): S72.001A - FRACTURE OF UNSP PART OF NECK OF RIGHT FEMUR, INIT SNOMED Code(s): 578181021 (2) Fall Current Visit: Yes Status: Acute Code(s): W19.XXXA - UNSPECIFIED FALL, INITIAL ENCOUNTER SNOMED Code(s): 6296578 Plan: 1. Continue routine postoperative care. 2. Anticoagulation with Eliquis per medicine. 3. 50% weightbearing to right lower extremity. 4. Daily dressing changes. 5. Will continue to follow the patient closely. Patient is awaiting discharge to rehab.
[2017-10-03] MEDS: ACETAMINOPHEN TAB 325 MG TAB PO PRN ×3 (11:35→20:02)
[2017-10-03] MEDS: SODIUM CHLORIDE 0.9% 1,000 ML IV SCH (17:19)
[2017-10-03] MEDS: QUEtiapine 50 MG TAB PO SCH (20:03)
[2017-10-03] MEDS: LATANOPROST 0.005% OPHTH DROPS 2.5 ML BTL BOTH EYES SCH (20:03)
[2017-10-03] MEDS: DONEPEZIL 5 MG TAB PO SCH (20:03)
[2017-10-03] MEDS: MEMANTINE 5 MG TAB PO SCH (20:03)
[2017-10-03] MEDS: SENNOSIDES-DOCUSATE SODIUM 1 EACH TAB PO SCH (22:18)
[2017-10-04] MEDS: ACETAMINOPHEN TAB 325 MG TAB PO PRN ×3 (00:53→16:31)
[2017-10-04 07:19] LABS: Albumin 2.8 g/dL (3.5-5.0); Calcium 8.7 mg/dL (8.4-10.2); Potassium 3.5 mmol/L (3.5-5.1); Total Bilirubin 0.6 mg/dL (0.2-1.3); Total Protein 5.1 g/dL (6.3-8.2)
--- NOTE | 2017-10-04 08:27 | P.PN ---
Subjective This is a 81-year-old female admitted for right hip fracture. Patient is status post closed reduction and intramedullary hip screw fixation of the right hip. This is postoperative day #3. Patient is seen and evaluated at bedside. Patient states that her pain is well-controlled to the right hip. Patient denies any new symptoms or complaints today. Patient denies any fever/chills, numbness, weakness or tingling. Objective - Vital Signs Vital signs: Vital Signs Temp 98.4 F 10/04/17 00:20 Pulse 71 10/04/17 00:20 Resp 16 10/04/17 00:20 BP 104/64 10/04/17 00:20 Pulse Ox 94 L 10/04/17 00:20 Intake & Output 10/03/17 10/04/17 10/04/17 18:59 06:59 18:59 Intake Total 160 50 Output Total 1850 Balance 160 -1800 Weight 63.9 kg Intake: IV 160 50 Piperacillin-Tazobactam 3 50 .375 gm In Dextrose/Water 1 50ml.bag @ 12.5 mls/hr IVPB Q8HR PAYAM Rx#: [id number] Sodium Chloride 0.9% 1, 160 000 ml @ 20 mls/hr IV . Q24H PAYAM Rx#:[id number] Output: Urine 1850 Other: Voiding Method Indwelling Catheter Indwelling Catheter - Exam On exam patient is lying comfortably in bed in no acute distress. Patient is alert and well-appearing. Dressing is clean, dry and intact. Patient has full foot and ankle motion without pain or difficulty. Calf is soft and nontender to palpation. Sensation intact. Neurovascular status and circulatory status are intact. - Labs CBC & Chem 7: 10/03/17 06:35 10/04/17 06:13 Labs: Abnormal Lab Results - Last 24 Hours (Table) 10/03/17 10/03/17 10/04/17 Range/Units 06:35 06:35 06:13 WBC 10.8 H (3.8-10.6) k/uL Monocytes # 1.1 H (0-1.0) k/uL Sodium 136 L (137-145) mmol/L Potassium 3.3 L (3.5-5.1) mmol/L Chloride 97 L (98-107) mmol/L Carbon Dioxide 32 H (22-30) mmol/L BUN 22 H (7-17) mg/dL Total Protein 5.4 L 5.1 L (6.3-8.2) g/dL Albumin 3.0 L 2.8 L (3.5-5.0) g/dL Microbiology - Last 24 Hours (Table) 10/02/17 16:19 Blood Culture - Preliminary Blood No Growth after 24 hours 10/02/17 23:25 Urine Culture - Preliminary Urine,Catheterized Assessment and Plan (1) Closed right hip fracture Current Visit: Yes Status: Acute Code(s): S72.001A - FRACTURE OF UNSP PART OF NECK OF RIGHT FEMUR, INIT SNOMED Code(s): 775095855 (2) Fall Current Visit: Yes Status: Acute Code(s): W19.XXXA - UNSPECIFIED FALL, INITIAL ENCOUNTER SNOMED Code(s): 6923054 Plan: 1. Continue routine postoperative care. 2. Anticoagulation with Eliquis per medicine. 3. 50% weightbearing to right lower extremity. 4. Daily dressing changes. 5. Will continue to follow the patient closely. Patient is awaiting discharge to rehab.
[2017-10-04] MEDS: PIPERACILLIN-TAZOBACTAM 3.375 GM in DEXTROSE/WATER 1 50ML.BAG IVPB SCH ×3 (08:39→23:07)
[2017-10-04] MEDS: METOPROLOL TARTRATE 12.5 MG TAB PO SCH (08:44)
[2017-10-04] MEDS: ISOSORBIDE MONONITRATE ER 30 MG TAB.ER.24H PO SCH (08:44)
[2017-10-04] MEDS: busPIRone HCl 10 MG TAB PO SCH ×3 (08:44→20:48)
[2017-10-04] MEDS: APIXABAN 2.5 MG TABLET PO SCH ×2 (08:44→20:48)
[2017-10-04] MEDS: FUROSEMIDE 40 MG TAB PO SCH (08:44)
[2017-10-04] MEDS: amLODIPine 5 MG TAB PO SCH (08:44)
[2017-10-04] MEDS: PANTOPRAZOLE 40 MG/10 ML VIAL IV SCH (08:45)
[2017-10-04] MEDS: TIMOLOL 0.5% OPHTH DROPS 5 ML BTL BOTH EYES SCH (08:45)
[2017-10-04 09:36] VITALS: BMI 25.7
--- NOTE | 2017-10-04 11:03 | P.PN ---
Subjective Progress Note Date: 10/04/17 This is a 81-year-old female, patient of Dr. Sellers. She has a known past medical history of hypertension, hypothyroidism, hyperlipidemia, congestive heart failure, GERD and dementia. Also has a history of glaucoma and macular degeneration. Patient reports being in her home kitchen and had a trip and fall landing on her right hip. She had significant right hip pain. She lives alone and blue [facility]. And EMS was notified of breath her into the emergency room. Patient denies any loss of consciousness or hitting her head. She does not remember the full details of her fall. A computed tomography scan of the brain was ordered and negative area and patient was admitted to the orthopedic service and due to the fact that she was found to have a right hip fracture. She was initially scheduled for surgery later today. However, patient is currently requiring 4 L of oxygen sat around 89-90%. She does not usually require home oxygen. She denies any cough chest pain or shortness of breath. Cardiology will be consulted. EKG had shown normal sinus rhythm with a first-degree AV block. At this point patient is not medically stable for discharge. We'll await further cardiology evaluation. Patient denies any cough fever chills or sweats. Denies any bowel movement changes or urinary symptoms. She does report that she can walk a flight of stairs usually without shortness of breath. Denies any smoking history denies any COPD or myocardial infarction. Apparently patient takes Eliquis at home. Per patient and daughter there's been no reported atrial fibrillation or blood clots to require patient to be placed on Eliquis. Patient reports she takes the anticoagulation to prevent blood clots. On 09/30/2017 patient is admitted to intensive care unit she is alert and oriented 3 in no apparent distress, currently she is on oxygen 8 L via nasal cannula, she is complaining of anxiety otherwise she denies any complaints there is no chest pain or shortness of breath at rest no palpitation no fever or chills no dizziness no headache no nausea or vomiting no abdominal pain and no urinary symptoms On 10/01/2017 patient is currently resting comfortably in bed. Denies any shortness of breath or chest pain at this time. Patient on 6 L of oxygen via nasal cannula. Patient currently on Lasix 40 mg every 12 hours. Surgery on right hip scheduled for today at 2 PM the afternoon. Patient's heart rate in the 40s per nursing. Imdur and Norvasc have been added per cardiology. Per nursing Lopressor has been held. 10/02/2017 patient will be transferred out of the ICU today. She is sitting up at bedside chair. Patient is postop day #1 status post closed reduction and intramedullary hip screw fixation of the right hip. Patient denies any chest pain or shortness of breath. Denies any nausea or vomiting. She reports passing gas. Ruiz catheter remains in place. She had a temp of 101 this morning. She still on 6 L at 97%. She's on antibiotics for possible aspiration pneumonia 10/03/2017 patient currently resting comfortably in bed. She is postop day 2 post closed reduction and intramedullary hip screw fixation of the right hip. Patient currently still on 6 L nasal cannula. Patient had temperature of 101 yesterday and urine and blood cultures have been ordered still pending. Pulmonary service is still following. Patient denies chest pain or shortness of breath at this time. denies nausea and vomiting 10/04/2017 patient sitting up in bedside chair. Still on 6 L staying around 95% . She denies any chest pain or shortness of breath. Denies any nausea or vomiting. Reports having bowel movements. And has had no further fevers over 24 hours Objective - Vital Signs Vital signs: Vital Signs Temp 97.9 F 10/04/17 08:20 Pulse 96 10/04/17 08:20 Resp 16 10/04/17 08:20 BP 102/64 10/04/17 08:20 Pulse Ox 94 L 10/04/17 00:20 Intake & Output 10/03/17 10/04/17 10/04/17 18:59 06:59 18:59 Intake Total 160 50 120 Output Total 1850 300 Balance 160 -1800 -180 Weight 63.9 kg 63.9 kg Intake: IV 160 50 Piperacillin-Tazobactam 3 50 .375 gm In Dextrose/Water 1 50ml.bag @ 12.5 mls/hr IVPB Q8HR PAYAM Rx#: [id number] Sodium Chloride 0.9% 1, 160 000 ml @ 20 mls/hr IV . Q24H PAYAM Rx#:[id number] Oral 120 Output: Urine 1850 300 Uretheral (Ruiz) 300 Other: Voiding Method Indwelling Catheter Indwelling Catheter # Bowel Movements 1 - Exam Head normocephalic Neck supple Lungs diminished bilaterally Heart regular rate and rhythm S1-S2, no rub or gallop Abdomen is soft nontender nondistended positive bowel sounds no hepatosplenomegaly Extremities no edema Neuro alert and orientated to 3 - Labs CBC & Chem 7: 10/03/17 06:35 10/04/17 06:13 Labs: Abnormal Lab Results - Last 24 Hours (Table) 10/04/17 Range/Units 06:13 Carbon Dioxide 32 H (22-30) mmol/L Total Protein 5.1 L (6.3-8.2) g/dL Albumin 2.8 L (3.5-5.0) g/dL Microbiology - Last 24 Hours (Table) 10/02/17 16:19 Blood Culture - Preliminary Blood No Growth after 24 hours 10/02/17 23:25 Urine Culture - Preliminary Urine,Catheterized Assessment and Plan Assessment: 1. Fall with right hip fracture: Postop day #3 status post closed reduction and intramedullary hip screw fixation of the right hip 2. Acute hypoxic respiratory failure secondary to diastolic congestive heart failure and possible pneumonia. She is requiring 6 L of oxygen. Patient denies any shortness of breath or chest pain. Does not usually require home oxygen. EKG sinus rhythm with a first-degree AV block and a lateral infarct age undetermined. We'll try to wean patient down on her oxygen. Titrate oxygen down to keep oxygen level at 92% or greater. Chest x-ray showing stable findings compared to prior chest x-ray with patchy densities in the right lung base suggestive of atelectatic change or limited infiltrate. Encouraged patient to use incentive spirometer 3. UTI: Urine culture showing no growth. Continue IV Zosyn 4. Hypothyroidism continue Synthroid 5. Essential hypertension. 6. Dementia continue Aricept and Namenda 7. Paroxysmal atrial fibrillation. Patient has been maintaining normal sinus mechanism. 2-D echo completed showing EF between 55-60%. 8. Bradycardia. Cardiology has decreased the metoprolol to once a day. Bradycardia now improved . Cardiology following. Imdur and Norvasc have been added per cardiology. 9. Acute diastolic congestive heart failure exacerbation. Cardiology is placed patient on oral Lasix 10. Mild non-ST elevated myocardial infarction followed by cardiology 11. Hypokalemia patient receiving potassium supplement 12. Possible aspiration pneumonia continue Zosyn. DVT prophylaxis Eliquis and GI prophylaxis [facility] discharged to [facility] tomorrow I performed an examination of the patient and discussed their management with the physician Extrusion Line Operator. I have reviewed the Physician Extrusion Line Operator's notes and agree with the documented findings and plan of care
[2017-10-04] MEDS: SODIUM CHLORIDE 0.9% 1,000 ML IV SCH (16:46)
[2017-10-04] MEDS: QUEtiapine 50 MG TAB PO SCH (20:48)
[2017-10-04] MEDS: SENNOSIDES-DOCUSATE SODIUM 1 EACH TAB PO SCH (20:48)
[2017-10-04] MEDS: DONEPEZIL 5 MG TAB PO SCH (20:48)
[2017-10-04] MEDS: MEMANTINE 5 MG TAB PO SCH (20:48)
[2017-10-04] MEDS: LATANOPROST 0.005% OPHTH DROPS 2.5 ML BTL BOTH EYES SCH (20:48)
[2017-10-04] MEDS: POTASSIUM CHLORIDE ER 20 MEQ TAB.ER PO SCH ×2 (22:09→23:07)
[2017-10-05 02:02] VITALS: PULSE 62
[2017-10-05] MEDS: ACETAMINOPHEN TAB 325 MG TAB PO PRN ×2 (02:13→13:19)
[2017-10-05 06:46] LABS: Basophils # (A) 0.1 k/uL (0-0.2); Basophils % (A) 1 %; Eosinophils # (A) 0.6 k/uL (0-0.7); Eosinophils % (A) 6 %; HCT 36.2 % (34.0-46.0); HGB 11.8 gm/dL (11.4-16.0); Lymphocytes # (A) 2.4 k/uL (1.0-4.8); Lymphocytes % (A) 23 %; MCH 28.6 pg (25.0-35.0); MCHC 32.6 g/dL (31.0-37.0); MCV 87.6 fL (80.0-100.0); Mean Platelet Volume 6.8; Monocytes % (A) 9 %; Neutrophils # (A) 6.4 k/uL (1.3-7.7); Neutrophils % (A) 59 %; Platelet Count 315 k/uL (150-450); RBC 4.14 m/uL (3.80-5.40); RDW 14.1 % (11.5-15.5); WBC 10.8 k/uL (3.8-10.6)
[2017-10-05 06:58] LABS: Potassium 4.1 mmol/L (3.5-5.1); Total Bilirubin 0.7 mg/dL (0.2-1.3); Total Protein 5.4 g/dL (6.3-8.2)
[2017-10-05] MEDS ORDERED: PANTOPRAZOLE 40 MG TABLET PO SCH (07:30)
[2017-10-05 07:46] VITALS: BP 133/77; RESP 16; TEMP 98.5
--- NOTE | 2017-10-05 08:24 | P.PN ---
Subjective Progress Note Date: 10/05/17 This is a 81-year-old female admitted for right hip fracture. Patient is status post closed reduction and intramedullary hip screw fixation of the right hip. This is postoperative day #4. Patient is seen and evaluated at bedside. Patient denies any new symptoms or complaints today. Patient denies any fever/ chills, numbness, weakness or tingling. Objective - Vital Signs Vital signs: Vital Signs Temp 98.5 F 10/05/17 07:30 Pulse 62 10/05/17 07:30 Resp 16 10/05/17 07:30 BP 133/77 10/05/17 07:30 Pulse Ox 94 L 10/05/17 07:30 Intake & Output 10/04/17 10/05/17 10/05/17 18:59 06:59 18:59 Intake Total 388 300 Output Total 900 Balance -512 300 Weight 63.9 kg Intake: IV 150 Piperacillin-Tazobactam 3 50 .375 gm In Dextrose/Water 1 50ml.bag @ 12.5 mls/hr IVPB Q8HR PAYAM Rx#: [id number] Sodium Chloride 0.9% 1, 100 000 ml @ 20 mls/hr IV . Q24H PAYAM Rx#:[id number] Oral 238 300 Output: Urine 900 Uretheral (Ruiz) 900 Other: Voiding Method Indwelling Catheter Diaper Incontinent # Voids 1 # Bowel Movements 1 - Exam On exam patient is resting comfortably in bed in no acute distress. Dressing is clean, dry and intact. Calf is soft and nontender to palpation. Sensation intact. Neurovascular status and circulatory status are intact. - Labs CBC & Chem 7: 10/05/17 06:27 10/05/17 06:27 Labs: Abnormal Lab Results - Last 24 Hours (Table) 10/05/17 10/05/17 Range/Units 06:27 06:27 WBC 10.8 H (3.8-10.6) k/uL Carbon Dioxide 31 H (22-30) mmol/L Total Protein 5.4 L (6.3-8.2) g/dL Albumin 3.0 L (3.5-5.0) g/dL Microbiology - Last 24 Hours (Table) 10/02/17 16:19 Blood Culture - Preliminary Blood No Growth after 48 hours 10/02/17 23:25 Urine Culture - Final Urine,Catheterized Assessment and Plan (1) Closed right hip fracture Current Visit: Yes Status: Acute Code(s): S72.001A - FRACTURE OF UNSP PART OF NECK OF RIGHT FEMUR, INIT SNOMED Code(s): 478595797 (2) Fall Current Visit: Yes Status: Acute Code(s): W19.XXXA - UNSPECIFIED FALL, INITIAL ENCOUNTER SNOMED Code(s): 9454671 Plan: 1. Continue routine postoperative care. 2. Anticoagulation with Eliquis per medicine. 3. 50% weightbearing to right lower extremity. 4. Daily dressing changes. 5. Will continue to follow the patient closely. Patient is awaiting discharge to rehab.
[2017-10-05] MEDS: FUROSEMIDE 40 MG TAB PO SCH (09:16)
[2017-10-05] MEDS: amLODIPine 5 MG TAB PO SCH (09:16)
[2017-10-05] MEDS: APIXABAN 2.5 MG TABLET PO SCH (09:16)
[2017-10-05] MEDS: busPIRone HCl 10 MG TAB PO SCH (09:16)
[2017-10-05] MEDS: PIPERACILLIN-TAZOBACTAM 3.375 GM in DEXTROSE/WATER 1 50ML.BAG IVPB SCH (09:16)
[2017-10-05] MEDS: METOPROLOL TARTRATE 12.5 MG TAB PO SCH (09:16)
[2017-10-05] MEDS: ISOSORBIDE MONONITRATE ER 30 MG TAB.ER.24H PO SCH (09:16)
[2017-10-05] MEDS: TIMOLOL 0.5% OPHTH DROPS 5 ML BTL BOTH EYES SCH (09:18)
--- NOTE | 2017-10-05 13:14 | P.DS ---
Providers Date of admission: 09/27/17 21:09 Expected date of discharge: 10/05/17 Attending physician: Keny Cruz Consults: 09/27/17 21:12 Consult Physician Urgent Consulting Provider: Keny Cruz Consult Reason/Comments: Medical evaluation for clearance Do you want consulting provider notified?: Already Contacted 09/28/17 11:23 Consult Physician Routine Consulting Provider: Allie Pope Consult Reason/Comments: cardiac clearance for surgery. Shortness of breath Do you want consulting provider notified?: Yes 09/28/17 18:06 Consult Physician Stat Consulting Provider: Charles Silva Consult Reason/Comments: hypoxia Do you want consulting provider notified?: Yes 09/29/17 16:32 Consult Physician Routine Consulting Provider: Jordan Bradley Consult Reason/Comments: right hip fracture Do you want consulting provider notified?: Already Contacted Primary care physician: [facility] Course: Discharge diagnosis 1. Fall with right hip fracture: Postop day #4 status post closed reduction and intramedullary hip screw fixation of the right hip 2. Acute hypoxic respiratory failure secondary to diastolic congestive heart failure and possible pneumonia. She is requiring 6 L of oxygen. Patient denies any shortness of breath or chest pain. Does not usually require home oxygen. EKG sinus rhythm with a first-degree AV block and a lateral infarct age undetermined. We'll try to wean patient down on her oxygen. Titrate oxygen down to keep oxygen level at 92% or greater. Chest x-ray showing stable findings compared to prior chest x-ray with patchy densities in the right lung base suggestive of atelectatic change or limited infiltrate. Encouraged patient to use incentive spirometer 3. UTI: Urine culture showing no growth. She'll be given Augmentin for 7 more days 4. Hypothyroidism continue Synthroid 5. Essential hypertension. 6. Dementia continue Aricept and Namenda 7. Paroxysmal atrial fibrillation. Patient has been maintaining normal sinus mechanism. 2-D echo completed showing EF between 55-60%. 8. Bradycardia. Cardiology has decreased the metoprolol to once a day. Bradycardia now improved . Cardiology following. Imdur and Norvasc have been added per cardiology. 9. Acute diastolic congestive heart failure exacerbation. Cardiology is placed patient on oral Lasix 10. Mild non-ST elevated myocardial infarction followed by cardiology. Statin was not added during this admission due to patient having a history of severe leg cramping as side effect 11. Hypokalemia resolved 12. Possible aspiration pneumonia continue Augmentin for 7 more days Hospital course This is a 81-year-old female, patient of Dr. Sellers. She has a known past medical history of hypertension, hypothyroidism, hyperlipidemia, congestive heart failure, GERD and dementia. Also has a history of glaucoma and macular degeneration. Patient reports being in her home kitchen and had a trip and fall landing on her right hip. She had significant right hip pain. She lives alone and [facility]. And EMS was notified of breath her into the emergency room. Patient denies any loss of consciousness or hitting her head. She does not remember the full details of her fall. A computed tomography scan of the brain was ordered and negative area and patient was admitted to the orthopedic service and due to the fact that she was found to have a right hip fracture. She was initially scheduled for surgery later today. However, patient is currently requiring 4 L of oxygen sat around 89-90%. She does not usually require home oxygen. She denies any cough chest pain or shortness of breath. Cardiology will be consulted. EKG had shown normal sinus rhythm with a first-degree AV block. At this point patient is not medically stable for discharge. We'll await further cardiology evaluation. Patient denies any cough fever chills or sweats. Denies any bowel movement changes or urinary symptoms. She does report that she can walk a flight of stairs usually without shortness of breath. Denies any smoking history denies any COPD or myocardial infarction. Apparently patient takes Eliquis at home. Per patient and daughter there's been no reported atrial fibrillation or blood clots to require patient to be placed on Eliquis. Patient reports she takes the anticoagulation to prevent blood clots. On 09/30/2017 patient is admitted to intensive care unit she is alert and oriented 3 in no apparent distress, currently she is on oxygen 8 L via nasal cannula, she is complaining of anxiety otherwise she denies any complaints there is no chest pain or shortness of breath at rest no palpitation no fever or chills no dizziness no headache no nausea or vomiting no abdominal pain and no urinary symptoms On 10/01/2017 patient is currently resting comfortably in bed. Denies any shortness of breath or chest pain at this time. Patient on 6 L of oxygen via nasal cannula. Patient currently on Lasix 40 mg every 12 hours. Surgery on right hip scheduled for today at 2 PM the afternoon. Patient's heart rate in the 40s per nursing. Imdur and Norvasc have been added per cardiology. Per nursing Lopressor has been held. 10/02/2017 patient will be transferred out of the ICU today. She is sitting up at bedside chair. Patient is postop day #1 status post closed reduction and intramedullary hip screw fixation of the right hip. Patient denies any chest pain or shortness of breath. Denies any nausea or vomiting. She reports passing gas. Ruiz catheter remains in place. She had a temp of 101 this morning. She still on 6 L at 97%. She's on antibiotics for possible aspiration pneumonia 10/03/2017 patient currently resting comfortably in bed. She is postop day 2 post closed reduction and intramedullary hip screw fixation of the right hip. Patient currently still on 6 L nasal cannula. Patient had temperature of 101 yesterday and urine and blood cultures have been ordered still pending. Pulmonary service is still following. Patient denies chest pain or shortness of breath at this time. denies nausea and vomiting 10/04/2017 patient sitting up in bedside chair. Still on 6 L staying around 95% . She denies any chest pain or shortness of breath. Denies any nausea or vomiting. Reports having bowel movements. And has had no further fevers over 24 hours 10/05/2017 patient will be discharged today to [facility] for further rehabilitation. Patient is been cleared by cardiology and pulmonary services for discharge. During this admission patient was treated for a right hip fracture, mild non-ST elevated CT, congestive heart failure, possible aspiration pneumonia and UTI. They've added Lasix 40 mg daily, Imdur 30 mg daily and metoprolol 12.5 mg daily. As stated above the patient could not tolerate statin due to severe muscle cramping. Patient is not on aspirin because she is on Eliquis for her history of atrial fibrillation. Patient has been chest pain-free. She is medically stable for transfer to rehab. She'll continue Augmentin for 7 more days to complete treatment for her UTI and pneumonia. Please refer to chart for any further details. Patient will be discharged on 2 L of oxygen. We'll continue to monitor her at the ECF. And as she improves hopefully we will be able to wean her off the oxygen. I performed an examination of the patient and discussed their management with the physician Stoneworking Sander. I have reviewed the Physician Stoneworking Sander's notes and agree with the documented findings and plan of care Patient Condition at Discharge: Stable Plan - Discharge Summary Discharge Rx Participant: No New Discharge Prescriptions: New Amoxicillin/Potassium Clav [Augmentin 875-125 Tablet] 1 tab PO Q12HR #14 tab Apixaban [Eliquis] 2.5 mg PO BID tablet Furosemide [Lasix] 40 mg PO DAILY tab Isosorbide Mononitrate ER [Imdur] 30 mg PO DAILY tab.er.24h Metoprolol Tartrate [Lopressor] 12.5 mg PO DAILY tab Continue Donepezil [Aricept] 5 mg PO HS #7 tab busPIRone HCl [Buspar] 10 mg PO TID #21 tab Memantine HCl [Namenda] 5 mg PO HS Polyethylene Glycol 3350 [Miralax] 17 gm PO DAILY Levothyroxine Sodium [Synthroid] 100 mcg PO DAILY Latanoprost [Xalatan 0.005%] 1 drop OPHTHALMIC DIRECTED Fluticasone Nasal [place] [Flonase Nasal [place]] 2 spr EA NOSTRIL BID Famotidine [Pepcid] 40 mg PO DAILY amLODIPine [Norvasc] 5 mg PO DAILY DULoxetine HCL [Cymbalta] 20 mg PO DAILY Cholecalciferol [Vitamin D3] 1,000 unit PO DAILY Mirabegron [Myrbetriq] 25 mg PO BID Folic Acid 0.8 mg PO DAILY Cranberry Fruit Concentrate [Azo Cranberry] 250 mg PO DAILY Cetirizine HCl [Zyrtec] 10 mg PO DAILY PRN PRN Reason: Allergy Symptoms LORazepam [Ativan] 0.5 mg PO BID PRN #6 tab PRN Reason: Anxiety QUEtiapine [SEROquel] 50 mg PO HS #3 tab Discontinued Aspirin 81 mg PO DAILY #30 chew LORazepam [Ativan] 0.5 mg PO TID Apixaban [Eliquis] 5 mg PO DAILY No Action Spironolactone [Aldactone] 50 mg PO DAILY Discharge Medication List Donepezil [Aricept] 5 mg PO HS #7 tab 01/12/15 [Rx] busPIRone HCl [Buspar] 10 mg PO TID #21 tab 01/12/15 [Rx] Memantine HCl [Namenda] 5 mg PO HS 04/10/16 [History] Polyethylene Glycol 3350 [Miralax] 17 gm PO DAILY 04/10/16 [History] Spironolactone [Aldactone] 50 mg PO DAILY 04/10/16 [History] Famotidine [Pepcid] 40 mg PO DAILY 09/27/17 [History] Fluticasone Nasal [place] [Flonase Nasal [place]] 2 spr EA NOSTRIL BID 09/27/17 [ History] Latanoprost [Xalatan 0.005%] 1 drop OPHTHALMIC DIRECTED 09/27/17 [History] Levothyroxine Sodium [Synthroid] 100 mcg PO DAILY 09/27/17 [History] amLODIPine [Norvasc] 5 mg PO DAILY 09/27/17 [History] Cetirizine HCl [Zyrtec] 10 mg PO DAILY PRN 09/28/17 [History] Cholecalciferol [Vitamin D3] 1,000 unit PO DAILY 09/28/17 [History] Cranberry Fruit Concentrate [Azo Cranberry] 250 mg PO DAILY 09/28/17 [History] DULoxetine HCL [Cymbalta] 20 mg PO DAILY 09/28/17 [History] Folic Acid 0.8 mg PO DAILY 09/28/17 [History] Mirabegron [Myrbetriq] 25 mg PO BID 09/28/17 [History] Amoxicillin/Potassium Clav [Augmentin 875-125 Tablet] 1 tab PO Q12HR #14 tab 09/17 [Rx] Apixaban [Eliquis] 2.5 mg PO BID tablet 10/05/17 [Rx] Furosemide [Lasix] 40 mg PO DAILY tab 10/05/17 [Rx] Isosorbide Mononitrate ER [Imdur] 30 mg PO DAILY tab.er.24h 10/05/17 [Rx] LORazepam [Ativan] 0.5 mg PO BID PRN #6 tab 10/05/17 [Rx] Metoprolol Tartrate [Lopressor] 12.5 mg PO DAILY tab 10/05/17 [Rx] QUEtiapine [SEROquel] 50 mg PO HS #3 tab 10/05/17 [Rx] Follow up Appointment(s)/Referral(s): Ede Pedroza DO [Doctor of Osteopathic Medicine] - 10 Days Sloane Sellers MD [Primary Care Provider] - 1 Week Noel Lawrence MD [STAFF PHYSICIAN] - 1 Week Activity/Diet/Wound Care/Special Instructions: Daily dressing changes. 50% weightbearing to right lower extremity with walker. Gerard to be removed in 10-14 days. Please follow up with [facility] and call with any questions or concerns, . Diet: cardiac Discharge patient to [facility]. Dr. Cruz to follow at [facility] Discharge Disposition: TRANSFER TO SNF/ECF
== END 2017-10-05 15:06 | DRG 480 ==
LOC: EC 18:25 → 5MS5E 21:09 → 6ICU 09-28 18:54 → 3SUR 10-02 12:46
PROVIDERS: ADMIT Internal Medicine; ATTEND Internal Medicine
PROC: 0QS636Z Reposition Right Upper Femur with Intramedullary Internal Fixation Device, Percutaneous Approach (ICD-10-PCS; principal; 2017-10-01 09:50)
DX: S72.141A Displaced intertrochanteric fracture of right femur, initial encounter for closed fracture (principal); I21.4 Non-ST elevation (NSTEMI) myocardial infarction; I50.33 Acute on chronic diastolic (congestive) heart failure; J69.0 Pneumonitis due to inhalation of food and vomit; J96.01 Acute respiratory failure with hypoxia; N39.0 Urinary tract infection, site not specified; J98.11 Atelectasis; I11.0 Hypertensive heart disease with heart failure; I27.20 Pulmonary hypertension, unspecified; I48.2 Chronic atrial fibrillation; I08.1 Rheumatic disorders of both mitral and tricuspid valves; R00.1 Bradycardia, unspecified; F03.90 Unspecified dementia, unspecified severity, without behavioral disturbance, psychotic disturbance, mood disturbance, and anxiety; E03.9 Hypothyroidism, unspecified; E78.5 Hyperlipidemia, unspecified; E87.6 Hypokalemia; N39.3 Stress incontinence (female) (male); H35.30 Unspecified macular degeneration; H40.9 Unspecified glaucoma; I44.0 Atrioventricular block, first degree; K21.9 Gastro-esophageal reflux disease without esophagitis; I83.90 Asymptomatic varicose veins of unspecified lower extremity; K44.9 Diaphragmatic hernia without obstruction or gangrene; M19.90 Unspecified osteoarthritis, unspecified site; I25.10 Atherosclerotic heart disease of native coronary artery without angina pectoris; R01.1 Cardiac murmur, unspecified; F32.9 Major depressive disorder, single episode, unspecified; F41.9 Anxiety disorder, unspecified; K59.00 Constipation, unspecified; Z79.01 Long term (current) use of anticoagulants; Z79.82 Long term (current) use of aspirin; Z79.899 Other long term (current) drug therapy; Z79.890 Hormone replacement therapy; Z88.1 Allergy status to other antibiotic agents; Z88.2 Allergy status to sulfonamides; Z88.8 Allergy status to other drugs, medicaments and biological substances; Z87.01 Personal history of pneumonia (recurrent); Z87.440 Personal history of urinary (tract) infections; Z87.891 Personal history of nicotine dependence; Z90.710 Acquired absence of both cervix and uterus; Z96.652 Presence of left artificial knee joint; Z98.42 Cataract extraction status, left eye; Z98.41 Cataract extraction status, right eye; Z96.1 Presence of intraocular lens; W01.0XXA Fall on same level from slipping, tripping and stumbling without subsequent striking against object, initial encounter; Y92.000 Kitchen of unspecified non-institutional (private) residence as the place of occurrence of the external cause
CPT/HCPCS: 36415; 51702; 70450; 71045; 71275; 73501; 73502; 80053; 81001; 82550; 82553; 83735; 83880; 84100; 84132; 84484; 85025; 85027; 85610; 85730; 87040; 87086; 93005; 93306; 94660; 94760; 99285

== ENCOUNTER 2018-05-14 18:01 | Emergency (ER) | payer MEDICARE, BC ==
[2018-05-14] MEDS ORDERED: SODIUM CHLORIDE 0.9% 1,000 ML IV STA (18:11)
--- NOTE | 2018-05-14 18:27 | ED ---
General Adult HPI - General Chief complaint: Headache Stated complaint: weakness Time Seen by Provider: 05/14/18 18:03 Source: patient, EMS, RN notes reviewed Mode of arrival: EMS Limitations: no limitations - History of Present Illness Initial comments: 82-year-old female presents emergency department via EMS for evaluation for fatigue. Patient states she has no complaints does not want to be here though her caregiver thought she should be evaluated because she felt tired. Patient denies chest pain, shortness breath, nausea, vomiting, diarrhea, constipation, dysuria, hematuria, focal weakness. She did complain of a headache earlier today but has no current headache denies any blurred vision, dizziness. Patient did not take her blood pressure medication today her blood pressure is elevated. Patient states she just finished Levaquin for 7 days for acute bronchitis. Denies any increase in cough. Patient denies any body aches, joint swelling. Patient states that she has no specific complaints and does not want to be of the emergency department. - Related Data Home Medications Medication Instructions Recorded Confirmed Memantine HCl [Namenda] 5 mg PO HS 04/10/16 09/27/17 Polyethylene Glycol 3350 [Miralax] 17 gm PO DAILY 04/10/16 09/28/17 Spironolactone [Aldactone] 50 mg PO DAILY 04/10/16 09/27/17 Famotidine [Pepcid] 40 mg PO DAILY 09/27/17 09/27/17 Fluticasone Nasal [place] [Flonase 2 spr EA NOSTRIL BID 09/27/17 09/27/17 Nasal [place]] Latanoprost [Xalatan 0.005%] 1 drop OPHTHALMIC DIRECTED 09/27/17 09/27/17 Levothyroxine Sodium [Synthroid] 100 mcg PO DAILY 09/27/17 09/27/17 amLODIPine [Norvasc] 5 mg PO DAILY 09/27/17 09/27/17 Cetirizine HCl [Zyrtec] 10 mg PO DAILY PRN 09/28/17 09/28/17 Cholecalciferol [Vitamin D3] 1,000 unit PO DAILY 09/28/17 09/28/17 Cranberry Fruit Concentrate [Azo 250 mg PO DAILY 09/28/17 09/28/17 Cranberry] DULoxetine HCL [Cymbalta] 20 mg PO DAILY 09/28/17 09/28/17 Folic Acid 0.8 mg PO DAILY 09/28/17 09/28/17 Mirabegron [Myrbetriq] 25 mg PO BID 09/28/17 09/28/17 Previous Rx's Medication Instructions Recorded Donepezil [Aricept] 5 mg PO HS #7 tab 01/12/15 busPIRone HCl [Buspar] 10 mg PO TID #21 tab 01/12/15 Amoxicillin/Potassium Clav 1 tab PO Q12HR #14 tab 10/05/17 [Augmentin 875-125 Tablet] Apixaban [Eliquis] 2.5 mg PO BID tablet 10/05/17 Furosemide [Lasix] 40 mg PO DAILY tab 10/05/17 Isosorbide Mononitrate ER [Imdur] 30 mg PO DAILY tab.er.24h 10/05/17 LORazepam [Ativan] 0.5 mg PO BID PRN #6 tab 10/05/17 Metoprolol Tartrate [Lopressor] 12.5 mg PO DAILY tab 10/05/17 QUEtiapine [SEROquel] 50 mg PO HS #3 tab 10/05/17 Allergies Allergy/AdvReac Type Severity Reaction Status Date / Time Benzodiazepines AdvReac SEVERE LEG Verified 09/27/17 18:36 CRAMPS diazepam AdvReac Hallucinati Verified 09/27/17 18:36 ons lithium [Brandon] AdvReac Nausea & Verified 09/27/17 18:36 Vomiting simvastatin AdvReac SEVERE LEG Verified 09/27/17 18:36 CRAMPS sulfamethoxazole AdvReac Vomiting Verified 09/27/17 18:36 [From Bactrim] trimethoprim [From Bactrim] AdvReac Vomiting Verified 09/27/17 18:36 Review of Systems ROS Statement: Those systems with pertinent positive or pertinent negative responses have been documented in the HPI. ROS Other: All systems not noted in ROS Statement are negative. Past Medical History Past Medical History: Heart Failure, Eye Disorder, GERD/Reflux, Hyperlipidemia, Hypertension, Osteoarthritis (OA), Pneumonia, Thyroid Disorder Additional Past Medical History / Comment(s): fall.06-17-15 COMM ACQUIRED BACTERIAL PNE/HYPOXIA, FAILED O/P TX. varicose veins, macular degeneration, glaucoma, hx GENITAL STD-PER PAST MED HX. BRONCHITIS, DJD, MULTIPLE UTI'S STRESS INCOT OF URINE, CONSTIPATION,HIATAL HERNIA PT STATED " THINKS SHE WAS TOLD SHE MAY HAVE A SMALL AORTIC ANUERYSM" NOT SURE. History of Any Multi-Drug Resistant Organisms: None Reported Past Surgical History: Adenoidectomy, Breast Surgery, Hysterectomy, Joint Replacement, Orthopedic Surgery, Tonsillectomy Additional Past Surgical History / Comment(s): contigen injections into bladder , Lt TKA, Bilat cataracts removed, rt breast biopsy-NEG, rt shoulder arthroscopy , colonoscopy/EGD. Past Anesthesia/Blood Transfusion Reactions: No Reported Reaction Past Psychological History: Anxiety, Depression Smoking Status: Former smoker Past Alcohol Use History: None Reported Past Drug Use History: None Reported - Past Family History Father Family Medical History: Cancer Brother(s) Family Medical History: Cancer General Exam Limitations: no limitations General appearance: alert, in no apparent distress Head exam: Present: atraumatic, normocephalic, normal inspection Eye exam: Present: normal appearance, PERRL, EOMI. Absent: scleral icterus, conjunctival injection, periorbital swelling ENT exam: Present: normal exam, normal oropharynx, mucous membranes moist, TM's normal bilaterally Neck exam: Present: normal inspection, full ROM. Absent: tenderness, meningismus, lymphadenopathy Respiratory exam: Present: normal lung sounds bilaterally. Absent: respiratory distress, wheezes, rales, rhonchi, stridor Cardiovascular Exam: Present: regular rate, normal rhythm, normal heart sounds. Absent: systolic murmur, diastolic murmur, rubs, gallop, clicks GI/Abdominal exam: Present: soft, normal bowel sounds. Absent: distended, tenderness, guarding, rebound, rigid Back exam: Present: normal inspection, full ROM. Absent: tenderness, CVA tenderness (R), CVA tenderness (L) Neurological exam: Present: alert, oriented X3, CN II-XII intact Skin exam: Present: warm, dry, intact, normal color. Absent: rash Course Vital Signs 05/14/18 05/14/18 05/14/18 18:03 19:13 20:41 Temperature 98.8 F 98.6 F 98.2 F Pulse Rate 66 65 65 Respiratory 18 17 18 Rate Blood Pressure 174/91 183/86 170/88 O2 Sat by Pulse 99 97 98 Oximetry EKG Findings - EKG Comments: EKG Findings:: EKG performed at 19:54 sinus rhythm with first-degree block, rate of 61. She 90 QRS 94 QT/QTC 452/455 Medical Decision Making - Medical Decision Making 82-year-old female presented for fatigue. Patient had workup including EKG lab work, chest x-ray, EKG. Patient had no specific complaints. Patient's workup is negative for acute findings. Patient will be discharged. - Lab Data Result diagrams: 05/14/18 18:52 05/14/18 18:52 Lab Results 05/14/18 05/14/18 05/14/18 Range/Units 18:52 18:52 18:52 WBC 7.1 (3.8-10.6) k/uL RBC 5.00 (3.80-5.40) m/uL Hgb 15.3 (11.4-16.0) gm/dL Hct 44.5 (34.0-46.0) % MCV 88.9 (80.0-100.0) fL MCH 30.6 (25.0-35.0) pg MCHC 34.5 (31.0-37.0) g/dL RDW 14.2 (11.5-15.5) % Plt Count 337 (150-450) k/uL Neutrophils % 50 % Lymphocytes % 33 % Monocytes % 11 % Eosinophils % 3 % Basophils % 1 % Neutrophils # 3.5 (1.3-7.7) k/uL Lymphocytes # 2.3 (1.0-4.8) k/uL Monocytes # 0.8 (0-1.0) k/uL Eosinophils # 0.2 (0-0.7) k/uL Basophils # 0.1 (0-0.2) k/uL PT (9.0-12.0) sec INR (<1.2) APTT (22.0-30.0) sec Sodium 140 (137-145) mmol/L Potassium 3.8 (3.5-5.1) mmol/L Chloride 107 (98-107) mmol/L Carbon Dioxide 23 (22-30) mmol/L Anion Gap 10 mmol/L BUN 15 (7-17) mg/dL Creatinine 0.67 (0.52-1.04) mg/dL Est GFR (CKD-EPI)AfAm >90 (>60 ml/min/1.73 sqM) Est GFR (CKD-EPI)NonAf 83 (>60 ml/min/1.73 sqM) Glucose 89 (74-99) mg/dL Plasma Lactic Acid Star (0.7-2.0) mmol/L Calcium 10.3 H (8.4-10.2) mg/dL Magnesium 2.1 (1.6-2.3) mg/dL Total Bilirubin 1.1 (0.2-1.3) mg/dL AST 22 (14-36) U/L ALT 26 (9-52) U/L Alkaline Phosphatase 95 (38-126) U/L Total Creatine Kinase 77 (30-135) U/L CK-MB (CK-2) 0.7 (0.0-2.4) ng/mL CK-MB (CK-2) Rel Index 0.9 Troponin I <0.012 (0.000-0.034) ng/mL Total Protein 7.1 (6.3-8.2) g/dL Albumin 4.4 (3.5-5.0) g/dL Urine Color Urine Appearance (Clear) Urine pH (5.0-8.0) Ur Specific Imogene (1.001-1.035) Urine Protein (Negative) Urine Glucose (UA) (Negative) Urine Ketones (Negative) Urine Blood (Negative) Urine Nitrite (Negative) Urine Bilirubin (Negative) Urine Urobilinogen (<2.0) mg/dL Ur Leukocyte Esterase (Negative) 05/14/18 05/14/18 05/14/18 Range/Units 18:52 18:52 Unknown WBC (3.8-10.6) k/uL RBC (3.80-5.40) m/uL Hgb (11.4-16.0) gm/dL Hct (34.0-46.0) % MCV (80.0-100.0) fL MCH (25.0-35.0) pg MCHC (31.0-37.0) g/dL RDW (11.5-15.5) % Plt Count (150-450) k/uL Neutrophils % % Lymphocytes % % Monocytes % % Eosinophils % % Basophils % % Neutrophils # (1.3-7.7) k/uL Lymphocytes # (1.0-4.8) k/uL Monocytes # (0-1.0) k/uL Eosinophils # (0-0.7) k/uL Basophils # (0-0.2) k/uL PT 11.7 (9.0-12.0) sec INR 1.1 (<1.2) APTT 25.1 (22.0-30.0) sec Sodium (137-145) mmol/L Potassium (3.5-5.1) mmol/L Chloride (98-107) mmol/L Carbon Dioxide (22-30) mmol/L Anion Gap mmol/L BUN (7-17) mg/dL Creatinine (0.52-1.04) mg/dL Est GFR (CKD-EPI)AfAm (>60 ml/min/1.73 sqM) Est GFR (CKD-EPI)NonAf (>60 ml/min/1.73 sqM) Glucose (74-99) mg/dL Plasma Lactic Acid Star 1.6 (0.7-2.0) mmol/L Calcium (8.4-10.2) mg/dL Magnesium (1.6-2.3) mg/dL Total Bilirubin (0.2-1.3) mg/dL AST (14-36) U/L ALT (9-52) U/L Alkaline Phosphatase (38-126) U/L Total Creatine Kinase (30-135) U/L CK-MB (CK-2) (0.0-2.4) ng/mL CK-MB (CK-2) Rel Index Troponin I (0.000-0.034) ng/mL Total Protein (6.3-8.2) g/dL Albumin (3.5-5.0) g/dL Urine Color Colorless Urine Appearance Clear (Clear) Urine pH 8.0 (5.0-8.0) Ur Specific Imogene 1.004 (1.001-1.035) Urine Protein Negative (Negative) Urine Glucose (UA) Negative (Negative) Urine Ketones Trace H (Negative) Urine Blood Negative (Negative) Urine Nitrite Negative (Negative) Urine Bilirubin Negative (Negative) Urine Urobilinogen <2.0 (<2.0) mg/dL Ur Leukocyte Esterase Negative (Negative) Disposition Clinical Impression: Dementia, Fatigue Disposition: HOME SELF-CARE Condition: Stable Instructions (If sedation given, give patient instructions): Fatigue (ED) Additional Instructions: Please return to the Emergency Department if symptoms worsen or any other concerns. Is patient prescribed a controlled substance at d/c from ED?: No Referrals: Sloane Sellers MD [Primary Care Provider] - 1-2 days Time of Disposition: 20:49
[2018-05-14] MEDS ORDERED: amLODIPine 5 MG TAB PO STA (18:28)
[2018-05-14 19:14] VITALS: PULSE 65
[2018-05-14 19:19] LABS: Basophils # (A) 0.1 k/uL (0-0.2); Basophils % (A) 1 %; Eosinophils # (A) 0.2 k/uL (0-0.7); Eosinophils % (A) 3 %; HCT 44.5 % (34.0-46.0); HGB 15.3 gm/dL (11.4-16.0); Lymphocytes # (A) 2.3 k/uL (1.0-4.8); Lymphocytes % (A) 33 %; MCH 30.6 pg (25.0-35.0); MCHC 34.5 g/dL (31.0-37.0); MCV 88.9 fL (80.0-100.0); Mean Platelet Volume 6.3; Monocytes # (A) 0.8 k/uL (0-1.0); Monocytes % (A) 11 %; Neutrophils # (A) 3.5 k/uL (1.3-7.7); Neutrophils % (A) 50 %; Platelet Count 337 k/uL (150-450); RDW 14.2 % (11.5-15.5); WBC 7.1 k/uL (3.8-10.6)
[2018-05-14 19:24] LABS: INR 1.1 (<1.2); Partial Thromboplastin Time 25.1 sec (22.0-30.0); Prothrombin Time 11.7 sec (9.0-12.0)
[2018-05-14 19:26] LABS: Creatine Kinase 77 U/L (30-135)
[2018-05-14 19:28] LABS: ALT 26 U/L (9-52); AST 22 U/L (14-36); Albumin 4.4 g/dL (3.5-5.0); Alkaline Phosphatase 95 U/L (38-126); Anion Gap 10 mmol/L; Blood Urea Nitrogen 15 mg/dL (7-17); Calcium 10.3 mg/dL (8.4-10.2); Carbon Dioxide 23 mmol/L (22-30); Chloride 107 mmol/L (98-107); Glucose 89 mg/dL (74-99); Magnesium 2.1 mg/dL (1.6-2.3); Potassium 3.8 mmol/L (3.5-5.1); Sodium 140 mmol/L (137-145); Total Bilirubin 1.1 mg/dL (0.2-1.3); Total Protein 7.1 g/dL (6.3-8.2)
--- NOTE | 2018-05-14 19:37 | XR ---
EXAMINATION: XR chest 2V DATE AND TIME: 05/14/2018 7:25 PM CLINICAL INDICATION: PHH; Weakness TECHNIQUE: PA and lateral COMPARISON: AP upright portable 10/03/2017 study FINDINGS: The lungs are clear. The pleural spaces are negative. The cardiac silhouette is not enlarged. Aortic tortuosity is redemonstrated. The skeletal structures and soft tissues are negative for acute findings. IMPRESSION: NO ACUTE PROCESS.
[2018-05-14 19:38] LABS: Creatine Kinase MB 0.7 ng/mL (0.0-2.4); Troponin I <0.012 ng/mL (0.000-0.034)
[2018-05-14 20:20] LABS: Appearance,Urine Clear (Clear); Bilirubin,Urine Negative (Negative); Blood,Urine Negative (Negative); Color,Urine Colorless; Glucose,Urine (UA) Negative (Negative); Ketones,Urine Trace (Negative); Leukocyte Esterase,Urine Negative (Negative); Nitrite,Urine Negative (Negative); Protein,Urine Negative (Negative); Specific Gravity,Urine 1.004 (1.001-1.035); Urobilinogen,Urine <2.0 mg/dL (<2.0)
[2018-05-14 20:44] VITALS: BP 170/88; RESP 18; TEMP 98.2
== END 2018-05-14 21:08 | disposition home or self-care (01) ==
LOC: EC 18:01
DX: F03.90 Unspecified dementia, unspecified severity, without behavioral disturbance, psychotic disturbance, mood disturbance, and anxiety (principal); R53.83 Other fatigue; R51 Headache; F41.9 Anxiety disorder, unspecified; F32.9 Major depressive disorder, single episode, unspecified; K21.9 Gastro-esophageal reflux disease without esophagitis; I11.0 Hypertensive heart disease with heart failure; M19.90 Unspecified osteoarthritis, unspecified site; H35.30 Unspecified macular degeneration; E07.9 Disorder of thyroid, unspecified; I50.9 Heart failure, unspecified; Z87.891 Personal history of nicotine dependence; Z79.899 Other long term (current) drug therapy; Z88.8 Allergy status to other drugs, medicaments and biological substances; Z88.2 Allergy status to sulfonamides; Z91.048 Other nonmedicinal substance allergy status; Z96.652 Presence of left artificial knee joint; Z98.42 Cataract extraction status, left eye; Z98.41 Cataract extraction status, right eye
CPT/HCPCS: 36415; 71046; 80053; 81003; 82550; 82553; 83605; 83735; 84484; 85025; 85610; 85730; 93005; 96360; 96361; 99284

== ENCOUNTER → 2018-12-26 | Day surgery (SDC) | payer MEDICARE, BC ==
--- NOTE | 2018-12-26 14:41 | FL ---
EXAMINATION TYPE: FL voiding cystourethrogram DATE OF EXAM: 12/26/2018 COMPARISON: NONE HISTORY: Chronic urinary incontinence TECHNIQUE: The study was explained to the patient and history was elicited. Prior to initiation of t he study a erp business analyst radiograph of the abdomen and pelvis was obtained. A urinary bladder catheter was pl aced under sterile technique by the nursing department of radiology and 200 mL of Cystografin were in stilled via the urinary catheter under intermittent spot fluoroscopy. 2 minutes and 14 seconds of flu oroscopy time was utilized with 34 fluoroscopic images saved. FINDINGS: After the urinary bladder was distended with a maximum amount tolerated by the patient romulo ateral oblique and frontal radiographs were obtained. The bladder wall demonstrates a lobulated and trabeculated contour without evidence of focal abnormal outpouching, extrinsic impression or contrast extravasation. There was no visualized evidence of vesiculo-ureteral reflux. Post void residual is noted within the urinary bladder. The patient describes no sensation to urinate despite residual cont rast in the urinary bladder. There is no evidence of extravasation of contrast outside the bowel lume n visualized on the post void fluoroscopic images. IMPRESSION: Post void residual is seen with trabeculated appearance of the urinary bladder, both find ings suggesting neurogenic bladder. No evidence of urinary bladder of the nor vesiculoureteral reflux
== END ==
LOC: RADPROMAIN 08:01
PROVIDERS: ATTEND Family Medicine
DX: N39.498 Other specified urinary incontinence (principal)
CPT/HCPCS: 74455; Q9962

== ENCOUNTER 2019-04-27 16:28 | Observation (INO) | payer MEDICARE, BC ==
[2019-04-27] MEDS ORDERED: MORPHINE SULFATE 4 MG/ML SYRINGE IM STA (17:16)
--- NOTE | 2019-04-27 18:42 | CT ---
EXAMINATION TYPE: CT pelvis wo con DATE OF EXAM: 04/27/2019 COMPARISON: 09/11/2013 HISTORY: Fall with low back pain. CT DLP: 289.1 mGycm Automated exposure control for dose reduction was used. multiple axial sections were obtained from the iliac crest to the subtrochanteric femurs without cont rast. There is right hip intramedullary deanne with transverse screw fixing old intertrochanteric fractu re of the right femur. The pelvic ring is intact. Acetabula appear intact. There is mild hip joint sp mona narrowing with acetabular spurring and spurring on the femoral heads. Sacroiliac joints appear in tact. Lower lumbar spine is intact. Abdominal aorta is atheromatous. There is no free fluid in the pelvis. There is no evidence of a pelvic mass. Bladder distends smoothl y. IMPRESSION: Previous right hip surgery. No acute bony abnormality. No acute fracture.
--- NOTE | 2019-04-27 18:45 | CT ---
EXAMINATION TYPE: CT lumbar spine wo con DATE OF EXAM: 04/27/2019 COMPARISON: CT abdomen 09/11/2013 HISTORY: Fall with low back pain. CT DLP: 792 mGycm Automated exposure control for dose reduction was used. Multiple axial sections were obtained from the level of T11-S3 vertebra without contrast. Vertebra have normal alignment. There is osteopenia. There is 25% compression deformity of T12 verteb ral body. This is probably an acute fracture. There is mild spurring of the endplates throughout the lumbar spine. Disc spaces are fairly normal. Facet joints appear intact. There is no lumbar paraspina l mass. I see no focal bone destruction. Sacroiliac joints are intact. IMPRESSION: Mild compression fracture of T12 appears acute and is new compared to old CT scan of 09/11/2013. Mild spondylotic changes. Facet arthropathy with lateral recess stenosis and mild relative spinal joe nosis at L3-4.
[2019-04-27] MEDS ORDERED: SODIUM CHLORIDE 0.9% 1,000 ML IV STA (20:31)
[2019-04-27] MEDS ORDERED: SODIUM CHLORIDE 0.9% 1,000 ML IV SCH (20:45)
[2019-04-27] MEDS ORDERED: NALOXONE 0.4 MG/ML 1 ML VIAL IV PRN (20:45)
[2019-04-27] MEDS ORDERED: MORPHINE SULFATE 2 MG/ML SYRINGE IV PRN (20:45)
--- NOTE | 2019-04-27 20:45 | ED ---
General Adult HPI - General Source: patient, EMS, RN notes reviewed Mode of arrival: EMS Limitations: no limitations <Ross Maher - Last Filed: 04/27/19 21:08> <Kyara Corbin - Last Filed: 05/02/19 14:51> - General Chief complaint: Fall Stated complaint: Fall/Lower back pain Time Seen by Provider: 04/27/19 16:59 - History of Present Illness Initial comments: 83-year-old female with a past medical history of heart failure, hyperlipidemia, hypertension, GERD presents to the emergency department for a chief complaint of fall. Patient was walking around her bed when she tripped over her comforter. Patient fell onto her buttock and low back. She did not hit her head. Patient initially denied blood thinners but later noted to be on Eliquis for A. fib. Patient denies any other injuries. Denies any abdominal pain or neck pain. Patient has no other complaints at this time including shortness of breath, chest pain, abdominal pain, nausea or vomiting, headache, or visual changes. (Ross Maher) - Related Data Home Medications Medication Instructions Recorded Confirmed Memantine HCl [Namenda] 5 mg PO DAILY 04/10/16 04/28/19 Spironolactone [Aldactone] 50 mg PO DAILY 04/10/16 04/28/19 Latanoprost [Xalatan 0.005%] 1 drop BOTH EYES HS 09/27/17 04/28/19 amLODIPine [Norvasc] 5 mg PO DAILY 09/27/17 04/28/19 Acyclovir [Zovirax] 400 mg PO BID 04/28/19 04/28/19 Apixaban [Eliquis] 5 mg PO BID 04/28/19 04/28/19 DULoxetine HCL [Cymbalta] 30 mg PO BID 04/28/19 04/28/19 Desvenlafaxine Succinate [Pristiq] 25 mg PO DAILY 04/28/19 04/28/19 Donepezil [Aricept] 5 mg PO DAILY 04/28/19 04/28/19 LORazepam [Ativan] 0.5 mg PO HS 04/28/19 04/28/19 Levothyroxine Sodium 125 mcg PO DAILY 04/28/19 04/28/19 Loratadine [Claritin] 10 mg PO DAILY 04/28/19 04/28/19 Multivitamins, Thera [Multivitamin 1 tab PO DAILY 04/28/19 04/28/19 (formulary)] Oxybutynin Chloride [Ditropan] 5 mg PO TID 04/28/19 04/28/19 QUEtiapine FUMARATE [SEROquel] 50 mg PO HS 04/28/19 04/28/19 Previous Rx's Medication Instructions Recorded busPIRone HCl [Buspar] 10 mg PO TID #21 tab 01/12/15 Isosorbide Mononitrate ER [Imdur] 30 mg PO DAILY tab.er.24h 10/05/17 Allergies Allergy/AdvReac Type Severity Reaction Status Date / Time Benzodiazepines AdvReac SEVERE LEG Verified 04/28/19 10:34 CRAMPS diazepam AdvReac Hallucinati Verified 04/28/19 10:34 ons lithium [[place]] AdvReac Nausea & Verified 04/28/19 10:34 Vomiting simvastatin AdvReac SEVERE LEG Verified 04/28/19 10:34 CRAMPS sulfamethoxazole AdvReac Vomiting Verified 04/28/19 10:34 [From Bactrim] trimethoprim [From Bactrim] AdvReac Vomiting Verified 04/28/19 10:34 Review of Systems ROS Other: All systems not noted in ROS Statement are negative. <Ross Maher - Last Filed: 04/27/19 21:08> ROS Other: All systems not noted in ROS Statement are negative. <Kyara Corbin - Last Filed: 05/02/19 14:51> ROS Statement: Those systems with pertinent positive or pertinent negative responses have been documented in the HPI. Past Medical History Past Medical History: Heart Failure, Eye Disorder, GERD/Reflux, Hyperlipidemia, Hypertension, Osteoarthritis (OA), Pneumonia, Thyroid Disorder Additional Past Medical History / Comment(s): fall.06-16-16 COMM ACQUIRED BACTERIAL PNE/HYPOXIA, FAILED O/P TX. varicose veins, macular degeneration, glaucoma, hx GENITAL STD-PER PAST MED HX. BRONCHITIS, DJD, MULTIPLE UTI'S STRESS INCOT OF URINE, CONSTIPATION,HIATAL HERNIA PT STATED " THINKS SHE WAS TOLD SHE MAY HAVE A SMALL AORTIC ANUERYSM" NOT SURE. History of Any Multi-Drug Resistant Organisms: None Reported Past Surgical History: Adenoidectomy, Breast Surgery, Hysterectomy, Joint Replacement, Orthopedic Surgery, Tonsillectomy Additional Past Surgical History / Comment(s): contigen injections into bladder, Lt TKA, Bilat cataracts removed, rt breast biopsy-NEG, rt shoulder arthroscopy, colonoscopy/EGD. Past Anesthesia/Blood Transfusion Reactions: No Reported Reaction Past Psychological History: Anxiety, Depression Smoking Status: Former smoker Past Alcohol Use History: None Reported Past Drug Use History: None Reported - Past Family History Father Family Medical History: Cancer Brother(s) Family Medical History: Cancer <NikaRoss P - Last Filed: 04/27/19 21:08> General Exam Limitations: no limitations General appearance: alert, in no apparent distress Head exam: Present: atraumatic, normocephalic, normal inspection Eye exam: Present: normal appearance, PERRL, EOMI. Absent: scleral icterus, conjunctival injection, periorbital swelling ENT exam: Present: normal exam, mucous membranes moist Neck exam: Present: normal inspection, full ROM (Range of motion.). Absent: tenderness (Tenderness of the cervical spine.), meningismus, lymphadenopathy, other (No contusions or ecchymosis present. No obvious trauma.) Respiratory exam: Present: normal lung sounds bilaterally. Absent: respiratory distress, wheezes, rales, rhonchi, stridor Cardiovascular Exam: Present: regular rate, normal rhythm, normal heart sounds. Absent: systolic murmur, diastolic murmur, rubs, gallop, clicks GI/Abdominal exam: Present: soft, normal bowel sounds. Absent: distended, tenderness, guarding, rebound, rigid Extremities exam: Present: full ROM (Full range of motion for lower extremities.), normal capillary refill (Doppler refill less than 2 seconds, DP pulse 2+ bilaterally), other (Sensation intact in lower external nares bilaterally.) Back exam: Absent: CVA tenderness (R), CVA tenderness (L), vertebral tenderness Neurological exam: Present: alert <Ross Maher P - Last Filed: 04/27/19 21:08> Course Vital Signs 04/27/19 04/27/19 04/27/19 16:33 17:30 17:33 Temperature 98.0 F Pulse Rate 64 70 Respiratory 20 18 Rate Blood Pressure 146/71 115/63 O2 Sat by Pulse 98 98 Oximetry 04/27/19 04/27/19 04/27/19 20:00 21:00 22:00 Temperature Pulse Rate 68 65 67 Respiratory 18 18 18 Rate Blood Pressure 152/71 178/75 156/73 O2 Sat by Pulse 98 99 99 Oximetry Medical Decision Making <Ross Maher - Last Filed: 04/27/19 21:08> - Lab Data Result diagrams: 04/27/19 21:40 04/27/19 21:40 <Kyara Corbin - Last Filed: 05/02/19 14:51> - Medical Decision Making Lumbar spine CT showed mild compression fracture of T12 that appears acute and is new compared to old computed tomography scan. This is consistent with patient's history. Patient is neurovascularly intact in the lower extremities. Able to move both legs with full sensation. Pelvis CT shows no acute bony abnormality. No fracture. Patient was given morphine here in the emergency department. I did attempt to image the patient. She had much difficulty with getting out of bed. Patient does not have assistance at home according to her and her sister. States she has to walk up 3 flights of stairs to get to her apartment. They're concerned she will not be able to manage this. Dr. Corbin did speak with Dr. Perkins for possible trauma admit. They recommended medical admit with trauma consult. Dr. Corbin spoke with Dr. Reilly who accepts admission. Brain CT shows no acute cranial abnormality. Laboratory evaluation pending (Ross Maher) I was available for consultation in the emergency department. The history and physical exam were done by the midlevel provider. I was consulted for this patients care. I reviewed the case with the midlevel provider and based on their presentation of the patient, I agree with the assessment, medical decision making and plan of care as documented. Chart was dictated using [employer] dictation software. Attempts were made to correct any dictation errors however some typographical errors may persist. (Kyara Corbin) Disposition Is patient prescribed a controlled substance at d/c from ED?: No Time of Disposition: 20:45 <Ross Maher - Last Filed: 04/27/19 21:08> <Kyara Corbin - Last Filed: 05/02/19 14:51> Clinical Impression: Fall, T12 compression fracture, Intractable pain, Risk for falls Disposition: ADMITTED IP TO THIS [facility] Condition: Fair
--- NOTE | 2019-04-27 21:02 | CT ---
EXAMINATION TYPE: CT brain wo con DATE OF EXAM: 04/27/2019 COMPARISON: 09/27/2017 HISTORY: Fall today. CT DLP: 1149.4 mGycm Automated exposure control for dose reduction was used. Multiple axial sections were obtained of the brain without contrast. There is cerebral cortical atrophy. There is no mass effect nor midline shift. There is no sign of in tracranial hemorrhage. Calvarium is intact. There is no evidence of cerebral edema. Skull base is int act. IMPRESSION: Cerebral atrophy. No acute intracranial abnormality. No change.
[2019-04-27 22:00] LABS: Basophils # (A) 0.2 k/uL (0-0.2); Basophils % (A) 2 %; Eosinophils # (A) 0.1 k/uL (0-0.7); Eosinophils % (A) 1 %; HCT 44.8 % (34.0-46.0); HGB 14.9 gm/dL (11.4-16.0); Lymphocytes # (A) 1.2 k/uL (1.0-4.8); Lymphocytes % (A) 13 %; MCHC 33.4 g/dL (31.0-37.0); Mean Platelet Volume 6.4; Monocytes # (A) 0.8 k/uL (0-1.0); Monocytes % (A) 8 %; Neutrophils # (A) 7.4 k/uL (1.3-7.7); Neutrophils % (A) 76 %; Platelet Count 320 k/uL (150-450); RBC 4.98 m/uL (3.80-5.40); RDW 12.9 % (11.5-15.5); WBC 9.7 k/uL (3.8-10.6)
[2019-04-27 22:12] LABS: ALT 14 U/L (4-34); AST 28 U/L (14-36); African American GFR (CKD) >90 (>60 ml/min/1.73 sqM); Albumin 4.2 g/dL (3.5-5.0); Alkaline Phosphatase 88 U/L (38-126); Anion Gap 9 mmol/L; Blood Urea Nitrogen 11 mg/dL (7-17); Calcium 10.1 mg/dL (8.4-10.2); Carbon Dioxide 22 mmol/L (22-30); Chloride 107 mmol/L (98-107); Glucose 95 mg/dL (74-99); Non-African American GFR(CKD) 85 (>60 ml/min/1.73 sqM); Potassium 4.3 mmol/L (3.5-5.1); Sodium 138 mmol/L (137-145); Total Protein 7.1 g/dL (6.3-8.2)
[2019-04-28] MEDS: ACETAMINOPHEN TAB 325 MG TAB PO PRN ×2 (07:10→17:02)
[2019-04-28 08:02] VITALS: RESP 16
--- NOTE | 2019-04-28 08:59 | P.CNOR ---
History of Present Illness - [facility] Consult date: 04/28/19 Requesting physician: Ross Maher Consult reason: fracture (T12 compression fracture deformity), low back pain (Acute low back pain status post fall) History of present illness: Patient is a very pleasant 83-year-old female who is seen today at the bedside for further evaluation for increased low back pain status post fall. She presented the emergency department for further evaluation. CT imaging showed evidence of a T12 compression fracture deformity. She denies previous known fracture at her spine. She does admit to multiple falls over the past several years. She does have a history of osteopenia. She denies any lower extremity weakness radiculopathy bilaterally. She states her pain is centered specifically at her lower lumbar spine. She states she does live in assisted living. She states she was walking around her bed when she tripped and fell over her comfort or. She was given morphine in the emergency department which has helped control her pain. Since being admitted to the floor she's been trying to avoid narcotics and has been using Tylenol for pain control without significant control of her symptoms. She has a history of previous right intramedullary nail fixation for intertrochanteric hip fracture. She has a medical history which includes heart failure, hyperlipidemia, hypertension, and atrial fibrillation currently on eliquis. Past Medical History Past Medical History: Heart Failure, Eye Disorder, GERD/Reflux, Hyperlipidemia, Hypertension, Osteoarthritis (OA), Pneumonia, Thyroid Disorder Additional Past Medical History / Comment(s): fall.16 COMM ACQUIRED BACTERIAL PNE/HYPOXIA, FAILED O/P TX. varicose veins, macular degeneration, glaucoma, hx GENITAL STD-PER PAST MED HX. BRONCHITIS, DJD, MULTIPLE UTI'S STRESS INCOT OF URINE, CONSTIPATION,HIATAL HERNIA PT STATED " THINKS SHE WAS TOLD SHE MAY HAVE A SMALL AORTIC ANUERYSM" NOT SURE. History of Any Multi-Drug Resistant Organisms: None Reported Past Surgical History: Adenoidectomy, Breast Surgery, Hysterectomy, Joint Replacement, Orthopedic Surgery, Tonsillectomy Additional Past Surgical History / Comment(s): contigen injections into bladder, Lt TKA, Bilat cataracts removed, rt breast biopsy-NEG, rt shoulder arthroscopy, colonoscopy/EGD. Past Anesthesia/Blood Transfusion Reactions: No Reported Reaction Past Psychological History: Anxiety, Depression Smoking Status: Former smoker Past Alcohol Use History: None Reported Additional Past Alcohol Use History / Comment(s): started smoking around age 42(1977))QUIT SMOKING 1994, SMOKED 1 PPD Past Drug Use History: None Reported - Past Family History Father Family Medical History: Cancer Brother(s) Family Medical History: Cancer Medications and Allergies Home Medications Medication Instructions Recorded Confirmed Type Donepezil [Aricept] 5 mg PO HS #7 tab 01/12/15 09/27/17 Rx busPIRone HCl [Buspar] 10 mg PO TID #21 tab 01/12/15 09/27/17 Rx Memantine HCl [Namenda] 5 mg PO HS 04/10/16 09/27/17 History Polyethylene Glycol 3350 [Miralax] 17 gm PO DAILY 04/10/16 09/28/17 History Spironolactone [Aldactone] 50 mg PO DAILY 04/10/16 09/27/17 History Famotidine [Pepcid] 40 mg PO DAILY 09/27/17 09/27/17 History Fluticasone Nasal [place] [Flonase 2 spr EA NOSTRIL BID 09/27/17 09/27/17 History Nasal [place]] Latanoprost [Xalatan 0.005%] 1 drop OPHTHALMIC DIRECTED 09/27/17 09/27/17 History Levothyroxine Sodium [Synthroid] 100 mcg PO DAILY 09/27/17 09/27/17 History amLODIPine [Norvasc] 5 mg PO DAILY 09/27/17 09/27/17 History Cetirizine HCl [Zyrtec] 10 mg PO DAILY PRN 09/28/17 09/28/17 History Cholecalciferol [Vitamin D3 (25 1,000 unit PO DAILY 09/28/17 09/28/17 History Mcg = 1000 Iu)] Cranberry Fruit Concentrate [Azo 250 mg PO DAILY 09/28/17 09/28/17 History Cranberry] DULoxetine HCL [Cymbalta] 20 mg PO DAILY 09/28/17 09/28/17 History Folic Acid 0.8 mg PO DAILY 09/28/17 09/28/17 History Mirabegron [Myrbetriq] 25 mg PO BID 09/28/17 09/28/17 History Amoxicillin/Potassium Clav 1 tab PO Q12HR #14 tab 10/05/17 Rx [Augmentin 875-125 Tablet] Apixaban [Eliquis] 2.5 mg PO BID tablet 10/05/17 Rx Furosemide [Lasix] 40 mg PO DAILY tab 10/05/17 Rx Isosorbide Mononitrate ER [Imdur] 30 mg PO DAILY tab.er.24h 10/05/17 Rx LORazepam [Ativan] 0.5 mg PO BID PRN #6 tab 10/05/17 Rx Metoprolol Tartrate [Lopressor] 12.5 mg PO DAILY tab 10/05/17 Rx QUEtiapine [SEROquel] 50 mg PO HS #3 tab 10/05/17 Rx Allergies Allergy/AdvReac Type Severity Reaction Status Date / Time Benzodiazepines AdvReac SEVERE LEG Verified 09/27/17 18:36 CRAMPS diazepam AdvReac Hallucinati Verified 09/27/17 18:36 ons lithium [[place]] AdvReac Nausea & Verified 09/27/17 18:36 Vomiting simvastatin AdvReac SEVERE LEG Verified 09/27/17 18:36 CRAMPS sulfamethoxazole AdvReac Vomiting Verified 09/27/17 18:36 [From Bactrim] trimethoprim [From Bactrim] AdvReac Vomiting Verified 09/27/17 18:36 Physical Examination Physical exam: Patient is awake, alert, and oriented 3 Vital signs stable Good chest excursion with deep inspiration and expiration Examination of thoracic and lumbar spine reveals skin is intact with no abrasions, lacerations, or bruises; no erythema, purulence or signs of infection No significant pain with palpation over the thoracic spine or thoracolumbar junction Mild pain with palpation along the midline of the lower lumbar spine Dorsiflexion, plantarflexion, and extensor hallucis longus positive sustained bilaterally Lower extremity strength 5/5 bilaterally No lower extremity hyperreflexia bilaterally Straight leg test negative bilateral lower extremities Negative Lasegue's test bilaterally No signs or symptoms of DVT; no calf pain No pain with internal and external rotation of the hips bilaterally Neurovascularly intact Results Pertinent studies: CT of the lumbar spine taken on 04/27/2019: T12 inferior endplate compression fracture deformity with a 25% height loss which appears new as compared to previous imaging from 09/11/2013; L3-4 facet arthropathy with lateral recess stenosis and mild spinal canal stenosis; T11-T12 anterior osteophytic spurring; L1-2 and L2-3 degenerative disc disease with anterior osteoarthritic spurring; no evidence of spondylolisthesis CT of the pelvis taken on 04/27/2019: Evidence of right hip intramedullary nail fixation for previous intertrochanteric hip fracture; no evidence of acute fracture within the pelvis; no acute bony abnormality - Labs Labs: H & H 04/27/19 Range/Units 21:40 Hgb 14.9 (11.4-16.0) gm/dL Hct 44.8 (34.0-46.0) % Result Diagrams: 04/27/19 21:40 04/27/19 21:40 Assessment and Plan Assessment: Assessment: Acute low back pain T12 compression fracture deformity of indeterminate age Status post fall Lumbar degenerative disc disease Lumbar spinal canal stenosis at L3-4 Lumbar facet arthropathy History of right intramedullary nail fixation for right intertrochanteric hip fracture Hypertension Hyperlipidemia Congestive heart failure Atrial fibrillation currently on anticoagulation with eliquis (1) Acute low back pain Current Visit: Yes Status: Acute Code(s): M54.5 - LOW BACK PAIN SNOMED Code(s): 589530462 (2) Lumbar stenosis Current Visit: Yes Status: Acute Code(s): M48.061 - SPINAL STENOSIS, LUMBAR REGION WITHOUT NEUROGENIC KIM SNOMED Code(s): 74484092 (3) Lumbar facet arthropathy Current Visit: Yes Status: Acute Code(s): M47.816 - SPONDYLOSIS W/O MYELOPATHY OR RADICULOPATHY, LUMBAR REGION SNOMED Code(s): 861613553 (4) Lumbar degenerative disc disease Current Visit: Yes Status: Acute Code(s): M51.36 - OTHER INTERVERTEBRAL DISC DEGENERATION, LUMBAR REGION SNOMED Code(s): 87781999 (5) Hypertension Current Visit: Yes Status: Acute Code(s): I10 - ESSENTIAL (PRIMARY) HYPERTENSION SNOMED Code(s): 94551115 (6) Hyperlipidemia Current Visit: Yes Status: Acute Code(s): E78.5 - HYPERLIPIDEMIA, UNSPECIFIED SNOMED Code(s): 75815804 (7) Congestive heart failure Current Visit: Yes Status: Acute Code(s): I50.9 - HEART FAILURE, UNSPECIFIED SNOMED Code(s): 65075553 (8) Atrial fibrillation Current Visit: Yes Status: Acute Code(s): I48.91 - UNSPECIFIED ATRIAL FIBRILLATION SNOMED Code(s): 07882352 (9) Fall Current Visit: Yes Status: Acute Code(s): W19.XXXA - UNSPECIFIED FALL, INITIAL ENCOUNTER SNOMED Code(s): 3304532 (10) T12 compression fracture Current Visit: Yes Status: Acute Code(s): S22.080A - WEDGE COMPRESSION FRACTURE OF T11-T12 VERTEBRA, INIT SNOMED Code(s): 710599217 Plan: Plan: 1. After physical examination the patient, reviewing of imaging, and further discussion with the patient, we'll plan to continue with conservative treatment at this time. Imaging does show evidence of a T12 inferior endplate compression fracture deformity of indeterminate age. Patient does not specifically recall an injury to her lumbar spine previously but does admit to history of multiple falls and osteopenia. On physical examination, her pain is centered along the midline of the lower lumbar spine. She does not have specific pain at the thora columbar junction. At this time, we will plan for bracing. A prescription for a TLSO was written in the emergency department. We will plan to discontinue this bracing and will not have the patient received this brace. A prescription will be written for an Exos LSO brace. We discussed the patient should wear this brace during ambulation, increased activities, while sitting upright at greater than 45 and while working with physical therapy. Brace does not have to be worn while lying in bed or while bathing. Once this brace is delivered and fitted appropriate;y, patient will be clear for discharge from an orthopedic spine standpoint. We'll plan to have her follow-up in approximately 2-3 weeks for further evaluation. Patient may follow-up with Saravanan Centeno PA-C or Dr. Nando Villalobos at [facility]. We discussed both currently planned to exhaust conservative treatment avoid surgical intervention. 2. Patient will continue to see examined by other medical providers including medicine Time with Patient: Greater than 30 (Including obtaining history, physical examination, reviewing of imaging, and dictation.)
[2019-04-28] MEDS ORDERED: amLODIPine 5 MG TAB PO SCH (09:00)
[2019-04-28] MEDS ORDERED: METOPROLOL TARTRATE 12.5 MG TAB PO SCH (09:00)
[2019-04-28] MEDS ORDERED: POLYETHYLENE GLYCOL 3350 17 GM POWD.PACK PO SCH (09:30)
--- NOTE | 2019-04-28 12:13 | P.GSCN ---
<Marah Lozano - Last Filed: 04/28/19 12:08> History of Present Illness Consult date: 04/28/19 Reason for Consult: trauma patient Requesting physician: Ross Maher History of present illness: CHIEF COMPLAINT: Trauma consult HISTORY OF PRESENT ILLNESS: 83-year-old female who presented to the emergency room to to a fall. Patient states she resides at [facility], an assisted living facility. She was walking around her bed and did not notice the comforter has partially slipped onto the floor. She reports tripping on the comforter and falling. She denies losing consciousness. Denies hitting her head. She was able to get up off the floor on her own. She reports some discomfort to her back this morning. Denies abdominal pain. Denies headache or vision changes. Tolerating diet. Denies nausea or vomiting. She does report constipation and states she hasn't had a bowel movement in a few days. She reports taking MiraLAX on an outpatient basis when she becomes constipated. PAST MEDICAL HISTORY: See list. PAST SURGICAL HISTORY: See list. MEDICATIONS: See list. ALLERGIES: See list. SOCIAL HISTORY: No illicit drug use. REVIEW OF SYSTEMS: CONSTITUTIONAL: Denies fever or chills. HEENT: Denies blurred vision, vision changes, or eye pain. Denies hemoptysis ENDOCRINE: Denies heat or cold intolerance. CARDIOVASCULAR: Denies chest pain or pressure. RESPIRATORY: No shortness of breath. GASTROINTESTINAL: Denies abdominal pain. Denies nausea or vomiting. NEURO: Denies history of seizures. PSYCH: No depression or suicidal ideation HEMATOLOGIC: Denies bleeding disorders. LYMPHATIC: The patient denies any lumps and bumps around the neck. GENITOURINARY: Denies any blood in urine or increased urinary frequency. MUSCULOSKELETAL: Reports recent fall. Denies myalgias. Denies joint swelling. Denies decreased range of motion beyond patients baseline. SKIN: Denies pruitis. Denies rash. PHYSICAL EXAM: VITAL SIGNS: Currently stable. GENERAL: Well-developed in no acute distress. HEENT: No sclera icterus. Extraocular movements grossly intact. Moist buccal mucosa. Head is atraumatic, normocephalic. Hears conversational speech. No nasal drainage. NECK: Supple without lymphadenopathy. CHEST: Non-labored respirations and equal bilateral excursions. CARDIOVASCULAR: Regular rate with regular rhythm. Palpable 2+ radial pulses. ABDOMEN: Soft. Nondistended. Nontender. MUSCULOSKELETAL: No clubbing, cyanosis or edema. NEUROLOGIC: No focal or lateralizing signs. Cranial nerves II through XII grossly intact. PSYCH: Appropriate affect. Alert and oriented to person, place and time. SKIN: Well perfused. Good skin turgor. LABORATORY DATA: WBC 9.7. Hemoglobin 14.9. Platelet count 320. Sodium 138. Potassium 4.3. BUN 11. Creatinine 0.62. IMAGIN. CT pelvis: Previous right hip surgery. No acute bony abnormality. No acute fracture. 2. CT lumbar spine: Mild compression fracture of T12 appears acute and is new compared to old CT from [address]. 3[address] brain: No acute intracranial abnormality ASSESSMENT: 1. Status post fall from standing 2. Acute low back pain 3. T12 compression fracture 4. History of atrial fibrillation, on long-term anticoagulation with Eliquis 5. History of right hip fracture with intramedullary nail fixation 6. History of constipation PLAN: -Orthopedics on consult. No surgical evaluation recommended. Brace has been ordered -Pain control -PT/OT evaluation -Incentive spirometer -Diet as tolerated -Miralax daily for constipation -No surgical intervention recommended. Stable for discharge from a trauma surgery standpoint. We will defer to internal medicine. Nurse practitioner note has been reviewed by physician. Signing provider agrees with the documented findings, assessment, and plan of care. Past Medical History Past Medical History: Heart Failure, Eye Disorder, GERD/Reflux, Hyperlipidemia, Hypertension, Osteoarthritis (OA), Pneumonia, Thyroid Disorder Additional Past Medical History / Comment(s): fall.06-17-15 COMM ACQUIRED BACTERIAL PNE/HYPOXIA, FAILED O/P TX. varicose veins, macular degeneration, glaucoma, hx GENITAL STD-PER PAST MED HX. BRONCHITIS, DJD, MULTIPLE UTI'S STRESS INCOT OF URINE, CONSTIPATION,HIATAL HERNIA PT STATED " THINKS SHE WAS TOLD SHE MAY HAVE A SMALL AORTIC ANUERYSM" NOT SURE. History of Any Multi-Drug Resistant Organisms: None Reported Past Surgical History: Adenoidectomy, Breast Surgery, Hysterectomy, Joint Replacement, Orthopedic Surgery, Tonsillectomy Additional Past Surgical History / Comment(s): contigen injections into bladder, Lt TKA, Bilat cataracts removed, rt breast biopsy-NEG, rt shoulder arthroscopy, colonoscopy/EGD. Past Anesthesia/Blood Transfusion Reactions: No Reported Reaction Past Psychological History: Anxiety, Depression Smoking Status: Former smoker Past Alcohol Use History: None Reported Additional Past Alcohol Use History / Comment(s): started smoking around age 42(1977))QUIT SMOKING 1994, SMOKED 1 PPD Past Drug Use History: None Reported - Past Family History Father Family Medical History: Cancer Brother(s) Family Medical History: Cancer Medications and Allergies Home Medications Medication Instructions Recorded Confirmed Type busPIRone HCl [Buspar] 10 mg PO TID #21 tab 01/12/15 04/28/19 Rx Memantine HCl [Namenda] 5 mg PO DAILY 04/10/16 04/28/19 History Spironolactone [Aldactone] 50 mg PO DAILY 04/10/16 04/28/19 History Latanoprost [Xalatan 0.005%] 1 drop BOTH EYES HS 09/27/17 04/28/19 History amLODIPine [Norvasc] 5 mg PO DAILY 09/27/17 04/28/19 History Isosorbide Mononitrate ER [Imdur] 30 mg PO DAILY tab.er.24h 10/05/17 04/28/19 Rx Acyclovir [Zovirax] 400 mg PO BID 04/28/19 04/28/19 History Apixaban [Eliquis] 5 mg PO BID 04/28/19 04/28/19 History DULoxetine HCL [Cymbalta] 30 mg PO BID 04/28/19 04/28/19 History Desvenlafaxine Succinate [Pristiq] 25 mg PO DAILY 04/28/19 04/28/19 History Donepezil [Aricept] 5 mg PO DAILY 04/28/19 04/28/19 History LORazepam [Ativan] 0.5 mg PO HS 04/28/19 04/28/19 History Levothyroxine Sodium 125 mcg PO DAILY 04/28/19 04/28/19 History Loratadine [Claritin] 10 mg PO DAILY 04/28/19 04/28/19 History Multivitamins, Thera [Multivitamin 1 tab PO DAILY 04/28/19 04/28/19 History (formulary)] Oxybutynin Chloride [Ditropan] 5 mg PO TID 04/28/19 04/28/19 History QUEtiapine FUMARATE [SEROquel] 50 mg PO HS 04/28/19 04/28/19 History Allergies Allergy/AdvReac Type Severity Reaction Status Date / Time Benzodiazepines AdvReac SEVERE LEG Verified 04/28/19 10:34 CRAMPS diazepam AdvReac Hallucinati Verified 04/28/19 10:34 ons lithium [[place]] AdvReac Nausea & Verified 04/28/19 10:34 Vomiting simvastatin AdvReac SEVERE LEG Verified 04/28/19 10:34 CRAMPS sulfamethoxazole AdvReac Vomiting Verified 04/28/19 10:34 [From Bactrim] trimethoprim [From Bactrim] AdvReac Vomiting Verified 04/28/19 10:34 Surgical - Exam Vital Signs Pulse Resp BP Pulse Ox 64 20 146/71 98 04/27/19 16:33 04/27/19 16:33 04/27/19 16:33 04/27/19 16:33 Results - Labs 04/27/19 21:40 04/27/19 21:40 Diabetes panel 04/27/19 Range/Units 21:40 Sodium 138 (137-145) mmol/L Potassium 4.3 (3.5-5.1) mmol/L Chloride 107 (98-107) mmol/L Carbon Dioxide 22 (22-30) mmol/L BUN 11 (7-17) mg/dL Creatinine 0.62 (0.52-1.04) mg/dL Glucose 95 (74-99) mg/dL Calcium 10.1 (8.4-10.2) mg/dL AST 28 (14-36) U/L ALT 14 (4-34) U/L Alkaline Phosphatase 88 (38-126) U/L Total Protein 7.1 (6.3-8.2) g/dL Albumin 4.2 (3.5-5.0) g/dL Calcium panel 04/27/19 Range/Units 21:40 Calcium 10.1 (8.4-10.2) mg/dL Albumin 4.2 (3.5-5.0) g/dL Pituitary panel 04/27/19 Range/Units 21:40 Sodium 138 (137-145) mmol/L Potassium 4.3 (3.5-5.1) mmol/L Chloride 107 (98-107) mmol/L Carbon Dioxide 22 (22-30) mmol/L BUN 11 (7-17) mg/dL Creatinine 0.62 (0.52-1.04) mg/dL Glucose 95 (74-99) mg/dL Calcium 10.1 (8.4-10.2) mg/dL Adrenal panel 04/27/19 Range/Units 21:40 Sodium 138 (137-145) mmol/L Potassium 4.3 (3.5-5.1) mmol/L Chloride 107 (98-107) mmol/L Carbon Dioxide 22 (22-30) mmol/L BUN 11 (7-17) mg/dL Creatinine 0.62 (0.52-1.04) mg/dL Glucose 95 (74-99) mg/dL Calcium 10.1 (8.4-10.2) mg/dL Total Bilirubin 1.0 (0.2-1.3) mg/dL AST 28 (14-36) U/L ALT 14 (4-34) U/L Alkaline Phosphatase 88 (38-126) U/L Total Protein 7.1 (6.3-8.2) g/dL Albumin 4.2 (3.5-5.0) g/dL <Kelsey Cross N - Last Filed: 04/28/19 17:50> History of Present Illness History of present illness: Patient seen and evaluated. She had a ground-level fall without injury to the head. She sustained a compression fracture of T12. Secondary to her multiple medical comorbidities patient was admitted to medicine, trauma consultation. Otherwise patient clear for discharge when cleared by orthopedic services. Surgical - Exam Vital Signs Pulse Resp BP Pulse Ox 64 20 146/71 98 04/27/19 16:33 04/27/19 16:33 04/27/19 16:33 04/27/19 16:33 Results - Labs 04/27/19 21:40 04/27/19 21:40 Diabetes panel 04/27/19 Range/Units 21:40 Sodium 138 (137-145) mmol/L Potassium 4.3 (3.5-5.1) mmol/L Chloride 107 (98-107) mmol/L Carbon Dioxide 22 (22-30) mmol/L BUN 11 (7-17) mg/dL Creatinine 0.62 (0.52-1.04) mg/dL Glucose 95 (74-99) mg/dL Calcium 10.1 (8.4-10.2) mg/dL AST 28 (14-36) U/L ALT 14 (4-34) U/L Alkaline Phosphatase 88 (38-126) U/L Total Protein 7.1 (6.3-8.2) g/dL Albumin 4.2 (3.5-5.0) g/dL Calcium panel 04/27/19 Range/Units 21:40 Calcium 10.1 (8.4-10.2) mg/dL Albumin 4.2 (3.5-5.0) g/dL Pituitary panel 04/27/19 Range/Units 21:40 Sodium 138 (137-145) mmol/L Potassium 4.3 (3.5-5.1) mmol/L Chloride 107 (98-107) mmol/L Carbon Dioxide 22 (22-30) mmol/L BUN 11 (7-17) mg/dL Creatinine 0.62 (0.52-1.04) mg/dL Glucose 95 (74-99) mg/dL Calcium 10.1 (8.4-10.2) mg/dL Adrenal panel 04/27/19 Range/Units 21:40 Sodium 138 (137-145) mmol/L Potassium 4.3 (3.5-5.1) mmol/L Chloride 107 (98-107) mmol/L Carbon Dioxide 22 (22-30) mmol/L BUN 11 (7-17) mg/dL Creatinine 0.62 (0.52-1.04) mg/dL Glucose 95 (74-99) mg/dL Calcium 10.1 (8.4-10.2) mg/dL Total Bilirubin 1.0 (0.2-1.3) mg/dL AST 28 (14-36) U/L ALT 14 (4-34) U/L Alkaline Phosphatase 88 (38-126) U/L Total Protein 7.1 (6.3-8.2) g/dL Albumin 4.2 (3.5-5.0) g/dL
[2019-04-28 15:26] VITALS: BP 178/80; PULSE 71; TEMP 98
--- NOTE | 2019-05-05 08:57 | P.HPIM ---
History of Present Illness H&P Date: 04/28/19 Chief Complaint: fall Maggie Peterson is an 83 yo F with PMH of OA, CHF, A fib who presented to the ED after a fall at her assisted living facility. She states she was getting out of bed and she tripped on a comforter and fell landing on her back. She denies losing consciousness or hitting her head. She was able to get back up and then call for help. She denies any previous history of vertebral fractures, denies headache, nausea, vomiting, dizziness. In the ED vitals stable, CT head negative, CT lumbar spine with T12 compression fracture. Review of Systems All systems: negative Constitutional: Reports weakness, Denies chills, Denies fever Eyes: denies blurred vision, denies pain Ears, nose, mouth and throat: Denies headache, Denies sore throat Cardiovascular: Denies chest pain, Denies shortness of breath Respiratory: Denies cough Gastrointestinal: Denies abdominal pain, Denies diarrhea, Denies nausea, Denies vomiting Genitourinary: Denies dysuria, Denies hematuria Musculoskeletal: Reports as per HPI, Reports fractures, Reports gait dysfunction, Reports low back pain, Denies myalgias Integumentary: Denies pruritus, Denies rash Neurological: Denies numbness, Denies weakness Psychiatric: Denies anxiety, Denies depression Endocrine: Denies fatigue, Denies weight change Past Medical History Past Medical History: Heart Failure, Eye Disorder, GERD/Reflux, Hyperlipidemia, Hypertension, Osteoarthritis (OA), Pneumonia, Thyroid Disorder Additional Past Medical History / Comment(s): fall.06-17-15 COMM ACQUIRED BACTERIAL PNE/HYPOXIA, FAILED O/P TX. varicose veins, macular degeneration, glaucoma, hx GENITAL STD-PER PAST MED HX. BRONCHITIS, DJD, MULTIPLE UTI'S STRESS INCOT OF URINE, CONSTIPATION,HIATAL HERNIA PT STATED " THINKS SHE WAS TOLD SHE MAY HAVE A SMALL AORTIC ANUERYSM" NOT SURE. History of Any Multi-Drug Resistant Organisms: None Reported Past Surgical History: Adenoidectomy, Breast Surgery, Hysterectomy, Joint Replacement, Orthopedic Surgery, Tonsillectomy Additional Past Surgical History / Comment(s): contigen injections into bladder, Lt TKA, Bilat cataracts removed, rt breast biopsy-NEG, rt shoulder arthroscopy, colonoscopy/EGD. Past Anesthesia/Blood Transfusion Reactions: No Reported Reaction Past Psychological History: Anxiety, Depression Smoking Status: Former smoker Past Alcohol Use History: None Reported Additional Past Alcohol Use History / Comment(s): started smoking around age 42(1977))QUIT SMOKING 1994, SMOKED 1 PPD Past Drug Use History: None Reported - Past Family History Father Family Medical History: Cancer Brother(s) Family Medical History: Cancer Medications and Allergies Home Medications Medication Instructions Recorded Confirmed Type busPIRone HCl [Buspar] 10 mg PO TID #21 tab 01/12/15 04/28/19 Rx Memantine HCl [Namenda] 5 mg PO DAILY 04/10/16 04/28/19 History Spironolactone [Aldactone] 50 mg PO DAILY 04/10/16 04/28/19 History Latanoprost [Xalatan 0.005%] 1 drop BOTH EYES HS 09/27/17 04/28/19 History amLODIPine [Norvasc] 5 mg PO DAILY 09/27/17 04/28/19 History Isosorbide Mononitrate ER [Imdur] 30 mg PO DAILY tab.er.24h 10/05/17 04/28/19 Rx Acyclovir [Zovirax] 400 mg PO BID 04/28/19 04/28/19 History Apixaban [Eliquis] 5 mg PO BID 04/28/19 04/28/19 History DULoxetine HCL [Cymbalta] 30 mg PO BID 04/28/19 04/28/19 History Desvenlafaxine Succinate [Pristiq] 25 mg PO DAILY 04/28/19 04/28/19 History Donepezil [Aricept] 5 mg PO DAILY 04/28/19 04/28/19 History LORazepam [Ativan] 0.5 mg PO HS 04/28/19 04/28/19 History Levothyroxine Sodium 125 mcg PO DAILY 04/28/19 04/28/19 History Loratadine [Claritin] 10 mg PO DAILY 04/28/19 04/28/19 History Multivitamins, Thera [Multivitamin 1 tab PO DAILY 04/28/19 04/28/19 History (formulary)] Oxybutynin Chloride [Ditropan] 5 mg PO TID 04/28/19 04/28/19 History QUEtiapine FUMARATE [SEROquel] 50 mg PO HS 04/28/19 04/28/19 History Allergies Allergy/AdvReac Type Severity Reaction Status Date / Time Benzodiazepines AdvReac SEVERE LEG Verified 04/28/19 10:34 CRAMPS diazepam AdvReac Hallucinati Verified 04/28/19 10:34 ons lithium [[place]] AdvReac Nausea & Verified 04/28/19 10:34 Vomiting simvastatin AdvReac SEVERE LEG Verified 04/28/19 10:34 CRAMPS sulfamethoxazole AdvReac Vomiting Verified 04/28/19 10:34 [From Bactrim] trimethoprim [From Bactrim] AdvReac Vomiting Verified 04/28/19 10:34 Physical Exam Gen: Well-developed white female in no acute distress HEENT: Normocephalic, atraumatic, mucous membranes moist Neck: Supple, no thyromegaly, no JVD Lymph: No cervical or axillary lymphadenopathy CV: Irregularly irregular, no murmurs Lungs: Normal inspiratory effort, no wheezes or rales Abdomen: Soft, nontender, nondistended Musculoskeletal: Low back tenderness, limitation to spinal flexion and extension Neuro: Alert and oriented 3, no focal deficits Skin: Warm and dry Results CBC & Chem 7: 04/27/19 21:40 04/27/19 21:40 Thrombosis Risk Factor Assmnt - Choose All That Apply Any of the Below Risk Factors Present?: No Each Risk Factor Represents 3 Points: Age 75 years or older Each Risk Factor Represents 5 Points: Hip, pelvis, or leg fracture (< 1 month) Thrombosis Risk Factor Assessment Total Risk Factor Score: 8 Thrombosis Risk Factor Assessment Level: High Risk Assessment and Plan (1) Acute low back pain Status: Acute Code(s): M54.5 - LOW BACK PAIN SNOMED Code(s): 318620542 (2) Atrial fibrillation Status: Acute Code(s): I48.91 - UNSPECIFIED ATRIAL FIBRILLATION SNOMED Code(s): 48184622 (3) Congestive heart failure Status: Acute Code(s): I50.9 - HEART FAILURE, UNSPECIFIED SNOMED Code(s): 50110132 (4) Lumbar degenerative disc disease Status: Acute Code(s): M51.36 - OTHER INTERVERTEBRAL DISC DEGENERATION, LUMBAR REGION SNOMED Code(s): 66539602 (5) Lumbar facet arthropathy Status: Acute Code(s): M47.816 - SPONDYLOSIS W/O MYELOPATHY OR RADICULOPATHY, LUMBAR REGION SNOMED Code(s): 545406098 (6) T12 compression fracture Status: Acute Code(s): S22.080A - WEDGE COMPRESSION FRACTURE OF T11-T12 VERTEBRA, INIT SNOMED Code(s): 358589890 Plan: 1. T12 compression fracture. Orthopedic surgery consulted. Patient being fitted for LSO brace. Pain control. Recommend Forteo as an outpatient 2. Atrial fibrillation. Continue all Aquinas 3. Coronary artery disease. Continue Imdur. 4. Hypertension. Continue Norvasc and spironolactone.
--- NOTE | 2019-05-05 08:58 | P.DS ---
Providers Date of admission: 04/27/19 20:45 Expected date of discharge: 04/28/19 Attending physician: Vladislav Maciel MD Consults: 04/27/19 20:46 Consult Physician Routine Consulting Provider: Kelsey Cross Consult Reason/Comments: trauma consult, T12 compression fracture Do you want consulting provider notified?: Yes Consult Physician Routine Consulting Provider: Stephanie Villalobos Consult Reason/Comments: 25% T 12 compression fracture Do you want consulting provider notified?: Yes Primary care physician: Sloane Sellers - Discharge Diagnosis(es) (1) Acute low back pain Status: Acute (2) Atrial fibrillation Status: Acute (3) Congestive heart failure Status: Acute (4) Lumbar degenerative disc disease Status: Acute (5) Lumbar facet arthropathy Status: Acute (6) T12 compression fracture Status: Acute Hospital Course: Maggie Peterson is an 83 yo F with PMH of OA, CHF, A fib who presented to the ED after a fall at her assisted living facility. She states she was getting out of bed and she tripped on a comforter and fell landing on her back. She denies losing consciousness or hitting her head. She was able to get back up and then call for help. She denies any previous history of vertebral fractures, denies headache, nausea, vomiting, dizziness. In the ED vitals stable, CT head negative, CT lumbar spine with T12 compression fracture. Patient was seen by orthopedic surgery and fitted with an LSO brace. She is discharged in stable condition and recommended to follow up with her primary care doctor and complete a course of Forteo. Patient Condition at Discharge: Fair Plan - Discharge Summary Discharge Rx Participant: Yes New Discharge Prescriptions: Continue busPIRone HCl [Buspar] 10 mg PO TID #21 tab Memantine HCl [Namenda] 5 mg PO DAILY Spironolactone [Aldactone] 50 mg PO DAILY Latanoprost [Xalatan 0.005%] 1 drop BOTH EYES HS amLODIPine [Norvasc] 5 mg PO DAILY Isosorbide Mononitrate ER [Imdur] 30 mg PO DAILY tab.er.24h QUEtiapine FUMARATE [SEROquel] 50 mg PO HS Oxybutynin Chloride [Ditropan] 5 mg PO TID Multivitamins, Thera [Multivitamin (formulary)] 1 tab PO DAILY Loratadine [Claritin] 10 mg PO DAILY Levothyroxine Sodium 125 mcg PO DAILY DULoxetine HCL [Cymbalta] 30 mg PO BID Desvenlafaxine Succinate [Pristiq] 25 mg PO DAILY Acyclovir [Zovirax] 400 mg PO BID LORazepam [Ativan] 0.5 mg PO HS Donepezil [Aricept] 5 mg PO DAILY Apixaban [Eliquis] 5 mg PO BID Discharge Medication List busPIRone HCl [Buspar] 10 mg PO TID #21 tab 01/12/15 [Rx] Memantine HCl [Namenda] 5 mg PO DAILY 04/10/16 [History] Spironolactone [Aldactone] 50 mg PO DAILY 04/10/16 [History] Latanoprost [Xalatan 0.005%] 1 drop BOTH EYES HS 09/27/17 [History] amLODIPine [Norvasc] 5 mg PO DAILY 09/27/17 [History] Isosorbide Mononitrate ER [Imdur] 30 mg PO DAILY tab.er.24h 10/05/17 [Rx] Acyclovir [Zovirax] 400 mg PO BID 04/28/19 [History] Apixaban [Eliquis] 5 mg PO BID 04/28/19 [History] DULoxetine HCL [Cymbalta] 30 mg PO BID 04/28/19 [History] Desvenlafaxine Succinate [Pristiq] 25 mg PO DAILY 04/28/19 [History] Donepezil [Aricept] 5 mg PO DAILY 04/28/19 [History] LORazepam [Ativan] 0.5 mg PO HS 04/28/19 [History] Levothyroxine Sodium 125 mcg PO DAILY 04/28/19 [History] Loratadine [Claritin] 10 mg PO DAILY 04/28/19 [History] Multivitamins, Thera [Multivitamin (formulary)] 1 tab PO DAILY 04/28/19 [History] Oxybutynin Chloride [Ditropan] 5 mg PO TID 04/28/19 [History] QUEtiapine FUMARATE [SEROquel] 50 mg PO HS 04/28/19 [History] Follow up Appointment(s)/Referral(s): [facility] [NON-STAFF] - Saravanan Centeno PAC [PHYSICIAN PROGRAM MANAGER ENVIRONMENTAL PLANNING] - 05/09/19 10:00 am (Patient may follow-up with Saravanan Centeno PA-C or Dr. Nando Villalobos at [facility] in 2-3 weeks following discharge. ) [facility], [NON-STAFF] - Sloane Sellers MD [Primary Care Provider] - 05/01/19 2:15 pm Marta Kwong [NON-STAFF] - (They will deliver LSO brace to patient's bedside on 04/28/2019) Patient Instructions/Handouts: Pain Management (DC), Thoracolumbar Fracture (DC), Fall Prevention (DC) Activity/Diet/Wound Care/Special Instructions: 1. Patient may wear LSO brace for comfort and support while sitting upright at greater than 45, while working with therapy, and while ambulating; patient does not have to wear the brace while lying in bed or bathing 2. Patient should avoid excessive bending, twisting, and lifting; no lifting greater than 10 pounds 3. Wheelchair ordered from [facility] to assist patient with completing her activities of daily living. It will be delivered to the bedside before discharge. 4. Take tylenol 650mg by mouth every 6 hours for pain as needed Discharge Disposition: HOME SELF-CARE
== END 2019-04-28 17:08 | disposition home or self-care (01) ==
LOC: EC 16:28 → 4SSUR 20:45
PROVIDERS: ADMIT Family Medicine; ATTEND Family Medicine
DX: Z04.3 Encounter for examination and observation following other accident (principal); S22.089A Unspecified fracture of T11-T12 vertebra, initial encounter for closed fracture; W01.0XXA Fall on same level from slipping, tripping and stumbling without subsequent striking against object, initial encounter; Z91.81 History of falling; Y93.89 Activity, other specified; Y92.092 Bedroom in other non-institutional residence as the place of occurrence of the external cause; I11.0 Hypertensive heart disease with heart failure; I50.9 Heart failure, unspecified; Z87.891 Personal history of nicotine dependence; E78.5 Hyperlipidemia, unspecified; I48.91 Unspecified atrial fibrillation; K21.9 Gastro-esophageal reflux disease without esophagitis; K59.00 Constipation, unspecified; M19.90 Unspecified osteoarthritis, unspecified site; M85.80 Other specified disorders of bone density and structure, unspecified site; I83.90 Asymptomatic varicose veins of unspecified lower extremity; H35.30 Unspecified macular degeneration; N39.3 Stress incontinence (female) (male); E07.9 Disorder of thyroid, unspecified; H40.9 Unspecified glaucoma; F41.9 Anxiety disorder, unspecified; F32.9 Major depressive disorder, single episode, unspecified; M51.36 Other intervertebral disc degeneration, lumbar region; M47.816 Spondylosis without myelopathy or radiculopathy, lumbar region; Z90.710 Acquired absence of both cervix and uterus; Z96.652 Presence of left artificial knee joint; Z98.42 Cataract extraction status, left eye; Z98.41 Cataract extraction status, right eye; K44.9 Diaphragmatic hernia without obstruction or gangrene; Z80.9 Family history of malignant neoplasm, unspecified; Z79.01 Long term (current) use of anticoagulants; Z79.890 Hormone replacement therapy; Z79.899 Other long term (current) drug therapy; Z88.2 Allergy status to sulfonamides; Z88.8 Allergy status to other drugs, medicaments and biological substances
CPT/HCPCS: 96376; 96374; 99285; 80053; 85025; 72192; 72131; 70450; G0378 ×2; J2270 ×2

== ENCOUNTER → 2019-06-25 | Outpatient (CLI) | payer MEDICARE, BC ==
--- NOTE | 2019-06-25 20:07 | MR ---
EXAMINATION TYPE: MR pelvis wo/w con DATE OF EXAM: 06/25/2019 3:02 PM COMPARISON: None HISTORY: Adnexal mass TECHNIQUE: Multiplanar multiecho imaging of the pelvis was performed without and subsequently with i ntravenous contrast. Contrast used was 7 mL of Gadavist. FINDINGS: There is been prior hysterectomy and bilateral oophorectomy. There is a cystic lesion noted in the ri [facility] adnexal region measuring 2.3 x 1.5 x 2.2 cm. No pathologic enhancement noted. No thickening. No e vidence of free fluid. Gastrointestinal tract is of normal caliber. Right hip prosthesis noted. Incid ental sacral Tarlov cysts. . IMPRESSION: 1. Cystic lesion right adnexa without pathologic enhancement. Consider continued ultrasound monitorin g in 4-6 months.
== END | disposition home or self-care (01) ==
LOC: RADMRIMAIN 13:29
PROVIDERS: ATTEND Family Medicine
DX: N94.89 Other specified conditions associated with female genital organs and menstrual cycle (principal)
CPT/HCPCS: 72197; A9585

== ENCOUNTER 2019-11-16 22:51 | Emergency (ER) | payer MEDICARE, BC ==
[2019-11-16 23:04] VITALS: TEMP 97.5
[2019-11-16 23:26] LABS: Basophils # (A) 0.1 k/uL (0-0.2); Basophils % (A) 1 %; Eosinophils # (A) 0.3 k/uL (0-0.7); Eosinophils % (A) 4 %; HCT 41.5 % (34.0-46.0); HGB 13.3 gm/dL (11.4-16.0); Lymphocytes # (A) 2.4 k/uL (1.0-4.8); Lymphocytes % (A) 36 %; MCH 29.1 pg (25.0-35.0); MCV 90.8 fL (80.0-100.0); Mean Platelet Volume 6.5; Monocytes # (A) 0.7 k/uL (0-1.0); Monocytes % (A) 11 %; Neutrophils # (A) 2.9 k/uL (1.3-7.7); Neutrophils % (A) 44 %; Platelet Count 272 k/uL (150-450); RBC 4.57 m/uL (3.80-5.40); RDW 13.6 % (11.5-15.5); WBC 6.6 k/uL (3.8-10.6)
--- NOTE | 2019-11-16 23:33 | XR ---
EXAMINATION TYPE: XR Hip Complete RT DATE OF EXAM: 11/16/2019 COMPARISON: October 01, 2017 HISTORY: Fall. Hip pain. TECHNIQUE: 2 views FINDINGS: There is intramedullary deanne and transverse screws fixing intertrochanteric fracture of the right femur in anatomic position. There is mild acetabular spurring. I see no acute fracture nor disl ocation. Acetabulum is intact. IMPRESSION: Right hip nailing. No acute bony abnormality. No adverse change compared to old exam.
[2019-11-16 23:40] LABS: ALT 10 U/L (4-34); AST 21 U/L (14-36); African American GFR (CKD) >90 (>60 ml/min/1.73 sqM); Albumin 3.7 g/dL (3.5-5.0); Alkaline Phosphatase 77 U/L (38-126); Anion Gap 6 mmol/L; Blood Urea Nitrogen 15 mg/dL (7-17); Calcium 9.4 mg/dL (8.4-10.2); Carbon Dioxide 21 mmol/L (22-30); Chloride 107 mmol/L (98-107); Glucose 98 mg/dL (74-99); Non-African American GFR(CKD) 83 (>60 ml/min/1.73 sqM); Potassium 4.1 mmol/L (3.5-5.1); Sodium 134 mmol/L (137-145); Total Bilirubin 0.3 mg/dL (0.2-1.3); Total Protein 6.1 g/dL (6.3-8.2)
--- NOTE | 2019-11-16 23:43 | ED ---
Fall HPI - General Chief Complaint: Fall Stated Complaint: Fall, dizziness Time Seen by Provider: 11/16/19 22:53 Source: patient, EMS Mode of arrival: EMS - History of Present Illness Initial Comments: Maggie is a pleasant 84-year-old female who presents to ER today via ambulance f or evaluation after a fall at home. Patient reports she's been in her usual state of health, she states that this evening she was in the restroom getting ready for bed. She states that she had just finished brushing her teeth when she turned to walk to the door lost her balance falling onto her right side into the tub. She was able to stand and ambulate but when she called her caregiver to tell her about the fall she was encouraged to come the hospital for evaluation she had fallen on her right hip which she has recently had replaced. She was ambulatory she had minimal pain in the hip but did notice some bruising. She contacted EMS for transport to the hospital. Upon arrival she has no complaints. Vision does note that she was recently treated for UTI and just finished antibiotics earlier this week, she does state that she usually has some weakness when she has urinary tract infections and she does feel she is recovering from that well. - Related Data Home Medications Medication Instructions Recorded Confirmed Memantine HCl [Namenda] 5 mg PO DAILY 04/10/16 04/28/19 Spironolactone [Aldactone] 50 mg PO DAILY 04/10/16 04/28/19 Latanoprost [Xalatan 0.005%] 1 drop BOTH EYES HS 09/27/17 04/28/19 amLODIPine [Norvasc] 5 mg PO DAILY 09/27/17 04/28/19 Acyclovir [Zovirax] 400 mg PO BID 04/28/19 04/28/19 Apixaban [Eliquis] 5 mg PO BID 04/28/19 04/28/19 DULoxetine HCL [Cymbalta] 30 mg PO BID 04/28/19 04/28/19 Desvenlafaxine Succinate [Pristiq] 25 mg PO DAILY 04/28/19 04/28/19 Donepezil [Aricept] 5 mg PO DAILY 04/28/19 04/28/19 LORazepam [Ativan] 0.5 mg PO HS 04/28/19 04/28/19 Levothyroxine Sodium 125 mcg PO DAILY 04/28/19 04/28/19 Loratadine [Claritin] 10 mg PO DAILY 04/28/19 04/28/19 Multivitamins, Thera [Multivitamin 1 tab PO DAILY 04/28/19 04/28/19 (formulary)] Oxybutynin Chloride [Ditropan] 5 mg PO TID 04/28/19 04/28/19 QUEtiapine FUMARATE [SEROquel] 50 mg PO HS 04/28/19 04/28/19 Previous Rx's Medication Instructions Recorded busPIRone HCl [Buspar] 10 mg PO TID #21 tab 01/12/15 Isosorbide Mononitrate ER [Imdur] 30 mg PO DAILY tab.er.24h 10/05/17 Allergies Allergy/AdvReac Type Severity Reaction Status Date / Time Benzodiazepines AdvReac SEVERE LEG Verified 11/16/19 23:04 CRAMPS diazepam AdvReac Hallucinati Verified 11/16/19 23:04 ons lithium [[place]] AdvReac Nausea & Verified 11/16/19 23:04 Vomiting simvastatin AdvReac SEVERE LEG Verified 11/16/19 23:04 CRAMPS sulfamethoxazole AdvReac Vomiting Verified 11/16/19 23:04 [From Bactrim] trimethoprim [From Bactrim] AdvReac Vomiting Verified 11/16/19 23:04 Review of Systems ROS Statement: Those systems with pertinent positive or pertinent negative responses have been documented in the HPI. ROS Other: All systems not noted in ROS Statement are negative. Past Medical History Past Medical History: Heart Failure, Eye Disorder, GERD/Reflux, Hyperlipidemia, Hypertension, Osteoarthritis (OA), Pneumonia, Thyroid Disorder Additional Past Medical History / Comment(s): fall.06-17-15 COMM ACQUIRED BACTERIAL PNE/HYPOXIA, FAILED O/P TX. varicose veins, macular degeneration, glaucoma, hx GENITAL STD-PER PAST MED HX. BRONCHITIS, DJD, MULTIPLE UTI'S STRESS INCOT OF URINE, CONSTIPATION,HIATAL HERNIA PT STATED " THINKS SHE WAS TOLD SHE MAY HAVE A SMALL AORTIC ANUERYSM" NOT SURE. History of Any Multi-Drug Resistant Organisms: None Reported Past Surgical History: Adenoidectomy, Breast Surgery, Hysterectomy, Joint Replacement, Orthopedic Surgery, Tonsillectomy Additional Past Surgical History / Comment(s): contigen injections into bladder, Lt TKA, Bilat cataracts removed, rt breast biopsy-NEG, rt shoulder arthroscopy, colonoscopy/EGD. Past Anesthesia/Blood Transfusion Reactions: No Reported Reaction Past Psychological History: Anxiety, Depression Smoking Status: Former smoker Past Alcohol Use History: None Reported Past Drug Use History: None Reported - Past Family History Father Family Medical History: Cancer Brother(s) Family Medical History: Cancer General Exam - General Exam Comments Initial Comments: Physical Exam GENERAL: Patient is well-developed and well-nourished. Patient is nontoxic and well-hydrated and is in no distress. HENT: Normocephalic, Atraumatic. EYES: PERRL, EOMI PULMONARY: Unlabored respirations. CARDIOVASCULAR: Bradycardic, regular ABDOMEN: Soft and nontender with normal bowel sounds. SKIN: Small contusion to lateral right hip : Deferred NEUROLOGIC: Patient is alert and oriented x3. Moving all extremities spontaneously MUSCULOSKELETAL: Normal extremities with adequate strength and full range of motion. No lower extremity swelling or edema. No calf tenderness. PSYCHIATRIC: Normal psychiatric evaluation. Limitations: no limitations Course Vital Signs 11/16/19 11/16/19 11/17/19 22:53 23:30 00:00 Temperature 97.5 F L Pulse Rate 57 L 55 L 57 L Respiratory 17 20 20 Rate Blood Pressure 152/90 149/62 161/95 O2 Sat by Pulse 97 98 97 Oximetry 11/17/19 11/17/19 00:30 01:04 Temperature Pulse Rate 60 62 Respiratory 20 18 Rate Blood Pressure 131/52 144/72 O2 Sat by Pulse 97 97 Oximetry Medical Decision Making - Medical Decision Making The patient was seen and evaluated history is obtained from patient Labs and x-rays were ordered X-ray revealed no fracture or malalignment of the right hip Labs are unremarkable Urinalysis showed possible urinary tract infection this is likely an improvement from her previous however we will treat with a dose of Rocephin here in the ER She began complaining of pain in her low back she has a known compression fracture low back x-rays were obtained and confirmed a worsening compression fracture uncertain if this is acute or chronic, at this time patient's comfortable with plan for discharge home and supportive care Patient's caregiver at her assisted living facility was notified that the patient will be discharged home and should be arriving within 30 minutes via cab - Lab Data Result diagrams: 11/16/19 23:19 08/16/20 23:19 Lab Results 11/16/19 11/16/19 11/16/19 Range/Units 23:19 23:19 23:37 WBC 6.6 (3.8-10.6) k/uL RBC 4.57 (3.80-5.40) m/uL Hgb 13.3 (11.4-16.0) gm/dL Hct 41.5 (34.0-46.0) % MCV 90.8 (80.0-100.0) fL MCH 29.1 (25.0-35.0) pg MCHC 32.0 (31.0-37.0) g/dL RDW 13.6 (11.5-15.5) % Plt Count 272 (150-450) k/uL Neutrophils % 44 % Lymphocytes % 36 % Monocytes % 11 % Eosinophils % 4 % Basophils % 1 % Neutrophils # 2.9 (1.3-7.7) k/uL Lymphocytes # 2.4 (1.0-4.8) k/uL Monocytes # 0.7 (0-1.0) k/uL Eosinophils # 0.3 (0-0.7) k/uL Basophils # 0.1 (0-0.2) k/uL Sodium 134 L (137-145) mmol/L Potassium 4.1 (3.5-5.1) mmol/L Chloride 107 (98-107) mmol/L Carbon Dioxide 21 L (22-30) mmol/L Anion Gap 6 mmol/L BUN 15 (7-17) mg/dL Creatinine 0.66 (0.52-1.04) mg/dL Est GFR (CKD-EPI)AfAm >90 (>60 ml/min/1.73 sqM) Est GFR (CKD-EPI)NonAf 83 (>60 ml/min/1.73 sqM) Glucose 98 (74-99) mg/dL Calcium 9.4 (8.4-10.2) mg/dL Total Bilirubin 0.3 (0.2-1.3) mg/dL AST 21 (14-36) U/L ALT 10 (4-34) U/L Alkaline Phosphatase 77 (38-126) U/L Total Protein 6.1 L (6.3-8.2) g/dL Albumin 3.7 (3.5-5.0) g/dL Urine Color Yellow Urine Appearance Clear (Clear) Urine pH 6.0 (5.0-8.0) Ur Specific [place] 1.015 (1.001-1.035) Urine Protein Negative (Negative) Urine Glucose (UA) Negative (Negative) Urine Ketones Negative (Negative) Urine Blood Negative (Negative) Urine Nitrite Negative (Negative) Urine Bilirubin Negative (Negative) Urine Urobilinogen 2.0 (<2.0) mg/dL Ur Leukocyte Esterase Large H (Negative) Urine RBC 2 (0-5) /hpf Urine WBC 21 H (0-5) /hpf Ur Squamous Epith Cells <1 (0-4) /hpf Urine Bacteria Rare H (None) /hpf Hyaline Casts 3 H (0-2) /lpf Urine Mucus Rare H (None) /hpf Disposition Clinical Impression: Fall, T12 compression fracture Disposition: HOME SELF-CARE Condition: Stable Instructions (If sedation given, give patient instructions): Fall Prevention for Older Adults (ED) Is patient prescribed a controlled substance at d/c from ED?: No Referrals: Sloane Sellers MD [Primary Care Provider] - 1-2 days Stephanie Villalobos DO [Doctor of Osteopathic Medicine] - 1-2 days
[2019-11-16 23:50] LABS: Appearance,Urine Clear (Clear); Bilirubin,Urine Negative (Negative); Blood,Urine Negative (Negative); Color,Urine Yellow; Glucose,Urine (UA) Negative (Negative); Ketones,Urine Negative (Negative); Protein,Urine Negative (Negative); Specific Gravity,Urine 1.015 (1.001-1.035)
[2019-11-16 23:51] LABS: Leukocyte Esterase,Urine Large (Negative); Nitrite,Urine Negative (Negative)
[2019-11-16 23:58] LABS: Bacteria,Urine Rare /hpf; Hyaline Casts,Urine 3 /lpf (0-2); Mucus,Urine Rare /hpf; RBC,Urine 2 /hpf (0-5); Squamous Epithelial Cell,Urine <1 /hpf (0-4); WBC,Urine 21 /hpf (0-5)
[2019-11-17] MEDS ORDERED: cefTRIAXone IN SWFI 1,000 MG/10 ML SYRINGE IVP STA (00:04)
--- NOTE | 2019-11-17 00:51 | XR ---
EXAMINATION TYPE: XR lumbar spine 2 or 3V DATE OF EXAM: 11/17/2019 COMPARISON: NONE HISTORY: Fall. Back pain TECHNIQUE: 3 views FINDINGS: There is mild lumbar dextroscoliosis. There is 70% compression deformity of T12 vertebra. A bdominal aorta is atheromatous. There is osteopenia. Sacroiliac joints are intact. IMPRESSION: There is compression fracture of T12 that has progressed compared to the CT scan of 2019. No evidence of a new fracture. Mild dextroscoliosis. Mild multilevel spondylotic changes.
[2019-11-17 01:44] VITALS: BP 144/72; PULSE 62; RESP 18
== END 2019-11-17 01:25 | disposition home or self-care (01) ==
LOC: EC 22:51
DX: M48.54XA Collapsed vertebra, not elsewhere classified, thoracic region, initial encounter for fracture (principal); R42 Dizziness and giddiness; M25.551 Pain in right hip; F41.9 Anxiety disorder, unspecified; F32.9 Major depressive disorder, single episode, unspecified; I11.0 Hypertensive heart disease with heart failure; I50.9 Heart failure, unspecified; M19.90 Unspecified osteoarthritis, unspecified site; E07.9 Disorder of thyroid, unspecified; H40.9 Unspecified glaucoma; Z79.01 Long term (current) use of anticoagulants; Z79.890 Hormone replacement therapy; Z79.899 Other long term (current) drug therapy; Z87.891 Personal history of nicotine dependence; Z88.2 Allergy status to sulfonamides; Z88.1 Allergy status to other antibiotic agents; Z88.8 Allergy status to other drugs, medicaments and biological substances; Z91.048 Other nonmedicinal substance allergy status; H35.30 Unspecified macular degeneration; Z96.653 Presence of artificial knee joint, bilateral; W19.XXXA Unspecified fall, initial encounter; Y92.002 Bathroom of unspecified non-institutional (private) residence as the place of occurrence of the external cause
CPT/HCPCS: 36415; 80053; 85025; 81001; 87086; 72100; 73502; 99284; 96374; J0696; 96372

== ENCOUNTER → 2022-06-21 | Outpatient (CLI) | payer MEDICARE, BC ==
--- NOTE | 2022-06-21 14:49 | NM ---
EXAMINATION TYPE: NM bone scan whole body DATE OF EXAM: 06/21/2022 COMPARISON: NONE HISTORY: Bilateral leg and feet pain. History of left foot fracture. History of left knee replacement and right hip surgery. Left ankle/foot pain per order. Delayed whole-body scanning was performed following the injection of 22.7 mCi Tc 99m MDP. Images acq uired 3 hours post injection. Whole body images in anterior and posterior projection along with addit ional spot images of the abdomen and pelvis into bilateral femurs is performed. FINDINGS: There is no increased radiotracer uptake identified to suggest metastatic disease to the bone. Lucency from prosthesis of the left knee joint is noted. There is mild radiotracer uptake in both kne es suggestive of degenerative change. Lucency from surgery at level of right hip is seen. Mild symmet oren uptake at both hips is felt to reflect degenerative change. Increased radiotracer uptake right sternoclavicular joint favors degenerative change. Mild uptake in the bilateral ankles and shoulders favors degenerative change. Increased uptake first metatarsophalangeal joint right foot transverse degenerative change related to bunion. Increased uptake distal left fifth toe is nonspecific. Correlate clinically. No symmetric in creased radiotracer uptake otherwise identified in the left ankle or foot versus the opposite right s jeramie. IMPRESSION: As above.
== END | disposition home or self-care (01) ==
LOC: RADNMMAIN 10:14
PROVIDERS: ATTEND Family Medicine
DX: M79.662 Pain in left lower leg (principal); M79.672 Pain in left foot; M79.604 Pain in right leg; M79.671 Pain in right foot; Z96.652 Presence of left artificial knee joint
CPT/HCPCS: 78306; A9503

== ENCOUNTER → 2022-08-04 | Outpatient (CLI) | payer MEDICARE, BC ==
[2022-08-05 01:47] LABS: African American GFR (CKD) 85.1 (60.0-200.0); Anion Gap 10.6 mmol/L (10.00-18.00); BUN/Creat Ratio 17.38 Ratio (12.00-20.00); Calcium 10.1 mg/dL (8.7-10.3); Non-African American GFR(CKD) 73.4 (60.0-200.0)
== END | disposition home or self-care (01) ==
LOC: LABWHC1 14:08
PROVIDERS: ATTEND Nurse Practitioner
DX: I10 Essential (primary) hypertension (principal)
CPT/HCPCS: 36415; 80048

== ENCOUNTER 2022-08-16 15:01 | Emergency (ER) | payer MEDICARE, BC ==
--- NOTE | 2022-08-16 15:07 | ED ---
General Adult HPI - General Source: patient, family, RN notes reviewed Mode of arrival: ambulatory Limitations: altered mental status <Ede Mcdowell - Last Filed: 08/16/22 15:06> <Chay Aguirre - Last Filed: 08/16/22 20:18> - General Stated complaint: AMS Time Seen by Provider: 08/16/22 15:06 - History of Present Illness Initial comments: This is a 86-year-old female presents emergency Department with chief complaint of confusion. Patient's been having increasing confusion over the last week or so worse over last several days. Patient was sent. PCP for evaluation possible medication adjustment. Patient is on multiple medications. Patient does have some baseline dementia. Patient has had no recent infections. Patient states that she thought she was , she believes that her sister was her physician. (Ede Mcdowell) Dictation was produced using [employer] dictation software. please excuse any grammatical, word or spelling errors. Chief Complaint: 86-year-old male presents emergency by for confusion History of Present Illness: Patient is a 86-year-old female presents emergency department for confusion. History of present illness obtained from patient and sister at the bedside. Patient is very confused last couple days. She is been refusing to take her medications. Sister states that patient's been uncooperative confusing times a day and individuals. Daughter states that patient thought that daughter was her physician. Since being in emergency department her symptoms have improved. Just before arrival patient did agree to take her medications. Patient states she has a history of dementia. Case with the bedside reports that patient seems to be at baseline currently. The ROS documented in this emergency department record has been reviewed and confirmed by me. Those systems with pertinent positive or negative responses have been documented in the HPI. All other systems are other negative and/or noncontributory. (Chay Aguirre) - Related Data Home Medications Medication Instructions Recorded Confirmed Memantine HCl [Namenda] 5 mg PO DAILY 04/10/16 08/16/22 Spironolactone [Aldactone] 50 mg PO DAILY 04/10/16 08/16/22 Latanoprost [Xalatan 0.005%] 1 drop BOTH EYES HS 09/27/17 08/16/22 Acyclovir [Zovirax] 400 mg PO BID 04/28/19 08/16/22 Apixaban [Eliquis] 5 mg PO BID 04/28/19 08/16/22 LORazepam [Ativan] 0.5 mg PO BID 04/28/19 08/16/22 Atorvastatin [Lipitor] 20 mg PO DAILY 08/16/22 08/16/22 Cholecalciferol [Vitamin D3 (25 25 mcg PO DAILY 08/16/22 08/16/22 Mcg = 1000 Iu)] Desvenlafaxine [Pristiq ER] 100 mg PO BID 08/16/22 08/16/22 Docusate Sodium [Dok] 100 mg PO DAILY 08/16/22 08/16/22 Donepezil HCl [Aricept] 10 mg PO DAILY 08/16/22 08/16/22 Famotidine [Pepcid] 40 mg PO DAILY 08/16/22 08/16/22 Folbic Rf 1 tab PO DAILY 08/16/22 08/16/22 Furosemide [Lasix] 20 mg PO DAILY 08/16/22 08/16/22 Gabapentin [Neurontin] 100 mg PO BID 08/16/22 08/16/22 Levothyroxine Sodium [Synthroid] 150 mcg PO DAILY 08/16/22 08/16/22 Magnesium Oxide [Magox 400] 400 mg PO DAILY 08/16/22 08/16/22 Multivit-Min/Iron/Folic/Lutein 1 tab PO DAILY 08/16/22 08/16/22 [Centrum Silver Women Tablet] QUEtiapine [SEROquel] 50 mg PO HS 08/16/22 08/16/22 busPIRone HCl [Buspar] 5 mg PO TID 08/16/22 08/16/22 Previous Rx's Medication Instructions Recorded Isosorbide Mononitrate ER [Imdur] 30 mg PO DAILY tab.er.24h 10/05/17 Cefpodoxime Proxetil [Vantin] 200 mg PO Q12HR 10 Days #20 tab 08/16/22 Allergies Allergy/AdvReac Type Severity Reaction Status Date / Time Benzodiazepines AdvReac SEVERE LEG Verified 08/16/22 19:53 CRAMPS diazepam AdvReac Hallucinati Verified 08/16/22 19:53 ons lithium [[place]] AdvReac Nausea & Verified 08/16/22 19:53 Vomiting simvastatin AdvReac SEVERE LEG Verified 08/16/22 19:53 CRAMPS sulfamethoxazole AdvReac Vomiting Verified 08/16/22 19:53 [From Bactrim] trimethoprim [From Bactrim] AdvReac Vomiting Verified 08/16/22 19:53 Review of Systems ROS Other: All systems not noted in ROS Statement are negative. <Ede Mcdowell - Last Filed: 08/16/22 15:06> ROS Other: All systems not noted in ROS Statement are negative. <Chay Aguirre - Last Filed: 08/16/22 20:18> ROS Statement: Those systems with pertinent positive or pertinent negative responses have been documented in the HPI. Past Medical History Past Medical History: Heart Failure, Eye Disorder, GERD/Reflux, Hyperlipidemia, Hypertension, Osteoarthritis (OA), Pneumonia, Thyroid Disorder Additional Past Medical History / Comment(s): fall.06-17-15 COMM ACQUIRED BACTE RIAL PNE/HYPOXIA, FAILED O/P TX. varicose veins, macular degeneration, glaucoma, hx GENITAL STD-PER PAST MED HX. BRONCHITIS, DJD, MULTIPLE UTI'S STRESS INCOT OF URINE, CONSTIPATION,HIATAL HERNIA PT STATED " THINKS SHE WAS TOLD SHE MAY HAVE A SMALL AORTIC ANUERYSM" NOT SURE. History of Any Multi-Drug Resistant Organisms: None Reported Past Surgical History: Adenoidectomy, Breast Surgery, Hysterectomy, Joint Replacement, Orthopedic Surgery, Tonsillectomy Additional Past Surgical History / Comment(s): contigen injections into bladder, Lt TKA, Bilat cataracts removed, rt breast biopsy-NEG, rt shoulder arthroscopy, colonoscopy/EGD. Past Anesthesia/Blood Transfusion Reactions: No Reported Reaction Past Psychological History: Anxiety, Depression Smoking Status: Former smoker Past Alcohol Use History: None Reported Past Drug Use History: None Reported - Past Family History Father Family Medical History: Cancer Brother(s) Family Medical History: Cancer <Ede Mcdowell - Last Filed: 08/16/22 15:06> General Exam <Ede Mcdowell - Last Filed: 08/16/22 15:06> <Chay Aguirre - Last Filed: 08/16/22 20:18> - General Exam Comments Initial Comments: Visual Physical Exam Vital signs reviewed General: Well-appearing, nontoxic, no acute distress. Head: Normocephalic, atraumatic Eyes: PERRLA, EOMI ENT: Airway patent Chest: Nonlabored breathing Skin: No visual rash, normal skin tone Neuro: Alert and oriented 3 Musculoskeletal: No gross abnormalities (Ede Mcdowell) PHYSICAL EXAM: General Impression: Alert and oriented x3, not in acute distress HEENT: Normocephalic atraumatic, extra-ocular movements intact, pupils equal and reactive to light bilaterally, mucous membranes moist. Cardiovascular: Heart regular rate and rhythm Chest: Able to complete full sentences, no retractions, no tachypnea Abdomen: abdomen soft, non-tender, non-distended, no organomegaly Musculoskeletal: Pulses present and equal in all extremities, no peripheral edema Motor: no focal deficits noted Neurological: CN II-XII grossly intact, no focal motor or sensory deficits noted Skin: Intact with no visualized rashes Psych: Normal affect and mood (Chay Aguirre) Course Vital Signs 08/16/22 08/16/22 08/16/22 16:30 17:42 18:30 Temperature 98.7 F Pulse Rate 62 62 64 Respiratory 20 18 19 Rate Blood Pressure 120/63 125/56 101/51 O2 Sat by Pulse 97 96 96 Oximetry Medical Decision Making - Lab Data Result diagrams: 08/16/22 16:59 08/16/22 16:59 <Chay Aguirre - Last Filed: 08/16/22 20:18> - Medical Decision Making Was pt. sent in by a medical professional or institution (, [facility], LIFE SKILLS EDUCATOR, urgent care, hospital, or custodial...) When possible be specific @ -No Did you speak to anyone other than the patient for history (EMS, parent, family, police, friend...)? What history was obtained from this source @ -Present illness obtained mostly from daughter. Please see HPI for further detail Did you review nursing and triage notes (agree or disagree)? Why? @ -I reviewed and agree with nursing and triage notes Were old charts reviewed (outside hosp., previous admission, EMS record, old EKG, old radiological studies, urgent care reports/EKG's, custodial records)? Report findings @ -No old charts were reviewed Differential Diagnosis (chest pain, altered mental status, abdominal pain women, abdominal pain men, vaginal bleeding, musculoskeletal, weakness, fever, dyspnea, syncope, headache, dizziness, GI bleed, back pain, seizure, CVA, palpatations, mental health)? @ -Differential Altered Mental Status: Hypoglycemia, DKA, hypercapnia, ETOH, overdose, CO poisoning, trauma, myxedema coma, HTN encephalopathy, infection, encephalitis, psychosis, intercranial he morrhage, hepatic encephalopathy, meningitis, CVA, this is not meant to be an all-inclusive list EKG interpreted by me (3pts min.). @ -None done X-rays interpreted by me (1pt min.). @ -Chest x-ray is unremarkable for acute process CT interpreted by me (1pt min.). @ -Computed tomography scan of the brain is unremarkable for acute process U/S interpreted by me (1pt. min.). @ -None done What testing was considered but not performed or refused? (CT, X-rays, U/S, labs)? Why? @ -None What meds were considered but not given or refused? Why? @ -None Did you discuss the management of the patient with other professionals (professionals i.e. , PA, LIFE SKILLS EDUCATOR, lab, RT, psych nurse, social media job titles, shoe handler, teacher, senior escrow officer, case investigator)? Give summary @ -No Was smoking cessation discussed for >3mins.? @ -No Was critical care preformed (if so, how long)? @ -No Were there social determinants of health that impacted care today? How? (Homele ssness, low income, unemployed, alcoholism, drug addiction, transportation, low edu. Level, literacy, decrease access to med. care, usp, rehab)? @ -No Was there de-escalation of care discussed even if they declined (Discuss DNR or withdrawal of care, Hospice)? DNR status @ -No What co-morbidities impacted this encounter? (DM, HTN, Smoking, COPD, CAD, Cancer, CVA, ARF, Chemo, Hep., AIDS, mental health diagnosis, sleep apnea, morbid obesity)? @ -None Was patient admitted / discharged? Hospital course, mention meds given and route, prescriptions, significant lab abnormalities, going to OR and other pertinent info. @ -Year-old female presents emergency department for alleged altered mental status at home. But She arrived to the emergency department case reports that she appears to be back at baseline. CBC, coag panel metabolic panel is unremarkable. Urinalysis positive for urinary tract infection. Patient given ceftriaxone IV push. Observe emergency department. Reevaluated at 8:20 PM found to be stable medical condition. Patient given prescription for antibiotics. Advised follow-up with primary care doctor. Return precautions discussed. Patient and family member member in agreement Undiagnosed new problem with uncertain prognosis? @ -No Drug Therapy requiring intensive monitoring for toxicity (Heparin, Nitro, Insulin, Cardizem)? @ -No Were any procedures done? @ -No Diagnosis/symptom? Acute, or Chronic, or Acute on Chronic? Uncomplicated (without systemic symptoms) or Complicated (systemic symptoms)? @ -1. Urinary tract infection with episodic altered mental status Side effects of treatment? @ -No Exacerbation, Progression, or Severe Exacerbation? @ -No Poses a threat to life or bodily function? How? (Chest pain, USA, MS, pneumonia, PE, COPD, DKA, ARF, appy, cholecystitis, CVA, Diverticulitis, Homicidal, Suicidal, threat to staff... and all critical care pts) @ -yes (Chay Aguirre) - Lab Data Lab Results 08/16/22 08/16/22 08/16/22 Range/Units 16:59 16:59 16:59 WBC 7.1 (3.8-10.6) k/uL RBC 4.74 (3.80-5.40) m/uL Hgb 14.8 (11.4-16.0) gm/dL Hct 43.7 (34.0-46.0) % MCV 92.2 (80.0-100.0) fL MCH 31.2 (25.0-35.0) pg MCHC 33.8 (31.0-37.0) g/dL RDW 12.3 (11.5-15.5) % Plt Count 347 (150-450) k/uL MPV 6.8 Neutrophils % 55 % Lymphocytes % 30 % Monocytes % 10 % Eosinophils % 2 % Basophils % 0 % Neutrophils # 3.9 (1.3-7.7) k/uL Lymphocytes # 2.1 (1.0-4.8) k/uL Monocytes # 0.7 (0-1.0) k/uL Eosinophils # 0.1 (0-0.7) k/uL Basophils # 0.0 (0-0.2) k/uL PT 13.5 H (9.0-12.0) sec INR 1.3 H (<1.2) APTT 25.9 (22.0-30.0) sec Sodium 138 (137-145) mmol/L Potassium 3.3 L (3.5-5.1) mmol/L Chloride 102 (98-107) mmol/L Carbon Dioxide 25 (22-30) mmol/L Anion Gap 11 mmol/L BUN 17 (7-17) mg/dL Creatinine 0.88 (0.52-1.04) mg/dL Est GFR (CKD-EPI)AfAm 70 (>60 ml/min/1.73 sqM) Est GFR (CKD-EPI)NonAf 61 (>60 ml/min/1.73 sqM) Glucose 113 H (74-99) mg/dL Calcium 9.9 (8.4-10.2) mg/dL Total Bilirubin 1.2 (0.2-1.3) mg/dL AST 33 (14-36) U/L ALT 24 (4-34) U/L Alkaline Phosphatase 81 (38-126) U/L Ammonia (<30) umol/L Troponin I (0.000-0.034) ng/mL Total Protein 6.5 (6.3-8.2) g/dL Albumin 4.0 (3.5-5.0) g/dL Urine Color Urine Appearance (Clear) Urine pH (5.0-8.0) Ur Specific [place] (1.001-1.035) Urine Protein (Negative) Urine Glucose (UA) (Negative) Urine Ketones (Negative) Urine Blood (Negative) Urine Nitrite (Negative) Urine Bilirubin (Negative) Urine Urobilinogen (<2.0) mg/dL Ur Leukocyte Esterase (Negative) Urine RBC (0-5) /hpf Urine WBC (0-5) /hpf Ur Squamous Epith Cells (0-4) /hpf Hyaline Casts (0-2) /lpf Urine Mucus (None) /hpf 08/16/22 08/16/22 08/16/22 Range/Units 16:59 16:59 19:51 WBC (3.8-10.6) k/uL RBC (3.80-5.40) m/uL Hgb (11.4-16.0) gm/dL Hct (34.0-46.0) % MCV (80.0-100.0) fL MCH (25.0-35.0) pg MCHC (31.0-37.0) g/dL RDW (11.5-15.5) % Plt Count (150-450) k/uL MPV Neutrophils % % Lymphocytes % % Monocytes % % Eosinophils % % Basophils % % Neutrophils # (1.3-7.7) k/uL Lymphocytes # (1.0-4.8) k/uL Monocytes # (0-1.0) k/uL Eosinophils # (0-0.7) k/uL Basophils # (0-0.2) k/uL PT (9.0-12.0) sec INR (<1.2) APTT (22.0-30.0) sec Sodium (137-145) mmol/L Potassium (3.5-5.1) mmol/L Chloride (98-107) mmol/L Carbon Dioxide (22-30) mmol/L Anion Gap mmol/L BUN (7-17) mg/dL Creatinine (0.52-1.04) mg/dL Est GFR (CKD-EPI)AfAm (>60 ml/min/1.73 sqM) Est GFR (CKD-EPI)NonAf (>60 ml/min/1.73 sqM) Glucose (74-99) mg/dL Calcium (8.4-10.2) mg/dL Total Bilirubin (0.2-1.3) mg/dL AST (14-36) U/L ALT (4-34) U/L Alkaline Phosphatase (38-126) U/L Ammonia 10 (<30) umol/L Troponin I <0.012 (0.000-0.034) ng/mL Total Protein (6.3-8.2) g/dL Albumin (3.5-5.0) g/dL Urine Color Yellow Urine Appearance Clear (Clear) Urine pH 6.0 (5.0-8.0) Ur Specific [place] 1.017 (1.001-1.035) Urine Protein 1+ H (Negative) Urine Glucose (UA) Negative (Negative) Urine Ketones 1+ H (Negative) Urine Blood Negative (Negative) Urine Nitrite Negative (Negative) Urine Bilirubin 1+ H (Negative) Urine Urobilinogen 2.0 (<2.0) mg/dL Ur Leukocyte Esterase Moderate H (Negative) Urine RBC 2 (0-5) /hpf Urine WBC 30 H (0-5) /hpf Ur Squamous Epith Cells <1 (0-4) /hpf Hyaline Casts 83 H (0-2) /lpf Urine Mucus Few H (None) /hpf Disposition <Ede Mcdowell M - Last Filed: 08/16/22 15:06> Is patient prescribed a controlled substance at d/c from ED?: No Time of Disposition: 20:18 <Chay Aguirre - Last Filed: 08/16/22 20:18> Clinical Impression: UTI (urinary tract infection) Disposition: HOME SELF-CARE Condition: Good Instructions (If sedation given, give patient instructions): Altered Mental Status (ED), Urinary Tract Infection in Women (ED) Prescriptions: Cefpodoxime Proxetil [Vantin] 200 mg PO Q12HR 10 Days #20 tab Referrals: Sloane Sellers MD [Primary Care Provider] - 1-2 days
[2022-08-16 16:33] VITALS: TEMP 98.7
--- NOTE | 2022-08-16 16:51 | XR ---
EXAMINATION TYPE: XR chest 2V DATE OF EXAM: 08/16/2022 COMPARISON: Chest x-ray November 13, 2021 HISTORY: Altered mental status and weakness. TECHNIQUE: Frontal and lateral views of the chest are obtained. FINDINGS: There is no focal air space opacity, pleural effusion, or pneumothorax seen. The cardiac silhouette size is stable and within normal limits with atherosclerotic thoracic aorta redemonstrated . Multilevel spurring in the thoracic spine is redemonstrated. IMPRESSION: No acute cardiopulmonary process. No significant change from prior.
[2022-08-16 17:20] LABS: Basophils % (A) 0 %; Eosinophils # (A) 0.1 k/uL (0-0.7); Eosinophils % (A) 2 %; HCT 43.7 % (34.0-46.0); HGB 14.8 gm/dL (11.4-16.0); Lymphocytes # (A) 2.1 k/uL (1.0-4.8); Lymphocytes % (A) 30 %; MCH 31.2 pg (25.0-35.0); MCHC 33.8 g/dL (31.0-37.0); MCV 92.2 fL (80.0-100.0); Mean Platelet Volume 6.8; Monocytes # (A) 0.7 k/uL (0-1.0); Monocytes % (A) 10 %; Neutrophils # (A) 3.9 k/uL (1.3-7.7); Neutrophils % (A) 55 %; Platelet Count 347 k/uL (150-450); RBC 4.74 m/uL (3.80-5.40); RDW 12.3 % (11.5-15.5); WBC 7.1 k/uL (3.8-10.6)
[2022-08-16 17:30] LABS: INR 1.3 (<1.2); Partial Thromboplastin Time 25.9 sec (22.0-30.0); Prothrombin Time 13.5 sec (9.0-12.0)
[2022-08-16 17:33] LABS: Calcium 9.9 mg/dL (8.4-10.2); Potassium 3.3 mmol/L (3.5-5.1); Total Bilirubin 1.2 mg/dL (0.2-1.3); Total Protein 6.5 g/dL (6.3-8.2)
--- NOTE | 2022-08-16 20:08 | CT ---
EXAMINATION TYPE: CT brain wo con DATE OF EXAM: 08/16/2022 HISTORY: AMS CT DLP: 1129.4 mGycm. Automated Exposure Control for Dose Reduction was Utilized. TECHNIQUE: CT scan of the head is performed without contrast. COMPARISON: CT brain April 27, 2019. FINDINGS: There is no acute intracranial hemorrhage or midline shift identified. There is mild to m oderate diffuse ventricular and sulcal prominence redemonstrated. There is mild to moderate low-atte nuation in the periventricular white matter redemonstrated. Some dependent fluid in the bilateral sph enoid sinuses on current study. Globes are intact bilaterally. IMPRESSION: No acute intracranial hemorrhage or midline shift. There is mild to moderate diffuse ce rebral atrophy and chronic small vessel ischemic change redemonstrated. No significant change from pr ior. New sphenoid sinusitis may be present. Correlate clinically.
[2022-08-16 20:12] LABS: Appearance,Urine Clear (Clear); Bilirubin,Urine 1+ (Negative); Blood,Urine Negative (Negative); Color,Urine Yellow; Glucose,Urine (UA) Negative (Negative); Hyaline Casts,Urine 83 /lpf (0-2); Ketones,Urine 1+ (Negative); Leukocyte Esterase,Urine Moderate (Negative); Mucus,Urine Few /hpf; Nitrite,Urine Negative (Negative); Protein,Urine 1+ (Negative); RBC,Urine 2 /hpf (0-5); Specific Gravity,Urine 1.017 (1.001-1.035); Squamous Epithelial Cell,Urine <1 /hpf (0-4); WBC,Urine 30 /hpf (0-5)
[2022-08-16] MEDS ORDERED: cefTRIAXone IN SWFI 1,000 MG/10 ML SYRINGE IVP STA (20:13)
[2022-08-16 20:32] VITALS: BP 146/68; PULSE 63; RESP 17
== END 2022-08-16 20:41 | disposition home or self-care (01) ==
LOC: EC 15:01
DX: N39.0 Urinary tract infection, site not specified (principal); E78.5 Hyperlipidemia, unspecified; I11.0 Hypertensive heart disease with heart failure; I50.9 Heart failure, unspecified; K21.9 Gastro-esophageal reflux disease without esophagitis; M19.90 Unspecified osteoarthritis, unspecified site; E07.9 Disorder of thyroid, unspecified; F41.9 Anxiety disorder, unspecified; F32.A Depression, unspecified; Z87.891 Personal history of nicotine dependence; Z88.2 Allergy status to sulfonamides; Z88.1 Allergy status to other antibiotic agents; Z88.8 Allergy status to other drugs, medicaments and biological substances; Z79.890 Hormone replacement therapy; Z79.01 Long term (current) use of anticoagulants; Z79.899 Other long term (current) drug therapy
CPT/HCPCS: 36415; 93005; 80053; 82140; 84484; 85025; 85610; 85730; 81001; 71046; 70450; 99285; 96374; J0696

== ENCOUNTER → 2023-01-17 | Outpatient (CLI) | payer MEDICARE, BC ==
--- NOTE | 2023-01-18 21:30 | CT ---
EXAMINATION TYPE: CT abdomen pelvis wo con DATE OF EXAM: 01/17/2023 COMPARISON: None INDICATION: States that she has had bowel pain x 1 year DLP: 507.4 mGycm, Automated exposure control for dose reduction was used. CONTRAST: 0 mL of Isovue 300. Study performed with Oral Contrast TECHNIQUE: Axial images were obtained from above the diaphragm to the pubic rami in the axial plane a t 5 mm thick sections. Reconstructed images are reviewed on the computer in the coronal plane. FINDINGS: Limited CT sections are obtained the lung bases. The lung bases are clear. CT ABDOMEN: Liver: Normal Spleen: Normal Pancreas: Normal Adrenal glands: The adrenal glands are normal. Gallbladder: Normal Kidneys: There is a 1.3 cm hyperdense lesion extending from the posterior left kidney. An additional 0.8 cm nodular density is from the posterior inferior left kidney Correlate for an angiomyolipoma. Se veral small exophytic cysts are present bilaterally.. No hydronephrosis is present. No cysts are pr esent. No renal stones are evident. Aorta: Vascular calcification is within the aorta. Inferior vena cava: Normal. CT PELVIS: Loops of bowel within the abdomen and pelvis are normal. There are loops of bowel which are incom pletely distended or lack oral contrast limiting their evaluation. Appendix: Normal as visualized. Urinary bladder: Decompressed with limited evaluation Genitourinary structures: Uterus and ovaries are not identified. Osseous structures: No suspicious lytic or sclerotic lesions. There is a right hip pin with mild beam hardening artifact. IMPRESSION: 1. Multiple small exophytic cysts bilateral kidneys. 2. Couple of hyperdense exophytic areas within the posterior mid left kidney could be angiomyolipomas . Consider follow-up ultrasound. 2. No renal or ureteral calcifications. No hydronephrosis.
== END | disposition home or self-care (01) ==
LOC: RADCTMAIN 15:10
PROVIDERS: ATTEND Family Medicine
DX: N28.1 Cyst of kidney, acquired (principal); R10.9 Unspecified abdominal pain
CPT/HCPCS: 74176

== ENCOUNTER → 2023-02-12 | Outpatient (CLI) | payer MEDICARE, BC ==
[2023-02-13 02:57] LABS: BUN/Creat Ratio 16.56 Ratio (12.00-20.00); Blood Urea Nitrogen 14.9 mg/dL (9.0-27.0); Calcium 9.5 mg/dL (8.7-10.3); Carbon Dioxide 26.7 mmol/L (21.6-31.8); Chloride 104 mmol/L (96-109); Glucose 91 mg/dL (70-110); Magnesium 2.4 mg/dL (1.5-2.4); Potassium 4.9 mmol/L (3.5-5.5); Sodium 138 mmol/L (135-145)
== END | disposition home or self-care (01) ==
LOC: LABWHC1 16:09
PROVIDERS: ATTEND Internal Medicine Interventional Cardiology
DX: I10 Essential (primary) hypertension (principal)
CPT/HCPCS: 36415; 80048; 83735

== ENCOUNTER 2023-09-21 12:08 | Emergency (ER) | payer MEDICARE, BC ==
[2023-09-21 12:15] VITALS: RESP 18; TEMP 98
--- NOTE | 2023-09-21 13:36 | ED ---
General Adult HPI - General Chief complaint: Fall Stated complaint: Fall Time Seen by Provider: 09/21/23 12:27 Source: patient, family, RN notes reviewed Mode of arrival: ambulatory Limitations: no limitations - History of Present Illness Initial comments: 87-year-old female presents emergency department chief complaint of fall. Patient states she fell the day she states that she became very lightheaded and dizzy prior to falling. Patient states she did believe she struck her head. She complains of mild headache, back discomfort. Patient states that she does not have any current lightheadedness or dizziness. Patient denies any chest pain or shortness of breath. - Related Data Home Medications Medication Instructions Recorded Confirmed Memantine HCl [Namenda] 5 mg PO DAILY 04/10/16 08/16/22 Spironolactone [Aldactone] 50 mg PO DAILY 04/10/16 08/16/22 Latanoprost [Xalatan 0.005%] 1 drop BOTH EYES HS 09/27/17 08/16/22 Acyclovir [Zovirax] 400 mg PO BID 04/28/19 08/16/22 Apixaban [Eliquis] 5 mg PO BID 04/28/19 08/16/22 LORazepam [Ativan] 0.5 mg PO BID 04/28/19 08/16/22 Atorvastatin [Lipitor] 20 mg PO DAILY 08/16/22 08/16/22 Cholecalciferol [Vitamin D3 (25 25 mcg PO DAILY 08/16/22 08/16/22 Mcg = 1000 Iu)] Desvenlafaxine [Pristiq ER] 100 mg PO BID 08/16/22 08/16/22 Docusate Sodium [Dok] 100 mg PO DAILY 08/16/22 08/16/22 Donepezil HCl [Aricept] 10 mg PO DAILY 08/16/22 08/16/22 Famotidine [Pepcid] 40 mg PO DAILY 08/16/22 08/16/22 Folbic Rf 1 tab PO DAILY 08/16/22 08/16/22 Furosemide [Lasix] 20 mg PO DAILY 08/16/22 08/16/22 Gabapentin [Neurontin] 100 mg PO BID 08/16/22 08/16/22 Levothyroxine Sodium [Synthroid] 150 mcg PO DAILY 08/16/22 08/16/22 Magnesium Oxide [Magox 400] 400 mg PO DAILY 08/16/22 08/16/22 Multivit-Min/Iron/Folic/Lutein 1 tab PO DAILY 08/16/22 08/16/22 [Centrum Silver Women Tablet] QUEtiapine [SEROquel] 50 mg PO HS 08/16/22 08/16/22 busPIRone HCl [Buspar] 5 mg PO TID 08/16/22 08/16/22 Previous Rx's Medication Instructions Recorded Isosorbide Mononitrate ER [Imdur] 30 mg PO DAILY tab.er.24h 10/05/17 Cefpodoxime Proxetil [Vantin] 200 mg PO Q12HR 10 Days #20 tab 08/16/22 Allergies Allergy/AdvReac Type Severity Reaction Status Date / Time lamotrigine Allergy Unknown Verified 09/21/23 12:16 lurasidone [From Latuda] Allergy Unknown Verified 09/21/23 12:16 Benzodiazepines AdvReac SEVERE LEG Verified 09/21/23 12:16 CRAMPS diazepam AdvReac Hallucinati Verified 09/21/23 12:16 ons lithium [[place]] AdvReac Nausea & Verified 09/21/23 12:16 Vomiting simvastatin AdvReac SEVERE LEG Verified 09/21/23 12:16 CRAMPS sulfamethoxazole AdvReac Vomiting Verified 09/21/23 12:16 [From Bactrim] trimethoprim [From Bactrim] AdvReac Vomiting Verified 09/21/23 12:16 Review of Systems ROS Statement: Those systems with pertinent positive or pertinent negative responses have been documented in the HPI. ROS Other: All systems not noted in ROS Statement are negative. Past Medical History Past Medical History: Heart Failure, Eye Disorder, GERD/Reflux, Hyperlipidemia, Hypertension, Osteoarthritis (OA), Pneumonia, Thyroid Disorder Additional Past Medical History / Comment(s): fall.06-17-15 COMM ACQUIRED BACTERIAL PNE/HYPOXIA, FAILED O/P TX. varicose veins, macular degeneration, gl aucoma, hx GENITAL STD-PER PAST MED HX. BRONCHITIS, DJD, MULTIPLE UTI'S STRESS INCOT OF URINE, CONSTIPATION,HIATAL HERNIA PT STATED " THINKS SHE WAS TOLD SHE MAY HAVE A SMALL AORTIC ANUERYSM" NOT SURE. History of Any Multi-Drug Resistant Organisms: None Reported Past Surgical History: Adenoidectomy, Breast Surgery, Hysterectomy, Joint Replacement, Orthopedic Surgery, Tonsillectomy Additional Past Surgical History / Comment(s): contigen injections into bladder, Lt TKA, Bilat cataracts removed, rt breast biopsy-NEG, rt shoulder arthroscopy, colonoscopy/EGD. Past Anesthesia/Blood Transfusion Reactions: No Reported Reaction Past Psychological History: Anxiety, Depression Smoking Status: Former smoker Past Alcohol Use History: None Reported Past Drug Use History: None Reported - Past Family History Father Family Medical History: Cancer Brother(s) Family Medical History: Cancer General Exam - General Exam Comments Initial Comments: Visual Physical Exam Vital signs reviewed General: Well-appearing, nontoxic, no acute distress. Head: Normocephalic, atraumatic Eyes: PERRLA, EOMI ENT: Airway patent Chest: Nonlabored breathing Skin: No visual rash, normal skin tone Neuro: Alert and oriented 3 Musculoskeletal: No gross abnormalities Limitations: no limitations General appearance: alert, in no apparent distress Head exam: Present: atraumatic, normocephalic, normal inspection Eye exam: Present: normal appearance, PERRL, EOMI. Absent: scleral icterus, conjunctival injection, periorbital swelling ENT exam: Present: normal exam, mucous membranes moist Neck exam: Present: normal inspection, full ROM. Absent: tenderness, meningismus, lymphadenopathy Respiratory exam: Present: normal lung sounds bilaterally. Absent: respiratory distress, wheezes, rales, rhonchi, stridor Cardiovascular Exam: Present: regular rate, normal rhythm, normal heart sounds. Absent: systolic murmur, diastolic murmur, rubs, gallop, clicks GI/Abdominal exam: Present: soft, normal bowel sounds. Absent: distended, tenderness, guarding, rebound, rigid Back exam: Present: normal inspection, full ROM, tenderness Neurological exam: Present: alert, oriented X3, CN II-XII intact, reflexes normal. Absent: motor sensory deficit Psychiatric exam: Present: normal affect, normal mood Course Vital Signs 09/21/23 12:09 Temperature 98 F Pulse Rate 51 L Respiratory 18 Rate Blood Pressure 130/64 O2 Sat by Pulse 96 Oximetry EKG Findings - EKG Comments: EKG Findings:: EKG performed at 14: 13 sinus bradycardia rate of 53 [place] 324 QRS 103 QT/QTc 467/450 - EKG Results: EKG: interpreted by ERMD Medical Decision Making - Medical Decision Making I completed the quick note portion of this chart signed Ede Mcdowell PA-C Was pt. sent in by a medical professional or institution (, [facility], AUDIOVISUAL PRODUCTION SPECIALIST, urgent care, hospital, or chcf...) When possible be specific @ -No Did you speak to anyone other than the patient for history (EMS, parent, family, police, friend...)? What history was obtained from this source @ -No Did you review nursing and triage notes (agree or disagree)? Why? @ -I reviewed and agree with nursing and triage notes Were old charts reviewed (outside hosp., previous admission, EMS record, old EKG, old radiological studies, urgent care reports/EKG's, [facility] records)? Report findings @ -No old charts were reviewed Differential Diagnosis (chest pain, altered mental status, abdominal pain women, abdominal pain men, vaginal bleeding, weakness, fever, dyspnea, syncope, headache, dizziness, GI bleed, back pain, seizure, CVA, palpatations, mental health, musculoskeletal)? @ -Differential Dizziness: Benign paroxysmal positional Vertigo, Menieres disease, otitis media, acoustic neuroma, vertebrobasilar insufficiency, cerebellar stroke, encephalitis, hypovolemic, arrhythmia, coronary artery syndrome, anemia, this is not meant to be an all-inclusive list EKG interpreted by me (3pts min.). @ -As above X-rays interpreted by me (1pt min.). @ -X-ray pelvis shows no acute process CT interpreted by me (1pt min.). @ -CT brain, C-spine no acute abnormality U/S interpreted by me (1pt. min.). @ -None done What testing was considered but not performed or refused? (CT, X-rays, U/S, labs)? Why? @ -None What meds were considered but not given or refused? Why? @ -None Did you discuss the management of the patient with other professionals (professionals i.e. [facility] Davis, AUDIOVISUAL PRODUCTION SPECIALIST, lab, RT, psych nurse, child welfare social worker, avionics electronics technician, teacher, ground intelligence officer, nurse case management)? Give summary @ -No Was smoking cessation discussed for >3mins.? @ -No Was critical care preformed (if so, how long)? @ -No Were there social determinants of health that impacted care today? How? (Homelessness, low income, unemployed, alcoholism, drug addiction, transportation, low edu. Level, literacy, decrease access to med. care, residential, rehab)? @ -No Was there de-escalation of care discussed even if they declined (Discuss DNR or withdrawal of care, Hospice)? DNR status @ -No What co-morbidities impacted this encounter? (DM, HTN, Smoking, COPD, CAD, Cancer, CVA, ARF, Chemo, Hep., AIDS, mental health diagnosis, sleep apnea, morbid obesity)? @ -None Was patient admitted / discharged? Hospital course, mention meds given and route, prescriptions, significant lab abnormalities, going to OR and other pertinent info. @Discharge patient presented after a fall few days ago. Patient feels great improved this time she is asymptomatic able to ambulate no difficulty discharged in stable condition. Undiagnosed new problem with uncertain prognosis? @ -No Drug Therapy requiring intensive monitoring for toxicity (Heparin, Nitro, Insulin, Cardizem)? @ -No Were any procedures done? @ -No Diagnosis/symptom? @ -Fall Acute, or Chronic, or Acute on Chronic? @ -Acute Uncomplicated (without systemic symptoms) or Complicated (systemic symptoms)? @ -Uncomplicated Side effects of treatment? @ -No Exacerbation, Progression, or Severe Exacerbation? @ -No Poses a threat to life or bodily function? How? (Chest pain, [place], [place], pneumonia, PE, COPD, DKA, ARF, appy, cholecystitis, CVA, Diverticulitis, Homicidal, Suicidal, threat to staff... and all critical care pts) @ -No - Lab Data Result diagrams: 09/21/23 15:11 09/21/23 15:11 Lab Results 09/21/23 09/21/23 09/21/23 Range/Units 15:11 15:11 15:11 WBC 5.5 (3.8-10.6) k/uL RBC 4.50 (3.80-5.40) m/uL Hgb 14.0 (11.4-16.0) gm/dL Hct 43.7 (34.0-46.0) % MCV 97.0 (80.0-100.0) fL MCH 31.1 (25.0-35.0) pg MCHC 32.1 (31.0-37.0) g/dL RDW 12.4 (11.5-15.5) % Plt Count 239 (150-450) k/uL MPV 7.2 Neutrophils % 47 % Lymphocytes % 27 % Monocytes % 10 % Eosinophils % 10 % Basophils % 1 % Neutrophils # 2.6 (1.3-7.7) k/uL Lymphocytes # 1.5 (1.0-4.8) k/uL Monocytes # 0.6 (0-1.0) k/uL Eosinophils # 0.6 (0-0.7) k/uL Basophils # 0.1 (0-0.2) k/uL Sodium 138 (137-145) mmol/L Potassium 4.8 (3.5-5.1) mmol/L Chloride 110 H (98-107) mmol/L Carbon Dioxide 21 L (22-30) mmol/L Anion Gap 7 mmol/L BUN 17 (7-17) mg/dL Creatinine 0.81 (0.52-1.04) mg/dL Est GFR (CKD-EPI)AfAm 77 (>60 ml/min/1.73 sqM) Est GFR (CKD-EPI)NonAf 67 (>60 ml/min/1.73 sqM) Glucose 77 (74-99) mg/dL Calcium 9.4 (8.4-10.2) mg/dL Magnesium 2.2 (1.6-2.3) mg/dL Total Bilirubin 1.1 (0.2-1.3) mg/dL AST 48 H (14-36) U/L ALT 14 (4-34) U/L Alkaline Phosphatase 65 (38-126) U/L Total Protein 7.1 (6.3-8.2) g/dL Albumin 4.3 (3.5-5.0) g/dL Urine Color Light Yellow Urine Appearance Cloudy H (Clear) Urine pH 7.0 (5.0-8.0) Ur Specific Howard 1.012 (1.001-1.035) Urine Protein Negative (Negative) Urine Glucose (UA) Negative (Negative) Urine Ketones Negative (Negative) Urine Blood Negative (Negative) Urine Nitrite Negative (Negative) Urine Bilirubin Negative (Negative) Urine Urobilinogen <2.0 (<2.0) mg/dL Ur Leukocyte Esterase Negative (Negative) Ur Squamous Epith Cells 1 (0-4) /hpf Urine Bacteria Rare H (None) /hpf Urine Mucus Rare H (None) /hpf Urine Yeast (Budding) Many H (None) /hpf Disposition Clinical Impression: Fall Disposition: HOME SELF-CARE Condition: Stable Instructions (If sedation given, give patient instructions): Fall Prevention (ED) Additional Instructions: Please return to the Emergency Department if symptoms worsen or any other co ncerns. Is patient prescribed a controlled substance at d/c from ED?: No Referrals: Vladislav Maciel MD [Primary Care Provider] - 1-2 days Time of Disposition: 15:44
--- NOTE | 2023-09-21 14:41 | CT ---
EXAMINATION TYPE: CT brain cspine wo con DATE OF EXAM: 09/21/2023 COMPARISON: 08/16/2022 HISTORY: fall CT DLP: 1344.[address] of the brain was performed. The ventricles, basal cisterns and sulci overlying the cerebral convexities demonstrate enlargement. There is no evidence for intracranial hemorrhage or sulcal effacement. There is decreased attenuatio n about the periventricular white matter and deep white matter of both cerebral hemispheres, compatib le with chronic small vessel ischemia. No mass effects are seen. If symptoms persist consider MRI. Osseous calvarium is intact. IMPRESSION: 1. Age related atrophic and chronic small vessel ischemic change without acute intracranial process seen at this time. CT Cervical Spine: Unenhanced CT of the cervical spine was performed with bone and soft tissue window settings submitted . Coronal and sagittal reconstruction is obtained. There is normal alignment and prevertebral soft tissues. No evidence for acute cervical fracture. S cattered degenerative disc disease and spondylosis. Biapical scarring. IMPRESSION: 1. No evidence for acute fracture or subluxation of the cervical spine.
--- NOTE | 2023-09-21 14:52 | XR ---
EXAMINATION TYPE: XR pelvis AP view DATE OF EXAM: 09/21/2023 CLINICAL HISTORY: pain TECHNIQUE: Single view the pelvis is submitted. FINDINGS: Dynamic compression screw and intramedullary deanne right femur. No evidence for acute fractur e or dislocation. Mild degenerative narrowing seen of the bilateral hip joint spaces. IMPRESSION: 1. No acute fracture or dislocation seen. ICD 10 NO FRACTURE, INITIAL EVALUATION
[2023-09-21 15:26] LABS: Basophils # (A) 0.1 k/uL (0-0.2); Basophils % (A) 1 %; Eosinophils # (A) 0.6 k/uL (0-0.7); Eosinophils % (A) 10 %; HCT 43.7 % (34.0-46.0); Lymphocytes # (A) 1.5 k/uL (1.0-4.8); Lymphocytes % (A) 27 %; MCH 31.1 pg (25.0-35.0); MCHC 32.1 g/dL (31.0-37.0); Mean Platelet Volume 7.2; Monocytes # (A) 0.6 k/uL (0-1.0); Monocytes % (A) 10 %; Neutrophils # (A) 2.6 k/uL (1.3-7.7); Neutrophils % (A) 47 %; Platelet Count 239 k/uL (150-450); RDW 12.4 % (11.5-15.5); WBC 5.5 k/uL (3.8-10.6)
[2023-09-21 15:28] LABS: ALT 14 U/L (4-34); African American GFR (CKD) 77 (>60 ml/min/1.73 sqM); Albumin 4.3 g/dL (3.5-5.0); Anion Gap 7 mmol/L; Blood Urea Nitrogen 17 mg/dL (7-17); Calcium 9.4 mg/dL (8.4-10.2); Carbon Dioxide 21 mmol/L (22-30); Chloride 110 mmol/L (98-107); Glucose 77 mg/dL (74-99); Non-African American GFR(CKD) 67 (>60 ml/min/1.73 sqM); Sodium 138 mmol/L (137-145); Total Bilirubin 1.1 mg/dL (0.2-1.3); Total Protein 7.1 g/dL (6.3-8.2)
[2023-09-21 15:34] LABS: Alkaline Phosphatase 65 U/L (38-126); Appearance,Urine Cloudy (Clear); Bacteria,Urine Rare /hpf; Bilirubin,Urine Negative (Negative); Blood,Urine Negative (Negative); Budding Yeast,Urine Many /hpf; Color,Urine Light Yellow; Glucose,Urine (UA) Negative (Negative); Ketones,Urine Negative (Negative); Leukocyte Esterase,Urine Negative (Negative); Magnesium 2.2 mg/dL (1.6-2.3); Mucus,Urine Rare /hpf; Nitrite,Urine Negative (Negative); Potassium 4.8 mmol/L (3.5-5.1); Protein,Urine Negative (Negative); Specific Gravity,Urine 1.012 (1.001-1.035); Squamous Epithelial Cell,Urine 1 /hpf (0-4); Urobilinogen,Urine <2.0 mg/dL (<2.0)
[2023-09-21 15:35] LABS: AST 48 U/L (14-36)
[2023-09-21 16:14] VITALS: BP 181/76; PULSE 56
== END 2023-09-21 16:16 | disposition home or self-care (01) ==
LOC: EC 12:08
DX: R51.9 Headache, unspecified (principal); Z87.891 Personal history of nicotine dependence; Z88.1 Allergy status to other antibiotic agents; Z88.2 Allergy status to sulfonamides; Z88.8 Allergy status to other drugs, medicaments and biological substances; W01.198A Fall on same level from slipping, tripping and stumbling with subsequent striking against other object, initial encounter
CPT/HCPCS: 36415; 70450; 72125; 72170; 80053; 81001; 83735; 85025; 93005; 99284

== ENCOUNTER 2023-11-14 10:36 | Emergency (ER) | payer MEDICARE, BC ==
[2023-11-14] MEDS ORDERED: LIDOCAINE 4% PATCH TOPICAL ONE (11:00)
[2023-11-14] MEDS ORDERED: ACETAMINOPHEN TAB 325 MG TAB ONE (12:28)
--- NOTE | 2024-01-02 14:01 | XR ---
EXAMINATION TYPE: XR ribs LT w pa chest xray DATE OF EXAM: 11/14/2023 1:46 PM CLINICAL INDICATION: PAIN FALL COMPARISON: THIS EXAM WAS READ DURING PACS DOWNTIME, NO PRIORS AVAILABLE. TECHNIQUE: XR ribs LT w pa chest xray; Frontal and oblique views of the ribs with frontal chest radiograph. FINDINGS: Underpenetrated film with overlapping adjacent structures. Limiting evaluation of fine bony detail The ribs have a normal appearance. No evidence of fracture. The cardiac silhouette is enlarged in size. Pulmonary vasculature congestion. The remaining osseous structures are intact. IMPRESSION: 1. Underpenetration limits evaluation, No acute osseous pathology. 2. Correlate for congestive heart failure. Additional imaging of the left lower ribs was performed complete the exam. The lower ribs are suboptimally evaluated due to overlapping soft tissues. No displaced fracture definitely visualized. MTDD
== END 2023-11-14 16:30 | disposition home or self-care (01) ==
LOC: EC 10:36
CPT/HCPCS: 99282

== ENCOUNTER 2024-01-16 08:17 | Emergency (ER) | payer MEDICARE, BC ==
[2024-01-16 09:12] LABS: Appearance,Urine Clear (Clear); Bacteria,Urine Many /hpf; Bilirubin,Urine Negative (Negative); Blood,Urine Negative (Negative); Budding Yeast,Urine Occasional /hpf; Color,Urine Colorless; Glucose,Urine (UA) Negative (Negative); Ketones,Urine Negative (Negative); Leukocyte Esterase,Urine Negative (Negative); Nitrite,Urine Positive (Negative); PH, Urine 6.5 (5.0-8.0); Protein,Urine Negative (Negative); RBC,Urine 2 /hpf (0-5); Specific Gravity,Urine 1.009 (1.001-1.035); Urobilinogen,Urine <2.0 mg/dL (<2.0); WBC,Urine 1 /hpf (0-5)
[2024-01-16 09:41] LABS: INR 1.3 (<1.2); Partial Thromboplastin Time 24.5 sec (22.0-30.0); Prothrombin Time 13.8 sec (10.0-12.5)
[2024-01-16 09:48] LABS: Basophils # (A) 0.1 k/uL (0-0.2); Basophils % (A) 1 %; Eosinophils # (A) 0.5 k/uL (0-0.7); Eosinophils % (A) 9 %; HCT 42.7 % (34.0-46.0); HGB 13.9 gm/dL (11.4-16.0); Lymphocytes # (A) 1.5 k/uL (1.0-4.8); Lymphocytes % (A) 30 %; MCH 32.4 pg (25.0-35.0); MCHC 32.5 g/dL (31.0-37.0); MCV 99.5 fL (80.0-100.0); Mean Platelet Volume 6.8; Monocytes # (A) 0.6 k/uL (0-1.0); Monocytes % (A) 11 %; Neutrophils # (A) 2.2 k/uL (1.3-7.7); Neutrophils % (A) 45 %; Platelet Count 234 k/uL (150-450); RBC 4.29 m/uL (3.80-5.40); RDW 12.6 % (11.5-15.5)
[2024-01-16 09:53] LABS: ALT 15 U/L (4-34); AST 32 U/L (14-36); African American GFR (CKD) 84 (>60 ml/min/1.73 sqM); Albumin 4.1 g/dL (3.5-5.0); Alkaline Phosphatase 58 U/L (38-126); Anion Gap 7 mmol/L; Blood Urea Nitrogen 21 mg/dL (7-17); Carbon Dioxide 24 mmol/L (22-30); Chloride 108 mmol/L (98-107); Glucose 80 mg/dL (74-99); Non-African American GFR(CKD) 73 (>60 ml/min/1.73 sqM); Potassium 4.7 mmol/L (3.5-5.1); Sodium 139 mmol/L (137-145); Total Bilirubin 0.6 mg/dL (0.2-1.3); Total Protein 6.7 g/dL (6.3-8.2)
[2024-01-16] MEDS: ACETAMINOPHEN TAB 500 MG TAB PO STA (10:09)
--- NOTE | 2024-01-16 10:12 | CT ---
EXAMINATION TYPE: CT brain cspine wo con, CT facial bones wo con CT DLP: 1064.1 mGycm, Automated exposure control for dose reduction was used. DATE OF EXAM: 01/16/2024 10:02 AM COMPARISON: CT brain C-spine 09/21/2023 CLINICAL INDICATION:Female, 88 years old with history of fall, pain; Fall TECHNIQUE: Brain: Multiple axial CT images of the brain were obtained without IV contrast. Cspine: Axial CT images from the skull base to the inferior aspect of T2 we obtained without intraven ous contrast. Coronal and sagittal reformatted images were also reviewed. Facial bones; axial CT images of the facial bones were obtained without contrast and soft tissue and bone windows. Coronal and sagittal reformatted images were also reviewed. FINDINGS: Brain: Extra-axial spaces: No abnormal extra-axial fluid collections. Ventricular system: Within normal limits Cerebral parenchyma: Cerebral atrophy. No acute intraparenchymal hemorrhage or mass effect. The conrad -white junction is well differentiated. Scattered hypoattenuating areas are seen within the periventr icular white matter. Cerebellum: Unremarkable. Mass effect: No evidence of midline shift. Intracranial vasculature: Atherosclerotic calcifications of the intracranial vessels. Soft tissues: Normal. Calvarium/osseous structures: No depressed skull fracture. Paranasal sinuses and mastoid air cells: Mastoid air cells are clear. Air-fluid level with frothy yanelis earance of the sphenoid sinus. Visualized orbits: Orbital contents are intact. Cervical spine: Fracture: None. Osseous structures: Multilevel degenerative disc disease changes with endplate spurring and disc oste ophyte complex's. Diffuse bone demineralization. Degenerative changes of the C1-C2 articulation. Vertebral alignment: Within normal limits. Spinal canal/Neural Foramina: Disc osteophyte complexes at C4-C5 and C5-C6 with at least mild spinal canal stenosis. Facet joint uncovertebral joint arthropathy scattered throughout the cervical spine w ith varying degrees of neural foraminal stenosis. Neck soft tissues: Prevertebral soft tissues are within normal limits. Other: The airway is patent. The lung apices are clear. The suspected dilated main pulmonary artery s uggesting pulmonary arterial hypertension. Facial Bones: There is no evidence of fracture, subluxation, dislocation, or significant soft tissue swelling. The orbital contents are unremarkable. The temporal-mandibular joints appear symmetric. Air-fluid level w ith frothy appearance of the sphenoid sinus. Main paranasal sinuses are relatively clear. Nasal septa l deviation to the right. IMPRESSION: 1. No acute intracranial process. 2. Nonspecific white matter changes, likely secondary to chronic small vessel ischemic disease. 3. No evidence of cervical spine fracture. 4. Moderate multilevel degenerative disc disease. 5. No acute facial bone fracture. 6. Sphenoid sinus disease. Correlate for acute sinusitis. [facility], , 01/16/2024 10:09 AM
[2024-01-16] MEDS: SODIUM CHLORIDE 0.9% 1,000 ML IV ONE (10:13)
--- NOTE | 2024-01-16 10:20 | XR ---
EXAMINATION TYPE: XR chest 2V DATE OF EXAM: 01/16/2024 10:05 AM COMPARISON: Chest radiographs from 08/16/2022 TECHNIQUE: XR chest 2V Frontal and lateral views of the chest. CLINICAL INDICATION:Female, 88 years old with history of fall; FINDINGS: Lungs/Pleura: There is no evidence of pleural effusion, focal consolidation, or pneumothorax. Chroni c senescent parenchymal change. Pulmonary vascularity: Unremarkable. Heart/mediastinum: Cardiomediastinal silhouette is enlarged and stable. Atherosclerotic calcificatio ns are seen in the aorta. Musculoskeletal: Multiple level degenerative disc disease changes seen throughout the spine. No acute osseous and abnormality. Bilateral shoulder arthropathy. IMPRESSION: No acute cardiopulmonary disease/process. [facility], , 01/16/2024 10:18 AM
--- NOTE | 2024-01-16 10:22 | XR ---
EXAMINATION TYPE: XR pelvis AP view DATE OF EXAM: 01/16/2024 10:05 AM INDICATION: Patient age:Female; 88 years old; Reason for study: fall, pain; PHH. COMPARISON: Pelvic radiograph 09/21/2023 TECHNIQUE: The pelvis was examined in a single projection. FINDINGS: There is no evidence of fracture or dislocation. There is no soft tissue abnormality. Posts urgical change with intramedullary deanne and screws involving the proximal right femur. Hardware appear s intact. Advanced osteoarthritic change of both hips. No abnormal calcifications are present. Multil evel degenerative changes of the lower spine. IMPRESSION: 1. No acute osseous pathology. 2. Advanced osteoarthritic changes of both hips. 3. Postfixation changes redemonstrated of the right proximal femur. [facility], , 01/16/2024 10:19 AM
--- NOTE | 2024-01-16 10:23 | XR ---
EXAMINATION TYPE: XR hand complete RT DATE OF EXAM: 01/16/2024 10:05 AM INDICATION: Patient age:Female; 88 years old; Reason for study: fall, pain; PHH. COMPARISON: None TECHNIQUE: Frontal, lateral and oblique views of the right hand were obtained. FINDINGS: Diffuse bone demineralization. Normal alignment of the visualized joints. Degenerative silverman ges of the first MCP joint. Remote healed fracture of the left fifth metacarpal. No acute osseous pat hology is identified. No evidence of soft tissue swelling. No radiopaque foreign body. IMPRESSION: No acute osseous pathology. [facility], , 01/16/2024 10:21 AM
[2024-01-16] MEDS: LIDOCAINE 1% INJ 10MG/ML (20 ML MDV) SQ ONE (10:51)
[2024-01-16 11:46] VITALS: RESP 17
--- NOTE | 2024-01-16 12:03 | ED ---
General Adult HPI <Danika Null - Last Filed: 01/16/24 12:06> - General Source: patient, EMS, RN notes reviewed, old records reviewed Mode of arrival: EMS Limitations: no limitations <Mateo De La Garza - Last Filed: 01/16/24 15:44> - General Chief complaint: Fall Stated complaint: Fall Time Seen by Provider: 01/16/24 08:34 - History of Present Illness Initial comments: Patient is an 88-year-old female who presents emergency department after a fall at home. Stood up from her recliner at [facility] when she lost her balance and fell. Struck her head on something and also has a laceration to her right finger. Denies loss conscious. Called 911 on her own. Was down on the ground for longer than 15 to 20 minutes. He is alert and oriented x 4. No other obvious injuries. Presents for further evaluation at this time. Patient is on blood thinners. (Mateo De La Garza) - Related Data Home Medications Medication Instructions Recorded Confirmed Memantine HCl [Namenda] 5 mg PO DAILY@0800 04/10/16 01/16/24 Spironolactone [Aldactone] 50 mg PO DAILY@0800 04/10/16 01/16/24 Latanoprost [Xalatan 0.005%] 1 drop BOTH EYES HS@199909/27/17 01/16/24 Acyclovir [Zovirax] 400 mg PO BID@0800,199904/28/19 01/16/24 Apixaban [Eliquis] 5 mg PO BID@0800,199904/28/19 01/16/24 LORazepam [Ativan] 0.5 mg PO HS@199904/28/19 01/16/24 Atorvastatin [Lipitor] 20 mg PO HS@199908/16/22 01/16/24 Cholecalciferol [Vitamin D3 (25 25 mcg PO DAILY@0808/16/22 01/16/24 Mcg = 1000 Iu)] Desvenlafaxine [Pristiq ER] 100 mg PO DAILY@0800 08/16/22 01/16/24 Docusate Sodium [Dok] 100 mg PO DAILY@0800 08/16/22 01/16/24 Donepezil HCl [Aricept] 10 mg PO HS@199908/16/22 01/16/24 Famotidine [Pepcid] 40 mg PO W/BRKFST@0808/16/22 01/16/24 Magnesium Oxide [Magox 400] 400 mg PO HS@199908/16/22 01/16/24 Multivit-Min/Iron/Folic/Lutein 1 tab PO DAILY@0800 08/16/22 01/16/24 [Centrum Silver Women Tablet] busPIRone HCl [Buspar] 5 mg PO BID@08,199908/16/22 01/16/24 Acetaminophen Tab [Tylenol Tab] 1,000 mg PO BID 01/16/24 01/16/24 Acetaminophen [Tylenol Arthritis] 650 mg PO Q4H PRN 01/16/24 01/16/24 Alendronate Sodium [Fosamax] 70 mg PO TH@79901/16/24 01/16/24 Cranberry Plus Vitamin C 4200-20.3 1 cap PO HS@199901/16/24 01/16/24 Mg-Unit Caps Qqzrvakxcbyaxk-GK-Ylfyolppzc 1 tab PO DAILY@0801/16/24 01/16/24 [Folbic] Diclofenac Sodium Gel [Voltaren 1% 4 gm TOPICAL QID PRN 01/16/24 01/16/24 Gel] Escitalopram [Lexapro] 20 mg PO DAILY@0801/16/24 01/16/24 Furosemide [Lasix] 40 mg PO DAILY@0800 01/16/24 01/16/24 Hydrocortisone Cream 1 applic TOPICAL BID@01/16/24 01/16/24 [Hydrocortisone 2.5% Cream] Isosorbide Mononitrate ER [Imdur] 30 mg PO DAILY@0800 01/16/24 01/16/24 Levothyroxine Sodium [Synthroid] 125 mcg PO DAILY@0800 01/16/24 01/16/24 Lidocaine 5% Patch [Lidoderm] 1 patch TRANSDERM DAILY PRN 01/16/24 01/16/24 Loratadine 10 mg PO DAILY@0800 01/16/24 01/16/24 Meloxicam [Mobic] 7.5 mg PO DAILY@0800 01/16/24 01/16/24 Mirabegron [Myrbetriq] 50 mg PO HS@199901/16/24 01/16/24 QUEtiapine [SEROquel] 150 mg PO HS@199901/16/24 01/16/24 Robafen Dm 200-20mg/20ml 5 ml PO TID PRN 01/16/24 01/16/24 oxyBUTYnin chloride [Ditropan] 5 mg PO DAILY@0800 01/16/24 01/16/24 polyethylene glycoL 3350 [Miralax] 17 gm PO BID@08,199901/16/24 01/16/24 rOPINIRole HCL [Requip] 0.5 mg PO TID PRN 01/16/24 01/16/24 Previous Rx's Medication Instructions Recorded Cephalexin [Keflex] 500 mg PO Q12HR 5 Days #10 cap 01/16/24 Allergies Allergy/AdvReac Type Severity Reaction Status Date / Time lamotrigine Allergy Unknown Verified 01/16/24 11:27 lurasidone [From Latuda] Allergy Unknown Verified 01/16/24 11:27 Benzodiazepines AdvReac SEVERE LEG Verified 01/16/24 11:27 CRAMPS diazepam AdvReac Hallucinati Verified 01/16/24 11:27 ons lithium [[place]] AdvReac Nausea & Verified 01/16/24 11:27 Vomiting simvastatin AdvReac SEVERE LEG Verified 01/16/24 11:27 CRAMPS sulfamethoxazole AdvReac Vomiting Verified 01/16/24 11:27 [From Bactrim] trimethoprim [From Bactrim] AdvReac Vomiting Verified 01/16/24 11:27 Review of Systems ROS Other: All systems not noted in ROS Statement are negative. <Danika Null - Last Filed: 01/16/24 12:06> ROS Other: All systems not noted in ROS Statement are negative. <Mateo De La Garza - Last Filed: 01/16/24 15:44> ROS Statement: Those systems with pertinent positive or pertinent negative responses have been documented in the HPI. Review of Systems: CONST: Denies fever EYES: Denies blurry vision ENT: Denies nasal congestion C/V: Denies Chest pain RESP: Denies shortness of breath GI: Denies abdominal pain : Denies dysuria SKIN: Endorses laceration to right finger MSK: Endorses finger pain, forehead pain NEURO: Denies headache (Mateo De La Garza) Past Medical History Past Medical History: Heart Failure, Eye Disorder, GERD/Reflux, Hyperlipidemia, Hypertension, Osteoarthritis (OA), Pneumonia, Thyroid Disorder Additional Past Medical History / Comment(s): fall.06-17-15 COMM ACQUIRED BACTERIAL PNE/HYPOXIA, FAILED O/P TX. varicose veins, macular degeneration, gl aucoma, hx GENITAL STD-PER PAST MED HX. BRONCHITIS, DJD, MULTIPLE UTI'S STRESS INCOT OF URINE, CONSTIPATION,HIATAL HERNIA PT STATED " THINKS SHE WAS TOLD SHE MAY HAVE A SMALL AORTIC ANUERYSM" NOT SURE. History of Any Multi-Drug Resistant Organisms: None Reported Past Surgical History: Adenoidectomy, Breast Surgery, Hysterectomy, Joint Replacement, Orthopedic Surgery, Tonsillectomy Additional Past Surgical History / Comment(s): contigen injections into bladder, Lt TKA, Bilat cataracts removed, rt breast biopsy-NEG, rt shoulder arthroscopy, colonoscopy/EGD. Past Anesthesia/Blood Transfusion Reactions: No Reported Reaction Past Psychological History: Anxiety, Depression Smoking Status: Former smoker Past Alcohol Use History: None Reported Past Drug Use History: None Reported - Past Family History Father Family Medical History: Cancer Brother(s) Family Medical History: Cancer <Mateo De La Garza - Last Filed: 01/16/24 15:44> General Exam Limitations: no limitations <Mateo De La Garza - Last Filed: 01/16/24 15:44> - General Exam Comments Initial Comments: General: Appears in no acute distress. HEAD: Bruising to the left lateral forehead. Negative Ramirez sign. Negative raccoon eyes. EYES: PERRLA, EOMI, conjunctiva normal, no discharge. Pupils are 3 mm and equal bilaterally. ENT: Hearing grossly intact, normal oropharynx. RESPIRATORY: Clear breath sounds bilaterally. No wheezes, rales, or rhonchi. C/V: Regular rate and rhythm. S1 and S2 auscultated, no edema, peripheral pulses 2+ and intact throughout ABD: Abd is soft, nontender, nondistended EXT: Normal range of motion, no obvious deformity. Pelvis is stable. No step- offs or deformities of the spine. SKIN: 2 cm laceration to the right finger. Linear. NEURO: Alert and oriented x 4. (Mateo De La Garza) Course Vital Signs 01/16/24 01/16/24 01/16/24 08:19 10:45 11:40 Temperature 97.8 F 97.8 F Pulse Rate 57 L 62 60 Respiratory 17 18 17 Rate Blood Pressure 174/89 178/81 158/87 O2 Sat by Pulse 100 98 96 Oximetry 01/16/24 12:19 Temperature 97.7 F Pulse Rate 63 Respiratory 17 Rate Blood Pressure 186/77 O2 Sat by Pulse 96 Oximetry Procedures - Laceration Laceration #1 Consent Obtained: verbal consent Indication: laceration Site: hand Size (cm): 2 Description: linear Depth: simple, single layer Anesthetic Used: lidocaine 1% Anesthesia Technique: local infiltration Amount (mls): 2 Pre-repair: wound explored, irrigated extensively Type of Sutures: nylon Size of Sutures: 5-0 Number of Sutures: 5 Technique: simple, interrupted Patient Tolerated Procedure: well, no complications <Danika Null - Last Filed: 01/16/24 12:06> Medical Decision Making - Lab Data Result diagrams: 01/16/24 08:50 01/16/24 08:50 <Danika Null - Last Filed: 01/16/24 12:06> - Lab Data Result diagrams: 01/16/24 08:50 01/16/24 08:50 - EKG Data -: EKG Interpreted by Me <Mateo De La Garza - Last Filed: 01/16/24 15:44> - Medical Decision Making Was pt. sent in by a medical professional or institution (, OSITO, COMPRESS MACHINE OPERATOR, urgent care, hospital, or custodial...) When possible be specific @ -No Did you speak to anyone other than the patient for history (EMS, parent, family, police, friend...)? What history was obtained from this source @ -No Did you review nursing and triage notes (agree or disagree)? Why? @ -I reviewed and agree with nursing and triage notes Were old charts reviewed (outside hosp., previous admission, EMS record, old EKG, old radiological studies, urgent care reports/EKG's, custodial records)? Report findings @ -No old charts were reviewed Differential Diagnosis (chest pain, altered mental status, abdominal pain women, abdominal pain men, vaginal bleeding, weakness, fever, dyspnea, syncope, headache, dizziness, GI bleed, back pain, seizure, CVA, palpatations, mental health, musculoskeletal)? @ -Differential Musculoskeletal Muscular strain, contusion, ligament sprain, fracture, arthritis, septic arthritis, bursitis, cellulitis, muscle spasm, nerve compression, DVT, arterial occlusion, herpes zoster, electrolyte abnormality, tumor.... This is not meant to be in all inclusive list EKG interpreted by me (3pts min.). @ -As above X-rays interpreted by me (1pt min.). @ -Chest, pelvis x-ray negative for any obvious acute process. Right hand x- ray negative for any obvious traumatic injury CT interpreted by me (1pt min.). @ -CT brain, C-spine, facial bones negative for any obvious acute traumatic injuries. U/S interpreted by me (1pt. min.). @ -None done What testing was considered but not performed or refused? (CT, X-rays, U/S, labs)? Why? @ -None What meds were considered but not given or refused? Why? @ -None Did you discuss the management of the patient with other professionals (professionals i.e. , PA, COMPRESS MACHINE OPERATOR, lab, RT, psych nurse, social media project manager, consulting it architect, teacher, recreation officer, residential case manager)? Give summary @ -No Was smoking cessation discussed for >3mins.? @ -No Was critical care preformed (if so, how long)? @ -No Were there social determinants of health that impacted care today? How? (Homelessness, low income, unemployed, alcoholism, drug addiction, transportation, low edu. Level, literacy, decrease access to med. care, retirement, rehab)? @ -No Was there de-escalation of care discussed even if they declined (Discuss DNR or withdrawal of care, Hospice)? DNR status @ -No What co-morbidities impacted this encounter? (DM, HTN, Smoking, COPD, CAD, Cancer, CVA, ARF, Chemo, Hep., AIDS, mental health diagnosis, sleep apnea, morbi d obesity)? @ -None Was patient admitted / discharged? Hospital course, mention meds given and rout e, prescriptions, significant lab abnormalities, going to OR and other pertinent info. @ -Patient presents as a fall on blood thinners. Does not meet criteria for trauma surgery activation. Signs are within acceptable limits. We will obtain CT imaging the brain, C-spine, facial bones as well as chest and pelvis x-ray with right hand x-ray. General labs will be obtained as well. Patient agree ment this plan. She will be symptomatically treated with IV fluids, and Tylenol. She is up-to-date on tetanus. Imaging negative for injury. Labs remarkable for UTI. Patient's laceration on her finger repaired by assisting midlevel provider. I discussed the workup with the patient. Which she will be given dose of Rocephin as well as a prescription for Keflex for UTI. Strict return precautio ns discussed. She was in agreement this plan. I will provide the patient with a prescription for Keflex. I instructed the patient to follow up with their PCP in the next 1-3 days.. I explained that the patient should return to the emergency department if they experience any worsening symptoms. Strict return precautions were discussed with the patient. The patient expressed understanding of these instructions. I answered all questions that the patient had. The patient was discharged home in good condition with their prescriptions and follow up information. Undiagnosed new problem with uncertain prognosis? @ -No Drug Therapy requiring intensive monitoring for toxicity (Heparin, Nitro, Insu fredi, Cardizem)? @ -No Were any procedures done? @ -Laceration repair Diagnosis/symptom? @ -Fall with finger laceration and repair, UTI, forehead contusion Acute, or Chronic, or Acute on Chronic? @ -Acute Uncomplicated (without systemic symptoms) or Complicated (systemic symptoms)? @ -Uncomplicated Side effects of treatment? @ -No Exacerbation, Progression, or Severe Exacerbation? @ -No Poses a threat to life or bodily function? How? (Chest pain, [place], [place], pneumonia, PE, COPD, DKA, ARF, appy, cholecystitis, CVA, Diverticulitis, Homicidal, Suicidal, threat to staff... and all critical care pts) @ -Unlikely (Mateo De La Garza) - Lab Data Lab Results 01/16/24 01/16/24 01/16/24 Range/Units 08:50 08:50 08:50 WBC 5.0 (3.8-10.6) k/uL RBC 4.29 (3.80-5.40) m/uL Hgb 13.9 (11.4-16.0) gm/dL Hct 42.7 (34.0-46.0) % MCV 99.5 (80.0-100.0) fL MCH 32.4 (25.0-35.0) pg MCHC 32.5 (31.0-37.0) g/dL RDW 12.6 (11.5-15.5) % Plt Count 234 (150-450) k/uL MPV 6.8 Neutrophils % 45 % Lymphocytes % 30 % Monocytes % 11 % Eosinophils % 9 % Basophils % 1 % Neutrophils # 2.2 (1.3-7.7) k/uL Lymphocytes # 1.5 (1.0-4.8) k/uL Monocytes # 0.6 (0-1.0) k/uL Eosinophils # 0.5 (0-0.7) k/uL Basophils # 0.1 (0-0.2) k/uL PT 13.8 H (10.0-12.5) sec INR 1.3 H (<1.2) APTT 24.5 (22.0-30.0) sec Sodium 139 (137-145) mmol/L Potassium 4.7 (3.5-5.1) mmol/L Chloride 108 H (98-107) mmol/L Carbon Dioxide 24 (22-30) mmol/L Anion Gap 7 mmol/L BUN 21 H (7-17) mg/dL Creatinine 0.75 (0.52-1.04) mg/dL Est GFR (CKD-EPI)AfAm 84 (>60 ml/min/1.73 sqM) Est GFR (CKD-EPI)NonAf 73 (>60 ml/min/1.73 sqM) Glucose 80 (74-99) mg/dL Calcium 10.0 (8.4-10.2) mg/dL Total Bilirubin 0.6 (0.2-1.3) mg/dL AST 32 (14-36) U/L ALT 15 (4-34) U/L Alkaline Phosphatase 58 (38-126) U/L Total Protein 6.7 (6.3-8.2) g/dL Albumin 4.1 (3.5-5.0) g/dL Urine Color Urine Appearance (Clear) Urine pH (5.0-8.0) Ur Specific [place] (1.001-1.035) Urine Protein (Negative) Urine Glucose (UA) (Negative) Urine Ketones (Negative) Urine Blood (Negative) Urine Nitrite (Negative) Urine Bilirubin (Negative) Urine Urobilinogen (<2.0) mg/dL Ur Leukocyte Esterase (Negative) Urine RBC (0-5) /hpf Urine WBC (0-5) /hpf Urine Bacteria (None) /hpf Urine Yeast (Budding) (None) /hpf 01/16/24 Range/Units 08:50 WBC (3.8-10.6) k/uL RBC (3.80-5.40) m/uL Hgb (11.4-16.0) gm/dL Hct (34.0-46.0) % MCV (80.0-100.0) fL MCH (25.0-35.0) pg MCHC (31.0-37.0) g/dL RDW (11.5-15.5) % Plt Count (150-450) k/uL MPV Neutrophils % % Lymphocytes % % Monocytes % % Eosinophils % % Basophils % % Neutrophils # (1.3-7.7) k/uL Lymphocytes # (1.0-4.8) k/uL Monocytes # (0-1.0) k/uL Eosinophils # (0-0.7) k/uL Basophils # (0-0.2) k/uL PT (10.0-12.5) sec INR (<1.2) APTT (22.0-30.0) sec Sodium (137-145) mmol/L Potassium (3.5-5.1) mmol/L Chloride (98-107) mmol/L Carbon Dioxide (22-30) mmol/L Anion Gap mmol/L BUN (7-17) mg/dL Creatinine (0.52-1.04) mg/dL Est GFR (CKD-EPI)AfAm (>60 ml/min/1.73 sqM) Est GFR (CKD-EPI)NonAf (>60 ml/min/1.73 sqM) Glucose (74-99) mg/dL Calcium (8.4-10.2) mg/dL Total Bilirubin (0.2-1.3) mg/dL AST (14-36) U/L ALT (4-34) U/L Alkaline Phosphatase (38-126) U/L Total Protein (6.3-8.2) g/dL Albumin (3.5-5.0) g/dL Urine Color Colorless Urine Appearance Clear (Clear) Urine pH 6.5 (5.0-8.0) Ur Specific [place] 1.009 (1.001-1.035) Urine Protein Negative (Negative) Urine Glucose (UA) Negative (Negative) Urine Ketones Negative (Negative) Urine Blood Negative (Negative) Urine Nitrite Positive H (Negative) Urine Bilirubin Negative (Negative) Urine Urobilinogen <2.0 (<2.0) mg/dL Ur Leukocyte Esterase Negative (Negative) Urine RBC 2 (0-5) /hpf Urine WBC 1 (0-5) /hpf Urine Bacteria Many H (None) /hpf Urine Yeast (Budding) Occasional H (None) /hpf - EKG Data EKG Comments: 12-lead Electrocardiogram Interpretation Note EKG was reviewed and interpreted by myself. 12-lead ECG performed at 0900 is interpreted by me as revealing normal sinus rhythm at a rate of 58 beats per minute. [place] is normal. [place] interval is 330 ms, QRS duration is 101 ms, QTc is 455 ms. PVC present.. There were no ST or T wave abnormalities to suggest myocardial ischemia or injury. R wave progression across the precordium was satisfactory. By my interpretation this EKG is non-diagnostic for acute ischemia. (Mateo De La Garza) Disposition <Danika Null - Last Filed: 01/16/24 12:06> Is patient prescribed a controlled substance at d/c from ED?: No Time of Disposition: 12:00 <Mateo De La Garza - Last Filed: 01/16/24 15:44> Clinical Impression: Fall, Finger laceration, Forehead contusion, UTI (urinary tract infection) Disposition: ADMITTED IP TO THIS HOSP Condition: Stable Instructions (If sedation given, give patient instructions): Fall Prevention (ED), Care For Your Stitches (DC) Prescriptions: Cephalexin [Keflex] 500 mg PO Q12HR 5 Days #10 cap Referrals: Vladislav Maciel MD [Primary Care Provider] - 1-2 days
[2024-01-16] MEDS: cefTRIAXone IN SWFI 1,000 MG/10 ML SYRINGE IVP STA (12:19)
[2024-01-16 12:22] VITALS: BP 186/77; PULSE 63; TEMP 97.7
== END 2024-01-16 12:40 | disposition other institution (70) ==
LOC: EC 08:17
CPT/HCPCS: 12001; 36415; 70450; 70486; 71046; 72125; 72170; 80053; 81001; 85025; 85610; 85730; 93005; 96361; 96374; 99285

== ENCOUNTER → 2024-10-09 | Outpatient (CLI) | payer MEDICARE, BC ==
[2024-10-09 12:24] LABS: African American GFR (CKD) 77 (>60 ml/min/1.73 sqM); Blood Urea Nitrogen 22 mg/dL (7-17); Non-African American GFR(CKD) 66 (>60 ml/min/1.73 sqM)
--- NOTE | 2024-10-09 13:26 | CT ---
EXAMINATION TYPE: CT chest w con DATE OF EXAM: 10/09/2024 12:58 PM COMPARISON: 01/16/2024. CLINICAL INDICATION: Female, 88 years old with history of R91.8 ABN FIND OF LUNG FIELD; PHH, Abnormal findings on lung us TECHNIQUE: Multiple axial images were obtained through the chest. Sagittal and coronal reformats were created for review. MIP was performed on a separate workstation. Contrast used:100ml mL of Isovue 300 with IV Contrast (None if empty) Oral contrast used: (None if empty) CT DLP: 374.5 mGycm, Automated exposure control for dose reduction was used. FINDINGS: LUNGS/ PLEURA: No focal consolidation, pneumothorax or pleural effusion. AIRWAY: Patent and unremarkable. HEART: Cardiomegaly is demonstrated. Mild coronary artery calcifications present. MEDIASTINUM: No gross evidence of adenopathy. VASCULATURE: No aortic aneurysm. The pulmonary trunk is dilated up to 41 mm. MUSCULOSKELETAL: Severe disc degeneration changes are present throughout the thoracolumbar spine seco ndary to osteophyte formation and facet joint arthropathy. Compression deformities at T12 with comple te height loss centrally. Compression deformity at T11 with 25% height loss. Increased kyphosis proce ss of the breasts explained. SOFT TISSUES/LYMPH NODES: Unremarkable. LOWER NECK: No significant findings. UPPER ABDOMEN: Diffuse low-attenuation to the liver parenchyma. Gallstones in the gallbladder lumen. Simple appearing hepatic cyst. No follow-up required. Scattered colonic diverticula. IMPRESSION: 1. No evidence for acute thoracic process. 2. No suspicious pulmonary nodules. 3. Mild cardiomegaly with pulmonary hypertension. 4. Mild coronary artery atherosclerosis. 5. Hepatic steatosis. 6. Cholelithiasis. 7. Simple appearing renal cyst. No follow-up recommended. Colonic diverticulosis. [facility], , 10/09/2024 1:24 PM
== END | disposition home or self-care (01) ==
LOC: RADCTMAIN 11:40
PROVIDERS: ATTEND Family Medicine
DX: R91.8 Other nonspecific abnormal finding of lung field (principal); I27.20 Pulmonary hypertension, unspecified; K76.0 Fatty (change of) liver, not elsewhere classified; K80.20 Calculus of gallbladder without cholecystitis without obstruction; N28.1 Cyst of kidney, acquired; I25.10 Atherosclerotic heart disease of native coronary artery without angina pectoris; I51.7 Cardiomegaly; K57.30 Diverticulosis of large intestine without perforation or abscess without bleeding
CPT/HCPCS: 82565; 84520; 71260; 36415; Q9967